=== PATIENT | female | born 1990 | race Caucasian/White ===

== ENCOUNTER 2018-03-09 15:28 | Emergency (ER) | payer MEDICAID, SELFPAY ==
[2018-03-09 15:30] VITALS: BP 125/71; PULSE 115; RESP 16; TEMP 36.9; O2SAT 98; BMI 32.2
--- NOTE | 2018-03-09 15:42 | ED.DCSUM_ITS ---
- ER Visit Summary Date of Service: 03/09/18 Chief Complaint: Sore throat, cold symptoms History of Present Illness: The patient is a 27 F with a 2 day history of sore throat, swollen lymph nodes in her neck. Supportive fever. She denies cough. She has no known exposure to strep. She has 2 children, one of which has a runny nose currently. Physical Examination: Vital signs in triage are significant for heart rate 115, otherwise unremarkable. Patient sitting upright in bed no acute distress. She is nontoxic appearing. Head and neck examination reveals TMs to be clear bilaterally. She does have 2 + tonsils with mild erythema. There is mild posterior pharyngeal drainage. There is no exudate. Uvula is midline. She speaks with a strong voice and is tolerating secretions well. She does have bilateral anterior cervical lymphadenopathy. Heart is regular rate and rhythm. Lung sounds are clear. Abdomen is soft nontender. Skin examination was no rash or lesions. Test Results: [] Emergency Department Course and Treatment: Patient has for the 5 Centor Criteria and will be treated for presumed strep. Should be given first dose of Zithromax here. Treatment Plan: [] Disposition: Discharge Impression: Pharyngitis, presumed strep This note was generated with [employer] dictation software. It may contain incorrect words, spelling, and punctuation that were not noted in review of the chart prior to signing ED Disposition - Plan for ED Patient: Chief Complaint: Sore Throat
--- NOTE | 2018-03-09 15:42 | ED.DEP ---
ED Disposition - Plan for ED Patient: Disposition: Home or Assisted Living Chief Complaint: Sore Throat Instructions: ED Strep Pharyngitis Poss Prescriptions: Azithromycin [Zithromax] 250 mg PO DAILY #4 tablet Referrals: Anjana Mendoza DO [NON-STAFF] - As Needed
[2018-03-09] MEDS: Azithromycin 250 MG Tablet 500 MG PO (15:57)
[2018-03-09 15:59] VITALS: RESP 18; O2SAT 98
== END 2018-03-09 15:59 | disposition home or self-care (01) ==
LOC: ED 15:54
PROVIDERS: Emergency Provider Emergency Medicine
DX: J02.9 Acute pharyngitis, unspecified (principal); R59.0 Localized enlarged lymph nodes
CPT/HCPCS: 99283

== ENCOUNTER 2019-01-23 00:12 | Emergency (ER) | payer MEDICAID, SELFPAY ==
[2019-01-23 00:15] VITALS: BP 112/70; PULSE 98; RESP 18; TEMP 37.3; O2SAT 98; BMI 33.9
--- NOTE | 2019-01-23 00:53 | ED.DCSUM_ITS ---
- ER Visit Summary Date of Service: 01/23/19 Chief Complaint: [] Red skin abscess History of Present Illness: The patient is a 28 F stated that 2 days ago she developed a left forehead sore. It came on after she did a charcoal facemask. It is in her left forehead. She squeezed a mild amount of purulence. Just has a scab over it now. It is mildly sore. Patient stated 3 days ago she noticed a pimple behind her left hamstring. She said some redness. She squeezed some mild purulence out of it. No longer getting any drainage. Denies any IV drug use. Current severity is mild. Physical Examination: [] Vital signs reviewed General: Well-nourished well-developed Head: Normocephalic atraumatic Eyes: Pupils equal round and reactive to light extraocular movements intact ENT: TMs clear no hemotympanum no trauma Neck: Nontender full range of motion Cardiovascular: Regular rate rhythm no murmurs normal S1-S2 Respiratory: No distress clear to auscultation bilaterally chest nontender Abdomen: Soft nontender nondistended normal bowel sounds no masses Back: Nontender no CVA tenderness Extremities: Nontender active range of motion ?4 extremities no trauma Skin: Patient has a 0.5 x 0.5 cm boil to her left forehead. It is hard. It has a central scab. There is no purulence. There is no surrounding cellulitis. Patient has a 3 inch by 3 cellulitis to her posterior hamstring. The center of the patient has some mild induration. There is no abscess to drain. There is no bogginess. It is indurated and hard centrally. Neuro alert oriented cranial nerves II through XII intact normal strength sensation reflexes Test Results: [] Emergency Department Course and Treatment: [] This time I feel the patient warrants Bactrim for suspected MRSA skin infections. She will also be given Keflex for cellulitis. I do not think there is anything to drain at this time. The patient will continue warm compresses. She will be given a short course of pain medicine we will follow-up as an outpatient. She will return if things worsen. Treatment Plan: [] Disposition: [] Impression: [] Left forehead boil Left posterior hamstring cellulitis This note was generated with [employer] software. It may contain incorrect words, spelling, and punctuation that were not noted in review of the chart prior to signing ED Disposition - Plan for ED Patient: Referrals: Care Physician,No Primary [Primary Care Provider] -
--- NOTE | 2019-01-23 00:53 | ED.DEP ---
ED Disposition - Plan for ED Patient: Disposition: Home or Assisted Living Instructions: ED Staph Infec Abx Tx Only Prescriptions: Hydrocodone Bitart/Apap 5-325 [[place] 5MG-325MG] 1 tab PO Q6H PRN PRN 3 Days #10 tab PRN Reason: Pain Cephalexin [Keflex] 500 mg PO Q6 #28 cap Smz/Tmp Ds [Bactrim Ds] 1 tab PO BID #14 tab Mupirocin [Bactroban] 1 applic TOPICAL TID #1 tube Referrals: Care Physician,No Primary [Primary Care Provider] - Tian Hercules DO [NON CLINICAL AFFILIATE] -
--- NOTE | 2019-01-23 00:56 | DCINST.ED_ITS ---
ED Disposition - Plan for ED Patient: Disposition: Home or Assisted Living Instructions: ED Staph Infec Abx Tx Only Prescriptions: Hydrocodone Bitart/Apap 5-325 [[place] 5MG-325MG] 1 tab PO Q6H PRN PRN 3 Days #10 tab PRN Reason: Pain Cephalexin [Keflex] 500 mg PO Q6 #28 cap Smz/Tmp Ds [Bactrim Ds] 1 tab PO BID #14 tab Mupirocin [Bactroban] 1 applic TOPICAL TID #1 tube Referrals: Care Physician,No Primary [Primary Care Provider] - Tian Hercules DO [NON CLINICAL AFFILIATE] -
[2019-01-23] MEDS: Smz/Tmp Ds Tablet 2 TABLET PO (01:04)
[2019-01-23] MEDS: Cephalexin 250 MG Capsule 500 MG PO (01:05)
== END 2019-01-23 01:07 | disposition home or self-care (01) ==
PROVIDERS: Emergency Provider Emergency Medicine
DX: L02.02 Furuncle of face (principal); L03.116 Cellulitis of left lower limb; Z72.0 Tobacco use
CPT/HCPCS: 99283

== ENCOUNTER 2019-01-25 01:09 | Emergency (ER) | payer MEDICAID, SELFPAY ==
[2019-01-25 01:11] VITALS: BP 131/80; PULSE 103; RESP 15; TEMP 36.4; O2SAT 99; BMI 34.4
--- NOTE | 2019-01-25 03:23 | ED.VISSUMM ---
- ER Visit Summary Date of Service: 01/25/19 Chief Complaint: Abscess History of Present Illness: The patient is a 28 F who presents with an abscess. She began to have pain and redness of the left thigh and left forehead 2 days ago. She was seen in the emergency department and started on Keflex and Bactrim. She states symptoms continue to worsen. She also complains of nausea. No fevers. No vomiting. No history of prior similar symptoms. Physical Examination: Afebrile heart rate 103 vitals otherwise normal Moist mucous membranes Heart regular rate and rhythm Lungs clear Patient has an abscess on the left forehead, there is an area of induration with a small eschar over the posterior left thigh and erythema consistent with slowly a cellulitis surrounding this. This is tense and difficult to appreciate fluctuance Test Results: Bedside [id number] ultrasound does show a fluid collection Emergency Department Course and Treatment: After informed consent patient agreed to incision and drainage. Area was cleansed with alcohol. However with attempted injection of 1% lidocaine even with a very small amount roughly 1/2-1 cc of infiltration the patient began to cry and scream and demand that the needle be removed. She is requesting that I put her to sleep for this. Given that the abscesses on the posterior thigh positioning would be difficult. I do not feel this was appropriate to perform procedural sedation as a single provider overnight in the emergency department. We discussed waiting until morning until second provider was here versus outpatient referral to a surgeon. The patient states that she wants a surgeon would rather follow-up with a surgeon. She was referred to Dr. Jones. She understands to return for new or worsening symptoms. She was discharged. Treatment Plan: [] Disposition: Discharge Impression: Left thigh abscess with cellulitis Left forehead abscess This note was generated with [employer] dictation software. It may contain incorrect words, spelling, and punctuation that were not noted in review of the chart prior to signing ED Disposition - Plan for ED Patient: Referrals: Care Physician,No Primary [Primary Care Provider] -
--- NOTE | 2019-01-25 03:29 | ED.DCSUM_ITS ---
- ER Visit Summary Date of Service: 01/25/19 Chief Complaint: Abscess History of Present Illness: The patient is a 28 F who presents with an abscess. She began to have pain and redness of the left thigh and left forehead 2 days ago. She was seen in the emergency department and started on Keflex and Bactri m. She states symptoms continue to worsen. She also complains of nausea. No fevers. No vomiting. No history of prior similar symptoms. Physical Examination: Afebrile heart rate 103 vitals otherwise normal Moist mucous membranes Heart regular rate and rhythm Lungs clear Patient has an abscess on the left forehead, there is an area of induration with a small eschar over the posterior left thigh and erythema consistent with slowly a cellulitis surrounding this. This is tense and difficult to appreciate fluctuance Test Results: Bedside [id number] ultrasound does show a fluid collection Emergency Department Course and Treatment: After informed consent patient agreed to incision and drainage. Area was cleansed with alcohol. However with attempted injection of 1% lidocaine even with a very small amount roughly 1/2-1 cc of infiltration the patient began to cry and scream and demand that the needle be removed. She is requesting that I put her to sleep for this. Given that the abscesses on the posterior thigh positioning would be difficult. I do not feel this was appropriate to perform procedural sedation as a single provider overnight in the emergency department. We discussed waiting until morning until second provider was here versus outpatient referral to a surgeon. The patient states that she wants a surgeon would rather follow-up with a surgeon. She was referred to Dr. Jones. She understands to return for new or worsening symptoms. She was discharged. Treatment Plan: [] Disposition: Discharge Impression: Left thigh abscess with cellulitis Left forehead abscess This note was generated with [employer] dictation software. It may contain incorrect words, spelling, and punctuation that were not noted in review of the chart prior to signing ED Disposition - Plan for ED Patient: Referrals: Care Physician,No Primary [Primary Care Provider] -
--- NOTE | 2019-01-25 03:29 | ED.DEP ---
ED Disposition - Plan for ED Patient: Instructions: ED Staph Infec Abx Tx Only, ED Infec Skin Cellulitis Referrals: Care Physician,No Primary [Primary Care Provider] - Jer Jones MD [STAFF PHYSICIAN] -
== END 2019-01-25 03:34 | disposition home or self-care (01) ==
PROVIDERS: Emergency Provider Emergency Medicine
DX: L02.416 Cutaneous abscess of left lower limb (principal); L02.01 Cutaneous abscess of face; L03.116 Cellulitis of left lower limb; Z72.0 Tobacco use; Z79.2 Long term (current) use of antibiotics
CPT/HCPCS: 10060; 99282

== ENCOUNTER 2019-08-23 09:26 | Inpatient (IN) | payer MEDICAID, SELFPAY ==
[2019-08-23 09:27] VITALS: BP 131/77; PULSE 100; RESP 20; TEMP 37.2; O2SAT 100; BMI 32.2
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
[2019-08-23] MEDS: Ceftriaxone 1 GM/50 ML BAG IV (10:22)
[2019-08-23] MEDS: 0.9% Normal Saline 1,000 ML 1000 ML IV (10:22)
[2019-08-23 10:31] LABS: Absolute Lymphocyte Count 2.05 X10^3/uL (0.83-4.51); Absolute Neutrophil Count 9.7 X10^3/uL (2.0-7.7); Basophil# 0.02 X10^3/uL; Basophil% 0.2 % (0-1); Eosinophil# 0.23 X10^3/uL; Eosinophils% 1.8 % (0-5); Hematocrit 33.6 % (37-47); Hemoglobin 10.9 g/dL (12.0-15.0); Lymphocyte # 2.05 X10^3/ul (4.0); Mean Corp Hgb Conc 32.4 g/dL (32-36); Mean Corpuscular Hgb 28.8 pg (27.0-32.0); Mean Corpuscular Volume 88.9 fL (81-99); Mean Platelet Vol. 9.8 fl (6.2-12.0); Monocyte# 0.72 X10^3/uL; Monocyte% 5.6 % (0-10); NRBC Flagged by Analyzer 0 % (0-5); Neutrophil # 9.71 X10^3/uL (2.7-7.7); Neutrophil % 75.9 % (47-70); Platelet Count 218 K/mm3 (150-450); RBC Distribution Width SD 41.9 fl (35.1-43.9); Red Blood Count 3.78 M/mm3 (4.2-5.4); White Blood Count 12.8 K/mm3 (4.4-11.0)
[2019-08-23] MEDS: Acetaminophen 500 MG Tablet 1000 MG PO (10:35)
--- NOTE | 2019-08-23 10:43 | RAD_ITS ---
STUDY: X-RAY - RIGHT FOOT CLINICAL: Female, 28 years old. Infection and cellulitis. TECHNIQUE: 3 view(s) of the foot. COMPARISON: None. FINDINGS: Normal talus, calcaneus, and tarsal bones. Normal visualized subtalar, talonavicular, calcaneocuboid, tarsal and tarsometatarsal articulations. Normal metatarsi. Normal metatarsophalangeal joint of the great toe. Normal tibial and fibular sesamoid bones. Normal interphalangeal joint of the great toe. Normal phalanges of the great toe. Normal second through fifth metatarsophalangeal joints. Normal interphalangeal joints and phalanges of the lesser toes. There is soft tissue swelling of the distal foot. RAD/Foot min 3 Views IMPRESSION: 1. Soft tissue swelling. 2. No demonstrated acute osseous changes. Electronically Signed: Seng Aguilar MD at 11:28 EDT Tel , Service support ,
[2019-08-23 10:44] LABS: Anion Gap 6 (5-15); BUN 13 mg/dL (7-18); BUN/Creat Ratio 23.7 RATIO (10-20); Calcium,Total 8.3 mg/dL (8.5-10.1); Chloride 107 mmol/L (98-107); Creatinine, Serum 0.55 mg/dL (0.55-1.02); EST Glomerular Filtration Rate 140 mL/min (>60); Est Glom Filt Rate - Afr Amer 169 mL/min (>60); Estimated Creatinine Clearance 109.38 ml/min; Glucose 88 mg/dL (74-106); Potassium 3.3 mmol/L (3.5-5.1); Sodium Level 141 mmol/L (136-145)
[2019-08-23 11:12] VITALS: BP 95/64; PULSE 88; RESP 16; TEMP 36.9; O2SAT 98
[2019-08-23 11:12] LABS: Lactic Acid 1.1 mmol/L (0.4-2.0)
--- NOTE | 2019-08-23 11:53 | NURSING ---
Patient refusing to give urine sample. Dr Martinez notified
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
--- NOTE | 2019-08-23 12:19 | NURSING ---
321 OBS RT LOWER EXT FOOT INFECTION, HX OF IV DRUG ABUSE LINDA
[2019-08-23 12:50] VITALS: BMI 33.3
[2019-08-23 13:07] LABS: Internal QC Validated? YES +Cl - CLEAR BKGD; Pregnancy, Serum, hCG Quali. NEGATIVE Negative
[2019-08-23 13:10] LABS: Uric Acid 2.5 mg/dL (2.6-6.0)
[2019-08-23 13:45] VITALS: BP 110/75; PULSE 80; RESP 18; TEMP 36.6; O2SAT 100
[2019-08-23] MEDS: Cefazolin 1 GM/50 ML BAG IV ×2 (13:59→22:01)
[2019-08-23] MEDS: 0.9% NaCl IVPB Med Flush (250 mL) 15 ML IV (14:00)
[2019-08-23 15:56] LABS: Color, Urine Yellow (Yellow); Glucose, Dipstick Normal (Normal); Ketone-Dipstick Negative (Negative); Leukocyte Esterase-Dipstick Negative /ul (Negative); Nitrite-Dipstick Positive (Negative); Occult Blood-Urine 250 /ul (Negative); Protein-Dipstick 15 mg/dl (Negative); Specific Gravity, Urine 1.015 (1.002-1.030); Urine Bilirubin Dipstick Negative (Negative); Urine Clarity Sl. Cloudy (Clear); Urine Urobilinogen 1 mg/dl (Normal); Urine pH 6.5 (5.0 - 8.0)
[2019-08-23 16:06] LABS: Amphetamine Urine VISTA POSITIVE (<1000 ng/mL); Barbiturate Urine VISTA NEGATIVE (< 200 ng/mL); Benzodiazepine Urine VISTA NEGATIVE (< 200 ng/mL); Cocaine Urine VISTA NEGATIVE (< 300 ng/mL); Ecstacy Urine VISTA POSITIVE (< 500 ng/mL); Methadone Urine VISTA NEGATIVE (< 300 ng/mL); PCP Urine VISTA NEGATIVE (< 25 ng/mL); THC Urine VISTA NEGATIVE (< 50 ng/mL); Vista UDS pH Range 6
[2019-08-23] MEDS: Acetaminophen 325 MG Tablet 650 MG PO ×2 (17:21→23:31)
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
[2019-08-23 22:02] VITALS: BP 104/72; PULSE 88; RESP 16; TEMP 36.9; O2SAT 92
[2019-08-24 04:07] VITALS: BP 122/75; PULSE 89; RESP 16; TEMP 36.9; O2SAT 100
[2019-08-24] MEDS: Ibuprofen 400 MG Tablet PO (04:11)
[2019-08-24] MEDS: Cefazolin 1 GM/50 ML BAG IV ×2 (06:37→13:43)
[2019-08-24] MEDS: 0.9% NaCl Peripheral Flush Adult/Peds IV ×2 (06:37→17:21)
[2019-08-24 08:04] LABS: BUN 9 mg/dL (7-18); Glucose 89 mg/dL (74-106)
[2019-08-24 08:05] LABS: Anion Gap 7 (5-15); BUN/Creat Ratio 19.6 RATIO (10-20); Calcium,Total 8.1 mg/dL (8.5-10.1); Chloride 110 mmol/L (98-107); Creatinine, Serum 0.46 mg/dL (0.55-1.02); EST Glomerular Filtration Rate 172 mL/min (>60); Est Glom Filt Rate - Afr Amer 208 mL/min (>60); Estimated Creatinine Clearance 130.79 ml/min; Potassium 3.7 mmol/L (3.5-5.1); Sodium Level 143 mmol/L (136-145)
[2019-08-24] MEDS: Enoxaparin 40 MG/0.4 ML Syringe SC (08:29)
[2019-08-24 08:34] VITALS: BP 108/62; PULSE 81; RESP 18; TEMP 36.7; O2SAT 99
[2019-08-24 08:50] LABS: Hemoglobin 10.3 g/dL (12.0-15.0); Mean Corp Hgb Conc 32.2 g/dL (32-36); Mean Corpuscular Hgb 27.9 pg (27.0-32.0); Mean Corpuscular Volume 86.7 fL (81-99); RBC Distribution Width CV 12.8 % (11.6-14.6); Red Blood Count 3.69 M/mm3 (4.2-5.4); White Blood Count 9.7 K/mm3 (4.4-11.0)
[2019-08-24 08:51] LABS: Absolute Lymphocyte Count 2.14 X10^3/uL (0.83-4.51); Absolute Neutrophil Count 6.4 X10^3/uL (2.0-7.7); Basophil# 0.02 X10^3/uL; Basophil% 0.2 % (0-1); Eosinophil# 0.39 X10^3/uL; Lymphocyte # 2.14 X10^3/ul (4.0); Lymphocyte % 22.1 % (19-41); Mean Platelet Vol. 10.8 fl (6.2-12.0); Monocyte# 0.67 X10^3/uL; Monocyte% 6.9 % (0-10); Neutrophil % 66.3 % (47-70); Platelet Count 230 K/mm3 (150-450); RBC Distribution Width SD 40.9 fl (35.1-43.9)
[2019-08-24 08:52] LABS: NRBC Flagged by Analyzer 0 % (0-5)
[2019-08-24] MEDS: predniSONE 20 MG Tablet 40 MG PO (11:35)
[2019-08-24 13:45] VITALS: BP 110/69; PULSE 85; RESP 18; TEMP 36.4; O2SAT 100
[2019-08-24] MEDS: Acetaminophen 325 MG Tablet 650 MG PO (13:45)
--- NOTE | 2019-08-24 14:01 | PN_ITS ---
Patient Problems: Active and Suspected Problems Foot infection (Acute) IV drug abuse (Acute) Cellulitis (Acute) Sepsis (Acute) Subjective: Still with swelling in foot, but slightly less after prednisone. Complains of pain in dorsum of foot. Vitals/I&O's: Vital Signs Temp Pulse Resp BP Pulse Ox 36.4 C L 85 18 110/69 100 08/24/19 13:45 08/24/19 13:45 08/24/19 13:45 08/24/19 13:45 08/24/19 13:45 Oxygen Delivery Method Room Air Weight: 77.3 kg Body Mass Index (BMI) 33.3 Intake and Output for Last 24 Hours 08/22/19 08/23/19 08/24/19 23:59 23:59 23:59 Intake Total 2515.5 / 2515.5 810.75 / 810.75 Balance 2515.5 / 2515.5 810.75 / 810.75 General: Alert, No apparent distress HEENT: Atraumatic, Normocephalic Oral: Moist Mucosa, No Gingival or Mucosal Lesions/ Ulcerations Neck: No Nodes, Thyroid Normal Size and Texture Lungs: Clear to auscultation, Normal air movement, No rhonchi, No wheeze Cardiovascular: Regular rate, Regular Rhythm, Normal S1, Normal S2 Abdomen: Bowel Sounds Present, Soft, Non Tender, Non-Distended Extremities: - - decreased edema on dorsum of right foot. pain and swelling of right 1st MTP. Skin: - - decreased erythema of right foot. resolved lymphangitis. Psych/Mental Status: Anxious Laboratory Results 08/23/19 13:00: Urine Color Yellow, Urine Clarity Sl. Cloudy, Urine pH 6.5, Ur Specific [place] 1.015, Urine Protein 15 H, Urine Glucose (UA) Normal, Urine Ketones Negative, Urine Occult Blood 250 H, Urine Nitrite Positive H, Urine Bilirubin Negative, Urine Urobilinogen 1 H, Ur Leukocyte Esterase Negative 08/23/19 13:00: Urine Opiates Screen NEGATIVE, Urine Methadone Screen NEGATIVE, Ur Barbiturates Screen NEGATIVE, Ur Phencyclidine Scrn NEGATIVE, Ur Amphetamines Screen POSITIVE H, U Methamphetamin-MDMA POSITIVE H, U Benzodiazepines Scrn NEGATIVE, Urine Cocaine Screen NEGATIVE, U Cannabinoids Screen NEGATIVE, Ur Drug Screen Comment 08/24/19 05:54: WBC 9.7, RBC 3.69 L, Hgb 10.3 L, Hct 32.0 L, MCV 86.7, MCH 27.9, MCHC 32.2, RDW Std Deviation 40.9, RDW Coeff of Severiano 12.8, Plt Count 230, MPV 10.8, Immature Gran % (Auto) 0.050, Neut % (Auto) 66.3, Lymph % (Auto) 22.1, [place] % (Auto) 6.9, Eos % (Auto) 4.0, Baso % (Auto) 0.2, Absolute Neuts (auto) 6.4, Absolute Lymphs (auto) 2.14, Nucleated RBC % 0 08/24/19 05:54: Sodium 143, Potassium 3.7, Chloride 110 H, Carbon Dioxide 26.0, Anion Gap 7, BUN 9, Creatinine 0.46 L, Estim Creat Clear Calc 130.79, Est GFR (MDRD) Af Amer 208, Est GFR (MDRD) Non-Af 172, BUN/Creatinine Ratio 19.6, Glucose 89, Calcium 8.1 L Current Medications Acetaminophen (Tylenol) 650 mg PO Q6H PRN PRN PRN Reason: Mild Pain (1-3)/Temp > 100.7 F Last Admin: 08/24/19 13:45 Dose: 650 mg Documented by: Dextrose (D50w Syringe) 0 gm IV X1 PRN; Protocol PRN Reason: Hypoglycemia Enoxaparin Sodium (Lovenox) 40 mg SC DAILY@1000 DOMONIQUE Last Admin: 08/24/19 08:29 Dose: 40 mg Documented by: Glucagon () 1 mg IM .X1 PRN PRN Reason: Hypoglycemia Cefazolin Sodium () 1 gm in 50 mls @ 150 mls/hr IV Q8 DOMONIQUE Last Admin: 08/24/19 13:43 Dose: 150 mls/hr Documented by: Sodium Chloride () 250 mls @ 15 mls/hr IV .[id number] PRN PRN Reason: SALINE FLUSH Last Infusion: 08/24/19 13:47 Dose: 0 mls/hr Documented by: Ibuprofen (Motrin) 400 mg PO Q4H PRN PRN PRN Reason: Mild Pain (1-3)/Temp > 100.7 F Last Admin: 08/24/19 04:11 Dose: 400 mg Documented by: Nicotine (Nicoderm Cq (Pbkc)) 21 mg TRANSDERM. DAILY DOMONIQUE Last Admin: 08/24/19 08:30 Dose: 21 mg Documented by: Ondansetron HCl (Zofran) 4 mg IV Q8H PRN PRN PRN Reason: NAUSEA/VOMITING Prednisone () 40 mg PO DAILY@0800 DOMONIQUE Stop: 08/29/19 08:01 Sodium Chloride () 5 - 15 ml IV UD PRN PRN Reason: SALINE FLUSH Last Admin: 08/24/19 06:37 Dose: 10 ml Documented by: Medical Necessity - Tobacco Use Smoking Status: Current every day smoker Tobacco Use: Cigarettes Assessment/Plan All Active Problems Foot infection (Acute) IV drug abuse (Acute) Cellulitis (Acute) Sepsis (Acute) 1. Sepsis: * POA, 2/2 SIRS criteria met * supportive mgmt * possibly due to cellulitis v acute gout flare * clinically resolved 2. RLE cellulitis v acute gout flare * cefazolin (rec'd ctx and vanc in ED) * erythema resolved, however, still with swelling on dorsum on foot (though decreased) and now with increased right 1st MTP swelling and pain more suggestive of an acute gout flare. * uric acid level 2.5, which is normal, but does not rule out an acute gout flare * patient did have improvement with prednisone and colchicine. * Plan is to stop antibiotics, watch patient overnight, if improved, then to discharge with prednisone 40 burst. If worse, then resume abx (cefazolin), consider arthrocentesis. * I am reluctant to discharge the patient today as she has no PCP, I would like to see her much more improved prior to DC. 3. VTE proph: moderate risk, LMWH. Code Visit OBSV E&M: [id number] Subsequent observation care L2
[2019-08-24] MEDS: Ketorolac 15 MG/ML Vial IV (17:21)
[2019-08-24 20:24] VITALS: BP 121/76; PULSE 82; RESP 18; TEMP 36.8; O2SAT 100
[2019-08-24 22:04] LABS: Absolute Lymphocyte Count 0.86 X10^3/uL (0.83-4.51); Absolute Neutrophil Count 9.2 X10^3/uL (2.0-7.7); Basophil# 0.01 X10^3/uL; Basophil% 0.1 % (0-1); Eosinophil# 0.01 X10^3/uL; Eosinophils% 0.1 % (0-5); Hematocrit 34.1 % (37-47); Hemoglobin 10.9 g/dL (12.0-15.0); Lymphocyte # 0.86 X10^3/ul (4.0); Lymphocyte % 8.3 % (19-41); Mean Corpuscular Hgb 28.1 pg (27.0-32.0); Mean Corpuscular Volume 87.9 fL (81-99); Monocyte# 0.25 X10^3/uL; Monocyte% 2.4 % (0-10); NRBC Flagged by Analyzer 0 % (0-5); Neutrophil # 9.23 X10^3/uL (2.7-7.7); Neutrophil % 88.5 % (47-70); Platelet Count 267 K/mm3 (150-450); RBC Distribution Width CV 12.4 % (11.6-14.6); RBC Distribution Width SD 39.8 fl (35.1-43.9); Red Blood Count 3.88 M/mm3 (4.2-5.4); White Blood Count 10.4 K/mm3 (4.4-11.0)
[2019-08-25] MEDS: Acetaminophen 325 MG Tablet 650 MG PO (00:05)
[2019-08-25] MEDS: 0.9% NaCl Peripheral Flush Adult/Peds IV ×6 (00:06→23:00)
[2019-08-25] MEDS: Ketorolac 15 MG/ML Vial IV ×5 (00:07→22:59)
[2019-08-25 02:51] VITALS: BP 122/79; PULSE 75; RESP 18; TEMP 36.6; O2SAT 100
--- NOTE | 2019-08-25 08:05 | PCM.PN.HOSP ---
Patient Problems: Active and Suspected Problems Foot infection (Acute) IV drug abuse (Acute) Cellulitis (Acute) Sepsis (Acute) Subjective: CC: Follow-up right foot cellulitis Patient is a 28-year-old lady with history of IVDA presented with swelling involving the right foot diagnosis of right lower extremity cellulitis made admitted to a regular nursing for further management. There was also a question of whether patient had gout was started on colchicine in addition to steroids. Objective: GENERAL: cooperative HEENT: Atraumatic; moist oral mucosa EYES; Anicteric, Normal Conjunctiva NECK; supple, normal thyroid, RESPIRATORY: Diminished to auscultation CARDIOVASCULAR: Regular S1 S2, GI: soft, non-tender, normoactive bowel sounds, : No Renal angle tenderness; EXTREMITIES: Swelling and erythema involving the dorsal surface of the right foot MUSCULOSKELETAL: Movement in right MTP restricted NEURO: Awake; no lateralizing signs. SKIN: Described above PSYCH; Normal affect Vitals/I&O's: Vital Signs Temp Pulse Resp BP Pulse Ox 98 F 75 18 122/79 H 100 08/25/19 02:51 08/25/19 02:51 08/25/19 02:51 08/25/19 02:51 08/25/19 02:51 Oxygen Delivery Method Room Air Weight: 77.3 kg Body Mass Index (BMI) 33.3 Intake and Output for Last 24 Hours 08/23/19 08/24/19 08/25/19 23:59 23:59 23:59 Intake Total 2515.5 / 2515.5 1359.50 / 2096.50 974 / 974 Balance 2515.5 / 2515.5 1359.50 / 2096.50 974 / 974 Laboratory Results 08/24/19 05:54: WBC 9.7, RBC 3.69 L, Hgb 10.3 L, Hct 32.0 L, MCV 86.7, MCH 27.9, MCHC 32.2, RDW Std Deviation 40.9, RDW Coeff of Severiano 12.8, Plt Count 230, MPV 10.8, Immature Gran % (Auto) 0.050, Neut % (Auto) 66.3, Lymph % (Auto) 22.1, [place] % (Auto) 6.9, Eos % (Auto) 4.0, Baso % (Auto) 0.2, Absolute Neuts (auto) 6.4, Absolute Lymphs (auto) 2.14, Nucleated RBC % 0 08/24/19 05:54: Sodium 143, Potassium 3.7, Chloride 110 H, Carbon Dioxide 26.0, Anion Gap 7, BUN 9, Creatinine 0.46 L, Estim Creat Clear Calc 130.79, Est GFR (MDRD) Af Amer 208, Est GFR (MDRD) Non-Af 172, BUN/Creatinine Ratio 19.6, Glucose 89, Calcium 8.1 L 08/24/19 22:00: WBC 10.4, RBC 3.88 L, Hgb 10.9 L, Hct 34.1 L, MCV 87.9, MCH 28.1, MCHC 32.0, RDW Std Deviation 39.8, RDW Coeff of Severiano 12.4, Plt Count 267, MPV 10.0, Immature Gran % (Auto) 0.600, Neut % (Auto) 88.5 H, Lymph % (Auto) 8.3 L, [place] % (Auto) 2.4, Eos % (Auto) 0.1, Baso % (Auto) 0.1, Absolute Neuts (auto) 9.2 H, Absolute Lymphs (auto) 0.86, Nucleated RBC % 0 Current Medications Acetaminophen (Tylenol) 650 mg PO Q6H PRN PRN PRN Reason: Mild Pain (1-3)/Temp > 100.7 F Last Admin: 08/25/19 00:05 Dose: 650 mg Documented by: Colchicine (Colchicine) 0.6 mg PO BID [facility] Dextrose (D50w Syringe) 0 gm IV X1 PRN; Protocol PRN Reason: Hypoglycemia Enoxaparin Sodium (Lovenox) 40 mg SC DAILY@1000 DOMONIQUE Last Admin: 08/24/19 08:29 Dose: 40 mg Documented by: Glucagon () 1 mg IM .X1 PRN PRN Reason: Hypoglycemia Sodium Chloride () 250 mls @ 15 mls/hr IV .[id number] PRN PRN Reason: SALINE FLUSH Last Infusion: 08/24/19 15:48 Dose: Infused Documented by: Cefazolin Sodium () 1 gm in 50 mls @ 100 mls/hr IV Q8 [facility] Vancomycin HCl 1,500 mg/ (Dextrose) 530 mls @ 250 mls/hr IV X1 THEN RX TO DOSE ONE Stop: 08/25/19 10:08 Ketorolac Tromethamine (Toradol) 15 mg IV Q6 [facility] Stop: 08/29/19 15:32 Last Admin: 08/25/19 06:00 Dose: 15 mg Documented by: Nicotine (Nicoderm Cq (Pbkc)) 21 mg TRANSDERM. DAILY [facility] Last Admin: 08/24/19 08:30 Dose: 21 mg Documented by: Ondansetron HCl (Zofran) 4 mg IV Q8H PRN PRN PRN Reason: NAUSEA/VOMITING Prednisone () 40 mg PO DAILY@0800 [facility] Stop: 08/29/19 08:01 Sodium Chloride () 5 - 15 ml IV UD PRN PRN Reason: SALINE FLUSH Last Admin: 08/25/19 06:00 Dose: 10 ml Documented by: Medical Necessity - Tobacco Use Smoking Status: Current every day smoker Tobacco Use: Cigarettes Assessment/Plan All Active Problems Foot infection (Acute) IV drug abuse (Acute) Cellulitis (Acute) Sepsis (Acute) Patient is a 28-year-old lady with history of IVDA presented with swelling involving the right foot diagnosis of right lower extremity cellulitis made admitted to a regular nursing for further management. There was also a question of whether patient had gout was started on colchicine in addition to steroids. 1. Sepsis (present on admission secondary to right foot cellulitis) ~Management as discussed below 2. Right foot cellulitis in the patient with IVDA. ~Patient was started on cefazolin as well as vancomycin. Continued patient's progress has rather been slow. Consult subsequently placed ID 3. Suspected gout ~patient was placed on prednisone as well as colchicine however given the extent of erythema and swelling doubt if this is a gout flare 4. History of IVDA ~ Urine tox screen was positive for meth counseled on cessation 5. Tobacco dependence ~counseled on cessation, offered nicotine patch for tobacco cravings 6. DVT prophylaxis ~Lovenox Clinical Impression(s) from Imaging Studies Foot X-Ray 08/23/19 10:43 IMPRESSION: 1. Soft tissue swelling. 2. No demonstrated acute osseous changes. Electronically Signed: Seng Aguilar MD at 11:28 EDT Tel , Service support , Code Visit Inpatient E&M: [id number] Subs Hosp L2
--- NOTE | 2019-08-25 08:48 | PCM.RX.CS ---
Consult Pharmacy has been consulted to manage selected antiobiotic: Vancomycin Type of Consult: New start Suspected Infection: Skin/Soft tissue Prior Doses of Antibiotics Received/Current Regimen: Received 1250mg iv x 1 in ER on 08.23.19 @1105 Labs: Sodium 143 mmol/L (136-145) 08/24/19 05:54 Potassium 3.7 mmol/L (3.5-5.1) 08/24/19 05:54 Chloride 110 mmol/L (98-107) H 08/24/19 05:54 Carbon Dioxide 26.0 mmol/L (21.0-32.0) 08/24/19 05:54 Anion Gap 7 (5-15) 08/24/19 05:54 BUN 9 mg/dL (7-18) 08/24/19 05:54 Creatinine 0.46 mg/dL (0.55-1.02) L 08/24/19 05:54 Est GFR (MDRD) Af Amer 208 mL/min (>60) 08/24/19 05:54 Est GFR (MDRD) Non-Af 172 mL/min (>60) 08/24/19 05:54 BUN/Creatinine Ratio 19.6 RATIO (10-20) 08/24/19 05:54 Glucose 89 mg/dL (74-106) 08/24/19 05:54 Weight used for dosin.3 kg Estimated Creatinine Clearance: ~131ml/min Goal Trough: 10-15 mcg/mL Pharmacy Plan for Drug Dosing: Will begin 1250mg iv q12h. Trough level ordered for 08.26.19 before 4th dose. Pharmacy Service will continue to monitor and adjust dosing as required. Follow-Up Labs: Trough Vancomycin - 10.8.19 @2130 before 2200 dose
[2019-08-25 08:52] VITALS: BP 127/67; PULSE 77; RESP 16; TEMP 37; O2SAT 96
[2019-08-25] MEDS: predniSONE 20 MG Tablet 40 MG PO (09:16)
[2019-08-25] MEDS: Enoxaparin 40 MG/0.4 ML Syringe SC (09:16)
[2019-08-25] MEDS: Cefazolin 1 GM/50 ML BAG IV ×3 (09:17→21:25)
--- NOTE | 2019-08-25 14:40 | CASEMGMT ---
SW went to patient's room to talk with her about substance abuse. Patient was sleeping, but did wake up when SW called her name 2 times. JUNO introduced self and role at [facility]. SW asked her if she is still using. She said she still smokes weed. She said she has cut back on other stuff. SW asked if she would like resources to help her get clean and stay clean. She said she doesn't need anything. She said she is trying to get clean with the help of her family. JUNO wished her the best of luck. Bianca DIAZ MSW
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
[2019-08-25 14:58] VITALS: BP 125/74; PULSE 89; RESP 16; TEMP 36.7; O2SAT 100
[2019-08-25 21:20] VITALS: BP 112/69; PULSE 87; RESP 16; TEMP 36.6; O2SAT 99
[2019-08-26] VITALS (9 sets, daily range): BP systolic 103–128; BP diastolic 61–88; PULSE 71–90; RESP 16–18; TEMP 36.2–37.2; O2SAT 95–100
[2019-08-26] MEDS: 0.9% NaCl Peripheral Flush Adult/Peds IV (05:20)
[2019-08-26] MEDS: Cefazolin 1 GM/50 ML BAG IV ×3 (05:20→20:32)
[2019-08-26] MEDS: Ketorolac 15 MG/ML Vial IV ×4 (05:20→23:22)
[2019-08-26 07:07] LABS: Absolute Neutrophil Count 8.6 X10^3/uL (2.0-7.7); Basophil# 0.03 X10^3/uL; Basophil% 0.2 % (0-1); Eosinophil# 0.13 X10^3/uL; Hematocrit 33.8 % (37-47); Hemoglobin 10.9 g/dL (12.0-15.0); Lymphocyte % 24.7 % (19-41); Mean Corp Hgb Conc 32.2 g/dL (32-36); Mean Corpuscular Hgb 28.3 pg (27.0-32.0); Mean Corpuscular Volume 87.8 fL (81-99); Mean Platelet Vol. 9.4 fl (6.2-12.0); Monocyte# 0.58 X10^3/uL; Monocyte% 4.6 % (0-10); NRBC Flagged by Analyzer 0 % (0-5); Neutrophil # 8.63 X10^3/uL (2.7-7.7); Neutrophil % 68.7 % (47-70); Platelet Count 300 K/mm3 (150-450); RBC Distribution Width CV 12.3 % (11.6-14.6); RBC Distribution Width SD 39.6 fl (35.1-43.9); Red Blood Count 3.85 M/mm3 (4.2-5.4); White Blood Count 12.6 K/mm3 (4.4-11.0)
[2019-08-26 07:17] LABS: Anion Gap 1 (5-15); BUN 15 mg/dL (7-18); BUN/Creat Ratio 24.3 RATIO (10-20); Calcium,Total 8.3 mg/dL (8.5-10.1); Chloride 110 mmol/L (98-107); Creatinine, Serum 0.62 mg/dL (0.55-1.02); EST Glomerular Filtration Rate 122 mL/min (>60); Est Glom Filt Rate - Afr Amer 147 mL/min (>60); Estimated Creatinine Clearance 97.03 ml/min; Glucose 92 mg/dL (74-106); Potassium 4.2 mmol/L (3.5-5.1); Sodium Level 141 mmol/L (136-145)
--- NOTE | 2019-08-26 07:55 | PN_ITS ---
Patient Problems: Active and Suspected Problems Foot infection (Acute) IV drug abuse (Acute) Cellulitis (Acute) Sepsis (Acute) Subjective: CC follow-up right foot cellulitis Patient seen scheduled to undergo MRI evaluation. The flatulence on her dorsal surface of the right foot more pronounced. Consult was placed to podiatry for possible I&D. She was also seen in consultation by Dr. Bermudez the day prior to his notes and recommendations reviewed Objective: GENERAL: cooperative HEENT: Atraumatic; moist oral mucosa EYES; Anicteric, Normal Conjunctiva NECK; supple, normal thyroid, RESPIRATORY: Diminished to auscultation CARDIOVASCULAR: Regular S1 S2, GI: soft, non-tender, normoactive bowel sounds, : No Renal angle tenderness; EXTREMITIES: Area of flocculence on the dorsal surface of the right foot MUSCULOSKELETAL: Movement in right MTP restricted NEURO: Awake; no lateralizing signs. SKIN: Described above PSYCH; Normal affect Vitals/I&O's: Vital Signs Temp Pulse Resp BP Pulse Ox 97.5 F L 82 16 118/78 99 08/26/19 05:26 08/26/19 05:26 08/26/19 05:26 08/26/19 05:26 08/26/19 05:26 Oxygen Delivery Method Room Air Weight: 77.3 kg Body Mass Index (BMI) 33.3 Intake and Output for Last 24 Hours 08/24/19 08/25/19 08/26/19 23:59 23:59 23:59 Intake Total 1359.50 / 2096.50 1799 / 1799 250 / 250 Balance 1359.50 / 2096.50 1799 / 1799 250 / 250 Laboratory Results 08/26/19 06:50: WBC 12.6 H, RBC 3.85 L, Hgb 10.9 L, Hct 33.8 L, MCV 87.8, MCH 28.3, MCHC 32.2, RDW Std Deviation 39.6, RDW Coeff of Severiano 12.3, Plt Count 300, MPV 9.4, Immature Gran % (Auto) 0.800, Neut % (Auto) 68.7, Lymph % (Auto) 24.7, [place] % (Auto) 4.6, Eos % (Auto) 1.0, Baso % (Auto) 0.2, Absolute Neuts (auto) 8.6 H, Absolute Lymphs (auto) 3.10, Nucleated RBC % 0 08/26/19 06:50: Sodium 141, Potassium 4.2, Chloride 110 H, Carbon Dioxide 30.0, Anion Gap 1 L, BUN 15, Creatinine 0.62, Estim Creat Clear Calc 97.03, Est GFR (MDRD) Af Amer 147, Est GFR (MDRD) Non-Af 122, BUN/Creatinine Ratio 24.3 H, Glucose 92, Calcium 8.3 L, Magnesium 2.0 08/26/19 06:50: Hep B Core Total Ab Pending, HCV RNA Quant (PCR) Pending 08/26/19 06:50: Hep Bs Antigen Pending, HIV 1&2 Antibody Pending Current Medications Acetaminophen (Tylenol) 650 mg PO Q6H PRN PRN PRN Reason: Mild Pain (1-3)/Temp > 100.7 F Last Admin: 08/25/19 00:05 Dose: 650 mg Documented by: Colchicine (Colchicine) 0.6 mg PO BIDCM [facility] Last Admin: 08/25/19 17:12 Dose: 0.6 mg Documented by: Dextrose (D50w Syringe) 0 gm IV X1 PRN; Protocol PRN Reason: Hypoglycemia Enoxaparin Sodium (Lovenox) 40 mg SC DAILY@1000 DOMONIQUE Last Admin: 08/25/19 09:16 Dose: 40 mg Documented by: Glucagon () 1 mg IM .X1 PRN PRN Reason: Hypoglycemia Sodium Chloride () 250 mls @ 15 mls/hr IV .[id number] PRN PRN Reason: SALINE FLUSH Last Infusion: 08/24/19 15:48 Dose: Infused Documented by: Cefazolin Sodium () 1 gm in 50 mls @ 100 mls/hr IV Q8 [facility] Last Infusion: 08/26/19 06:00 Dose: Infused Documented by: Ketorolac Tromethamine (Toradol) 15 mg IV Q6 [facility] Stop: 08/29/19 15:32 Last Admin: 08/26/19 05:20 Dose: 15 mg Documented by: Nicotine (Nicoderm Cq (Pbkc)) 21 mg TRANSDERM. DAILY [facility] Last Admin: 08/25/19 09:16 Dose: 21 mg Documented by: Ondansetron HCl (Zofran) 4 mg IV Q8H PRN PRN PRN Reason: NAUSEA/VOMITING Prednisone () 40 mg PO DAILY@0800 [facility] Stop: 08/29/19 08:01 Last Admin: 08/25/19 09:16 Dose: 40 mg Documented by: Sodium Chloride () 5 - 15 ml IV UD PRN PRN Reason: SALINE FLUSH Last Admin: 08/26/19 05:20 Dose: 10 ml Documented by: Medical Necessity - Tobacco Use Smoking Status: Current every day smoker Tobacco Use: Cigarettes Assessment/Plan All Active Problems Foot infection (Acute) IV drug abuse (Acute) Cellulitis (Acute) Sepsis (Acute) Patient is a 28-year-old lady with history of IVDA presented with swelling involving the right foot diagnosis of right lower extremity cellulitis made admitted to a regular nursing for further management. There was also a question of whether patient had gout was started on colchicine in addition to steroids. 1. Sepsis (present on admission secondary to right foot cellulitis) ~Management as discussed below 2. Right foot cellulitis in the patient with IVDA. ~Patient was started on cefazolin as well as vancomycin. Continued patient's progress has rather been slow. Consult subsequently placed ID ?08/26/2019:Patient seen scheduled to undergo MRI evaluation. The flatulence on her dorsal surface of the right foot more pronounced. Consult was placed to podiatry for possible I&D. She was also seen in consultation by Dr. Bermudez the day prior to his notes and recommendations reviewed 3. Gout ruled out steroids and colchicine discontinued 4. History of IVDA ~ Urine tox screen was positive for meth counseled on cessation 5. Tobacco dependence ~counseled on cessation, offered nicotine patch for tobacco cravings 6. DVT prophylaxis ~Lovenox Code Visit OBSV E&M: [id number] Subsequent observation care L3
[2019-08-26] MEDS: Enoxaparin 40 MG/0.4 ML Syringe SC (08:15)
--- NOTE | 2019-08-26 09:15 | MRI_ITS ---
STUDY: MRI RIGHT FOREFOOT WITHOUT CONTRAST REASON FOR EXAM: Swelling and redness at the dorsal aspect of the foot, cellulitis, IV drug use. TECHNIQUE: Standardized fat and water weighted pulse sequences were obtained in all 3 orthogonal planes. COMPARISON: Radiographs 08/23/2019. FINDINGS: Normal metatarsophalangeal joint of the hallux. Normal tibial and fibular sesamoids, with normal sesamoids-first metatarsal articulations. Normal interphalangeal joint of the hallux. Normal proximal and visualized distal phalanges of the great toe. Normal medial and lateral heads of the flexor hallucis brevis tendons. Normal flexor and extensor hallucis longus tendons. Normal second through fifth metatarsophalangeal (MTP) joints. Normal interphalangeal joints of the second through fifth toes. Normal proximal, middle and visualized distal phalanges of the second through fifth toes. Normal first through fourth intermetatarsal spaces. Normal flexor and extensor tendons of the second through fifth toes. Normal visualized metatarsals. Normal intrinsic muscles of the forefoot. There is edema in the dorsal subcutis adipose space and a fluid collection dorsal to the first, second and third metatarsals (inversion recovery sagittal images 13-23) measuring 1.0 x 4.4 x 4.0 cm (AP x transverse x length) suggestive of abscess. MRI/Lower Ext/No Jt/w/o IMPRESSION: Fluid collection in the dorsal subcutis adipose space suggestive of abscess. Edema in the dorsal subcutis adipose space. No demonstrated osteomyelitis. Electronically Signed: Caleb Verdin MD at 13:08 EDT Tel , Service support ,
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
--- NOTE | 2019-08-26 10:17 | PCM.RX.CS ---
Consult Pharmacy has been consulted to manage selected antiobiotic: Vancomycin Type of Consult: New start Suspected Infection: Skin/Soft tissue Prior Doses of Antibiotics Received/Current Regimen: Vancomycin IV 1250mg 08/25/19 @ 1027 Labs: Sodium 141 mmol/L (136-145) 08/26/19 06:50 Potassium 4.2 mmol/L (3.5-5.1) 08/26/19 06:50 Chloride 110 mmol/L (98-107) H 08/26/19 06:50 Carbon Dioxide 30.0 mmol/L (21.0-32.0) 08/26/19 06:50 Anion Gap 1 (5-15) L 08/26/19 06:50 BUN 15 mg/dL (7-18) 08/26/19 06:50 Creatinine 0.62 mg/dL (0.55-1.02) 08/26/19 06:50 Est GFR (MDRD) Af Amer 147 mL/min (>60) 08/26/19 06:50 Est GFR (MDRD) Non-Af 122 mL/min (>60) 08/26/19 06:50 BUN/Creatinine Ratio 24.3 RATIO (10-20) H 08/26/19 06:50 Glucose 92 mg/dL (74-106) 08/26/19 06:50 Weight used for dosin.3 kg Estimated Creatinine Clearance: 97 mL/min Goal Trough: 15-20 mcg/mL Pharmacy Plan for Drug Dosin. Patient received 1 dose of vancomycin yesterday (08/25/19) and a 1250mg dose on 08/23/19 2. Since 24 hours have lapsed since last dose will redose vancomycin based on CrCl 97 and ABW 77.3kg 3. Will start vancomycin IV 1500mg Q12H starting at 1100 today 4. Trough ordered before the 4th dose 08/27/19 @ 6930 Pharmacy Service will continue to monitor and adjust dosing as required. Labs to be done on [date and time ordered]: 08/27/19 @ 3226
--- NOTE | 2019-08-26 10:20 | PCM.CONS.GEN ---
Problem List (1) Abscess of right foot Status: Acute (2) Pain in right foot Status: Acute (3) Cellulitis of right foot Status: Acute Reason for Consult Date of Consultation: 08/26/19 Reason for Consultation: suspected right foot abscess History of Present Illness: The patient is a 28 year old F with hep c and history of IV drug abuse was consulted to podiatry for suspected abscess of right foot. Patient states that she noticed the area starting as maybe a small blister around of last week. She says before the hospital, she tried to soak the foot in epsom salt and used neosporin to the area. She says the area continued to swell and noticed some redness extending from foot and to lower leg with increasing pain and was admitted through the ER on Sunday. She has been on antibiotics and the surrounding cellulitis/erythema as well as her pain has continued to improve each day. Now there is only localized erythema/cellulitis to area of distal dorsal right foot. She continues to relate tenderness to the area especially overlying area of what appears to be suspected abscess of foot. Patient is noted to be abuser of IV drugs, but says she has not injected the foot. Currently she is resting in bed. She denies any feelings of nausea, vomiting, fever, or chills. 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 bld Smoking Status: Current every day smoker Tobacco Use: Cigarettes Alcohol: None Drugs: Marijuana, - - former methamphetamine user - *Family History Paternal History Items: DVT Review of Systems Constitutional: Denies: Chills, Fever, Weight Change HEENT: Denies: Head Aches, Sinus Congestion, Sinus Drainage Cardiovascular: Denies: Chest Pain, Palpitations Respiratory: Denies: Cough, Shortness of breath at rest, Sputum production Gastrointestinal: Denies: Nausea, Vomiting Genitourinary: Denies: Dysuria Musculoskeletal: Reports: Foot Pain Patient Problems: Active and Suspected Problems Foot infection (Acute) IV drug abuse (Acute) Cellulitis (Acute) Sepsis (Acute) Abscess of right foot (Acute) Pain in right foot (Acute) Cellulitis of right foot (Acute) - Physical Exam General: Alert, Oriented x3, Cooperative Extremities: No cyanosis, Capillary Refill Less than 3 Seconds - To all distal digits of each foot, No Calf Tenderness - Negative Jesus and Nevarez sign bilateral, Edema - To distal right foot, Peripheral Pulses Normal Skin: - - Small area of what appears to be underlying abscess to the right dorsal foot with some surrounding erythema/cellulitis localized around suspected abscess area. No streking or extending cellulitis noted. No open ulcer or wound noted to the area. No drainage able to be expressed with manipulation of area bedside. Musculoskeletal: Tenderness - With manipulation of the distal right foot Neurological: Sensory exam intact to light touch and pain Psych/Mental Status: Normal Affect, Appropriate Vital Signs Temp Pulse Resp BP Pulse Ox 97.7 F L 71 18 122/83 H 100 08/26/19 08:13 08/26/19 08:13 08/26/19 08:13 08/26/19 08:13 08/26/19 08:13 Oxygen Delivery Method Room Air Weight: 77.3 kg Body Mass Index (BMI) 33.3 Intake and Output for Last 24 Hours 08/24/19 08/25/19 08/26/19 23:59 23:59 23:59 Intake Total 1359.50 / 2096.50 1799 / 1799 250 / 250 Balance 1359.50 / 2096.50 1799 / 1799 250 / 250 Laboratory Tests Past 24 Hrs 08/26/19 08/26/19 08/26/19 06:50 06:50 06:50 WBC 12.6 H RBC 3.85 L Hgb 10.9 L Hct 33.8 L MCV 87.8 MCH 28.3 MCHC 32.2 RDW Std Deviation 39.6 RDW Coeff of Severiano 12.3 Plt Count 300 MPV 9.4 Immature Gran % (Auto) 0.800 Neut % (Auto) 68.7 Lymph % (Auto) 24.7 [place] % (Auto) 4.6 Eos % (Auto) 1.0 Baso % (Auto) 0.2 Absolute Neuts (auto) 8.6 H Absolute Lymphs (auto) 3.10 Nucleated RBC % 0 Sodium 141 Potassium 4.2 Chloride 110 H Carbon Dioxide 30.0 Anion Gap 1 L BUN 15 Creatinine 0.62 Estim Creat Clear Calc 97.03 Est GFR (MDRD) Af Amer 147 Est GFR (MDRD) Non-Af 122 BUN/Creatinine Ratio 24.3 H Glucose 92 Calcium 8.3 L Magnesium 2.0 Hep Bs Antigen Hep B Core Total Ab Pending HCV RNA Quant (PCR) Pending HIV 1&2 Antibody 08/26/19 06:50 WBC RBC Hgb Hct MCV MCH MCHC RDW Std Deviation RDW Coeff of Severiano Plt Count MPV Immature Gran % (Auto) Neut % (Auto) Lymph % (Auto) [place] % (Auto) Eos % (Auto) Baso % (Auto) Absolute Neuts (auto) Absolute Lymphs (auto) Nucleated RBC % Sodium Potassium Chloride Carbon Dioxide Anion Gap BUN Creatinine Estim Creat Clear Calc Est GFR (MDRD) Af Amer Est GFR (MDRD) Non-Af BUN/Creatinine Ratio Glucose Calcium Magnesium Hep Bs Antigen Pending Hep B Core Total Ab HCV RNA Quant (PCR) HIV 1&2 Antibody Pending Assessment/Plan All Active Problems Foot infection (Acute) IV drug abuse (Acute) Cellulitis (Acute) Sepsis (Acute) Abscess of right foot (Acute) Pain in right foot (Acute) Cellulitis of right foot (Acute) Suspected abscess right foot Cellulitis/erythema right foot Pain right foot History of IVDA This patient was carefully examined and evaluated in detail today resting in bed. This patient was consulted to podiatry for suspected possible abscess to the dorsal aspect of the right foot. This patient has a known IV drug abuser, but says that she did not shoot up in her right foot. Patient had previous toxicology performed that showed positive amphetamine use. This patient was admitted to the hospital through the emergency room on Sunday and has noticed continued improvement of redness and swelling and pain. Area of localized erythema/cellulitis as well as pain to the area of the distal right foot and area of suspected abscess. WBCs 12.6 today. Vital signs are currently stable. The x-rays were read by radiologist as showing soft tissue swelling with no demonstrated acute osseous changes. Patient is scheduled for an MRI in the next couple of hours to get a further evaluation of the area. I discussed the case as well as her possible treatment options with the patient in detail. We discussed possible bedside incision and drainage, but she says she is unsure if she is able to tolerate this and would like a second to think about this. Since she currently does not want to go forward with a bedside incision and drainage, I informed this patient that we will see what the MRI results show and can further evaluate and discuss her treatment options at that time. We discussed both bedside incision and drainage versus operating room incision and drainage of this area. She understands all of the risks and possible benefits of having a procedure performed such as this. We discussed the possible procedures in detail and to her understanding. All of her questions were answered to her satisfaction. She is to keep the right foot elevated and offloaded as much as possible. If she has to be up and move a short distance she is to do this with heel weightbearing. Podiatry will continue to follow this patient closely while in house.
[2019-08-26 10:36] LABS: HIV - WCH Non-Reactive (Nonreactive); Hepatitis B Surface Antigen Non-Reactive (Nonreactive)
--- NOTE | 2019-08-26 15:00 | NURSING ---
Call Plced to AC report given to nurse whom will be taking over care for this patient
[2019-08-26] MEDS: Lactated Ringers 1,000 ML 100 ML IV (15:17)
[2019-08-26] MEDS: Bupivacaine Mpf 0.5% 30 ML VIAL (16:20)
--- NOTE | 2019-08-26 17:16 | OP.PCM_ITS ---
Problem List (1) Abscess of right foot Status: Acute (2) Pain in right foot Status: Acute (3) Cellulitis of right foot Status: Acute Report of Operation Date of Procedure: 08/26/19 Pre-Operative Diagnosis: Abscess and cellulitis of right foot Post-Operative Diagnosis: Same Surgery/Procedure Performed:: Incision and drainage of abscess of right foot Description of Surgical Findings:: Hemostasis: Well-padded ankle tourniquet Type of Anesthesia:: Local MAC - Preoperative block consisting of 18 mL of 0.5% Marcaine plain in a right ankle block fashion Specimen's removed: Abscess of right foot with deep wound swab cultures sent for aerobic and anaerobic and MRSA PCR evaluation Estimated Blood Loss (mL): <5 mL Description of Procedure: Indications: This patient was originally admitted to the hospital on Sunday, August 23. The patient is a 28-year-old female with hep C and a history of IV drug abuse and was consulted to podiatry earlier today for suspected abscess of the right foot. Patient states that she noticed the area starting as may be a small blister around of last week. She says before the hospital, she tried to soak the foot in Epsom salt and use Neosporin to this area. She says the area continued to swell and noticed some redness extending from the foot and the lower leg with increasing pain and was admitted through the ER on Sunday. She has been on antibiotics and the surrounding cellulitis/erythema as well as her pain has continued to improve each day. Now there is only a localized erythema/cellulitis to area of distal dorsal right foot. She continues to relate tenderness to the area especially overlying the area of what appears to be suspected abscess of foot. Patient is noted to be an abuser of IV drugs, but says she is not injected her foot. I am not convinced of this however. Patient had previous toxicology performed on the day that she was admitted that showed positive amphetamine use. WBC is 12.6 today. Vital signs are currently stable. The x-rays were read by radiologist as showing soft tissue swelling with no demonstrated acute osseous changes. MRI that was performed today showed fluid collection in the dorsal subcutis adipose space suggestive of an abscess. There were no demonstrated signs of osteomyelitis. Patient is currently on vancomycin and ceftezole and per infectious disease. At this time we discussed all of the patient's surgical options including incision and drainage of this area which the patient is amenable to. At this time, the planned surgical procedure was discussed in great detail with the patient. This was done to the patient's satisfaction. The patient agrees to proceed with the planned procedure and operation at this time. All the risks and potential complications were reviewed to the patient. She relates an understanding and importance of proper compliance following this procedure to help optimize the potential of healing, but no guarantees were given. She is advised that the complications and risks include, but are not limited to, further infection, need for further surgeries, recurrence of ulcers, transfer lesions, increased deformity of the feet and toes, weakness, loss of strength, chronic swelling, Charcot foot, nerve damage, inability to walk, inability to wear shoes, severe pain, complex regional pain syndrome, need for more proximal or extensive amputation such as a TMA or BKA, loss of complete limb, or even possible loss of life. All the patient's questions were answered to her satisfaction. It was then agreed upon to proceed with the above-stated procedure. The consent form was reviewed with the patient and was freely signed. Again no guarantees were given. Description of procedure: The patient was brought to the operating room and placed on the table in the supine position. The patient is already on antibiotics per infectious disease. The patient received MAC anesthesia with a local block consisting of 18 mL of 0.5% Marcaine plain administered in a typical ankle block fashion about the patient's right ankle. Next, a well-padded ankle tourniquet was then applied to the patient's right ankle. The right foot and ankle were then scrubbed prepped and draped in usual aseptic manner. A timeout was performed and the patient was properly identified and the surgical plan was confirmed. Next, attention was first directed to the right foot. It was here that an approximately 1 inch linear incision was made to the right dorsal foot and an area overlying skin abscess approximately between the first and second metatarsals. The incision was carefully made through the skin layer using a #15 scalpel blade. Once the skin layer was incised the remainder of the area was carefully dissected and opened bluntly using hemostat. A large amount of purulence was then able to be expressed from the surgical site. Approximately 5 mL of purulence was noted. Some deficit between the skin and the lower tissues appreciated in all directions surrounding the incision site where the abscess had been taking up space. The entire foot and tissues were milked to assure that no more purulence was able to be expressed. No deep probing into deeper layers of the foot was appreciated. Once complete, the top gloves were taken off, and the surgical site was then flushed with copious amounts of normal sterile saline. New instruments were used to inspect the underlying soft tissue. In the areas that could be visualized there were no signs of necrotic or nonviable soft tissue. The surgical site was then swabbed and the swab cultu res were then sent for aerobic, anaerobic, and MRSA PCR evaluation. The surgical site was then carefully flushed one more time with copious amounts of normal sterile saline. 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 The surgical site was then dressed with 1/4 inch iodoform packing, followed by 4 x 4's, ABDs, Kerlix, and an Ta bandage. After procedure: The patient tolerated the procedure and anesthesia well. He was transferred to the PACU with vital signs stable and vascular status intact to all digits of the left foot. She will be transferred back to the hospital floor upon continued stability. She was advised to continue with nonweightbearing to right lower extremity as much as possible, and if she needs to be up for any reason, she is to be heel weightbearing to the right foot for only a few steps at a time with the assistance of her surgical shoe. She is to keep the dressing clean, dry, and intact. The patient is to continue with antibiotics under the management of infectious disease. She is also to continue DVT prophylaxis and medical management per primary team. She is to elevate the right foot for postop pain and inflammation management. I will continue to follow this patient while in house.
--- NOTE | 2019-08-26 18:39 | NURSING ---
bed alarm sounded- this RN responded and entered room. Pt sitting on side of bed sobbing. Began yelling at this RN, I have to fuckin Pee- how do you expect me to be able to do that when I can't put any weight on my foot? This RN notified pt that we could get a bedside commode. pt states, what the fuck is that? one of those pottys with the handles? How do you expect me to get on it? How do you expect me to get on it when my foot must remain elevated? Notified pt that we could place BSC close to bed so that she could keep elevated if she wants and we could get walker if she wants. This RN notified pt that if she would like help then she needs to be kinder to staff. She said, maybe you guys should have thought this through a little better and placed a catheter before bringing me here. How fucking stupid can you be? This RN notified pt that it is a source of infection. Pt then attempted to pull bottoms up and her pad fell onto the floor- she said, see!! How fucking stupid!! Notified pt that this RN could get her a new one- and same completed. Pt then returned to bed and used phone to call someone and yelled, get your ass here! Don't tell me you are across town!! Get your ass here and take me the fuck out of this place! This RN exited room and closed door. Jayna RN notified of occurrence.
[2019-08-26 18:47] LABS: Probe Check PASS; Staph aureus DNA By PCR POSITIVE (Negative)
[2019-08-26 18:48] LABS: M R Staph aureus DNA By PCR POSITIVE (Negative)
--- NOTE | 2019-08-26 18:48 | PCA ---
pt off floor
--- NOTE | 2019-08-26 18:52 | NURSING ---
Went to check in on Patient, pt laying in bed crying stating that she can not do this any more. States if you do not take this IV out and let me leave i will rip it out and get the he out of here. Pt screaming at nurse, crying and thrashing around in bed. Patient reminded that she has a nicotine patch on, offered to get order for nicotine gum or anxiety medication. Pt screaming at nurse that she just wants to get the F out of here. Call placed to charge nurse to txt DR. Lai to attempt to deescalate situation. Dr. Lai states he is not in building at this time, and stated to remind patient it is our policy that patients can not leave room to smoke, MD aware pt threating to leave AMA. Pt also crying that she has no money to pay for her meds once she is discharged and that she also has no place to stay and doesnt have clean cloths to wear out of hospital. This RN stated she could contact senior manager creative services to see if they can assist with discharge medications once she is discharged. Pt continues to yell curse and cry and bed.
--- NOTE | 2019-08-26 19:26 | NURSING ---
During rounds with off going RN, this RN was introduced by off going RN Jayna. Patient yelled at Jayna stating your the worst fucking nurse ever, to get out of my room, and I never want to see you again. This RN stated that we would be back in later to work with her and she said No. This RN and off going RN exited room.
[2019-08-26] MEDS: HYDROmorphone 1 MG/ML Syringe IV (20:32)
--- NOTE | 2019-08-26 23:35 | NURSING ---
Hussein LANE in talking with patient at this time. Patient is pleasant and cooperative with this RN.
[2019-08-27 05:22] VITALS: BP 118/70; PULSE 75; RESP 16; TEMP 36.7; O2SAT 98
[2019-08-27] MEDS: Ketorolac 15 MG/ML Vial IV ×4 (05:24→23:26)
[2019-08-27] MEDS: Cefazolin 1 GM/50 ML BAG IV (05:24)
--- NOTE | 2019-08-27 07:43 | PCM.PN.HOSP ---
Patient Problems: Active and Suspected Problems Foot infection (Acute) IV drug abuse (Acute) Cellulitis (Acute) Sepsis (Acute) Abscess of right foot (Acute) Pain in right foot (Acute) Cellulitis of right foot (Acute) Subjective: CC follow-up right foot abscess She underwent incision and drainage of abscess of right foot on 08/26/2019 MRSA PCR came back positive patient subsequently placed the contact isolation Objective: GENERAL: cooperative HEENT: Atraumatic; moist oral mucosa EYES; Anicteric, Normal Conjunctiva NECK; supple, normal thyroid, RESPIRATORY: Diminished to auscultation CARDIOVASCULAR: Regular S1 S2, GI: soft, non-tender, normoactive bowel sounds, : No Renal angle tenderness; EXTREMITIES: Right foot in surgical dressing NEURO: Awake; no lateralizing signs. SKIN: Described above PSYCH; Normal affect Vitals/I&O's: Vital Signs Temp Pulse Resp BP Pulse Ox 98.0 F 75 16 118/70 98 08/27/19 05:22 08/27/19 05:22 08/27/19 05:22 08/27/19 05:22 08/27/19 05:22 Oxygen Delivery Method Room Air Weight: 77.3 kg Body Mass Index (BMI) 33.3 Intake and Output for Last 24 Hours 08/25/19 08/26/19 08/27/19 23:59 23:59 23:59 Intake Total 1799 / 1799 1986.67 / 1985.67 956.67 / 956.67 Output Total 850 / 850 500 / 500 Balance 1799 / 1799 1136.67 / 1136.67 456.67 / 456.67 Laboratory Results 08/26/19 06:50: Hep Bs Antigen Non-Reactive, HIV 1&2 Antibody Non-Reactive 08/26/19 17:01: S.aureus Protein A PCR POSITIVE H, MRSA (PCR) POSITIVE H Current Medications Acetaminophen (Tylenol) 650 mg PO Q6H PRN PRN PRN Reason: Mild Pain (1-3)/Temp > 100.7 F Last Admin: 08/25/19 00:05 Dose: 650 mg Documented by: Dextrose (D50w Syringe) 0 gm IV X1 PRN; Protocol PRN Reason: Hypoglycemia Enoxaparin Sodium (Lovenox) 40 mg SC DAILY@1000 DOMONIQUE Last Admin: 08/26/19 08:15 Dose: 40 mg Documented by: Glucagon () 1 mg IM .X1 PRN PRN Reason: Hypoglycemia Hydromorphone HCl (Dilaudid Inj) 1 mg IV Q3H PRN PRN PRN Reason: Pain Score 6-10/10 Last Admin: 08/26/19 20:32 Dose: 1 mg Documented by: Sodium Chloride () 250 mls @ 15 mls/hr IV .[id number] PRN PRN Reason: SALINE FLUSH Last Infusion: 08/24/19 15:48 Dose: Infused Documented by: Cefazolin Sodium () 1 gm in 50 mls @ 100 mls/hr IV Q8 DOMONIQUE Last Infusion: 08/27/19 05:54 Dose: Infused Documented by: Vancomycin IV Pharmacy to Dose (1 ea/ Sodium Chloride) 500 mls @ 250 mls/hr IV X1 PRN; Protocol PRN Reason: Rx to Dose Vancomycin HCl 1,500 mg/ (Sodium Chloride) 530 mls @ 250 mls/hr IV Q12H DOMONIQUE Last Infusion: 08/27/19 01:39 Dose: Infused Documented by: Lactated Ringer's () 1,000 mls @ 100 mls/hr IV .Q10H DOMONIQUE Last Infusion: 08/27/19 05:54 Dose: 100 mls/hr Documented by: Ketorolac Tromethamine (Toradol) 15 mg IV Q6 DOMONIQUE Stop: 08/29/19 15:32 Last Admin: 08/27/19 05:24 Dose: 15 mg Documented by: Morphine Sulfate () 2 mg IV Q3H PRN PRN PRN Reason: Pain Score 4-5/10 Nicotine (Nicoderm Cq (Pbkc)) 21 mg TRANSDERM. DAILY [facility] Last Admin: 08/26/19 20:41 Dose: 21 mg Documented by: Ondansetron HCl (Zofran) 4 mg IV Q8H PRN PRN PRN Reason: NAUSEA/VOMITING Sodium Chloride () 5 - 15 ml IV UD PRN PRN Reason: SALINE FLUSH Last Admin: 08/26/19 05:20 Dose: 10 ml Documented by: Medical Necessity - Tobacco Use Smoking Status: Current every day smoker Tobacco Use: Cigarettes Assessment/Plan All Active Problems Foot infection (Acute) IV drug abuse (Acute) Cellulitis (Acute) Sepsis (Acute) Abscess of right foot (Acute) Pain in right foot (Acute) Cellulitis of right foot (Acute) Patient is a 28-year-old lady with history of IVDA presented with swelling involving the right foot diagnosis of right lower extremity cellulitis made admitted to a regular nursing for further management. There was also a question of whether patient had gout was started on colchicine in addition to steroids. 1. Sepsis (present on admission secondary to right foot cellulitis) ~Management as discussed below 2. Right foot cellulitis in the patient with IVDA. ~Patient was started on cefazolin as well as vancomycin. Continued patient's progress has rather been slow. Consult subsequently placed ID ?08/26/2019:Patient seen scheduled to undergo MRI evaluation. The flatulence on her dorsal surface of the right foot more pronounced. Consult was placed to podiatry for possible I&D. She was also seen in consultation by Dr. Bermudez the day prior to his notes and recommendations reviewed ?08/27/2019; She underwent incision and drainage of abscess of right foot on 08/26/2019 MRSA PCR came back positive patient subsequently placed the contact isolation 3. Gout ruled out steroids and colchicine discontinued 4. History of IVDA ~ Urine tox screen was positive for meth counseled on cessation 5. Tobacco dependence ~counseled on cessation, offered nicotine patch for tobacco cravings 6. DVT prophylaxis ~Lovenox Clinical Impression(s) from Imaging Studies Lower Extremity MRI 08/26/19 09:15 IMPRESSION: Fluid collection in the dorsal subcutis adipose space suggestive of abscess. Edema in the dorsal subcutis adipose space. No demonstrated osteomyelitis. Electronically Signed: Caleb Verdin MD at 13:08 EDT Tel , Service support , Code Visit Inpatient E&M: [id number] Subs Hosp L2
[2019-08-27] MEDS: Lactated Ringers 1,000 ML 100 ML IV ×2 (09:39→22:13)
[2019-08-27 09:40] VITALS: BP 112/70; PULSE 68; RESP 16; TEMP 36.5; O2SAT 99
[2019-08-27 09:43] VITALS: PULSE 70
[2019-08-27] MEDS: Enoxaparin 40 MG/0.4 ML Syringe SC (09:51)
[2019-08-27] MEDS: 0.9% NaCl Peripheral Flush Adult/Peds IV ×6 (09:58→23:26)
[2019-08-27] MEDS: HYDROmorphone 1 MG/ML Syringe IV ×3 (09:58→20:13)
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
--- NOTE | 2019-08-27 11:11 | NURSING ---
Eloise RN Nursing Transfusion Nurse on MS[facility]. Recommends moving pt closer to nurses station. Once ms325 room is cleaned, will move pt to that room. [id number] Ivan senior information security engineer here to see pt.
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
--- NOTE | 2019-08-27 16:05 | PCM.PROGNOTE ---
Patient Problems: Active and Suspected Problems Foot infection (Acute) IV drug abuse (Acute) Cellulitis (Acute) Sepsis (Acute) Abscess of right foot (Acute) Pain in right foot (Acute) Cellulitis of right foot (Acute) Subjective: This patient was seen this afternoon resting comfortably in bed postop day number 1 S/P incision and drainage of abscess of right foot. Patient is noted to have been agitated and verbally abusive to the nursing staff last evening. She has since calmed down and is acting much more appropriate. She currently comfortable and relates that her pain is being controlled. She says her pain is much better prior to the surgery. She denies noticing any feelings of nausea, vomiting, fever, chills. - Physical Exam General: Alert, Oriented x3, Cooperative, No apparent distress Extremities: No cyanosis, Capillary Refill Less than 3 Seconds - To all distal digits of the right foot, No Calf Tenderness - Negative Jesus and Nevarez signs, Edema - Improving edema to the right distal foot, Peripheral Pulses Normal - DP and PT pulses palpable bilateral Skin: - - Open surgical site to right dorsal foot where abscess was drained during surgery. There are no signs of any necrotic appearing tissue in the incision site. Some slight serosanguineous drainage appreciated to the lower layers of surgical dressing, but no purulence able to be expressed today. Improving edema and erythema noted surrounding the surgical site today. Musculoskeletal: Tenderness - With manipulation of surgical site Neurological: Sensory exam intact to light touch and pain Psych/Mental Status: Normal Affect, Appropriate Vital Signs Temp Pulse Resp BP Pulse Ox 97.7 F L 70 16 112/70 99 08/27/19 09:40 08/27/19 09:43 08/27/19 09:40 08/27/19 09:40 08/27/19 09:40 Oxygen Delivery Method Room Air Weight: 77.3 kg Body Mass Index (BMI) 33.3 Intake and Output for Last 24 Hours 08/25/19 08/26/19 08/27/19 23:59 23:59 23:59 Intake Total 1798 / 1798 1985.67 / 1985.67 1595.00 / 1595.00 Output Total 850 / 850 900 / 900 Balance 1798 / 1798 1136.67 / 1136.67 695.00 / 695.00 Microbiology Past 72 Hours 08/26/19 17:00 Gram Stain - Final Wound Abcess - Aerobic & Anaerobic Swabs Wound Culture - Preliminary Staphylococcus aureus Laboratory Tests Past 24 Hrs 08/26/19 17:01 S.aureus Protein A PCR POSITIVE H MRSA (PCR) POSITIVE H Medical Necessity - Tobacco Use Smoking Status: Current every day smoker Tobacco Use: Cigarettes Assessment/Plan All Active Problems Foot infection (Acute) IV drug abuse (Acute) Cellulitis (Acute) Sepsis (Acute) Abscess of right foot (Acute) Pain in right foot (Acute) Cellulitis of right foot (Acute) POD #1 s/p incision and drainage of right foot abscess Improving right foot erythema/edema Improving pain to right foot History of IVDA This patient was carefully examined and evaluated resting comfortably in her bed. This patient is POD #1 s/p incision and drainage of right foot abscess. She relates that her pain is currently well controlled. Vital signs are all currently stable. Patient was verbally abusive last night following her surgery to the nursing staff however she has since calmed down and is acting normally today. Patient had no strikethrough to outer dressing. Patient's preliminary wound cultures from surgery are showing MRSA. She is currently on vancomycin under the direction of infectious disease. Her surgical dressing was taken down today. Edema as well as surrounding erythema/cellulitis are improved since yesterday. No necrotic appearing tissue around surgical site at this time. No purulence able to be expressed from the surgical site today. Next, the surgical site was then flushed with copious amounts of normal sterile saline. The site was then packed with 1/4 inch iodoform gauze, Adaptic, 4 x 4's, ABDs, Kerlix, and an Ta bandage. The patient was again instructed to keep all weight off of the right foot and if she has to use her right foot to move short distances she is to be completely heel weightbearing. Will put an order in for crutches for this patient. She is to keep the right lower extremity elevated at all times while in bed to help with postoperative swelling and pain. If everything continues to progress, upon discharge, the patient will follow up with me at [facility] for further management. Continued medical management per primary team is appreciated. Podiatry will continue to follow this patient while in house.
[2019-08-27 20:04] VITALS: BP 118/69; PULSE 72; RESP 18; TEMP 37; O2SAT 98
[2019-08-27 23:23] LABS: Vancomycin, Trough Level 7.4 ug/mL (5.0-15.0)
[2019-08-28] MEDS: 0.9% NaCl Peripheral Flush Adult/Peds IV (00:03)
[2019-08-28] MEDS: HYDROmorphone 1 MG/ML Syringe IV ×3 (00:03→15:01)
[2019-08-28 01:45] VITALS: BP 103/54; PULSE 67; RESP 16; TEMP 37.2; O2SAT 99
[2019-08-28 03:06] LABS: HCV Quant. RNA PCR 1120000 IU/mL (.)
--- NOTE | 2019-08-28 04:08 | PCM.RX.CS ---
Consult Pharmacy has been consulted to manage selected antiobiotic: Vancomycin Type of Consult: Follow-up Labs: Sodium 141 mmol/L (136-145) 08/26/19 06:50 Potassium 4.2 mmol/L (3.5-5.1) 08/26/19 06:50 Chloride 110 mmol/L (98-107) H 08/26/19 06:50 Carbon Dioxide 30.0 mmol/L (21.0-32.0) 08/26/19 06:50 Anion Gap 1 (5-15) L 08/26/19 06:50 BUN 15 mg/dL (7-18) 08/26/19 06:50 Creatinine 0.62 mg/dL (0.55-1.02) 08/26/19 06:50 Est GFR (MDRD) Af Amer 147 mL/min (>60) 08/26/19 06:50 Est GFR (MDRD) Non-Af 122 mL/min (>60) 08/26/19 06:50 BUN/Creatinine Ratio 24.3 RATIO (10-20) H 08/26/19 06:50 Glucose 92 mg/dL (74-106) 08/26/19 06:50 Vancomycin Trough 7.4 ug/mL (5.0-15.0) 08/27/19 22:30 Microbiology: Microbiology 08/26/19 17:00 Wound Abcess - Aerobic & Anaerobic Swabs Gram Stain - Final 08/26/19 17:00 Wound Abcess - Aerobic & Anaerobic Swabs Wound Culture - Preliminary Staphylococcus aureus Goal Trough: 15-20 mcg/mL Pharmacy Plan for Drug Dosing: Pharmacy Service will continue to monitor and adjust dosing as required. Medications Vancomycin HCl 2,000 mg/ (Sodium Chloride) 540 mls @ 250 mls/hr IV Q12H DOMONIQUE TROUGH 7.4 INCREASE TO 2000MG Q12 REDRAW TROUGH 08/29 @ 1730 Follow-Up Labs: Trough Vancomycin Labs to be done on [date and time ordered]: 08/29 @ 1739
--- NOTE | 2019-08-28 07:16 | PCM.PN.HOSP ---
Patient Problems: Active and Suspected Problems Foot infection (Acute) IV drug abuse (Acute) Cellulitis (Acute) Sepsis (Acute) Abscess of right foot (Acute) Pain in right foot (Acute) Cellulitis of right foot (Acute) Subjective: Follow-up right foot abscess Postoperative day 2 following I&D. Complains of significant pain in the right toe. Objective: GENERAL: cooperative HEENT: Atraumatic; moist oral mucosa EYES; Anicteric, Normal Conjunctiva NECK; supple, normal thyroid, RESPIRATORY: Diminished to auscultation CARDIOVASCULAR: Regular S1 S2, GI: soft, non-tender, normoactive bowel sounds, : No Renal angle tenderness; EXTREMITIES: Right foot in surgical dressing NEURO: Awake; no lateralizing signs. SKIN: Described above PSYCH; Normal affect Vitals/I&O's: Vital Signs Temp Pulse Resp BP Pulse Ox 99 F 67 16 103/54 L 99 08/28/19 01:45 08/28/19 01:45 08/28/19 01:45 08/28/19 01:45 08/28/19 01:45 Oxygen Delivery Method Room Air Weight: 77.3 kg Body Mass Index (BMI) 33.3 Intake and Output for Last 24 Hours 08/26/19 08/27/19 08/28/19 23:59 23:59 23:59 Intake Total 1986.67 / 1986.67 3497.33 / 3497.33 1498.67 / 1498.67 Output Total 850 / 850 1300 / 1300 Balance 1136.67 / 1136.67 2197.33 / 2197.33 1498.67 / 1498.67 Microbiology Past 72 Hours 08/26/19 17:00 Wound Abcess - Aerobic & Anaerobic Swabs Gram Stain - Final 08/26/19 17:00 Wound Abcess - Aerobic & Anaerobic Swabs Wound Culture - Preliminary Staphylococcus aureus Laboratory Results 08/27/19 22:30: Vancomycin Trough 7.4 Current Medications Acetaminophen (Tylenol) 650 mg PO Q6H PRN PRN PRN Reason: Mild Pain (1-3)/Temp > 100.7 F Last Admin: 08/25/19 00:05 Dose: 650 mg Documented by: Dextrose (D50w Syringe) 0 gm IV X1 PRN; Protocol PRN Reason: Hypoglycemia Enoxaparin Sodium (Lovenox) 40 mg SC DAILY@1000 DOMONIQUE Last Admin: 08/27/19 09:51 Dose: 40 mg Documented by: Glucagon () 1 mg IM .X1 PRN PRN Reason: Hypoglycemia Hydromorphone HCl (Dilaudid Inj) 1 mg IV Q3H PRN PRN PRN Reason: Pain Score 6-10/10 Last Admin: 08/28/19 00:03 Dose: 1 mg Documented by: Sodium Chloride () 250 mls @ 15 mls/hr IV .[id number] PRN PRN Reason: SALINE FLUSH Last Infusion: 08/24/19 15:48 Dose: Infused Documented by: Vancomycin IV Pharmacy to Dose (1 ea/ Sodium Chloride) 500 mls @ 250 mls/hr IV X1 PRN; Protocol PRN Reason: Rx to Dose Lactated Ringer's () 1,000 mls @ 100 mls/hr IV .Q10H DOMONIQUE Last Infusion: 08/28/19 06:22 Dose: 0 mls/hr Documented by: Vancomycin HCl 2,000 mg/ (Sodium Chloride) 540 mls @ 250 mls/hr IV Q12H DOMONIQUE Last Admin: 08/28/19 06:22 Dose: 250 mls/hr Documented by: Ketorolac Tromethamine (Toradol) 15 mg IV Q6 DOMONIQUE Stop: 08/29/19 15:32 Last Admin: 08/28/19 06:23 Dose: Not Given Documented by: Morphine Sulfate () 2 mg IV Q3H PRN PRN PRN Reason: Pain Score 4-5/10 Nicotine (Nicoderm Cq (Pbkc)) 21 mg TRANSDERM. DAILY DOMONIQUE Last Admin: 08/27/19 09:52 Dose: 21 mg Documented by: Ondansetron HCl (Zofran) 4 mg IV Q8H PRN PRN PRN Reason: NAUSEA/VOMITING Sodium Chloride () 5 - 15 ml IV UD PRN PRN Reason: SALINE FLUSH Last Admin: 08/28/19 00:03 Dose: 10 ml Documented by: Medical Necessity - Tobacco Use Smoking Status: Current every day smoker Tobacco Use: Cigarettes Assessment/Plan All Active Problems Foot infection (Acute) IV drug abuse (Acute) Cellulitis (Acute) Sepsis (Acute) Abscess of right foot (Acute) Pain in right foot (Acute) Cellulitis of right foot (Acute) Patient is a 28-year-old lady with history of IVDA presented with swelling involving the right foot diagnosis of right lower extremity cellulitis made admitted to a regular nursing for further management. There was also a question of whether patient had gout was started on colchicine in addition to steroids. 1. Sepsis (present on admission secondary to right foot cellulitis) ~Management as discussed below 2. Right foot cellulitis in the patient with IVDA. ~Patient was started on cefazolin as well as vancomycin. Continued patient's progress has rather been slow. Consult subsequently placed ID ?08/26/2019:Patient seen scheduled to undergo MRI evaluation. The flatulence on her dorsal surface of the right foot more pronounced. Consult was placed to podiatry for possible I&D. She was also seen in consultation by Dr. Bermudez the day prior to his notes and recommendations reviewed ?08/27/2019; She underwent incision and drainage of abscess of right foot on 08/26/2019 MRSA PCR came back positive patient subsequently placed the contact isolation ?08/28/2019. Awaiting ID recommendations prior to discharge regarding discharge antibiotics 3. Gout ruled out steroids and colchicine discontinued 4. History of IVDA ~ Urine tox screen was positive for meth counseled on cessation 5. Tobacco dependence ~counseled on cessation, offered nicotine patch for tobacco cravings 6. DVT prophylaxis ~Lovenox Microbiology 08/26/19 17:00 Wound Abcess - Aerobic & Anaerobic Swabs Gram Stain - Final 08/26/19 17:00 Wound Abcess - Aerobic & Anaerobic Swabs Wound Culture - Preliminary Staphylococcus aureus Code Visit Inpatient E&M: 05351 Subs Hosp L2
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
[2019-08-28 10:00] VITALS: BP 124/84; PULSE 66; RESP 16; TEMP 37; O2SAT 99
[2019-08-28] MEDS: Enoxaparin 40 MG/0.4 ML Syringe SC (10:17)
[2019-08-28] MEDS: Smz/Tmp Ds Tablet 1 TABLET PO (11:03)
[2019-08-28] MEDS: Ketorolac 15 MG/ML Vial IV (11:04)
--- NOTE | 2019-08-28 11:06 | DCINST_ITS ---
- Discharge Diagnoses Current Active Problems: Current Active and Chronic Problems Foot infection (Acute) IV drug abuse (Acute) Cellulitis (Acute) Sepsis (Acute) Abscess of right foot (Acute) Pain in right foot (Acute) Cellulitis of right foot (Acute) You will use the following diet at home:: No restrictions Allergies/Adverse Reactions: Allergies Penicillins Allergy (Verified 08/23/19 12:51) blisters on tongue Medications to take at Discharge Ibuprofen [Motrin] 400 mg PO Q4H PRN PRN #20 tab 08/28/19 Smz/Tmp Ds [Bactrim Ds] 1 tab PO BIDCM #14 tab 08/28/19 The following prescriptions were given: Smz/Tmp Ds [Bactrim Ds] 1 tab PO BIDCM #14 tab Transmission Status: Received by [facility] Ibuprofen [Motrin] 400 mg PO Q4H PRN PRN #20 tab PRN Reason: Pain Or Fever Transmission Status: Pending to [facility] Primary Care Physician: Care Physician,No Primary [Primary Care Provider] - Test Results: Test results from this visit will be discussed in further detail at your follow- up appointment, if applicable. Please Follow Up With: Hay Rapp DPM When: in 5-7 days Proposed Discharge Date: 08/28/19
--- NOTE | 2019-08-28 11:12 | PCM.DC.SUM ---
Discharge Date and Diagnosis - Problem List Patient Problems: Active and Suspected Problems Foot infection (Acute) IV drug abuse (Acute) Cellulitis (Acute) Sepsis (Acute) Abscess of right foot (Acute) Pain in right foot (Acute) Cellulitis of right foot (Acute) Date of Admission: 08/23/19 Date of Discharge: 08/28/19 - Primary Discharge Diagnosis Active and Suspected Problems Foot infection (Acute) IV drug abuse (Acute) Cellulitis (Acute) Sepsis (Acute) Abscess of right foot (Acute) Pain in right foot (Acute) Cellulitis of right foot (Acute) Hospital Course and Treatment Imaging Results: Clinical Impression(s) from Imaging Studies Foot X-Ray 08/23/19 10:43 IMPRESSION: 1. Soft tissue swelling. 2. No demonstrated acute osseous changes. Electronically Signed: Seng Aguilar MD at 11:28 EDT Tel , Service support , Lower Extremity MRI 08/26/19 09:15 IMPRESSION: Fluid collection in the dorsal subcutis adipose space suggestive of abscess. Edema in the dorsal subcutis adipose space. No demonstrated osteomyelitis. Electronically Signed: Caleb Verdin MD at 13:08 EDT Tel , Service support , Summary of Care Provided: Patient is a 28-year-old lady with history of IVDA presented with swelling involving the right foot diagnosis of right lower extremity cellulitis made admitted to a regular nursing for further management. There was also a question of whether patient had gout was started on colchicine in addition to steroids. 1. Sepsis (present on admission secondary to right foot cellulitis/abscess) ~Management as discussed below 2. Right foot cellulitis in the patient with IVDA. ~Patient was initially managed with cefazolin and vancomycin. Underwent MRI we did demonstrate presence of an abscess consult placed to both ID and podiatry. Patient underwent s incision and drainage of abscess of right foot on 08/26/2019 MRSA PCR came back positive patient subsequently placed the contact isolation she was discharged home on Bactrim for 1 additional week 3. Gout ruled out steroids and colchicine discontinued 4. History of IVDA ~ Urine tox screen was positive for meth counseled on cessation 5. Tobacco dependence ~counseled on cessation, offered nicotine patch for tobacco cravings 6. DVT prophylaxis ~Lovenox Patient Problems: Active and Suspected Problems Foot infection (Acute) IV drug abuse (Acute) Cellulitis (Acute) Sepsis (Acute) Abscess of right foot (Acute) Pain in right foot (Acute) Cellulitis of right foot (Acute) Objective: GENERAL: cooperative HEENT: Atraumatic; moist oral mucosa EYES; Anicteric, Normal Conjunctiva NECK; supple, normal thyroid, RESPIRATORY: Diminished to auscultation CARDIOVASCULAR: Regular S1 S2, GI: soft, non-tender, normoactive bowel sounds, : No Renal angle tenderness; EXTREMITIES: Right foot in surgical dressing NEURO: Awake; no lateralizing signs. SKIN: Described above PSYCH; Normal affect - Physical Exam Vital Signs Temp Pulse Resp BP Pulse Ox 98.6 F 66 16 124/84 H 99 08/28/19 10:00 08/28/19 10:00 08/28/19 10:00 08/28/19 10:00 08/28/19 10:00 Oxygen Delivery Method Room Air Weight: 77.3 kg Body Mass Index (BMI) 33.3 Intake and Output for Last 24 Hours 08/26/19 08/27/19 08/28/19 23:59 23:59 23:59 Intake Total 1986.67 / 1985.67 3497.33 / 3497.33 2038. / 2037.67 Output Total 850 / 850 1300 / 1300 Balance 1136.67 / 1136.67 2197.33 / 2197.33 2037. / 2037.67 Microbiology Past 72 Hours 08/26/19 17:00 Gram Stain - Final Wound Abcess - Aerobic & Anaerobic Swabs Wound Culture - Preliminary Staphylococcus aureus Laboratory Tests Past 24 Hrs 08/27/19 22:30 Vancomycin Trough 7.4 Discharge Diet: No Restrictions Discharge Activity: Return to Normal Activity Home Medications: Medications to take at Discharge Ibuprofen [Motrin] 400 mg PO Q4H PRN PRN #20 tab 08/28/19 Smz/Tmp Ds [Bactrim Ds] 1 tab PO BIDCM #14 tab 08/28/19 Following Prescrptions Were Given to Patient: Smz/Tmp Ds [Bactrim Ds] 1 tab PO BIDCM #14 tab Transmission Status: Received by [facility] Ibuprofen [Motrin] 400 mg PO Q4H PRN PRN #20 tab PRN Reason: Pain Or Fever Transmission Status: Received by [facility] Primary Care Physician: Care Physician,No Primary [Primary Care Provider] - Please Follow Up With: Hay Rapp DPM When: in 5-7 days Disposition: Home Minutes spent on discharge:: 45 Patient Condition:: Stable Medical Necessity - Tobacco Use Smoking Status: Current every day smoker Tobacco Use: Cigarettes Meaningful Use Info Meaningful Use Diagnoses (Choose all that apply): None applicable Code Visit Inpatient E&M: 47674 Disch Hosp
--- NOTE | 2019-08-28 12:43 | PN_ITS ---
Patient Problems: Active and Suspected Problems Foot infection (Acute) IV drug abuse (Acute) Cellulitis (Acute) Sepsis (Acute) Abscess of right foot (Acute) Pain in right foot (Acute) Cellulitis of right foot (Acute) Subjective: This patient was seen this afternoon resting comfortably in bed postop day number 2 S/P incision and drainage of abscess of right foot. She currently comfortable and relates that her pain is being controlled. She denies noticing any feelings of nausea, vomiting, fever, chills. - Physical Exam General: Alert, Oriented x3, Cooperative, No apparent distress Extremities: No cyanosis, Capillary Refill Less than 3 Seconds - To all distal digits of the right foot, No Calf Tenderness - Negative Jesus and Nevarez signs, Edema - Improving edema to the right distal foot, Peripheral Pulses Normal - DP and PT pulses palpable bilateral Skin: - - Open surgical site to right dorsal foot where abscess was drained during surgery. There are no signs of any necrotic appearing tissue in the incision site. Significantly improved erythema and edema noted surrounding the surgical site today. Site appears to be healing well and without complication at this time. Musculoskeletal: Tenderness - With manipulation of surgical site Neurological: Sensory exam intact to light touch and pain Psych/Mental Status: Normal Affect, Appropriate Vital Signs Temp Pulse Resp BP Pulse Ox 98.6 F 66 16 124/84 H 99 08/28/19 10:00 08/28/19 10:00 08/28/19 10:00 08/28/19 10:00 08/28/19 10:00 Oxygen Delivery Method Room Air Weight: 77.3 kg Body Mass Index (BMI) 33.3 Intake and Output for Last 24 Hours 08/26/19 08/27/19 08/28/19 23:59 23:59 23:59 Intake Total 1985.67 / 1985.67 3497.33 / 3497.33 2037. / 2037. Output Total 850 / 850 1300 / 1300 Balance 1136.67 / 1136.67 2197.33 / 2197.33 8. / 2037. Microbiology Past 72 Hours 08/26/19 17:00 Gram Stain - Final Wound Abcess - Aerobic & Anaerobic Swabs Wound Culture - Preliminary Staphylococcus aureus Laboratory Tests Past 24 Hrs 08/27/19 22:30 Vancomycin Trough 7.4 Medical Necessity - Tobacco Use Smoking Status: Current every day smoker Tobacco Use: Cigarettes Assessment/Plan All Active Problems Foot infection (Acute) IV drug abuse (Acute) Cellulitis (Acute) Sepsis (Acute) Abscess of right foot (Acute) Pain in right foot (Acute) Cellulitis of right foot (Acute) POD #1 s/p incision and drainage of right foot abscess Improving right foot erythema/edema Improving pain to right foot History of IVDA This patient was carefully examined and evaluated resting comfortably in her bed again today. This patient is POD #2 s/p incision and drainage of right foot abscess. She relates that her pain is currently well controlled. Vital signs are all currently stable. Patient's preliminary wound cultures from surgery are showing MRSA. She will be discharged on oral Bactrim at the recommendation of infectious disease. She is instructed to take this daily as instructed until complete. Her dressing was taken down today. Significantly improved erythema/edema to the surgical site again today with almost no redness appreciated to the foot today. Area appears to be healing very well at this time. No necrotic appearing tissue around surgical site at this time. No purulence able to be expressed from the surgical site again today. Next, the site was then flushed with copious amounts of normal sterile saline. The site was then dressed with Aquacel Ag to the base, 4 x 4's, ABDs, Kerlix, and an Ta bandage. The patient watched as I perform the dressing change and I showed her exactly how to change her dressing in this manner on her own on a daily basis. She will receive prescription for dressing supplies in order to change the d ressing in this manner on a daily basis. The patient was again instructed to keep all weight off of the right foot and if she has to use her right foot to move short distances she is to be completely heel weightbearing. Prescription placed for a walker for this patient. She is to keep the right lower extremity elevated at all times while in bed to help with postoperative swelling and pain. Patient will follow up with me at [facility] for further management. She says she is unable to see me in clinic tomorrow as I requested, but promises that she will come on Sunday. Podiatry will continue to follow this patient while in house.
--- NOTE | 2019-08-28 13:00 | CASEMGMT ---
ALLEY BONILLA updated that patient will need FWW at discharge. ALLEY BONILLA in to discuss with patient need for FWW and DME companies. Patient is agreeable to [employer]. Referral sent to [employer] and arranged for walker to be delivered to patient's room prior to discharge. ALLEY BONILLA updated the patient regarding referral.
[2019-08-28 13:04] LABS: HCV log 10 6.049 (.); Hepatitis B Core Ab Total Negative (Negative)
[2019-08-28 16:20] VITALS: BP 111/69; PULSE 72; RESP 18; TEMP 37; O2SAT 95
== END 2019-08-28 16:30 | disposition home or self-care (01) | DRG 383 ==
LOC: ED 11:19 → MS3 13:27
PROVIDERS: Hospitalist; Internal Medicine Infectious Disease; Podiatrist; Emergency Provider Emergency Medicine; Visit Provider Internal Medicine
PROC: 0H9NXZZ Drainage of Left Foot Skin, External Approach (ICD-10-PCS; principal; 2019-08-26 16:15)
DX: L02.611 Cutaneous abscess of right foot (principal); L03.115 Cellulitis of right lower limb; F17.210 Nicotine dependence, cigarettes, uncomplicated; F15.10 Other stimulant abuse, uncomplicated; B19.20 Unspecified viral hepatitis C without hepatic coma
CPT/HCPCS: 36415; 73630; 73718; 80048; 80202; 80307; 81002; 83605; 83735; 84550; 84703; 85025; 86703; 86704; 87070; 87075; 87077; 87186; 87205; 87340; 87522; 87640; 97162; 99285; 99406; J7030; J7040; J7050; J7120; A4216

== ENCOUNTER 2019-10-11 02:07 | Emergency (ER) | payer MEDICAID, SELFPAY ==
[2019-08-23 12:50] VITALS: BMI 33.3
[2019-10-11 02:08] VITALS: BP 138/84; PULSE 78; RESP 18; TEMP 36.9; O2SAT 98; BMI 34.3
--- NOTE | 2019-10-11 02:18 | ED.RN ---
[employer] OFFICER AT TAKING STATEMENT
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
[2019-10-11] MEDS: Morphine 4 MG/ML Syringe IM (02:50)
[2019-10-11] MEDS: Ondansetron ODT 4 MG Tablet 8 MG PO (02:51)
[2019-10-11 04:54] VITALS: RESP 16
== END 2019-10-11 05:11 | disposition home or self-care (01) ==
PROVIDERS: Emergency Provider Emergency Medicine
DX: S02.2XXA Fracture of nasal bones, initial encounter for closed fracture (principal); Y04.0XXA Assault by unarmed brawl or fight, initial encounter; Y93.89 Activity, other specified; F17.200 Nicotine dependence, unspecified, uncomplicated
CPT/HCPCS: 70486; 96372; 99285

== ENCOUNTER 2019-11-04 11:18 | Observation (INO) | payer MEDICAID, SELFPAY ==
[2019-11-04 11:19] VITALS: BP 128/84; PULSE 107; RESP 20; TEMP 36.6; O2SAT 97; BMI 31.2
--- NOTE | 2019-11-04 11:36 | US_ITS ---
STUDY: ABDOMINAL ULTRASOUND - RIGHT UPPER QUADRANT REASON FOR VISIT: Female, 29 years old 4 day history of right upper quadrant pain. TECHNIQUE: Ultrasound evaluation of the right upper quadrant was performed with real-time and static whitfield-scale imaging. TECHNICAL QUALITY: Adequate. COMPARISON: None. FINDINGS: Liver: The liver measures 17.7 cm. There is normal echogenicity of the liver. The bile ducts are within normal limits. There is hepatic color flow. The direction of portal flow is hepatopetal. There is no demonstrated mass lesion. Gallbladder: Mildly distended gallbladder. The gallbladder wall is thickened and measures 6 mm. There is a positive sonographic Nino''s sign. There is a small amount of pericholecystic fluid. There are no gallstones. Common Bile Duct (C.B.D.): The common bile duct measures 3.2 mm. Pancreas: Normal size of the head, body of the pancreas. The tail portion is obscured due to overlying bowel gas. There is normal echogenicity of the pancreas. There is no demonstrated pancreatic mass or cyst. Right Kidney: Normal size of the right kidney. The right kidney measures 11.6 cm x 4.8 cm x 5.0 cm. Normal renal cortex. The right cortex measures 1.3 cm. There is no demonstrated renal mass or cyst. There is no right hydronephrosis. US/Gallbladder IMPRESSION: Mildly distended gallbladder with thickened gallbladder wall and small amount of pericholecystic fluid. Electronically Signed: Otto Blanco, at 13:03 EST , Service support ,
--- NOTE | 2019-11-04 11:37 | RAD_ITS ---
STUDY: X-RAY CHEST REASON FOR EXAM: Female, 29 years old. Abdominal pain. TECHNIQUE: Single AP portable view of the chest. COMPARISON: None. FINDINGS: The lungs are clear and expanded. There is no demonstrated pleural abnormality. Normal size heart. Normal mediastinum and melecio. Normal visualized pulmonary arteries. Normal visualized aortic arch and descending thoracic aorta. Normal visualized thoracic spine. Normal visualized ribs, clavicles, and shoulders. There is no demonstrated abnormality of the visualized soft tissue structures of the upper abdomen. RAD/Chest 1 View IMPRESSION: Normal x-ray examination of the chest. Electronically Signed: Otto Blanco, at 13:00 EST , Service support ,
--- NOTE | 2019-11-04 11:38 | ED.VIS.GEN ---
History of Present Illness Chief Complaint: General Illness Informant: Patient Onset: Yesterday Current Severity: Moderate Maximum Severity: Moderate Narrative: Presents with right upper quadrant abdominal pain and chest wall pain for a day. She has no fever chills cough but she has a history of some cough and congestion. There is no lower abdominal pain. There is no flank pain, she denies any dysuria or hematuria. Pain is moderate, slightly worse with taking a deep breath. Past Medical History - Allergies and Home Meds Allergies/Adverse Reactions: Allergies Penicillins Allergy (Verified 11/04/19 11:22) blisters on tongue Primary Care Physician: Care Physician,No Primary [Primary Care Provider] - Past Medical History: None Surgical History: adenoidectomy, - - Smoking Status: Current every day smoker - Family History Paternal Family History: Reports: DVT Review of Systems All systems negative except as indicated General: Denies: Fever ENT: Denies: Rhinorrhea, Sore throat Cardiovascular: Reports: Chest pain Respiratory: Reports: Cough. Denies: Dyspnea Gastrointestinal: Reports: Nausea. Denies: Abdominal pain Musculoskeletal: Denies: Myalgias, Arthralgias, Neck pain, Back pain Skin: Denies: Rash Neurological: Denies: Headache Psych: Denies: Depression Hematologic: Denies: Easy bruising Allergy: Denies: Uticaria, Swelling of the mouth Physical Exam Vital Signs/Narrative: Vital Signs Temp Pulse Resp BP Pulse Ox 11/04/19 11:19 98 F 107 H 20 H 128/84 H 97 General: Well nourished, Well developed Eyes: Perrl ENT: Moist mucous membranes Neck: Supple Cardiovascular: Regular rate, Regular rhythm Respiratory: No distress, CTA bilaterally Abdomen: - - Patient has right upper quadrant tenderness, there is no guarding or rebound, however she is quite tender. She has no flank pain. Back: Nontender, Normal Inspection Extremities: Nontender Skin: Normal color Neurological: Alert, Oriented x3 Diagnostic/Tx/Re-eval - Medical Decision Making Patient is found to have a hepatitis, however she also has slightly thickened gallbladder wall with some pericholecystic fluid. Her common bile duct however is normal. There are no stones in the gallbladder. I discussed the patient with surgery, since I thought initially that there is a possibility of ERCP, the thought at this time is that this is likely hepatitis. I will admit the patient to medicine, with a surgical consult. ED Disposition - Plan for ED Patient: Disposition: Psychiatric Hospital or Unit Diagnosis: Hepatitis Referrals: Care Physician,No Primary [Primary Care Provider] -
[2019-11-04] MEDS: Ondansetron 4 MG/2 ML Vial IV (11:58)
[2019-11-04] MEDS: 0.9% Normal Saline 1,000 ML 1000 ML IV (11:58)
[2019-11-04] MEDS: Morphine 4 MG/ML Syringe IV (11:58)
[2019-11-04 12:04] LABS: Absolute Lymphocyte Count 1.47 X10^3/uL (0.83-4.51); Absolute Neutrophil Count 1.6 X10^3/uL (2.0-7.7); Basophil# 0.02 X10^3/uL; Basophil% 0.6 % (0-1); Eosinophils% 2.9 % (0-5); Hematocrit 38.8 % (37-47); Hemoglobin 12.6 g/dL (12.0-15.0); Lymphocyte # 1.47 X10^3/ul (4.0); Lymphocyte % 42.1 % (19-41); Mean Corp Hgb Conc 32.5 g/dL (32-36); Mean Corpuscular Hgb 27.4 pg (27.0-32.0); Mean Corpuscular Volume 84.3 fL (81-99); Mean Platelet Vol. 9.9 fl (6.2-12.0); Monocyte# 0.24 X10^3/uL; Monocyte% 6.9 % (0-10); NRBC Flagged by Analyzer 0 % (0-5); Neutrophil # 1.64 X10^3/uL (2.7-7.7); Neutrophil % 46.9 % (47-70); POSITIVE MORPHOLOGY YES; Platelet Count 170 K/mm3 (150-450); RBC Distribution Width CV 13.6 % (11.6-14.6); RBC Distribution Width SD 42.1 fl (35.1-43.9); White Blood Count 3.5 K/mm3 (4.4-11.0)
[2019-11-04 12:05] LABS: Differential Indicated SCAN CRITERIA MET
[2019-11-04 12:20] LABS: Differential Comment SCANNED
[2019-11-04 13:04] LABS: AST(SGOT) 1260 U/L (15-37); Alanine Aminotransfer ALT/SGPT 1226 U/L (13-56); Albumin, Serum 3.4 g/dL (3.2-5.0); Alkaline Phosphatase 184 U/L (45-117); Anion Gap 5 (5-15); BUN 11 mg/dL (7-18); BUN/Creat Ratio 15.6 RATIO (10-20); Bilirubin, Direct 1.68 mg/dL (0.00-0.30); Calcium,Total 7.9 mg/dL (8.5-10.1); Chloride 104 mmol/L (98-107); EST Glomerular Filtration Rate 104 mL/min (>60); Est Glom Filt Rate - Afr Amer 126 mL/min (>60); Estimated Creatinine Clearance 85.18 ml/min; Globulin 3.9 g/dL (2.2-4.2); Glucose 99 mg/dL (74-106); Lipase 115 U/L (73-393); Potassium 3.7 mmol/L (3.5-5.1); Protein, Total 7.3 g/dL (6.4-8.2); Sodium Level 136 mmol/L (136-145)
--- NOTE | 2019-11-04 13:51 | NURSING ---
MED SURG HEPATITIS ANY
--- NOTE | 2019-11-04 14:08 | HP.PCM_ITS ---
Problem List (1) Acute liver injury Status: Acute (2) Foot infection Status: Suspected (3) IV drug abuse Status: Chronic (4) Cellulitis Status: Inactive Qualifiers: Site of cellulitis: extremity Site of cellulitis of extremity: lower extremity Laterality: right Qualified Code(s): L03.115 - Cellulitis of right lower limb (5) Sepsis Status: Inactive Qualifiers: Sepsis type: sepsis due to unspecified organism Sepsis acute organ dysfunction status: unspecified Qualified Code(s): A41.9 - Sepsis, unspecified organism (6) Abscess of right foot Status: Inactive (7) Pain in right foot Status: Acute (8) Cellulitis of right foot Status: Inactive (9) Hepatitis Status: Acute History of Present Illness Date of Admission: 11/04/19 Chief Complaint: Abdominal pain for 3 to 4 days The patient is a 29 year old F with history of chronic polysubstance use came to ER with abdominal pain along with nausea generalized body aches. Patient further said abdominal pain started on right side on Sunday night along with fever, chills and flulike symptoms including sore throat and then she took ibuprofen about 1600 mg daily for 2 days and Aleve about 2 tablets every 8 hour for simultaneously for 3 to 4 days for fever and abdominal pain. Ibuprofen was each of 400 mg which she borrowed from her friend. In ED, patient is tossing on the bed states because of pain and itching on the legs. She further states she had burning micturition along with incomplete emptying of bladder and increased frequency. She also found some blood in the urine and denies having menstruation now. In the ER basic lab work shows elevated LFT AST ALT in 1200s, alkaline phosphatase 134, TB 2.1 direct bili 1.68, albumin 3.4. Lipase 115. Electroly bianka are normal range. WBC 3.5 thousand platelet count 170,000. Right upper quadrant ultrasound was done reported as mild hepatomegaly, liver 17.7 cm mildly distended GB with thickened GB wall 6 mm and a small amount of pericholecystic fluid, CBD 3.2 mm. Pancreas reported normal. 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 Claims she had IV heroin about 2 months ago/quit 2 months ago - *Family History Paternal History Items: DVT Maternal History Items: - - Liver tumor states benign Review of Systems Constitutional: Reports: Anorexia, Chills, Fever, Malaise, Weakness, Fatigue HEENT: Reports: Head Aches, Post Nasal Drip, Sinus Congestion, Sore Throat. Denies: Sinus Drainage Cardiovascular: Denies: Chest Pain, Palpitations Respiratory: Denies: Cough, Shortness of breath at rest, Sputum production Gastrointestinal: Reports: Abdominal Pain, Nausea. Denies: Hematemesis, Hematochezia, Melena, Vomiting Genitourinary: Reports: Dysuria, Frequency, Retention, Urgency Musculoskeletal: Denies: Joint Pain, Joint Tenderness Skin: Denies: Rash, Wounds Neurological: Denies: Numbness, Tingling, Focal weakness Psychiatric: Reports: Anxiety. Denies: Depression, Homicidal Ideations, Suicidal Ideations Hematologic/ Lymphatic: Denies: Easy Bruising, Easy Bleeding VTE Information - Inpt Only VTE Present on Admission: No VTE Mechan Device Prophylaxis: None VTE Pharm Prophylaxis ordered?: No Reason prophylaxis not ordered:: Procedure Not Indicated Patient Problems: Active and Suspected Problems Hepatitis (Acute) Acute liver injury (Acute) - Physical Exam Vitals/I&O's: Vital Signs Temp Pulse Resp BP Pulse Ox 98 F 107 H 20 H 128/84 H 97 11/04/19 11:19 11/04/19 11:19 11/04/19 11:19 11/04/19 11:19 11/04/19 11:19 Oxygen Delivery Method Room Air Weight: 160 lb Body Mass Index (BMI) 31.2 Intake and Output for Last 24 Hours 11/02/19 11/03/19 11/04/19 23:59 23:59 23:59 Intake Total 1000 / 1000 Balance 1000 / 1000 General: Alert, Oriented x3, Cooperative HEENT: Atraumatic, PERRLA, EOMI, Normocephalic Oral: No Gingival or Mucosal Lesions/ Ulcerations, Dry Mucosa Neck: Supple, No JVD, Negative Carotid Bruits Lungs: Clear to auscultation, Normal air movement, No rhonchi, No wheeze, No rales Cardiovascular: Regular rate, Regular Rhythm, Normal S1, Normal S2, No murmurs Abdomen: Bowel Sounds Present, Soft, Non-Distended, Hepatomegaly, Tender - Tenderness pain to her right upper quadrant. Mild hepatomegaly. Extremities: No edema, Capillary Refill Less than 3 Seconds Skin: No rashes, No breakdown Musculoskeletal: No Tenderness to Palpation of Joints or Extremities Neurological: Cranial nerves II-XII grossly intact, Deep Tendon Reflexes 2+/4 and Symmetrical, Neuro grossly intact Psych/Mental Status: Normal Affect, Appropriate Laboratory Results 11/04/19 11:54: WBC 3.5 L, RBC 4.60, Hgb 12.6, Hct 38.8, MCV 84.3, MCH 27.4, MCHC 32.5, RDW Std Deviation 42.1, RDW Coeff of Severiano 13.6, Plt Count 170, MPV 9.9, Immature Gran % (Auto) 0.600, Neut % (Auto) 46.9 L, Lymph % (Auto) 42.1 H, Jackson % (Auto) 6.9, Eos % (Auto) 2.9, Baso % (Auto) 0.6, Absolute Neuts (auto) 1.6 L, Absolute Lymphs (auto) 1.47, Nucleated RBC % 0, Differential Comment SCANNED 11/04/19 11:54: Sodium 136, Potassium 3.7, Chloride 104, Carbon Dioxide 27.0, Anion Gap 5, BUN 11, Creatinine 0.70, Estim Creat Clear Calc 85.18, Est GFR (MDRD) Af Amer 126, Est GFR (MDRD) Non-Af 104, BUN/Creatinine Ratio 15.6, Glucose 99, Calcium 7.9 L, Total Bilirubin 2.10 H, Direct Bilirubin 1.68 H, AST 1260 H, ALT 1226 H, Alkaline Phosphatase 184 H, Total Protein 7.3, Albumin 3.4, Globulin 3.9, Lipase 115 Assessment/Plan All Active Problems Pain in right foot (Acute) Hepatitis (Acute) Acute liver injury (Acute) The patient is a 29 year old F with history of chronic polysubstance use came to ER with abdominal pain along with nausea generalized body aches. In the ER basic lab work shows elevated LFT AST ALT in 1200s, alkaline phosphatase 134, TB 2.1 direct bili 1.68, albumin 3.4. Lipase 115. Electrolyt es are normal range. WBC 3.5 thousand platelet count 170,000. Right upper quadrant ultrasound was done reported as mild hepatomegaly, liver 17.7 cm mildly distended GB with thickened GB wall 6 mm and a small amount of pericholecystic fluid, CBD 3.2 mm. Pancreas reported normal. 1. Acute liver injury probably viral hepatitis or acute acalculous cholecystitis or drug-induced liver injury or multifactorial: [facility] Surgeon was consulted from ER and he agreed to see the patient. As per ED physician, surgeon impression is not obstructive jaundice or acute calculus cholecystitis as reported in liver ultrasound. IV fluid normal saline. Avoid hepatotoxic medications. Zofran for nausea or vomiting. Tylenol contraindicated. Ibuprofen 400 milligrams every 6 hourly only as needed for fever more than 100.4 Fahrenheit. U tox ordered. Tylenol level ordered. Respiratory panel, UA with urine culture ordered. Blood cultures x2 ordered. 2. Polysubstance use: Patient claims she quit opioid use/heroin about 2 months ago. Last use of methamphetamine about 2 weeks ago. 3. Recent history of right foot cellulitis and abscess with MRSA for which she required incision and drainage in August 2019. 4. DVT prophylaxis: Early ambulation encouraged. Low risk no prophylaxis indicated. Laboratory Results 11/04/19 11:54: WBC 3.5 L, RBC 4.60, Hgb 12.6, Hct 38.8, MCV 84.3, MCH 27.4, MCHC 32.5, RDW Std Deviation 42.1, RDW Coeff of Severiano 13.6, Plt Count 170, MPV 9.9, Immature Gran % (Auto) 0.600, Neut % (Auto) 46.9 L, Lymph % (Auto) 42.1 H, Jackson % (Auto) 6.9, Eos % (Auto) 2.9, Baso % (Auto) 0.6, Absolute Neuts (auto) 1.6 L, Absolute Lymphs (auto) 1.47, Nucleated RBC % 0, Differential Comment SCANNED 11/04/19 11:54: Sodium 136, Potassium 3.7, Chloride 104, Carbon Dioxide 27.0, Anion Gap 5, BUN 11, Creatinine 0.70, Estim Creat Clear Calc 85.18, Est GFR (MDRD) Af Amer 126, Est GFR (MDRD) Non-Af 104, BUN/Creatinine Ratio 15.6, Glucose 99, Calcium 7.9 L, Total Bilirubin 2.10 H, Direct Bilirubin 1.68 H, AST 1260 H, ALT 1226 H, Alkaline Phosphatase 184 H, Total Protein 7.3, Albumin 3.4, Globulin 3.9, Lipase 115 Clinical Impression(s) from Imaging Studies Gallbladder Ultrasound 11/04/19 11:36 IMPRESSION: Mildly distended gallbladder with thickened gallbladder wall and small amount of pericholecystic fluid. Chest X-Ray 11/04/19 11:37 IMPRESSION: Normal x-ray examination of the chest. Code Visit Inpatient E&M: 86874 Init Hosp L3
[2019-11-04 14:32] VITALS: BP 109/72; PULSE 85; RESP 14; O2SAT 98
[2019-11-04 14:47] VITALS: BP 123/73; PULSE 85; RESP 16; TEMP 36.9; O2SAT 96
[2019-11-04 14:51] VITALS: BMI 33.4
[2019-11-04 14:55] VITALS: BMI 33.5
[2019-11-04] MEDS: 0.9% Normal Saline 1,000 ML 100 ML IV ×2 (15:00→23:55)
[2019-11-04] MEDS: 0.9% Saline Lock 10 ML Syringe IV ×2 (15:00→15:07)
[2019-11-04] MEDS: proMETHazine 25 MG/ML Syringe 12.5 MG IV ×2 (15:07→23:53)
[2019-11-04] MEDS: Morphine 2 MG/ML Syringe IV ×2 (15:22→23:48)
[2019-11-04 15:32] LABS: Albumin, Serum 3.1 g/dL (3.2-5.0)
[2019-11-04 15:54] LABS: Amphetamine Urine VISTA POSITIVE (<1000 ng/mL); Barbiturate Urine VISTA NEGATIVE (< 200 ng/mL); Benzodiazepine Urine VISTA NEGATIVE (< 200 ng/mL); Cocaine Urine VISTA NEGATIVE (< 300 ng/mL); Ecstacy Urine VISTA NEGATIVE (< 500 ng/mL); Methadone Urine VISTA NEGATIVE (< 300 ng/mL); PCP Urine VISTA NEGATIVE (< 25 ng/mL); THC Urine VISTA NEGATIVE (< 50 ng/mL); Vista UDS pH Range 6
[2019-11-04 15:58] LABS: Acetaminophen (Tylenol) Level < 2.0 ug/mL (10.0-30.0)
[2019-11-04 16:16] LABS: Internal QC Validated? YES +Cl - CLEAR BKGD; Monotest Negative (Negative)
[2019-11-04 18:42] LABS: Bacteria 0 SEEN /hpf (None Seen); Mucous, Urine 0 SEEN /hpf (<or=2+); White Blood Cells 0 SEEN /hpf (0-5)
[2019-11-04 18:43] LABS: Color, Urine Yellow (Yellow); Glucose, Dipstick Normal (Normal); Ketone-Dipstick Negative (Negative); Leukocyte Esterase-Dipstick Negative /ul (Negative); Nitrite-Dipstick Negative (Negative); Occult Blood-Urine 250 /ul (Negative); Protein-Dipstick 15 mg/dl (Negative); Urine Clarity Cloudy (Clear); Urine Urobilinogen 8 mg/dl (Normal)
[2019-11-04 18:54] LABS: Urine Bilirubin Dipstick 3 mg/dL (Negative)
[2019-11-04 18:56] LABS: Amorphous Sediment 3+ URATE; Red Blood Cells-Urine 5-10 SEEN /hpf (0-5); Squamous Epithelial Cells - UA 5-10 SEEN /hpf (5-10)
[2019-11-04 20:47] VITALS: BP 121/84; PULSE 86; RESP 16; TEMP 36.6; O2SAT 97
[2019-11-05 02:43] VITALS: BP 120/82; PULSE 83; RESP 16; TEMP 36.7; O2SAT 96
[2019-11-05 06:09] LABS: Absolute Lymphocyte Count 1.86 X10^3/uL (0.83-4.51); Absolute Neutrophil Count 1.1 X10^3/uL (2.0-7.7); Basophil# 0.03 X10^3/uL; Basophil% 0.9 % (0-1); Eosinophil# 0.14 X10^3/uL; Eosinophils% 4.1 % (0-5); Hemoglobin 11.7 g/dL (12.0-15.0); Lymphocyte # 1.86 X10^3/ul (4.0); Lymphocyte % 54.9 % (19-41); Mean Corp Hgb Conc 32.5 g/dL (32-36); Mean Corpuscular Hgb 27.3 pg (27.0-32.0); Mean Corpuscular Volume 84.1 fL (81-99); Mean Platelet Vol. 10.1 fl (6.2-12.0); Monocyte# 0.27 X10^3/uL; NRBC Flagged by Analyzer 0 % (0-5); Neutrophil # 1.07 X10^3/uL (2.7-7.7); Neutrophil % 31.5 % (47-70); POSITIVE MORPHOLOGY YES; Platelet Count 147 K/mm3 (150-450); RBC Distribution Width CV 13.7 % (11.6-14.6); RBC Distribution Width SD 42.2 fl (35.1-43.9); Red Blood Count 4.28 M/mm3 (4.2-5.4); White Blood Count 3.4 K/mm3 (4.4-11.0)
[2019-11-05 06:12] LABS: Differential Indicated SCAN CRITERIA MET
[2019-11-05 06:43] LABS: Differential Comment SCANNED; Reactive Lymphocyte 1+
[2019-11-05 07:09] LABS: ALB/GLOB Ratio 0.8 RATIO (0.9-2.4); AST(SGOT) 1253 U/L (15-37); Alanine Aminotransfer ALT/SGPT 1266 U/L (13-56); Albumin, Serum 2.8 g/dL (3.2-5.0); Alkaline Phosphatase 162 U/L (45-117); Anion Gap 6 (5-15); BUN 5 mg/dL (7-18); BUN/Creat Ratio 8.4 RATIO (10-20); Calcium,Total 7.4 mg/dL (8.5-10.1); Chloride 111 mmol/L (98-107); EST Glomerular Filtration Rate 127 mL/min (>60); Est Glom Filt Rate - Afr Amer 153 mL/min (>60); Estimated Creatinine Clearance 99.37 ml/min; Globulin 3.4 g/dL (2.2-4.2); Glucose 101 mg/dL (74-106); Magnesium 1.9 mg/dL (1.6-2.6); Potassium 3.6 mmol/L (3.5-5.1); Protein, Total 6.2 g/dL (6.4-8.2); Sodium Level 140 mmol/L (136-145)
[2019-11-05 08:11] VITALS: BP 106/59; PULSE 86; RESP 16; TEMP 36.9; O2SAT 98
[2019-11-05] MEDS: oxyCODONE 5 MG Tablet PO (08:41)
--- NOTE | 2019-11-05 08:48 | PCM.CONS.GEN ---
Problem List (1) Hepatitis Status: Acute Reason for Consult Date of Consultation: 11/05/19 History of Present Illness: The patient is a 29 year old F who presented with abdominal pain since Sunday. She reports that she does not have any nausea or vomiting. She says the abdominal pain is on the right side. She is not having any fevers or chills. 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 Claims she had IV heroin about 2 months ago/quit 2 months ago - *Family History Paternal History Items: DVT Maternal History Items: - - Liver tumor states benign Review of Systems Constitutional: Denies: Anorexia, Fever HEENT: Denies: Difficulty Swallowing Respiratory: Denies: Cough Gastrointestinal: Reports: Abdominal Pain. Denies: Hematemesis, Hematochezia, Nausea, Vomiting Musculoskeletal: Denies: Joint Tenderness Neurological: Denies: Balance problems Patient Problems: Active and Suspected Problems Hepatitis (Acute) Acute liver injury (Acute) - Physical Exam Vitals/I&O's: Vital Signs Temp Pulse Resp BP Pulse Ox 98.5 F 86 16 106/59 L 98 11/05/19 08:11 11/05/19 08:11 11/05/19 08:11 11/05/19 08:11 11/05/19 08:11 Oxygen Delivery Method Room Air Weight: 171 lb 4.8 oz Body Mass Index (BMI) 33.4 Intake and Output for Last 24 Hours 11/03/19 11/04/19 11/05/19 23:59 23:59 23:59 Intake Total 2041.66 / 2441.66 1400 / 1400 Output Total 300 / 900 600 / 600 Balance 1741.66 / 1541.66 800 / 800 General: Alert, Oriented x3 HEENT: Atraumatic Neck: No JVD Lungs: Normal air movement Cardiovascular: Regular rate, Regular Rhythm Abdomen: Soft, Tender - Tender in the right upper quadrant Psych/Mental Status: Normal Affect Laboratory Results 11/04/19 11:54: WBC 3.5 L, RBC 4.60, Hgb 12.6, Hct 38.8, MCV 84.3, MCH 27.4, MCHC 32.5, RDW Std Deviation 42.1, RDW Coeff of Severiano 13.6, Plt Count 170, MPV 9.9, Immature Gran % (Auto) 0.600, Neut % (Auto) 46.9 L, Lymph % (Auto) 42.1 H, Yates % (Auto) 6.9, Eos % (Auto) 2.9, Baso % (Auto) 0.6, Absolute Neuts (auto) 1.6 L, Absolute Lymphs (auto) 1.47, Nucleated RBC % 0, Differential Comment SCANNED 11/04/19 11:54: Sodium 136, Potassium 3.7, Chloride 104, Carbon Dioxide 27.0, Anion Gap 5, BUN 11, Creatinine 0.70, Estim Creat Clear Calc 85.18, Est GFR (MDRD) Af Amer 126, Est GFR (MDRD) Non-Af 104, BUN/Creatinine Ratio 15.6, Glucose 99, Calcium 7.9 L, Total Bilirubin 2.10 H, Direct Bilirubin 1.68 H, AST 1260 H, ALT 1226 H, Alkaline Phosphatase 184 H, Total Protein 7.3, Albumin 3.4, Globulin 3.9, Lipase 115 11/04/19 15:00: Albumin 3.1 L 11/04/19 15:00: Acetaminophen < 2.0 L 11/04/19 15:00: Hepatitis A IgM Ab Pending, Hep Bs Antigen Pending, Hep B Core IgM Ab Pending, Hepatitis C Ab (EIA) Pending 11/04/19 15:00: Monoscreen Negative 11/04/19 15:00: EBV Capsid Ag IgG Ab Pending, EBV Capsid Ag IgM Ab Pending, EBV Early Antigen IgG Pending, EBV Nuclear Ag IgG Ab Pending, EBV Antibody Interp Pending 11/04/19 15:30: Urine Opiates Screen POSITIVE H, Urine Methadone Screen NEGATIVE, Ur Barbiturates Screen NEGATIVE, Ur Phencyclidine Scrn NEGATIVE, Ur Amphetamines Screen POSITIVE H, U Methamphetamin-MDMA NEGATIVE, U Benzodiazepines Scrn NEGATIVE, Urine Cocaine Screen NEGATIVE, U Cannabinoids Screen NEGATIVE, Ur Drug Screen Comment 11/04/19 15:30: Urine Color Yellow, Urine Clarity Cloudy, Urine pH 6.0, Ur Specific Buckley 1.020, Urine Protein 15 H, Urine Glucose (UA) Normal, Urine Ketones Negative, Urine Occult Blood 250 H, Urine Nitrite Negative, Urine Bilirubin 3 H, Urine Urobilinogen 8 H, Ur Leukocyte Esterase Negative, Urine RBC 5-10 SEEN, Urine WBC 0 SEEN, Ur Squamous Epith Cells 5-10 SEEN, Amorphous Sediment 3+ URATE, Urine Bacteria 0 SEEN, Urine Mucus 0 SEEN 11/05/19 05:50: WBC 3.4 L, RBC 4.28, Hgb 11.7 L, Hct 36.0 L, MCV 84.1, MCH 27.3, MCHC 32.5, RDW Std Deviation 42.2, RDW Coeff of Severiano 13.7, Plt Count 147 L, MPV 10.1, Immature Gran % (Auto) 0.600, Neut % (Auto) 31.5 L, Lymph % (Auto) 54.9 H, Yates % (Auto) 8.0, Eos % (Auto) 4.1, Baso % (Auto) 0.9, Absolute Neuts (auto) 1.1 L, Absolute Lymphs (auto) 1.86, Nucleated RBC % 0, Differential Comment SCANNED, Reactive Lymphocytes 1+ 11/05/19 05:50: Sodium 140, Potassium 3.6, Chloride 111 H, Carbon Dioxide 23.0, Anion Gap 6, BUN 5 L, Creatinine 0.60, Estim Creat Clear Calc 99.37, Est GFR (MDRD) Af Amer 153, Est GFR (MDRD) Non-Af 127, BUN/Creatinine Ratio 8.4 L, Glucose 101, Calcium 7.4 L, Magnesium 1.9, Total Bilirubin 2.00 H, AST 1253 H, ALT 1266 H, Alkaline Phosphatase 162 H, Total Protein 6.2 L, Albumin 2.8 L, Globulin 3.4, Albumin/Globulin Ratio 0.8 L Clinical Impression(s) from Imaging Studies Gallbladder Ultrasound 11/04/19 11:36 IMPRESSION: Mildly distended gallbladder with thickened gallbladder wall and small amount of pericholecystic fluid. Electronically Signed: Otto Blanco, at 13:03 EST , Service support , Chest X-Ray 11/04/19 11:37 IMPRESSION: Normal x-ray examination of the chest. Electronically Signed: Otto Blanco, at 13:00 EST , Service support , Current Medications Glucagon () 1 mg IM .X1 PRN PRN Reason: Hypoglycemia Guaifenesin (Robitussin) 20 ml PO Q4H PRN PRN PRN Reason: COUGH Sodium Chloride () 1,000 mls @ 100 mls/hr IV .Q10H DOMONIQUE Stop: 11/05/19 10:44 Last Infusion: 11/05/19 08:39 Dose: Infused Documented by: Dextrose (Dextrose 10%-Water) 250 mls @ 999 mls/hr IV X1 PRN; Protocol PRN Reason: HYPOGLYCEMIA Ibuprofen (Motrin) 400 mg PO Q4H PRN PRN PRN Reason: Temp > 100.7 F Morphine Sulfate () 2 mg IV Q3H PRN PRN PRN Reason: Pain Score 6-10/10 Last Admin: 11/04/19 23:48 Dose: 2 mg Documented by: Ondansetron HCl (Zofran) 4 mg IV Q6H PRN PRN PRN Reason: NAUSEA/VOMITING Oxycodone HCl (Oxyir) 5 mg PO Q4H PRN PRN PRN Reason: Pain Score 4-5/10 Last Admin: 11/05/19 08:41 Dose: 5 mg Documented by: Promethazine HCl (Phenergan) 12.5 mg IV Q6H PRN PRN PRN Reason: Breakthrough nausea/vomiting Last Admin: 11/04/19 23:53 Dose: 12.5 mg Documented by: Psyllium Hydrophilic Mucilloid (Metamucil) 1 packet PO DAILY PRN PRN PRN Reason: Constipation Senna/Docusate Sodium (Senokot-S, Holli-Colace) 2 tablet PO BID PRN PRN PRN Reason: Constipation Sodium Chloride () 10 - 40 ml IV UD PRN PRN Reason: SALINE FLUSH Last Admin: 11/04/19 15:07 Dose: 10 ml Documented by: Assessment/Plan All Active Problems Pain in right foot (Acute) Hepatitis (Acute) Acute liver injury (Acute) 29-year-old female with hepatitis 1. The patient has right upper quadrant pain and ultrasound revealed thickened gallbladder but no stones. I believe the gallbladder wall is thickened due to the hepatitis. Her LFTs are markedly elevated with normal size common bile duct on ultrasound. I recommend checking hepatitis serologies. She is okay for diet for my standpoint as there is no surgery planned at this time. Yousuf Figueroa MD Pager: [facility] [address] [place] [address], [address] [place] [address] Office:
--- NOTE | 2019-11-05 10:03 | CASEMGMT ---
RN CM Note: attempted to speak with pt re: ALLEY BONILLA assessment. Pt is very sleepy and unable to participate at this time. Thalia THORPEN RN ACM
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
--- NOTE | 2019-11-05 10:20 | CASEMGMT ---
Insurance review for [facility] using [employer] insurance. [facility], [facility]), [place], [facility], [facility], [facility], [facility], [facility].
--- NOTE | 2019-11-05 13:22 | PCM.PN.HOSP ---
Patient Problems: Active and Suspected Problems Hepatitis (Acute) Acute liver injury (Acute) Subjective: Patient seen and examined. She was admitted with a complaint of right upper quadrant pain. She complains of severe pain this morning and states she has pain all over. Patient was very restless and kept getting up and moving around during review. She denied any fever chills, any nausea vomiting, any shortness of breath or diarrhea. Review of signs otherwise negative. Patient states she does have a history of hepatitis C and has never been treated for it. She does not her primary care doctor she follows up with. Labs and vitals reviewed. Vitals/I&O's: Vital Signs Temp Pulse Resp BP Pulse Ox 98.5 F 86 16 106/59 L 98 11/05/19 08:11 11/05/19 08:11 11/05/19 08:11 11/05/19 08:11 11/05/19 08:11 Oxygen Delivery Method Room Air Weight: 171 lb 4.787 oz Body Mass Index (BMI) 33.4 Intake and Output for Last 24 Hours 11/03/19 11/04/19 11/05/19 23:59 23:59 23:59 Intake Total 2041.66 / 2441.66 2400 / 2400 Output Total 300 / 900 1400 / 1400 Balance 1741.66 / 1541.66 1000 / 1000 General: Alert, Oriented x3, - - restless, kept pacing all over HEENT: Atraumatic, PERRLA, EOMI, Normocephalic, - - sclera has tinge of jaundice Oral: Dry Mucosa Neck: Supple, No JVD, Negative Carotid Bruits Lungs: Clear to auscultation, Normal air movement, No rhonchi, No wheeze, No rales Cardiovascular: Regular rate, Regular Rhythm, Normal S1, Normal S2, No murmurs Abdomen: Bowel Sounds Present, Soft, Non-Distended, No Hepato-splenomegaly, - - moderate RUQ tenderness, with guarding, but no rebound tenderness. Extremities: No edema, Capillary Refill Less than 3 Seconds Skin: No rashes, No breakdown Musculoskeletal: No Tenderness to Palpation of Joints or Extremities Lymphatic: No Cervical, Supraclavicular, or Inguinal Adenopathy Neurological: Cranial nerves II-XII grossly intact, Neuro grossly intact, Motor Exam 5/5 strength throughout Psych/Mental Status: Normal Affect, Appropriate, Alert and oriented to time, place, person, mood and affect Microbiology Past 72 Hours 11/04/19 15:30 Urine, Clean Catch Urine Culture - Preliminary Presumptive E. coli 11/04/19 23:55 Mucosa - Nose Respiratory Panel (PCR) - Final Laboratory Results 11/04/19 15:00: Albumin 3.1 L 11/04/19 15:00: Acetaminophen < 2.0 L 11/04/19 15:00: Hepatitis A IgM Ab Pending, Hep Bs Antigen Pending, Hep B Core IgM Ab Pending, Hepatitis C Ab (EIA) Pending 11/04/19 15:00: Monoscreen Negative 11/04/19 15:00: EBV Capsid Ag IgG Ab Pending, EBV Capsid Ag IgM Ab Pending, EBV Early Antigen IgG Pending, EBV Nuclear Ag IgG Ab Pending, EBV Antibody Interp Pending 11/04/19 15:00: Hepatitis Be Antigen Pending 11/04/19 15:30: Urine Opiates Screen POSITIVE H, Urine Methadone Screen NEGATIVE, Ur Barbiturates Screen NEGATIVE, Ur Phencyclidine Scrn NEGATIVE, Ur Amphetamines Screen POSITIVE H, U Methamphetamin-MDMA NEGATIVE, U Benzodiazepines Scrn NEGATIVE, Urine Cocaine Screen NEGATIVE, U Cannabinoids Screen NEGATIVE, Ur Drug Screen Comment 11/04/19 15:30: Urine Color Yellow, Urine Clarity Cloudy, Urine pH 6.0, Ur Specific [place] 1.020, Urine Protein 15 H, Urine Glucose (UA) Normal, Urine Ketones Negative, Urine Occult Blood 250 H, Urine Nitrite Negative, Urine Bilirubin 3 H, Urine Urobilinogen 8 H, Ur Leukocyte Esterase Negative, Urine RBC 5-10 SEEN, Urine WBC 0 SEEN, Ur Squamous Epith Cells 5-10 SEEN, Amorphous Sediment 3+ URATE, Urine Bacteria 0 SEEN, Urine Mucus 0 SEEN 11/05/19 05:50: WBC 3.4 L, RBC 4.28, Hgb 11.7 L, Hct 36.0 L, MCV 84.1, MCH 27.3, MCHC 32.5, RDW Std Deviation 42.2, RDW Coeff of Severiano 13.7, Plt Count 147 L, MPV 10.1, Immature Gran % (Auto) 0.600, Neut % (Auto) 31.5 L, Lymph % (Auto) 54.9 H, [place] % (Auto) 8.0, Eos % (Auto) 4.1, Baso % (Auto) 0.9, Absolute Neuts (auto) 1.1 L, Absolute Lymphs (auto) 1.86, Nucleated RBC % 0, Differential Comment SCANNED, Reactive Lymphocytes 1+ 11/05/19 05:50: Sodium 140, Potassium 3.6, Chloride 111 H, Carbon Dioxide 23.0, Anion Gap 6, BUN 5 L, Creatinine 0.60, Estim Creat Clear Calc 99.37, Est GFR (MDRD) Af Amer 153, Est GFR (MDRD) Non-Af 127, BUN/Creatinine Ratio 8.4 L, Glucose 101, Calcium 7.4 L, Magnesium 1.9, Total Bilirubin 2.00 H, AST 1253 H, ALT 1266 H, Alkaline Phosphatase 162 H, Total Protein 6.2 L, Albumin 2.8 L, Globulin 3.4, Albumin/Globulin Ratio 0.8 L Diagnostic Data Gallbladder Ultrasound 11/04/19 11:36 IMPRESSION: Mildly distended gallbladder with thickened gallbladder wall and small amount of pericholecystic fluid. Electronically Signed: Otto Blanco, at 13:03 EST , Service support , Chest X-Ray 11/04/19 11:37 IMPRESSION: Normal x-ray examination of the chest. Electronically Signed: Otto Blanco, at 13:00 EST , Service support , Current Medications Glucagon () 1 mg IM .X1 PRN PRN Reason: Hypoglycemia Guaifenesin (Robitussin) 20 ml PO Q4H PRN PRN PRN Reason: COUGH Dextrose (Dextrose 10%-Water) 250 mls @ 999 mls/hr IV X1 PRN; Protocol PRN Reason: HYPOGLYCEMIA Ibuprofen (Motrin) 400 mg PO Q4H PRN PRN PRN Reason: Temp > 100.7 F Ondansetron HCl (Zofran) 4 mg IV Q6H PRN PRN PRN Reason: NAUSEA/VOMITING Promethazine HCl (Phenergan) 12.5 mg IV Q6H PRN PRN PRN Reason: Breakthrough nausea/vomiting Last Admin: 11/04/19 23:53 Dose: 12.5 mg Documented by: Psyllium Hydrophilic Mucilloid (Metamucil) 1 packet PO DAILY PRN PRN PRN Reason: Constipation Senna/Docusate Sodium (Senokot-S, Holli-Colace) 2 tablet PO BID PRN PRN PRN Reason: Constipation Sodium Chloride () 10 - 40 ml IV UD PRN PRN Reason: SALINE FLUSH Last Admin: 11/04/19 15:07 Dose: 10 ml Documented by: Medical Necessity - Tobacco Use Smoking Status: Heavy Smoker (>10/day) Tobacco Use: Cigarettes Assessment/Plan All Active Problems Pain in right foot (Acute) Hepatitis (Acute) Acute liver injury (Acute) 1. Acute hepatitis Etiology of acute hepatitis is unclear but is likely viral. Total bilirubin was 2.1 with direct bilirubin of 1.68 and AST/ALT of 1 two 604/1 226 and ALP of 184 on admission. Repeat labs today shows total bilirubin trended up slightly to 2 with AST trend down slightly to 1253. ALT is 1266 and ALP is 162. Some acetaminophen level was less than 2. Patient does state she has a history of hepatitis C and has never been treated for it. Acute hepatitis panel is pending. gallbladder USG shows moderately distended gallbladder with thickened gallbladder wall and small amount of pericholecystic fluid. general surgery on board- do not think it is acute cholecystitis. will trend liver enzymes; and advised that if her liver enzymes trend upwards or her symptoms worsen, she will need to be transferred to a tertiary center. 2. Polysubstance abuse U tox was positive for amphetamines and opiates. She does admit to taking Vicodin from her friend recently. Counseled to quit. She admits to using methamphetamines but states the last time she used was about a week ago. 3. DVT prophylaxis: low risk. encourage ambulation. Code Visit Inpatient E&M: 71126 [facility] L3
--- NOTE | 2019-11-05 13:44 | NURSING ---
when rounding pt was in deep sleep and was not disturbed. Pt an hour later called out and requested pain medication. This RN entered room and pt was again sound asleep. This RN completed assessment and vitals and easily returned to sleep. Patient then called out a short while later and when this RN entered room pt sitting on side of bed drinking apple juice and states she began hiccuping, very painful hiccups. Pt states pain is 8 out of 10 and requested prn pain meds. Non verbal scale = 5/10 and prn oxyir given. Pt swallowed pill and within 1 minute was laying in bed snoring. Pt had been notified in AM of clear liquid diet- however, called dietary and ordered regular meal for lunch without any notification from staff that diet had changed. Pt called out and spoke with staff complaining that we are trying to starve her and became angry. She also called out and stated that she was in severe pain. This RN notified Dr. Leahy and received new orders to begin regular diet and to d/c narcotic pain medication. This RN and JANAK Moses entered room and pt was laying with head at foot of bed sound asleep and snoring. Apple juice pt requested was placed on bedside table and pt was not disturbed. This RN called dietary and notified them of diet change and to bring up meal pt ordered.
[2019-11-05 14:00] VITALS: BP 113/71; PULSE 82; RESP 16; TEMP 36.6; O2SAT 97
[2019-11-05] MEDS: Ibuprofen 400 MG Tablet PO (14:18)
[2019-11-05 15:17] LABS: AST(SGOT) 1224 U/L (15-37); Alanine Aminotransfer ALT/SGPT 1381 U/L (13-56); Albumin, Serum 2.9 g/dL (3.2-5.0); Alkaline Phosphatase 164 U/L (45-117); Bilirubin, Direct 1.72 mg/dL (0.00-0.30); Globulin 3.5 g/dL (2.2-4.2); Protein, Total 6.4 g/dL (6.4-8.2)
[2019-11-05] MEDS: 0.9% Normal Saline 1,000 ML 125 ML IV (17:40)
[2019-11-05] MEDS: 0.9% Saline Lock 10 ML Syringe IV (17:40)
[2019-11-05 20:00] VITALS: BP 115/61; PULSE 64; RESP 16; TEMP 36.6; O2SAT 97
[2019-11-06] MEDS: 0.9% Normal Saline 1,000 ML 125 ML IV (01:49)
[2019-11-06] MEDS: traMADol 50 MG Tablet PO (01:54)
[2019-11-06 02:00] VITALS: BP 116/72; PULSE 68; RESP 16; TEMP 36.7; O2SAT 98
[2019-11-06] MEDS: Ibuprofen 400 MG Tablet PO (02:38)
[2019-11-06 06:12] LABS: Absolute Lymphocyte Count 2.35 X10^3/uL (0.83-4.51); Absolute Neutrophil Count 1.3 X10^3/uL (2.0-7.7); Basophil# 0.05 X10^3/uL; Basophil% 1.2 % (0-1); Eosinophils% 2.4 % (0-5); Hematocrit 34.7 % (37-47); Hemoglobin 11.3 g/dL (12.0-15.0); Lymphocyte # 2.35 X10^3/ul (4.0); Mean Corp Hgb Conc 32.6 g/dL (32-36); Mean Corpuscular Hgb 27.5 pg (27.0-32.0); Mean Corpuscular Volume 84.4 fL (81-99); Mean Platelet Vol. 10.3 fl (6.2-12.0); Monocyte# 0.36 X10^3/uL; Monocyte% 8.7 % (0-10); NRBC Flagged by Analyzer 0 % (0-5); Neutrophil # 1.25 X10^3/uL (2.7-7.7); Neutrophil % 30.5 % (47-70); POSITIVE MORPHOLOGY YES; Platelet Count 153 K/mm3 (150-450); RBC Distribution Width CV 13.6 % (11.6-14.6); RBC Distribution Width SD 42.2 fl (35.1-43.9); Red Blood Count 4.11 M/mm3 (4.2-5.4); White Blood Count 4.1 K/mm3 (4.4-11.0)
[2019-11-06 06:19] LABS: Differential Indicated SCAN CRITERIA MET
[2019-11-06 06:49] LABS: ALB/GLOB Ratio 0.8 RATIO (0.9-2.4); AST(SGOT) 891 U/L (15-37); Alanine Aminotransfer ALT/SGPT 1243 U/L (13-56); Albumin, Serum 2.8 g/dL (3.2-5.0); Alkaline Phosphatase 155 U/L (45-117); Anion Gap 5 (5-15); BUN 6 mg/dL (7-18); BUN/Creat Ratio 12.8 RATIO (10-20); Bilirubin, Direct 1.92 mg/dL (0.00-0.30); Calcium,Total 7.6 mg/dL (8.5-10.1); Chloride 111 mmol/L (98-107); Creatinine, Serum 0.47 mg/dL (0.55-1.02); EST Glomerular Filtration Rate 167 mL/min (>60); Est Glom Filt Rate - Afr Amer 202 mL/min (>60); Estimated Creatinine Clearance 126.86 ml/min; Globulin 3.5 g/dL (2.2-4.2); Glucose 88 mg/dL (74-106); Potassium 3.8 mmol/L (3.5-5.1); Protein, Total 6.3 g/dL (6.4-8.2); Sodium Level 141 mmol/L (136-145)
[2019-11-06 07:04] LABS: Atypical Lymphocyte RARE %; Differential Comment SCANNED; Reactive Lymphocyte 1+
[2019-11-06 09:35] LABS: Hepatitis B Core AB IgM Negative (Negative)
[2019-11-06 09:49] VITALS: BP 106/71; PULSE 75; RESP 18; TEMP 36.8; O2SAT 97
[2019-11-06] MEDS: Ciprofloxacin 500 MG Tablet PO (11:03)
[2019-11-06 13:50] LABS: HEPATITIS B SURFACE AG Positive (Negative); Hep C Antibodies >11.0 s/co ratio (0.0-0.9)
[2019-11-06 13:54] LABS: Hepatitis A IgM Antibody Positive (Negative)
[2019-11-06 13:55] LABS: Hepatitis Be Ag Positive (Negative)
[2019-11-06 14:09] LABS: AST(SGOT) 744 U/L (15-37); Alanine Aminotransfer ALT/SGPT 1209 U/L (13-56); Albumin, Serum 2.8 g/dL (3.2-5.0); Alkaline Phosphatase 165 U/L (45-117); Bilirubin, Direct 2.11 mg/dL (0.00-0.30); Globulin 3.8 g/dL (2.2-4.2); Protein, Total 6.6 g/dL (6.4-8.2)
--- NOTE | 2019-11-06 14:11 | NURSING ---
call placed to [facility], report given to RN whom will take over care for transfer
[2019-11-06 14:14] VITALS: BP 121/71; PULSE 68; RESP 18; TEMP 36.7; O2SAT 98
--- NOTE | 2019-11-06 14:19 | NURSING ---
Notified by PARAPROFESSIONAL EDUCATION ASSISTANT that patient was requesting pain medications. Upon entering room pt sleeping in bed. This RN awoken pt and informed her that we were just notified by [facility] that they have a bed and we are working on getting her transferred. Pt responded well you need to tell that fucking doctor she needs to give me some stronger pain medicine for the ambulance ride or i am not going anywhere. This RN stated she will pass on her concerns to doctor Tosin. Offered pt tramadol to take at this time as i was notified by PARAPROFESSIONAL EDUCATION ASSISTANT that pt pt was requesting medication for pain. pt stated she wasn't fucking take that med, she took it last night and it made her pain worse. Will notify
--- NOTE | 2019-11-06 15:20 | DS.PCM_ITS ---
Discharge Date and Diagnosis - Problem List Patient Problems: Active and Suspected Problems Hepatitis (Acute) Acute liver injury (Acute) Date of Admission: 11/04/19 Date of Discharge: 11/06/19 - Primary Discharge Diagnosis Active and Suspected Problems acute hepatitis A and B (Acute) Acute liver injury (Acute) - Secondary Discharge Diagnosis Chronic Problems IV drug abuse (Chronic) Hospital Course and Treatment Imaging Results: Diagnostic Data Gallbladder Ultrasound 11/04/19 11:36 IMPRESSION: Mildly distended gallbladder with thickened gallbladder wall and small amount of pericholecystic fluid. Electronically Signed: Otto Blanco, at 13:03 EST , Service support , Chest X-Ray 11/04/19 11:37 IMPRESSION: Normal x-ray examination of the chest. Electronically Signed: Otto Blanco, at 13:00 EST , Service support , general surgery- Dr Figueroa Operations: None Procedures: None Summary of Care Provided: The patient is a 29 year old F with a past medical history of polysubstance abuse was admitted through the ED on 11/04/2019 with a complaint of abdominal pain for 3 to 4 days prior to admission. She had generalized malaise and body aches as well as nausea. Pain was mainly on the right side and she had associated fever and chills and flulike symptoms. She has been taking ibuprofen daily for about 2 days as well as Aleve for 3 to 4 days for the fever and abdominal pain and she denied taking any Tylenol. She also complained of burning with urination. In the ED LFTs were elevated in the thousand 200s with ALP of 134. Total bilirubin was 2.1 with direct bilirubin of 1.68. Lipase was only 115. Right upper quadrant ultrasound done showed mild hepatomegaly with distended gallbladder with thickened gallbladder wall and a small amount of pericholecystic fluid. She was admitted and managed for acute hepatitis and acute liver injury. She was hydrated with IV fluids and put on IV pain meds. General surgery was consulted and did not think that it was an acute cholecystitis picture and so therefore did not warrant cholecystectomy. Hepatitis panel was ordered and eventually came back as positive for hepatitis B E antigen and hepatitis A IgG and indicating active hepatitis A and B infection. Patient said she did have a history of hepatitis C but has never been treated for it. Hepatitis C antibody was elevated. The liver enzymes were initially trended now, patient still complains of severe abdominal pain remains very un comfortable during admission. Decision was therefore made to transfer patient to a tertiary facility for hepatology and GI evaluation as the services were not present at [facility]. Patient seen and examined prior to discharge. She still complained of severe abdominal pain and still complained of generalized malaise but denied any fever or chills or nausea vomiting. Review of symptoms otherwise negative. Labs and vitals reviewed. Home medications reviewed and reconciled. o/e: Vital Signs Height 5 ft Weight: 171 lb 4.787 oz Weight in Pounds 171.3 lbs Pulse Ox 98 Temperature 98.1 F Pulse Rate 68 Respiratory Rate 18 Blood Pressure 121/71 Blood Pressure Position Semi-Fowlers [] General: Alert, Oriented x3, looks uncomfortable HEENT: Atraumatic, PERRLA, EOMI, Normocephalic, - -jaundiced sclera Oral: Dry Mucosa Neck: Supple, No JVD, Negative Carotid Bruits Lungs: Clear to auscultation, Normal air movement, No rhonchi, No wheeze, No rales Cardiovascular: Regular rate, Regular Rhythm, Normal S1, Normal S2, No murmurs Abdomen: Bowel Sounds Present, Soft, Non-Distended, No Hepato-splenomegaly, - - moderate RUQ tenderness, with guarding, but no rebound tenderness. Extremities: No edema, Capillary Refill Less than 3 Seconds Skin: No rashes, No breakdown Musculoskeletal: No Tenderness to Palpation of Joints or Extremities Lymphatic: No Cervical, Supraclavicular, or Inguinal Adenopathy Neurological: Cranial nerves II-XII grossly intact, Neuro grossly intact, Motor Exam 5/5 strength throughout Psych/Mental Status: Normal Affect, Appropriate, Alert and oriented to time, place, person, mood and affect Plan is for transfer to [facility]. She has been accepted to the care of Dr. Holm- hospitalist Patient Problems: Active and Suspected Problems Hepatitis (Acute) Acute liver injury (Acute) - Physical Exam Vitals/I&O's: Vital Signs Temp Pulse Resp BP Pulse Ox 98.1 F 68 18 121/71 H 98 11/06/19 14:14 11/06/19 14:14 11/06/19 14:14 11/06/19 14:14 11/06/19 14:14 Oxygen Delivery Method Room Air Weight: 171 lb 4.787 oz Body Mass Index (BMI) 33.4 Intake and Output for Last 24 Hours 11/04/19 11/05/19 11/06/19 23:59 23:59 23:59 Intake Total 2041.66 / 2441.66 3200 / 3440 3040 / 3040 Output Total 300 / 900 1400 / 1400 1000 / 1000 Balance 1741.66 / 1541.66 1800 / 2040 2040 / 2040 Microbiology Past 72 Hours 11/04/19 15:00 Blood Culture (Wb) - Anticubital Right Blood Culture - Preliminary No growth in 48 hours. 11/04/19 15:11 Blood Culture (Wb) - Left Hand Blood Culture - Preliminary No growth in 48 hours. 11/04/19 15:30 Urine, Clean Catch Urine Culture - Final Presumptive E. coli 11/04/19 23:55 Mucosa - Nose Respiratory Panel (PCR) - Final Laboratory Results 11/04/19 15:00: Hepatitis A IgM Ab Positive H, Hep Bs Antigen Positive H, Hep B Core IgM Ab Negative, Hepatitis C Ab (EIA) >11.0 H 11/04/19 15:00: Hepatitis Be Antigen Positive H 11/06/19 05:38: WBC 4.1 L, RBC 4.11 L, Hgb 11.3 L, Hct 34.7 L, MCV 84.4, MCH 27.5, MCHC 32.6, RDW Std Deviation 42.2, RDW Coeff of Severiano 13.6, Plt Count 153, MPV 10.3, Immature Gran % (Auto) 0.200, Neut % (Auto) 30.5 L, Lymph % (Auto) 57 .0 H, [place] % (Auto) 8.7, Eos % (Auto) 2.4, Baso % (Auto) 1.2 H, Absolute Neuts (auto) 1.3 L, Absolute Lymphs (auto) 2.35, Nucleated RBC % 0, Differential Comment SCANNED, Atypical Lymphocytes RARE, Reactive Lymphocytes 1+ 11/06/19 05:38: Sodium 141, Potassium 3.8, Chloride 111 H, Carbon Dioxide 25.0, Anion Gap 5, BUN 6 L, Creatinine 0.47 L, Estim Creat Clear Calc 126.86, Est GFR (MDRD) Af Amer 202, Est GFR (MDRD) Non-Af 167, BUN/Creatinine Ratio 12.8, Glucose 88, Calcium 7.6 L, Total Bilirubin 2.20 H, Direct Bilirubin 1.92 H, AST 891 H, ALT 1243 H, Alkaline Phosphatase 155 H, Total Protein 6.3 L, Albumin 2.8 L, Globulin 3.5, Albumin/Globulin Ratio 0.8 L 11/06/19 12:38: Total Bilirubin Cancelled, Direct Bilirubin Cancelled, AST Cancelled, ALT Cancelled, Alkaline Phosphatase Cancelled, Total Protein Canc elled, Albumin Cancelled, Globulin Cancelled 11/06/19 13:40: Total Bilirubin 2.30 H, Direct Bilirubin 2.11 H, AST 744 H, ALT 1209 H, Alkaline Phosphatase 165 H, Total Protein 6.6, Albumin 2.8 L, Globulin 3.8 Current Medications Ciprofloxacin HCl (Cipro) 500 mg PO BID [facility] Last Admin: 11/06/19 11:03 Dose: 500 mg Documented by: Glucagon () 1 mg IM .X1 PRN PRN Reason: Hypoglycemia Guaifenesin (Robitussin) 20 ml PO Q4H PRN PRN PRN Reason: COUGH Dextrose (Dextrose 10%-Water) 250 mls @ 999 mls/hr IV X1 PRN; Protocol PRN Reason: HYPOGLYCEMIA Sodium Chloride () 1,000 mls @ 100 mls/hr IV .Q10H [facility] Stop: 11/07/19 09:19 Ibuprofen (Motrin) 400 mg PO Q4H PRN PRN PRN Reason: Pain Score 1-10/10 Last Admin: 11/06/19 02:38 Dose: 400 mg Documented by: Ondansetron HCl (Zofran) 4 mg IV Q6H PRN PRN PRN Reason: NAUSEA/VOMITING Promethazine HCl (Phenergan) 12.5 mg IV Q6H PRN PRN PRN Reason: Breakthrough nausea/vomiting Last Admin: 11/04/19 23:53 Dose: 12.5 mg Documented by: Psyllium Hydrophilic Mucilloid (Metamucil) 1 packet PO DAILY PRN PRN PRN Reason: Constipation Senna/Docusate Sodium (Senokot-S, Holli-Colace) 2 tablet PO BID PRN PRN PRN Reason: Constipation Sodium Chloride () 10 - 40 ml IV UD PRN PRN Reason: SALINE FLUSH Last Admin: 11/05/19 17:40 Dose: 10 ml Documented by: Tramadol HCl (Ultram) 50 mg PO Q6H PRN PRN PRN Reason: Pain Score 1-10/10 Last Admin: 11/06/19 01:54 Dose: 50 mg Documented by: Discharge Diet: Low fat/ Low Cholesterol Discharge Activity: Return to Normal Activity Weight Bearing Status: Weight bearing as tolerated Call your doctor if you observe: Fever of 101 or Higher, Uncontrolled pain Home Medications: Medications to take at Discharge NK 11/04/19 Primary Care Physician: Care Physician,No Primary [Primary Care Provider] - Disposition: Acute care Hospital Minutes spent on discharge:: 45 Patient Condition:: Fair Medical Necessity - Tobacco Use Smoking Status: Heavy Smoker (>10/day) Tobacco Use: Cigarettes Meaningful Use Info Meaningful Use Diagnoses (Choose all that apply): None applicable Code Visit Inpatient E&M: 84983 [facility] Hosp
[2019-11-06] MEDS: Morphine 2 MG/ML Syringe 1 MG IV (15:53)
[2019-11-06] MEDS: 0.9% Saline Lock 10 ML Syringe IV (15:54)
[2019-11-07 16:40] LABS: EBV Acute VCA IgM < 36.0 U/mL (0.0-35.9); EBV Early Antigen IgG <9.0 U/mL (0.0-8.9); EBV-VCA IgG > 600.0 U/mL (0.0-17.9)
== END 2019-11-06 16:30 | disposition short-term general hospital (02) ==
LOC: ED 13:48 → MS3 11-05 06:20
PROVIDERS: Admitting Provider Internal Medicine; Emergency Provider Emergency Medicine; Referring Provider Internal Medicine; Visit Provider Student in an Organized Health Care Education/Training Program
DX: B15.9 Hepatitis A without hepatic coma (principal); B16.9 Acute hepatitis B without delta-agent and without hepatic coma; F17.210 Nicotine dependence, cigarettes, uncomplicated; R35.0 Frequency of micturition; R31.9 Hematuria, unspecified; F15.10 Other stimulant abuse, uncomplicated; F11.11 Opioid abuse, in remission; Z86.14 Personal history of Methicillin resistant Staphylococcus aureus infection
CPT/HCPCS: 36415; 71045; 76705; 80048; 80053; 80074; 80076; 80307; 80329; 81001; 82040; 82248; 83690; 83735; 85025; 86308; 86663; 86664; 86665; 87040; 87086; 87088; 87186; 87350; 87633; 99218; 99284; 99406; J7030; A4216; G0378; G0480; J2405

== ENCOUNTER 2019-12-09 12:27 | Emergency (ER) | payer MEDICAID, SELFPAY ==
[2019-12-09 12:28] VITALS: BP 100/65; PULSE 115; RESP 16; TEMP 37.3; O2SAT 98; BMI 32.4
[2019-12-09 12:33] VITALS: PULSE 105
--- NOTE | 2019-12-09 12:45 | CT_ITS ---
STUDY: CT ABDOMEN AND PELVIS WITHOUT CONTRAST REASON FOR EXAM: Female, 29 years old. LEFT SIDE PAIN X 3 DAYS, METH-OPIOID ABUSE, APPENDECTOMY, X 2 RADIATION DOSAGE (If Supplied By Facility): CTDIvol = ( 6.82 ) mGy, DLP = ( 368.17 ) mGycm TECHNIQUE: Transaxial images were obtained from the dome of the diaphragm to the symphysis pubis without oral contrast, and without intravenous contrast. Sagittal and coronal images were reconstructed. Individualized dose optimization techniques were used for this CT. COMPARISON: None. FINDINGS: Minimal increased linear markings at the lung bases suggestive of atelectasis. The visualized portions of the heart are within normal limits. There is hepatomegaly with diffuse hepatic enlargement. Normal gallbladder and extrahepatic biliary system. There is moderate splenomegaly. Normal pancreas. Normal bilateral adrenal glands. Normal right kidney. 2 mm nonobstructive calculus in the midpole calyx of the left kidney. Normal visualized stomach. Normal small intestine. Large amount of fecal material is seen in the right hemicolon. There are surgical clips in the region of the appendix consistent with a prior appendectomy. Normal abdominal aorta. Normal inferior vena cava. Normal retroperitoneum. Normal urinary bladder. I suspect a 2.6 cm right ovarian cyst. There is a small umbilical hernia containing fat. Mild degree of disc space narrowing and disc degeneration at the L5-S1 level. Straightening of the normal lumbar lordosis. CT/Abdomen/Pelvis without Cont IMPRESSION: Nonobstructive calculus in the midportion of the left kidney. Hepatosplenomegaly. Findings suggesting a 2.6 cm right ovarian cyst. Electronically Signed: Otto Blanco, at 14:05 EST , Service support ,
[2019-12-09 12:54] LABS: Absolute Lymphocyte Count 2.56 X10^3/uL (0.83-4.51); Absolute Neutrophil Count 11.7 X10^3/uL (2.0-7.7); Basophil# 0.04 X10^3/uL; Basophil% 0.2 % (0-1); Eosinophil# 0.23 X10^3/uL; Eosinophils% 1.4 % (0-5); Hematocrit 34.1 % (37-47); Hemoglobin 11.2 g/dL (12.0-15.0); Lymphocyte # 2.56 X10^3/ul (4.0); Lymphocyte % 15.4 % (19-41); Mean Corp Hgb Conc 32.8 g/dL (32-36); Mean Corpuscular Hgb 27.2 pg (27.0-32.0); Mean Corpuscular Volume 82.8 fL (81-99); Mean Platelet Vol. 10.1 fl (6.2-12.0); Monocyte# 2.01 X10^3/uL; Monocyte% 12.1 % (0-10); NRBC Flagged by Analyzer 0 % (0-5); Neutrophil # 11.71 X10^3/uL (2.7-7.7); Neutrophil % 70.3 % (47-70); POSITIVE DIFFERENTIAL YES; Platelet Count 238 K/mm3 (150-450); RBC Distribution Width CV 13.6 % (11.6-14.6); RBC Distribution Width SD 41.2 fl (35.1-43.9); Red Blood Count 4.12 M/mm3 (4.2-5.4); White Blood Count 16.7 K/mm3 (4.4-11.0)
[2019-12-09] MEDS: 0.9% Normal Saline 1,000 ML 1000 ML IV (12:54)
[2019-12-09] MEDS: Ondansetron 4 MG/2 ML Vial IV (12:55)
[2019-12-09] MEDS: Ketorolac 30 MG/ML Syringe IV (12:55)
[2019-12-09 12:56] LABS: Differential Indicated SCAN CRITERIA MET
[2019-12-09 13:10] LABS: ALB/GLOB Ratio 0.6 RATIO (0.9-2.4); AST(SGOT) 10 U/L (15-37); Alanine Aminotransfer ALT/SGPT 19 U/L (13-56); Albumin, Serum 2.7 g/dL (3.2-5.0); Alkaline Phosphatase 77 U/L (45-117); Anion Gap 7 (5-15); BUN 11 mg/dL (7-18); BUN/Creat Ratio 12.2 RATIO (10-20); Calcium,Total 8.2 mg/dL (8.5-10.1); Chloride 103 mmol/L (98-107); EST Glomerular Filtration Rate 78 mL/min (>60); Est Glom Filt Rate - Afr Amer 95 mL/min (>60); Estimated Creatinine Clearance 66.25 ml/min; Globulin 4.9 g/dL (2.2-4.2); Glucose 111 mg/dL (74-106); Lipase 99 U/L (73-393); Potassium 3.2 mmol/L (3.5-5.1); Protein, Total 7.6 g/dL (6.4-8.2); Sodium Level 133 mmol/L (136-145)
[2019-12-09 13:18] LABS: Anisocytosis RARE; Platelet Estimate ADEQUATE (ADEQ)
[2019-12-09 13:19] LABS: Internal QC Validated? YES +Cl - CLEAR BKGD; Pregnancy, Serum, hCG Quali. NEGATIVE Negative
[2019-12-09 13:30] VITALS: BP 104/68; PULSE 90; RESP 14; TEMP 36.8; O2SAT 96
[2019-12-09 14:00] VITALS: BP 108/61; PULSE 83; RESP 13; TEMP 36.4; O2SAT 97
[2019-12-09 14:02] LABS: Lactic Acid 0.6 mmol/L (0.4-1.9)
[2019-12-09 14:24] LABS: Mucous, Urine 0 SEEN /hpf (<or=2+)
[2019-12-09 14:33] LABS: Color, Urine Yellow (Yellow); Glucose, Dipstick Normal (Normal); Ketone-Dipstick Negative (Negative); Leukocyte Esterase-Dipstick 500 /ul (Negative); Nitrite-Dipstick Positive (Negative); Occult Blood-Urine 250 /ul (Negative); Protein-Dipstick 100 mg/dl (Negative); Urine Bilirubin Dipstick Negative (Negative); Urine Clarity Sl. Cloudy (Clear); Urine Urobilinogen Normal (Normal)
[2019-12-09] MEDS: 0.9% Normal Saline 1,000 ML 999 ML IV (14:37)
[2019-12-09 14:44] LABS: Bacteria 2+ /hpf (None Seen); Red Blood Cells-Urine 25-50 SEEN /hpf (0-5); Squamous Epithelial Cells - UA 0-5 SEEN /hpf (5-10); White Blood Cells 25-50 SEEN /hpf (0-5)
[2019-12-09 14:49] LABS: Amphetamine Urine VISTA POSITIVE (<1000 ng/mL); Barbiturate Urine VISTA NEGATIVE (< 200 ng/mL); Benzodiazepine Urine VISTA NEGATIVE (< 200 ng/mL); Cocaine Urine VISTA NEGATIVE (< 300 ng/mL); Ecstacy Urine VISTA NEGATIVE (< 500 ng/mL); Methadone Urine VISTA NEGATIVE (< 300 ng/mL); PCP Urine VISTA NEGATIVE (< 25 ng/mL); THC Urine VISTA NEGATIVE (< 50 ng/mL); Vista UDS pH Range 6
[2019-12-09] MEDS: Ciprofloxacin 400 MG/200 ML BAG 200 MG IV (14:55)
[2019-12-09 15:00] VITALS: BP 106/74; PULSE 81; RESP 14; TEMP 36.6; O2SAT 97
--- NOTE | 2019-12-09 15:00 | CM.ED ---
Social Work Consult: Substance Abuse. Attempted to meet with patient in room. Patient sleeping. Patient did open eyes when this manager social services introduced self and manager social services role. Patient would not stay awake. Patient did state to want to speak with this manager social services, but again patient would not stay awake. Will follow up with patient at a later time. Rosalba SIN, EMILY
--- NOTE | 2019-12-09 15:12 | ED.DCSUM_ITS ---
- ER Visit Summary Date of Service: 12/09/19 Chief Complaint: Abdominal pain History of Present Illness: The patient is a 29 F with no primary care physician. She reports that she has left-sided abdominal pain and left flank pain that began 2 to 3 days ago. Is gradually gotten worse. Is a sharp pain is 9-10 at worst and 7-10 currently. Is worsened by eating and movement. Is relieved by sleeping. She reports is been nauseated, no vomiting. No diarrhea. Last bowel movements yesterday. Patient reports she is had frequent urination. She denies any dysuria or hematuria. No fever or chills. She does admit to IV drug abuse. She reports that her last meth use was approximately 1 week ago. She has used fentanyl in the past couple of days. Physical Examination: Vitals: Stable. Afebrile. General: Well-nourished and well-developed. Head: Normocephalic atraumatic. Neck: Supple, no lymphadenopathy. No JVD. Nontender. Cardiovascular: Regular rate and rhythm. No murmurs. Respiratory: No respiratory distress. Clear to auscultation bilaterally. Abdominal: Soft, mild left upper and left lower quadrant tenderness to palpation, nondistended, normal bowel sounds. No guarding, rebound, or peritoneal signs. Back: Mild left CVA tenderness. No vertebral tenderness.. Extremities: Nontender, no edema. Track martinez to the left antecubital fossa. No erythema, induration, or fluctuance to suggest infection. Skin: Normal color, no rash. Neurologic: Alert and oriented ?3. Cranial nerves II through XII are intact. Normal strength and sensation. Psych: Normal affect. Test Results: CBC shows a white count of 16.7 with an H&H 11.2 and 34.1, lymphocytes of 15, monocytes of 12. Lactic acid is 0.6. Chem-7 shows a sodium 133, potassium 3.2, calcium 8.2, glucose 111. LFTs are marked for an albumin 2.7, globulin 4.9, AST of 10. Lipase is normal. UA shows nitrites, blood, 25- 50 red blood cells and white blood cells with 2+ bacteria. Talk screen shows opiates and amphetamines. test was negative. Clinical Impression(s) from Imaging Studies Abdomen/Pelvis CT 12/09/19 12:45 IMPRESSION: Nonobstructive calculus in the midportion of the left kidney. Hepatosplenomegaly. Findings suggesting a 2.6 cm right ovarian cyst. Electronically Signed: Otto Blanco, at 14:05 EST , Service support , Emergency Department Course and Treatment: Patient had an IV placed. She was given 2 L of normal saline. She was given Toradol and Zofran IV. She was given Cipro IV. She is sleeping comfortably. Treatment Plan: Patient's urine was sent for culture. She will be discharged with Cipro. Instructed to follow-up the viral source was clinic in 3 to 5 days for another exam. Return to the emergency department for any worsening symptoms. Disposition: To home in improved and stable condition. Impression: 1. UTI. 2. Polysubstance abuse. This note was generated with [employer] dictation software. It may contain incorrect words, spelling, and punctuation that were not noted in review of the chart prior to signing ED Disposition - Plan for ED Patient: Instructions: Understanding Urinary Tract Infections (UTIs) Prescriptions: Ciprofloxacin [Cipro] 500 mg PO BID #14 tablet Ondansetron [Zofran Odt] 4 mg PO Q8H PRN PRN #10 tablet PRN Reason: Nausea Referrals: Winnie Puckett [NON-STAFF] - 3-5 Days
[2019-12-09 16:05] VITALS: BP 111/71; PULSE 79; RESP 14; O2SAT 97
--- NOTE | 2019-12-09 16:30 | CM.ED ---
Social Work Nursing staff inquiring if this social service coordinator new the patient that was sleeping in the waiting room. This social service coordinator went to the waiting room and identified patient at [facility]. This social service coordinator able to rouse patient. Patient stating to have contacted patient father and that patient father is to come and pickling tank operator patient. Patient then stating to be interested in resources about substance abuse support/assistance. Patient again appears to be falling back asleep and unable to gather more information. This social service coordinator did provide patient with information on local substance abuse resources and patient did accepted. Will continue to follow as needed. Rosalba SIN, EMILY
--- NOTE | 2019-12-09 18:18 | CM.ED ---
Social Work Went back to waiting room to see if patient was still there, patient still present and sleeping. Patient stating to have just spoke with patient father and that patient father is on the way from [place] to merchandise pickup/receiving associate patient. Patient aware that patient is not able to stay in waiting room for the night. Updated HRO, Zak Muniz of situation. Rosalba Minor MSW, EMILY
[2019-12-11 09:01] LABS: Pathologist Review Reviewed
== END 2019-12-09 16:06 | disposition home or self-care (01) ==
LOC: ED 13:27
PROVIDERS: Emergency Provider Emergency Medicine
DX: N39.0 Urinary tract infection, site not specified (principal); F11.10 Opioid abuse, uncomplicated; F15.10 Other stimulant abuse, uncomplicated; N20.0 Calculus of kidney; R16.2 Hepatomegaly with splenomegaly, not elsewhere classified
CPT/HCPCS: 36415; 74176; 80053; 80307; 81001; 83605; 83690; 84703; 85025; 87040; 87077; 87086; 87088; 87186; 96361; 96365; 96374; 96375; 99285; J7030; A4216; J0744; J2405

== ENCOUNTER 2020-08-08 00:56 | Emergency (ER) | payer MEDICAID, SELFPAY ==
[2020-08-08 00:57] VITALS: BP 111/82; PULSE 93; RESP 22; TEMP 37.1; O2SAT 99; BMI 27.8
[2020-08-08 01:12] VITALS: BP 111/82; PULSE 93; RESP 22; TEMP 37.1; O2SAT 99
--- NOTE | 2020-08-08 01:23 | ED.RN ---
NO OLD EKGS IN MUSE
--- NOTE | 2020-08-08 01:23 | ED.VIS.GEN ---
History of Present Illness Chief Complaint: Confusion Informant: Patient Narrative: Patient states for the past several weeks she has been experiencing shortness of breath when she gets on her exercise bike. She states that last night she developed a sore throat nasal congestion that is getting thicker and now a slight cough. She denies any fevers. She states that she feels confused. By confusion she states that earlier tonight she looked at her significant other and they seem to be moving in slow motion. She states that she walked from [facility] to the hospital and was very fatigued and needed to stop at the laundromat and rest. She states she was worried about an allergic reaction. She also reports that her chest feels like it is burning and is very sore to touch. - Past Medical History (1) Hepatitis Status: Chronic (2) IV drug abuse Status: Chronic (3) Sepsis Status: Resolved Past Medical History - Allergies and Home Meds Allergies/Adverse Reactions: Allergies Penicillins Allergy (Verified 08/08/20 01:04) blisters on tongue Primary Care Physician: Robles Francis CELLOPHANE WORKER, CELLOPHANE WORKER-C [Nurse Practitioner] - 3-5 Days if not improving Surgical History: adenoidectomy, - - Smoking Status: Current every day smoker - Family History Maternal Family History: Reports: - - Liver tumor states benign Paternal Family History: Reports: DVT Review of Systems General: Reports: Malaise. Denies: Chills, Fever, Sweats Eyes: Denies: Visual changes - bilaterally, Diplopia ENT: Reports: Rhinorrhea, Sore throat Cardiovascular: Reports: Chest pain. Denies: Palpitations Respiratory: Reports: Dyspnea, Cough, Dyspnea on exertion Gastrointestinal: Denies: Abdominal pain, Nausea, Vomiting, Diarrhea, Melena, Hematochezia Genitourinary: Denies: Dysuria, Hematuria, Frequency Musculoskeletal: Reports: Myalgias. Denies: Back pain, Extremity Pain Skin: Denies: Rash, Wounds Neurological: Denies: Headache, Weakness, Numbness Physical Exam Vital Signs/Narrative: Vital Signs Temp Pulse Resp BP Pulse Ox 08/08/20 01:12 98.8 F 93 22 H 111/82 H 99 08/08/20 00:57 98.8 F 93 22 H 111/82 H 99 Inital Vital Signs reviewed: Yes General: Well nourished, Well developed, No Acute Distress Head: Normocephalic, Atraumatic Eyes: Perrl, EOMI ENT: Moist mucous membranes, Nasal congestion, - - Patient has mild conjunctival erythema. No exudates. No evidence of peritonsillar retropharyngeal abscess. No stridor. Neck: Supple, Nontender Cardiovascular: Regular rate, Regular rhythm, No murmurs Respiratory: No distress, CTA bilaterally, Chest tenderness Abdomen: Soft, Nontender, Nondistended, Normal bowel sounds Back: Nontender, Normal Inspection Extremities: Nontender, No edema Skin: Normal color, No rash Neurological: Alert, Oriented x3, Cranial nerves II-XII grossly intact, Normal Strength, Normal Sensation Psychological: Normal affect, Normal Mood Diagnostic/Tx/Re-eval Clinical Impression(s) from Imaging Studies Chest X-Ray 08/08/20 01:45 IMPRESSION: Normal x-ray examination of the chest. Electronically Signed: Claudia Null MD at 2:05 EDT Tel , Service support , - Medical Decision Making Chest x-ray showed no acute findings. COVID swab was sent. This is a send out test. I believe the patient most likely is having a viral illness. Sore throat nasal congestion and cough. She also reports fatigue and body aches. Patient will be discharged home instructions to rest hydrate isolate until at least her COVID test is back. I will provide her a number that she can call for follow-up. ED Disposition - Plan for ED Patient: Disposition: Home or Assisted Living Diagnosis: Viral syndrome, Dyspnea Instructions: ED Viral Syndrome Referrals: Robles Francis NP, CELLOPHANE WORKER-C [Nurse Practitioner] - 3-5 Days if not improving
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
[2020-08-08 02:15] VITALS: BP 106/68; PULSE 101; RESP 17; TEMP 36.9; O2SAT 97
[2020-08-08] MEDS: DiphenhydrAMINE 25 MG Capsule PO (02:17)
== END 2020-08-08 02:20 | disposition home or self-care (01) ==
LOC: ED 01:41
PROVIDERS: Emergency Provider Emergency Medicine
DX: B34.9 Viral infection, unspecified (principal); R06.00 Dyspnea, unspecified; R41.0 Disorientation, unspecified; R05 Cough; J02.9 Acute pharyngitis, unspecified; R09.81 Nasal congestion; R07.89 Other chest pain; Z86.19 Personal history of other infectious and parasitic diseases; F17.200 Nicotine dependence, unspecified, uncomplicated
CPT/HCPCS: 71045; 87635; 99283; C9803; U0003

== ENCOUNTER 2020-08-16 05:33 | Emergency (ER) | payer MEDICAID, SELFPAY ==
[2020-08-16 05:34] VITALS: BP 143/89; PULSE 102; RESP 18; TEMP 36.2; O2SAT 99; BMI 29.3
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
[2020-08-16] MEDS: HYDROcodone Bitartrate/Apap 5/325 Tablet PO (06:14)
== END 2020-08-16 06:17 | disposition home or self-care (01) ==
LOC: ED 06:17
PROVIDERS: Emergency Provider Emergency Medicine
DX: S00.83XA Contusion of other part of head, initial encounter (principal); Y04.0XXA Assault by unarmed brawl or fight, initial encounter; Y93.9 Activity, unspecified; Y92.9 Unspecified place or not applicable; K75.9 Inflammatory liver disease, unspecified; Z87.898 Personal history of other specified conditions; F17.200 Nicotine dependence, unspecified, uncomplicated
CPT/HCPCS: 70486; 99283

== ENCOUNTER 2020-09-23 22:18 | Emergency (ER) | payer MEDICAID, SELFPAY ==
[2020-09-23 22:19] VITALS: BP 119/88; PULSE 100; RESP 18; TEMP 36.2; O2SAT 100; BMI 31.6
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
[2020-09-23 23:48] VITALS: BP 112/81; PULSE 102; RESP 16; O2SAT 99
[2020-09-23] MEDS: Ondansetron ODT 4 MG Tablet PO (23:52)
[2020-09-24] VITALS: BP 127/87; PULSE 78; RESP 18; O2SAT 99
== END 2020-09-24 00:01 | disposition home or self-care (01) ==
LOC: ED 22:57
PROVIDERS: Emergency Provider Emergency Medicine
DX: T40.1X1A Poisoning by heroin, accidental (unintentional), initial encounter (principal); Y92.9 Unspecified place or not applicable; R51.9 Headache, unspecified; W19.XXXA Unspecified fall, initial encounter; Y93.9 Activity, unspecified; E34.8 Other specified endocrine disorders
CPT/HCPCS: 70450; 99285

== ENCOUNTER 2020-10-28 18:50 | Emergency (ER) | payer MEDICAID, SELFPAY ==
[2020-10-28 18:52] VITALS: BP 123/75; PULSE 104; RESP 18; TEMP 37; O2SAT 99; BMI 30.8
[2020-10-28 18:57] VITALS: BP 123/75; PULSE 101; RESP 18; TEMP 37; O2SAT 99
[2020-10-28 19:22] LABS: Mucous, Urine 0 SEEN /hpf (<or=2+)
[2020-10-28 19:30] LABS: Color, Urine Yellow (Yellow); Glucose, Dipstick Normal (Normal); Ketone-Dipstick Negative (Negative); Leukocyte Esterase-Dipstick 500 /ul (Negative); Nitrite-Dipstick Negative (Negative); Occult Blood-Urine 25 /ul (Negative); Protein-Dipstick 100 mg/dl (Negative); Specific Gravity, Urine 1.015 (1.002-1.030); Urine Bilirubin Dipstick Negative (Negative); Urine Clarity Sl. Cloudy (Clear); Urine Urobilinogen Normal (Normal); Urine pH 6.5 (5.0 - 8.0)
[2020-10-28 19:46] LABS: Red Blood Cells-Urine 0-5 SEEN /hpf (0-5); Squamous Epithelial Cells - UA 0-5 SEEN /hpf (5-10); White Blood Cells 25-50 SEEN /hpf (0-5)
[2020-10-28 19:47] LABS: Bacteria 2+ /hpf (None Seen); Internal QC Validated? YES +Cl - CLEAR BKGD; Pregnancy, Urine Negative Negative
--- NOTE | 2020-10-28 20:13 | ED.DCSUM_ITS ---
- ER Visit Summary Date of Service: 10/28/20 Chief Complaint: Shaky, side pain History of Present Illness: The patient is a 30 F who presents with side pain and shakiness. It started when she woke up today. She states that she just feels shaky. She has not had a fever. She does complain of some pain in the left lower back area. She has had some dysuria as well. Denies hematuria. Denies a cough or any exposure to coronavirus. She has no other health problems Physical Examination: Vital signs reviewed. HEENT exam unremarkable. Heart is regular rate and rhythm without murmurs. Lungs are clear to auscultation. Abdomen is soft and nontender. Does have some tenderness in the left lower back area. There is no CVA tenderness. Extremities reveal no edema. Skin exam normal. Neurologic exam normal. Test Results: Patient does have 25-50 white blood cells in her urine. hCG is negative Emergency Department Course and Treatment: Patient appears to have a urinary tract infection. This is likely the cause of her symptoms. Overall she looks well and has normal vital signs. Patient will be treated with Bactrim. She will need to follow-up with her PCP. Treatment Plan: [] Disposition: Discharge Impression: UTI This note was generated with [employer] dictation software. It may contain incorrect words, spelling, and punctuation that were not noted in review of the chart prior to signing ED Disposition - Plan for ED Patient: Disposition: Home or Assisted Living Instructions: ED Bladder Infection, Female (Adult) Prescriptions: Smz/Tmp Ds [Bactrim Ds] 1 tab PO BID #14 tab Transmission Status: Pending to [facility] Referrals: Care Physician,No Primary [Primary Care Provider] -
[2020-10-28] MEDS: Smz/Tmp Ds Tablet 1 TABLET PO (20:18)
[2020-10-28 20:19] VITALS: RESP 16
== END 2020-10-28 20:19 | disposition home or self-care (01) ==
PROVIDERS: Emergency Provider Emergency Medicine
DX: N39.0 Urinary tract infection, site not specified (principal); Z72.0 Tobacco use
CPT/HCPCS: 81001; 81025; 99283

== ENCOUNTER 2021-02-07 12:20 | Inpatient (IN) | payer MEDICAID, SELFPAY ==
[2021-02-07] VITALS (19 sets, daily range): BP systolic 85–148; BP diastolic 59–122; PULSE 79–112; RESP 14–27; TEMP 36.4–36.6; O2SAT 76–100; BMI 31.2; BMI 30.6
--- NOTE | 2021-02-07 12:38 | RAD_ITS ---
STUDY: X-RAY CHEST REASON FOR EXAM: Female, 30 years old. Vomited, hypoxemic TECHNIQUE: Single AP portable view of the chest. COMPARISON: Comparison is made with prior study 08/08/2020. FINDINGS: EKG electrodes are seen. Focal infiltrate in the right upper lobe as well as in the right lower lobe. The patient history of overdose, aspiration should be ruled out. There is no demonstrated pleural abnormality. Normal size heart. Normal mediastinum and melecio. Normal visualized pulmonary arteries. Normal visualized aortic arch and descending thoracic aorta. Normal visualized thoracic spine. Normal visualized ribs, clavicles, and shoulders. There is no demonstrated abnormality of the visualized soft tissue structures of the upper abdomen. RAD/Chest 1 View (Portable) IMPRESSION: Infiltrate in the right upper lobe as well as in the right lower lobe. Aspiration should be ruled out. Electronically Signed: Otto Blanco MD at 13:05 EDT , Service support ,
--- NOTE | 2021-02-07 12:38 | EKG12_ITS ---
Test Reason : OVERDOSE Blood Pressure : / mmHG Vent. Rate : 093 BPM Atrial Rate : 093 BPM P-R Int : 136 ms QRS Dur : 086 ms QT Int : 374 ms P-R-T Axes : 016 019 002 degrees QTc Int : 465 ms Normal sinus rhythm Normal ECG Confirmed by ADE BOND, DELMIS ([id number]), editor magazine MADAY PICKARD ([id number]) on 02/10/2021 12:26:50 PM Referred By: AILIN Confirmed By:CHELLY BOOKER MD
--- NOTE | 2021-02-07 12:39 | ED.DCSUM_ITS ---
History of Present Illness Chief Complaint: Substance Abuse Informant: Patient, [place] Examiner Onset: Today Associated Symptoms: Shaky, nauseated, cold Narrative: Patient was found outside behind a small structure unconscious after a possible overdose. Paramedics had said they had been called multiple times for her in the past week or so because of accidental overdoses on heroin. Initially when I asked the patient if this was intentional or an accident, she states no she is not suicidal and this was an accident but then quickly follows that with that she does not remember doing any drugs at all. Paramedics state that she had told them before that she stopped injecting because she does not have any good veins left, so now she snorts the drugs. She feels very nauseated right now but denies any chest pain or trouble breathing despite low oxygen saturations. She does remember vomiting. Prior to arrival, EMS gave her a total of 6 mg of Narcan intranasally. She did not wake up with the initial dose, but did with the second. She is a daily heroin user. - Past Medical History (1) Hepatitis Status: Chronic (2) IV drug abuse Status: Chronic Past Medical History - Allergies and Home Meds Allergies/Adverse Reactions: Allergies Penicillins Allergy (Verified 02/07/21 12:21) blisters on tongue Primary Care Physician: Care Physician,No Primary [Primary Care Provider] - Surgical History: adenoidectomy Smoking Status: Current every day smoker Drugs: Heroin - Family History Maternal Family History: Reports: - - Liver tumor states benign Paternal Family History: Reports: DVT Review of Systems General: Reports: Malaise - And shaky. Denies: Chills, Fever, Sweats Eyes: Denies: Visual changes - bilaterally, Diplopia ENT: Denies: Rhinorrhea, Sore throat Cardiovascular: Denies: Chest pain, Palpitations Respiratory: Denies: Dyspnea, Cough, Dyspnea on exertion Gastrointestinal: Reports: Nausea, Vomiting. Denies: Abdominal pain, Diarrhea, Melena, Hematochezia Genitourinary: Denies: Dysuria, Hematuria, Frequency Musculoskeletal: Reports: Myalgias. Denies: Back pain, Extremity Pain Skin: Denies: Rash, Wounds Neurological: Denies: Headache, Weakness, Numbness Physical Exam Vital Signs/Narrative: Vital Signs Temp Pulse Resp BP Pulse Ox 02/07/21 12:34 76 02/07/21 12:29 112 H 26 H 148/122 H 03/22/21 12:21 97.5 F L 112 H 20 H 148/100 H Inital Vital Signs reviewed: Yes General: Well nourished, Well developed, No Acute Distress, - - Keenly alert. Moaning like she is uncomfortable. Head: Normocephalic, Atraumatic Eyes: Perrl, EOMI ENT: Moist mucous membranes, No rhinorrhea, - - Posterior pharynx clear Neck: Supple, Nontender, No lymphadenopathy Cardiovascular: Regular rate, Regular rhythm, No murmurs, Tachycardia Respiratory: No distress, Chest nontender, Rales - Right base Abdomen: Soft, Nontender, Nondistended, Normal bowel sounds Back: Nontender, Normal Inspection Extremities: Nontender, No edema. Negative for: Calf Tenderness Skin: Normal color, No rash, No Trauma Neurological: Alert, Oriented x3, Cranial nerves II-XII grossly intact, Normal Strength, Normal Sensation Psychological: Normal affect, Normal Mood Diagnostic/Tx/Re-eval Impressions Chest X-Ray 02/07/21 12:38 IMPRESSION: Infiltrate in the right upper lobe as well as in the right lower lobe. Aspiration should be ruled out. Electronically Signed: Otto Blanco MD at 13:05 EDT , Service support , 02/07/21 12:38 Chest 1 View (Portable) [RAD] Stat Laboratory Results 02/07/21 02/07/21 02/07/21 12:35 12:35 12:35 WBC 8.9 RBC 4.63 Hgb 12.7 Hct 41.6 MCV 89.8 MCH 27.4 MCHC 30.5 L RDW Std Deviation 43.0 RDW Coeff of Severiano 13.1 Plt Count 320 MPV 10.0 Immature Gran % (Auto) 1.100 H Neut % (Auto) 65.4 Lymph % (Auto) 28.4 [place] % (Auto) 1.3 Eos % (Auto) 3.6 Baso % (Auto) 0.2 Absolute Neuts (auto) 5.8 Absolute Lymphs (auto) 2.54 Nucleated RBC % 0 Differential Comment SCANNED Reactive Lymphocytes 1+ Sodium 139 Potassium 3.7 Chloride 106 Carbon Dioxide 26.0 Anion Gap 7 BUN 20 H Creatinine 1.21 H Estim Creat Clear Calc 48.83 Est GFR (MDRD) Af Amer 67 Est GFR (MDRD) Non-Af 55 L BUN/Creatinine Ratio 16.5 Glucose 240 H Calcium 8.8 Troponin I 0.034 Serum , Qual NEGATIVE - Medical Decision Making On reevaluation after her chest x-ray which on my interpretation 1 view shows early infiltrates in the right lung consistent with aspiration, patient states she is having chest pain and trouble breathing. We gradually increased her ferrara pplemental oxygen, a Ventimask would not keep her in the 90s so she was placed on a nonrebreather which is working well. She remained a little somnolent, but answers questions for the next 1.5 hours while in the emergency department without needing additional Narcan. Since she was experiencing some symptoms of withdrawal likely due to the Narcan given prehospital, I felt it better to not give her more since she maintained a reasonable level of consciousness. The rest of her work-up is unremarkable. Rapid Covid is pending. Discussed with carbide tool die maker Dr. Flores. Will be admitted to the ICU. Discussed with hospitalist as well. - Critical Care Time Critical care time (excluding procedures): 30-74 minutes - 30 minutes including time spent discussing with patient and consultants, arranging admission, performing direct patient care and reevaluation at the bedside, and documentation. Time exclusive of procedures. ED Disposition - Plan for ED Patient: Disposition: Acute Care Hospital [facility] Diagnosis: Acute respiratory failure with hypoxia, Aspiration pneumonia, Opiate overdose
[2021-02-07] MEDS: 0.9% Normal Saline 1,000 ML 999 ML IV (12:44)
[2021-02-07] MEDS: Ondansetron 4 MG/2 ML Vial IV (12:45)
[2021-02-07 12:46] LABS: Absolute Lymphocyte Count 2.54 X10^3/uL (0.83-4.51); Absolute Neutrophil Count 5.8 X10^3/uL (2.0-7.7); Basophil# 0.02 X10^3/uL; Basophil% 0.2 % (0-1); Eosinophil# 0.32 X10^3/uL; Eosinophils% 3.6 % (0-5); Hematocrit 41.6 % (37-47); Hemoglobin 12.7 g/dL (12.0-15.0); Lymphocyte # 2.54 X10^3/ul (4.0); Lymphocyte % 28.4 % (19-41); Mean Corp Hgb Conc 30.5 g/dL (32-36); Mean Corpuscular Hgb 27.4 pg (27.0-32.0); Mean Corpuscular Volume 89.8 fL (81-99); Monocyte# 0.12 X10^3/uL; Monocyte% 1.3 % (0-10); NRBC Flagged by Analyzer 0 % (0-5); Neutrophil # 5.84 X10^3/uL (2.7-7.7); Neutrophil % 65.4 % (47-70); POSITIVE MORPHOLOGY YES; Platelet Count 320 K/mm3 (150-450); RBC Distribution Width CV 13.1 % (11.6-14.6); Red Blood Count 4.63 M/mm3 (4.2-5.4); White Blood Count 8.9 K/mm3 (4.4-11.0)
[2021-02-07 12:53] LABS: Differential Indicated SCAN CRITERIA MET
[2021-02-07 13:03] LABS: Anion Gap 7 (5-15); BUN 20 mg/dL (7-18); BUN/Creat Ratio 16.5 RATIO (10-20); Calcium,Total 8.8 mg/dL (8.5-10.1); Chloride 106 mmol/L (98-107); Creatinine, Serum 1.21 mg/dL (0.55-1.02); EST Glomerular Filtration Rate 55 mL/min (>60); Est Glom Filt Rate - Afr Amer 67 mL/min (>60); Estimated Creatinine Clearance 48.83 ml/min; Glucose 240 mg/dL (74-106); Potassium 3.7 mmol/L (3.5-5.1); Sodium Level 139 mmol/L (136-145)
[2021-02-07 13:04] LABS: Internal QC Validated? YES +Cl - CLEAR BKGD; Pregnancy, Serum, hCG Quali. NEGATIVE Negative
[2021-02-07 13:10] LABS: Differential Comment SCANNED
[2021-02-07 13:11] LABS: Reactive Lymphocyte 1+
[2021-02-07] MEDS: Ketorolac 15 MG/ML Vial IV (15:00)
--- NOTE | 2021-02-07 15:03 | PCM.HP.STD ---
Problem List (1) Acute respiratory failure with hypoxia Status: Acute (2) Aspiration pneumonia Status: Acute (3) Opiate overdose Status: Acute (4) Hepatitis Status: Chronic (5) IV drug abuse Status: Chronic (6) Acute liver injury Status: Inactive (7) Pain in right foot Status: Resolved (8) Foot infection Status: Resolved (9) Sepsis Status: Resolved Qualifiers: Sepsis type: sepsis due to unspecified organism Sepsis acute organ dysfunction status: unspecified Qualified Code(s): A41.9 - Sepsis, unspecified organism (10) Abscess of right foot Status: Inactive (11) Cellulitis Status: Inactive Qualifiers: Site of cellulitis: extremity Site of cellulitis of extremity: lower extremity Laterality: right Qualified Code(s): L03.115 - Cellulitis of right lower limb (12) Cellulitis of right foot Status: Inactive History of Present Illness Date of Admission: 02/07/21 Chief Complaint: Her known drug overdose, shortness of breath, unconscious. The patient is a 30 year old F with history of chronic heroin use and dependence, chronic hepatitis B and C was brought in by EMS for drug overdose. Patient was found by EMS and unconscious state after possible overdose. She is still confused, restless and not able to give detailed history. She is not able to tell how much she snorted heroine. She also injected heroin yesterday. Vomited, exact quantity and time not clear probably 5-6 times and suspicion of aspiration as per ER physician. She is oriented to time and person but not place and circumstances. She denies suicidal intention, attempt. As per paramedics, she stopped injecting when she could not find good veins and then started snorting heroin. On further, she was given total of 6 mg of intranasal Narcan. In the ER, she was found very short of breath, pulse ox 87% on Ventimask 50%, tachypneic respiratory rate 27, BP 148/100 and tachycardic heart rate 100 1200. She was given ketamine 50 mg IV and 2 mg Narcan and her blood pressure dropped systolic and 89. Currently, IV fluid normal saline bolus running. She also received clindamycin and Zofran. She is still having nausea and esophageal reflux. She also complains of left hip pain along greater trochanteric region and buttock region with radiation to left leg. Denies chronic back pain. She has history of infective endocarditis and was treated with IV of antibiotics but did not require valve replacement. Denies previous osteomyelitis or deep tissue infection. During previous admission in October 2019 she was admitted with acute liver injury secondary to acute hepatitis B infection and chronic hepatitis C. [] Patient is being admitted in ICU. Past Medical History Past Medical History (Chronic Problems): Chronic Problems (This Medical Record has been edited. Action required.) IV drug abuse (Chronic) Hepatitis (Chronic) Allergies Penicillins Allergy (Verified 02/07/21 12:21) blisters on tongue Home Medications: Ambulatory Orders Medication Instructions Recorded NK 02/07/21 Surgical History: adenoidectomy Psychiatric History: No pertinent psych hx EMERGENCY VETERINARIAN History: dysfunctional uterine bld Smoking Status: Current every day smoker Drugs: Heroin - *Family History Paternal History Items: DVT Maternal History Items: - - Liver tumor states benign Review of Systems Constitutional: Denies: Chills, Fever Unable to obtain accurate/complete ROS d/t: Disoriented, confused and restless VTE Information - Inpt Only VTE Present on Admission: No VTE Mechan Device Prophylaxis: None VTE Pharm Prophylaxis ordered?: Yes Patient Problems: Active and Suspected Problems (This Medical Record has been edited. Action required.) Acute respiratory failure with hypoxia (Acute) Aspiration pneumonia (Acute) Opiate overdose (Acute) Objective: General: Drowsy, restless and agitated. HEENT: Atraumatic, PERRLA, EOMI, Normocephalic Oral: Oral mucosa dry. No Gingival or Mucosal Lesions/ Ulcerations Neck: Supple, No JVD, Negative Carotid Bruits Lungs: Air entry diminished in bilateral lung bases. No crepitation/rhonchi. Tachypnea and hypoxia. Cardiovascular: Sinus tachycardia, normal S1, Normal S2, No murmurs Abdomen: Bowel Sounds Present, Soft, Non Tender, Non-Distended : No renal angle tenderness. No suprapubic tenderness. Extremities: No edema, Capillary Refill Less than 3 Seconds Skin: No rashes, No breakdown Musculoskeletal: Mild tenderness over left greater trochanteric region. No Tenderness to Palpation of other Joints or Extremities Neurological: Cranial nerves II-XII grossly intact, Deep Tendon Reflexes 2+/4 and Symmetrical Psych/Mental Status: Agitated and restless. - Physical Exam Vitals/I&O's: Vital Signs Temp Pulse Resp BP Pulse Ox 97.5 F L 83 24 H 102/68 100 03/22/21 12:21 02/07/21 15:00 02/07/21 15:00 02/07/21 15:00 02/07/21 15:00 Oxygen Delivery Method Venturi Mask Weight: 160 lb Body Mass Index (BMI) 31.2 Intake and Output for Last 24 Hours 02/05/21 02/06/21 02/07/21 23:59 23:59 23:59 Intake Total 1000 / 1000 Balance 1000 / 1000 Laboratory Results 02/07/21 12:35: WBC 8.9, RBC 4.63, Hgb 12.7, Hct 41.6, MCV 89.8, MCH 27.4, MCHC 30.5 L, RDW Std Deviation 43.0, RDW Coeff of Severiano 13.1, Plt Count 320, MPV 10.0, Immature Gran % (Auto) 1.100 H, Neut % (Auto) 65.4, Lymph % (Auto) 28.4, [place] % (Auto) 1.3, Eos % (Auto) 3.6, Baso % (Auto) 0.2, Absolute Neuts (auto) 5.8, Absolute Lymphs (auto) 2.54, Nucleated RBC % 0, Differential Comment SCANNED, Reactive Lymphocytes 1+ 02/07/21 12:35: Sodium 139, Potassium 3.7, Chloride 106, Carbon Dioxide 26.0, Anion Gap 7, BUN 20 H, Creatinine 1.21 H, Estim Creat Clear Calc 48.83, Est GFR (MDRD) Af Amer 67, Est GFR (MDRD) Non-Af 55 L, BUN/Creatinine Ratio 16.5, Glucose 240 H, Calcium 8.8, Troponin I 0.034 02/07/21 12:35: Serum , Qual NEGATIVE Assessment/Plan All Active Problems (This Medical Record has been edited. Action required.) Acute respiratory failure with hypoxia (Acute) Aspiration pneumonia (Acute) Opiate overdose (Acute) Foot infection (Resolved) Pain in right foot (Resolved) Sepsis (Resolved) The patient is a 30 year old F with history of chronic heroin use and dependence, chronic hepatitis B and C was brought in by EMS for drug overdose. 1. Acute hypoxic respiratory failure probably secondary to aspiration pneumonitis/pneumonia: Patient is being admitted in ICU. Currently on Ventimask. Watch for breathing and level of consciousness. Patient might need intubation if her mental status deteriorates or vomits more. Patient given 1 dose of clindamycin. Chest x-ray shows infiltrate in the right upper and right lower lobe. Started empirically on IV Levaquin and clindamycin as broad-spectrum antimicrobials as patient is allergic to penicillin. Pneumonia work-up including blood cultures x2 ordered. Lactic acid ordered. Resource Development Director has been consulted. Rapid SARS-CoV-2 antigen is negative. 2. Hypotension most probably from ketamine: IV fluid RL 1 L bolus and then 150 mill per hour for another 1 L. Patient currently 1 L of normal saline bolus in ED. Blood pressure is improving 3. Acute opioid/heroin overdose with high risk of going into opioid withdrawal: Monitor CIWA scale. If patient gets more oriented, restless or agitated, and blood pressure normotensive, CINA/COW high, can start buprenorphine and other supportive medication 4. Chronic hepatitis B and C: During previous admission in October 2019 she was tested positive for hepatitis B E antigen and hepatitis C antibody. Liver chemistry and acute viral panel ordered. 5. Chronic polysubstance use and long enforcement problem: Patient has document in her chart stating police arrest warrant for credit card misuse. 6. DVT prophylaxis: This patient is moderate risk for overall medical complication/ICU admission, Lovenox 40 mils subcu daily ordered. Living will/advanced directive/end of life care: Full code ordered. Patient is not fully oriented to discuss about advanced directive. Laboratory Results 02/07/21 12:35: WBC 8.9, RBC 4.63, Hgb 12.7, Hct 41.6, MCV 89.8, MCH 27.4, MCHC 30.5 L, RDW Std Deviation 43.0, RDW Coeff of Severiano 13.1, Plt Count 320, MPV 10.0, Immature Gran % (Auto) 1.100 H, Neut % (Auto) 65.4, Lymph % (Auto) 28.4, [place] % (Auto) 1.3, Eos % (Auto) 3.6, Baso % (Auto) 0.2, Absolute Neuts (auto) 5.8, Absolute Lymphs (auto) 2.54, Nucleated RBC % 0, Differential Comment SCANNED, Reactive Lymphocytes 1+ 02/07/21 12:35: Sodium 139, Potassium 3.7, Chloride 106, Carbon Dioxide 26.0, Anion Gap 7, BUN 20 H, Creatinine 1.21 H, Estim Creat Clear Calc 48.83, Est GFR (MDRD) Af Amer 67, Est GFR (MDRD) Non-Af 55 L, BUN/Creatinine Ratio 16.5, Glucose 240 H, Calcium 8.8, Troponin I 0.034 02/07/21 12:35: Serum , Qual NEGATIVE Clinical Impression(s) from Imaging Studies Chest X-Ray 02/07/21 12:38 IMPRESSION: Infiltrate in the right upper lobe as well as in the right lower lobe. Aspiration should be ruled out. Inpatient E&M: [id number] Init Hosp L3
[2021-02-07] MEDS: Lactated Ringers 1,000 ML 999 ML IV (16:28)
[2021-02-07] MEDS: levoFLOXacin IV 750 MG/150 ML BAG 100 MG IV (16:41)
[2021-02-07] MEDS: Lactated Ringers 1,000 ML 150 ML IV (17:29)
[2021-02-07 18:12] LABS: Alcohol, Blood (Medical)-Serum < 3.0 mg/dL
[2021-02-07 18:17] LABS: Amylase 83 U/L (25-115); Lactic Acid 1.4 mmol/L (0.4-1.9)
[2021-02-07 18:24] LABS: International Normalized Ratio 1.2; Prothrombin Time (Protime)PT. 14.2 SECONDS (11.7-14.9)
[2021-02-07] MEDS: Ibuprofen 600 MG Tablet PO (21:33)
[2021-02-07] MEDS: hydrOXYzine PAM 25 MG Capsule 50 MG PO (21:33)
[2021-02-07 22:06] LABS: Mucous, Urine 0 SEEN /hpf (<or=2+); Red Blood Cells-Urine 0 SEEN /hpf (0-5); Squamous Epithelial Cells - UA 0 SEEN /hpf (5-10)
[2021-02-07 22:08] LABS: Color, Urine Yellow (Yellow); Glucose, Dipstick Normal (Normal); Ketone-Dipstick Negative (Negative); Leukocyte Esterase-Dipstick 100 /ul (Negative); Nitrite-Dipstick Negative (Negative); Occult Blood-Urine 25 /ul (Negative); Protein-Dipstick 100 mg/dl (Negative); Urine Bilirubin Dipstick Negative (Negative); Urine Clarity Sl. Cloudy (Clear); Urine Urobilinogen Normal (Normal)
[2021-02-07 22:14] LABS: White Blood Cells 10-25 SEEN /hpf (0-5)
[2021-02-07 22:15] LABS: Bacteria 4+ /hpf (None Seen)
[2021-02-07 22:53] LABS: Amphetamine Urine VISTA POSITIVE (<1000 ng/mL); Barbiturate Urine VISTA NEGATIVE (< 200 ng/mL); Benzodiazepine Urine VISTA NEGATIVE (< 200 ng/mL); Cocaine Urine VISTA NEGATIVE (< 300 ng/mL); Ecstacy Urine VISTA POSITIVE (< 500 ng/mL); Methadone Urine VISTA NEGATIVE (< 300 ng/mL); PCP Urine VISTA NEGATIVE (< 25 ng/mL); THC Urine VISTA NEGATIVE (< 50 ng/mL); Vista UDS pH Range 5
[2021-02-08] VITALS (15 sets, daily range): BP systolic 87–117; BP diastolic 57–81; PULSE 81–101; RESP 15–24; TEMP 36.6–36.9; O2SAT 90–100
[2021-02-08] MEDS: Lactated Ringers 1,000 ML 150 ML IV (00:11)
[2021-02-08] MEDS: Gabapentin 300 MG Capsule PO (04:22)
[2021-02-08] MEDS: Methocarbamol 750 MG Tablet 1500 MG PO ×2 (04:22→22:11)
[2021-02-08 04:43] LABS: AST(SGOT) 30 U/L (15-37); Alanine Aminotransfer ALT/SGPT 56 U/L (13-56); Albumin, Serum 2.6 g/dL (3.2-5.0); Alkaline Phosphatase 63 U/L (45-117); Bilirubin, Direct 0.16 mg/dL (0.00-0.30); Globulin 3.1 g/dL (2.2-4.2); Protein, Total 5.7 g/dL (6.4-8.2)
--- NOTE | 2021-02-08 05:35 | PCM.CON.CC ---
Reason for Consult Date of Consultation: 02/08/21 Reason for Consultation: Acute hypoxemic respiratory failure History of Present Illness: The patient is a 30-year-old female, with a history as outlined below, who presented to the emergency department on February 07 after becoming unresponsive after ingesting heroin. The patient does have a history of chronic heroin dependency along with hepatitis B and C. She does report remembering that she snorted an unknown quantity of the heroin prior to becoming unresponsive. She does report a history of prior overdoses. There was also note that during her unresponsive period the patient vomited and presumably aspirated. On presentation to the emergency department, the patient was hemodynamically stable. Although she was hypoxemic, she was able to maintain airway patency. Laboratory evaluation revealed a normal white blood cell count. Chemistry profile was notable for a creatinine of 1.21. Lactate was normal at 1.4. Liver function was within normal limits. Urine analysis was positive for leukocyte esterase and 4+ urine bacteria. Toxicology screen was positive for opiates, amphetamine and methamphetamine. Chest x-ray revealed right upper and lower lobe infiltrates. The patient did receive Narcan both by EMS and by emergency department providers. Her mentation did improve after being administered Narcan. However, given her tenuous respiratory status, the patient was admitted to the medical intensive care unit for close observation. In addition, the patient was started on antimicrobials for presumptive aspiration pneumonia. Past Medical History Past Medical History (Chronic Problems): Chronic Problems (This Medical Record has been edited. Action required.) IV drug abuse (Chronic) Hepatitis (Chronic) Allergies Penicillins Allergy (Verified 02/07/21 12:21) blisters on tongue Home Medications: Ambulatory Orders Medication Instructions Recorded NK 02/07/21 Surgical History: adenoidectomy Psychiatric History: No pertinent psych hx BRAINER History: dysfunctional uterine bld Smoking Status: Current every day smoker Drugs: Heroin - *Family History Paternal History Items: DVT Maternal History Items: - - Liver tumor states benign Review of Systems Constitutional: Denies: Chills, Fever HEENT: Denies: Head Aches, Sinus Congestion, Sinus Drainage Cardiovascular: Reports: Chest Pain Respiratory: Reports: Cough, Shortness of Breath Gastrointestinal: Denies: Abdominal Pain, Nausea, Vomiting Genitourinary: Denies: Dysuria Musculoskeletal: Denies: Joint Pain, Joint Tenderness Neurological: Denies: Numbness, Tingling, Focal weakness Psychiatric: Reports: Depression Hematologic/ Lymphatic: Denies: Easy Bruising, Easy Bleeding Patient Problems: Active and Suspected Problems (This Medical Record has been edited. Action required.) Acute respiratory failure with hypoxia (Acute) Aspiration pneumonia (Acute) Opiate overdose (Acute) Objective: The patient's most recent lab work, culture data and imaging studies have all been personally reviewed. Rapid coronavirus antigen testing was negative. Respiratory viral panel was negative. Strep and urine Legionella antigens were negative. Blood and urine cultures are pending. - Physical Exam Vitals/I&O's: Vital Signs Temp Pulse Resp BP Pulse Ox 97.9 F 91 15 103/64 94 02/08/21 04:00 02/08/21 05:00 02/08/21 05:00 02/08/21 05:00 02/08/21 05:00 Oxygen Flow Rate (L/min) 4 Oxygen Delivery Method Nasal Cannula Weight: 159 lb 9.835 oz Body Mass Index (BMI) 30.6 Intake and Output for Last 24 Hours 02/06/21 02/07/21 02/08/21 23:59 23:59 23:59 Intake Total 2718 / 2838 1180 / 1180 Output Total 250 / 250 250 / 250 Balance 2468 / 2588 930 / 930 General: Alert, Cooperative HEENT: Atraumatic, Normocephalic Oral: Dry Mucosa Neck: Supple, No Nodes, Trachea Midline Lungs: No rhonchi, No wheeze, No rales, Diminished Cardiovascular: Regular rate, Regular Rhythm Abdomen: Bowel Sounds Present, Soft, Non Tender Extremities: No clubbing, No cyanosis, No edema Skin: No breakdown Musculoskeletal: No Muscle Wasting Lymphatic: No Cervical, Supraclavicular, or Inguinal Adenopathy Neurological: Cranial nerves II-XII grossly intact, Neuro grossly intact Psych/Mental Status: Flat Affect Labs (Last 48 Hours) 02/07/21 02/07/21 02/07/21 12:35 12:35 12:35 WBC 8.9 RBC 4.63 Hgb 12.7 Hct 41.6 MCV 89.8 MCH 27.4 MCHC 30.5 L RDW Std Deviation 43.0 RDW Coeff of Severiano 13.1 Plt Count 320 MPV 10.0 Immature Gran % (Auto) 1.100 H Neut % (Auto) 65.4 Lymph % (Auto) 28.4 [place] % (Auto) 1.3 Eos % (Auto) 3.6 Baso % (Auto) 0.2 Absolute Neuts (auto) 5.8 Absolute Lymphs (auto) 2.54 Nucleated RBC % 0 Differential Comment SCANNED Reactive Lymphocytes 1+ PT INR Sodium 139 Potassium 3.7 Chloride 106 Carbon Dioxide 26.0 Anion Gap 7 BUN 20 H Creatinine 1.21 H Estim Creat Clear Calc 48.83 Est GFR (MDRD) Af Amer 67 Est GFR (MDRD) Non-Af 55 L BUN/Creatinine Ratio 16.5 Glucose 240 H Lactic Acid Calcium 8.8 Total Bilirubin Direct Bilirubin AST ALT Alkaline Phosphatase Troponin I 0.034 Total Protein Albumin Globulin Amylase Serum , Qual NEGATIVE Urine Color Urine Clarity Urine pH Ur Specific [place] Urine Protein Urine Glucose (UA) Urine Ketones Urine Occult Blood Urine Nitrite Urine Bilirubin Urine Urobilinogen Ur Leukocyte Esterase Urine RBC Urine WBC Ur Squamous Epith Cells Urine Bacteria Urine Mucus Urine Opiates Screen Urine Methadone Screen Ur Barbiturates Screen Ur Phencyclidine Scrn Ur Amphetamines Screen U Methamphetamin-MDMA U Benzodiazepines Scrn Urine Cocaine Screen U Cannabinoids Screen Ur Drug Screen Comment Ethyl Alcohol Hepatitis A IgM Ab Hep Bs Antigen Hep B Core IgM Ab Hepatitis C Ab (EIA) 02/07/21 02/07/21 02/07/21 17:45 17:45 17:45 WBC RBC Hgb Hct MCV MCH MCHC RDW Std Deviation RDW Coeff of Sever[place] Plt Count MPV Immature Gran % (Auto) Neut % (Auto) Lymph % (Auto) [place] % (Auto) Eos % (Auto) Baso % (Auto) Absolute Neuts (auto) Absolute Lymphs (auto) Nucleated RBC % Differential Comment Reactive Lymphocytes PT Cancelled INR Cancelled Sodium Potassium Chloride Carbon Dioxide Anion Gap BUN Creatinine Estim Creat Clear Calc Est GFR (MDRD) Af Amer Est GFR (MDRD) Non-Af BUN/Creatinine Ratio Glucose Lactic Acid Calcium Total Bilirubin Direct Bilirubin AST ALT Alkaline Phosphatase Troponin I Total Protein Albumin Globulin Amylase 83 Serum , Qual Urine Color Urine Clarity Urine pH Ur Specific [place] Urine Protein Urine Glucose (UA) Urine Ketones Urine Occult Blood Urine Nitrite Urine Bilirubin Urine Urobilinogen Ur Leukocyte Esterase Urine RBC Urine WBC Ur Squamous Epith Cells Urine Bacteria Urine Mucus Urine Opiates Screen Urine Methadone Screen Ur Barbiturates Screen Ur Phencyclidine Scrn Ur Amphetamines Screen U Methamphetamin-MDMA U Benzodiazepines Scrn Urine Cocaine Screen U Cannabinoids Screen Ur Drug Screen Comment Ethyl Alcohol < 3.0 Hepatitis A IgM Ab Hep Bs Antigen Hep B Core IgM Ab Hepatitis C Ab (EIA) 02/07/21 02/07/21 02/07/21 17:45 17:45 18:10 WBC RBC Hgb Hct MCV MCH MCHC RDW Std Deviation RDW Coeff of Severiano Plt Count MPV Immature Gran % (Auto) Neut % (Auto) Lymph % (Auto) [place] % (Auto) Eos % (Auto) Baso % (Auto) Absolute Neuts (auto) Absolute Lymphs (auto) Nucleated RBC % Differential Comment Reactive Lymphocytes PT 14.2 INR 1.2 Sodium Potassium Chloride Carbon Dioxide Anion Gap BUN Creatinine Estim Creat Clear Calc Est GFR (MDRD) Af Amer Est GFR (MDRD) Non-Af BUN/Creatinine Ratio Glucose Lactic Acid 1.4 Calcium Total Bilirubin Direct Bilirubin AST ALT Alkaline Phosphatase Troponin I Total Protein Albumin Globulin Amylase Serum , Qual Urine Color Urine Clarity Urine pH Ur Specific [place] Urine Protein Urine Glucose (UA) Urine Ketones Urine Occult Blood Urine Nitrite Urine Bilirubin Urine Urobilinogen Ur Leukocyte Esterase Urine RBC Urine WBC Ur Squamous Epith Cells Urine Bacteria Urine Mucus Urine Opiates Screen Urine Methadone Screen Ur Barbiturates Screen Ur Phencyclidine Scrn Ur Amphetamines Screen U Methamphetamin-MDMA U Benzodiazepines Scrn Urine Cocaine Screen U Cannabinoids Screen Ur Drug Screen Comment Ethyl Alcohol Hepatitis A IgM Ab Pending Hep Bs Antigen Pending Hep B Core IgM Ab Pending Hepatitis C Ab (EIA) Pending 02/07/21 02/07/21 02/08/21 21:45 21:45 04:15 WBC RBC Hgb Hct MCV MCH MCHC RDW Std Deviation RDW Coeff of [place] Plt Count MPV Immature Gran % (Auto) Neut % (Auto) Lymph % (Auto) [place] % (Auto) Eos % (Auto) Baso % (Auto) Absolute Neuts (auto) Absolute Lymphs (auto) Nucleated RBC % Differential Comment Reactive Lymphocytes PT INR Sodium Potassium Chloride Carbon Dioxide Anion Gap BUN Creatinine Estim Creat Clear Calc Est GFR (MDRD) Af Amer Est GFR (MDRD) Non-Af BUN/Creatinine Ratio Glucose Lactic Acid Calcium Total Bilirubin 0.40 Direct Bilirubin 0.16 AST 30 ALT 56 Alkaline Phosphatase 63 Troponin I Total Protein 5.7 L Albumin 2.6 L Globulin 3.1 Amylase Serum , Qual Urine Color Yellow Urine Clarity Sl. Cloudy Urine pH 5.0 Ur Specific [place] 1.020 Urine Protein 100 H Urine Glucose (UA) Normal Urine Ketones Negative Urine Occult Blood 25 H Urine Nitrite Negative Urine Bilirubin Negative Urine Urobilinogen Normal Ur Leukocyte Esterase 100 H Urine RBC 0 SEEN Urine WBC 10-25 SEEN Ur Squamous Epith Cells 0 SEEN Urine Bacteria 4+ Urine Mucus 0 SEEN Urine Opiates Screen POSITIVE H Urine Methadone Screen NEGATIVE Ur Barbiturates Screen NEGATIVE Ur Phencyclidine Scrn NEGATIVE Ur Amphetamines Screen POSITIVE H U Methamphetamin-MDMA POSITIVE H U Benzodiazepines Scrn NEGATIVE Urine Cocaine Screen NEGATIVE U Cannabinoids Screen NEGATIVE Ur Drug Screen Comment Ethyl Alcohol Hepatitis A IgM Ab Hep Bs Antigen Hep B Core IgM Ab Hepatitis C Ab (EIA) Microbiology 02/07/21 21:45 Urine, Clean Catch Legionella Antigen - Final 02/07/21 21:45 Urine, Clean Catch Streptococcus pneumoniae Antigen (M - Final 02/07/21 16:22 Mucosa - Nose Respiratory Panel (PCR) - Final 02/07/21 15:10 Mucosa - Nose SARS-CoV-2 Antigen (Rapid) - Final Clinical Impression(s) from Imaging Studies Chest X-Ray 02/07/21 12:38 IMPRESSION: Infiltrate in the right upper lobe as well as in the right lower lobe. Aspiration should be ruled out. Electronically Signed: Otto Blanco MD at 13:05 EDT , Service support , Current Medications Acetaminophen (Acetaminophen 325 Mg Tablet) 650 mg PO Q6H PRN PRN PRN Reason: Pain Score 1-10/Temp > 100.7 F Al Hydroxide/Mg Hydroxide (Mag Hydrox/Al Hydrox/Simeth 30 Ml Udc) 30 ml PO Q6H PRN PRN PRN Reason: dyspesia Albuterol/Ipratropium (Ipratropium/Albuterol Sulfate 3 Ml Ampul.Neb) 3 ml INHALATION Q4H.RT PRN PRN Reason: SHORTNESS OF BREATH Bisacodyl (Bisacodyl 10 Mg Suppository) 10 mg RC DAILY PRN PRN Reason: Constipation Buprenorphine HCl (Buprenorphine Hcl 2 Mg Tab.Subl) 0 mg SL Q8H DOMONIQUE; Taper Stop: 02/10/21 15:34 Clonidine (Clonidine Hcl 0.1 Mg Tablet) 0.1 mg PO Q8H PRN PRN PRN Reason: RESTLESSNESS Dicyclomine HCl (Dicyclomine 10 Mg Capsule) 20 mg PO Q6H PRN PRN PRN Reason: Abdominal Discomfort Enoxaparin Sodium (Enoxaparin 40 Mg/0.4 Ml Syringe) 40 mg SC DAILY [facility] Last Admin: 02/07/21 17:27 Dose: Not Given Documented by: Gabapentin (Gabapentin 300 Mg Capsule) 300 mg PO Q8H PRN PRN PRN Reason: moderate to severe anxiety Last Admin: 02/08/21 04:22 Dose: 300 mg Documented by: Guaifenesin (Guaifenesin 1,200 Mg Tablet) 1,200 mg PO BID [facility] Last Admin: 02/07/21 19:30 Dose: Not Given Documented by: Hydroxyzine Pamoate (Hydroxyzine Pia 25 Mg Capsule) 50 mg PO Q6H PRN PRN PRN Reason: mild anxiety Last Admin: 02/07/21 21:33 Dose: 50 mg Documented by: Clindamycin Phosphate 600 mg/ (Dextrose) 54 mls @ 100 mls/hr IV Q8 [facility] Last Infusion: 02/07/21 20:41 Dose: Infused Documented by: Levofloxacin (Levaquin Iv) 750 mg in 150 mls @ 100 mls/hr IV Q24 [facility] Last Infusion: 02/07/21 18:11 Dose: Infused Documented by: Ibuprofen (Ibuprofen 600 Mg Tablet) 600 mg PO Q8H PRN PRN PRN Reason: PAIN 1-10 Last Admin: 02/07/21 21:33 Dose: 600 mg Documented by: Loperamide HCl (Loperamide 2 Mg Capsule) 2 mg PO Q4H PRN PRN PRN Reason: LOOSE STOOLS Methocarbamol (Methocarbamol 750 Mg Tablet) 1,500 mg PO Q6H PRN PRN PRN Reason: MUSCLE SPASM Last Admin: 02/08/21 04:22 Dose: 1,500 mg Documented by: Metoclopramide HCl (Metoclopramide 10 Mg/2 Ml Vial) 5 mg IV Q6 PRN PRN Reason: NAUSEA/VOMITING Nicotine (Nicotine 21 Mg Patch) 21 mg TD DAILY [facility] Ondansetron HCl (Ondansetron 4 Mg/2 Ml Vial) 4 mg IV Q8H PRN PRN PRN Reason: NAUSEA/VOMITING Senna (Senna Tablet) 2 tablet PO QHS PRN PRN Reason: Constipation Sodium Chloride (0.9% Saline Lock 10 Ml Syringe) 10 - 40 ml IV UD PRN PRN Reason: SALINE FLUSH Trazodone HCl (Trazodone 100 Mg Tablet) 100 mg PO QHS PRN PRN PRN Reason: INSOMNIA Assessment/Plan Active and Suspected Problems (This Medical Record has been edited. Action required.) Acute respiratory failure with hypoxia (Acute) Aspiration pneumonia (Acute) Opiate overdose (Acute) RECOMMENDATIONS: 1. Continue to wean supplemental oxygen to maintain saturations at or above 90%. 2. Tobacco cessation counseling provided. Continue nicotine replacement therapy. 3. Continue antimicrobials to address presumptive aspiration pneumonia. 4. Provide additional supplemental IV fluid hydration. 5. Continue Buprenorphine as ordered. 6. Encourage incentive spirometer use and mobilize patient as tolerated. IMPRESSIONS: 1. Acute hypoxemic respiratory failure Clinical concern for aspiration pneumonia as precipitating etiology. The patient will be continued on antimicrobials as ordered. Plan to continue to wean supplemental oxygen to maintain saturations at or above 90%. 2. Encephalopathy Secondary to heroin drug overdose. The patient has responded clinically to the use of Narcan. She is currently mentating appropriately at the present time. 3. Acute kidney injury Likely prerenal in etiology. The patient will continue to receive some supplemental IV fluid hydration. Continue to monitor urine output for now. No current indication for renal replacement therapy. 4. Chronic heroin and tobacco dependency Continue opiate withdrawal protocol as ordered. I personally spent 4 minutes discussing the deleterious effects of continued tobacco use with the patient, including modalities which could be utilized to achieve a smoke-free lifestyle. 5. Chronic hepatitis B/C Complicates care, management, recovery and prognosis. This note was generated with Trovixation software. It may contain incorrect words, spelling, and punctuation that were not noted in checking the note before signing. Inpatient E&M: 48870 Init Hosp L3 - Behavior Interventions Behavior Intervention: 02671 Smoking Cessation 3-10 min
[2021-02-08] MEDS: levoFLOXacin IV 750 MG/150 ML BAG 100 MG IV (07:58)
[2021-02-08] MEDS: guaiFENesin 1,200 MG Tablet 1200 MG PO ×2 (08:00→22:11)
--- NOTE | 2021-02-08 08:46 | CASEMGMT ---
JUNO spoke w/physician this morning, she asked if [facility] can come speak w/pt today. JUNO called Trudi Toussaint w/[facility] and left a message requesting she come speak w/pt. DEXTER Castro
[2021-02-08] MEDS: Lactated Ringers 1,000 ML 999 ML IV (09:00)
--- NOTE | 2021-02-08 11:48 | CASEMGMT ---
JUNO spoke w/Trudi Carbone from , she will try to come see pt tomorrow, gave SW a number to reach her should pt be discharged prior to Trudi seeing her. SW met w/pt in room in regard to substance abuse, mental health, housing, and any discharge needs. Pt normally is independent, no PCP(list of PCPs given to pt). Pt has been living here and there for the last two years, no permanent residence. She has stayed with her father occasionally, who lives in [place]. Currently she is living with some women who are nice and do not use, but is not sure if they will let her return based on what happened. Pt states would like to go to [facility] at discharge. She also would consider going to the residential program w/. SW spoke w/pt about substance abuse, pt states uses meth and heroin. She states she had been clean for a few weeks but someone showed up with some slow and she used. She states she does not remember using. She states moving from place to place she ends up doing whatever the people she is living with does. Pt states she has been using for a long time. Pt states she wants to do something different than what she has been doing, moving from place to place. SW spoke w/pt about mental health. Pt states she is probably depressed, and the heroin makes it go away, states it just slows everything down. Pt able to acknowledge however that she may need to address the depression, that using is not fixing it. Pt denies being suicidal at this time. Pt also states she has three children, the 3 and 4 year old are with their father and the 11 year old is with his father. She does not see them often, but skypes with them. She states that she goes to see the 11 year old but can't be messed up when she goes there, and that her 11 year old's father will let her stay with them to see him. JUNO explained will call Trudi at in regard to [facility] and also their residential program. JUNO called Trudi, she states pt needs to call [facility] directly about getting in there, and as far as going to the residential program, pt would need to start with an intake, she states they have open intake Sunday from 11am-1pm. Pt also can call Trudi. JUNO gave pt information on [facility], [facility], and [facility]. SW gave pt the number to call Trudi Carbone, and the number to call [facility]. SW explained to pt she needs to call, SW cannot call for her. Pt states understanding. SW also let pt know that Sunday from 11am-1pm there is walk in intakes available at [facility]. SW explained that she cannot get in directly to the residential program, but she can call [facility] to see if she can get in there, and then do an intake at [facility] from there. Pt states understanding. She states she has a warrant she needs to take care of first, and once she does that can look into the residential program. SW let pt know SW remains available should she need any additional information or assist. Pt thanked JUNO for coming in. DEXTER Castro
[2021-02-08] MEDS: Senna Tablet 2 TABLET PO (12:34)
[2021-02-08] MEDS: Ibuprofen 600 MG Tablet PO ×2 (14:36→22:11)
--- NOTE | 2021-02-08 17:04 | PN_ITS ---
Patient Problems: Active and Suspected Problems (This Medical Record has been edited. Action required.) Acute respiratory failure with hypoxia (Acute) Aspiration pneumonia (Acute) Opiate overdose (Acute) Subjective: States she has the use the bathroom and would like help getting up. Indicates that methamphetamines is her drug of choice but she trialed heroin yesterday. States she does not remember what happened much after that. Complaining of chest pain states she believes she may have gotten CPR. Vitals/I&O's: Vital Signs Temp Pulse Resp BP Pulse Ox 98.4 F 101 H 24 H 117/73 97 02/08/21 14:05 02/08/21 14:05 02/08/21 14:05 02/08/21 14:05 02/08/21 14:05 Oxygen Flow Rate (L/min) 2 Oxygen Delivery Method Room Air Weight: 72.4 kg Body Mass Index (BMI) 30.6 Intake and Output for Last 24 Hours 02/06/21 02/07/21 02/08/21 23:59 23:59 23:59 Intake Total 2718 / 2838 3898 / 3898 Output Total 250 / 250 1250 / 1250 Balance 2468 / 2588 2648 / 2648 General: Alert, Oriented x3, Cooperative, No apparent distress, Well developed, Well nourished, - - Middle-aged white female who appears older than stated age, mildly disheveled, somewhat impulsive but alert and oriented x4 HEENT: Atraumatic, PERRLA, EOMI, Normocephalic, EAC Clear Oral: Moist Mucosa, No Gingival or Mucosal Lesions/ Ulcerations Neck: Supple, Trachea Midline, Thyroid Normal Size and Texture Lungs: No rhonchi, No wheeze, No rales, Diminished - Lateral bases Cardiovascular: Regular rate, Regular Rhythm, Normal S1, Normal S2, No murmurs, No Ectopic Activity, No rub noted, No Gallop Abdomen: Bowel Sounds Present, Soft, Non Tender, Non-Distended, Obese, No hernias noted Extremities: No clubbing, No cyanosis, No edema, Capillary Refill Less than 3 Seconds, Peripheral Pulses Normal Skin: No rashes, No breakdown Musculoskeletal: No Tenderness to Palpation of Joints or Extremities, No Muscle Wasting, - - Under noticed on anterior chest wall with very light palpation Lymphatic: No Cervical, Supraclavicular, or Inguinal Adenopathy Neurological: Cranial nerves II-XII grossly intact, Neuro grossly intact, Muscle tone normal, Sensory exam intact to light touch and pain, Coordination normal, - - Independent with bed mobility Psych/Mental Status: Anxious, Flat Affect, Impulsive Microbiology Past 72 Hours 02/07/21 21:45 Urine, Clean Catch Legionella Antigen - Final 02/07/21 21:45 Urine, Clean Catch Streptococcus pneumoniae Antigen (M - Final 02/07/21 16:22 Mucosa - Nose Respiratory Panel (PCR) - Final 02/07/21 15:10 Mucosa - Nose SARS-CoV-2 Antigen (Rapid) - Final Laboratory Results 02/07/21 17:45: PT Cancelled, INR Cancelled 02/07/21 17:45: Amylase 83 02/07/21 17:45: Ethyl Alcohol < 3.0 02/07/21 17:45: Hepatitis A IgM Ab Pending, Hep Bs Antigen Pending, Hep B Core IgM Ab Pending, Hepatitis C Ab (EIA) Pending 02/07/21 17:45: Lactic Acid 1.4 02/07/21 18:10: PT 14.2, INR 1.2 02/07/21 21:45: Urine Opiates Screen POSITIVE H, Urine Methadone Screen NEGATIVE, Ur Barbiturates Screen NEGATIVE, Ur Phencyclidine Scrn NEGATIVE, Ur Amphetamines Screen POSITIVE H, U Methamphetamin-MDMA POSITIVE H, U Benzodiazepines Scrn NEGATIVE, Urine Cocaine Screen NEGATIVE, U Cannabinoids Screen NEGATIVE, Ur Drug Screen Comment 02/07/21 21:45: Urine Color Yellow, Urine Clarity Sl. Cloudy, Urine pH 5.0, Ur Specific [place] 1.020, Urine Protein 100 H, Urine Glucose (UA) Normal, Urine Ketones Negative, Urine Occult Blood 25 H, Urine Nitrite Negative, Urine Bilirubin Negative, Urine Urobilinogen Normal, Ur Leukocyte Esterase 100 H, Urine RBC 0 SEEN, Urine WBC 10-25 SEEN, Ur Squamous Epith Cells 0 SEEN, Urine Bacteria 4+, Urine Mucus 0 SEEN 02/08/21 04:15: Total Bilirubin 0.40, Direct Bilirubin 0.16, AST 30, ALT 56, Alkaline Phosphatase 63, Total Protein 5.7 L, Albumin 2.6 L, Globulin 3.1 Current Medications Acetaminophen (Acetaminophen 325 Mg Tablet) 650 mg PO Q6H PRN PRN PRN Reason: Pain Score 1-10/Temp > 100.7 F Al Hydroxide/Mg Hydroxide (Mag Hydrox/Al Hydrox/Simeth 30 Ml Udc) 30 ml PO Q6H PRN PRN PRN Reason: dyspesia Albuterol/Ipratropium (Ipratropium/Albuterol Sulfate 3 Ml Ampul.Neb) 3 ml INHALATION Q4H.RT PRN PRN Reason: SHORTNESS OF BREATH Bisacodyl (Bisacodyl 10 Mg Suppository) 10 mg RC DAILY PRN PRN Reason: Constipation Buprenorphine HCl (Buprenorphine Hcl 2 Mg Tab.Subl) 0 mg SL Q8H [facility]; Taper Stop: 02/10/21 15:34 Clonidine (Clonidine Hcl 0.1 Mg Tablet) 0.1 mg PO Q8H PRN PRN PRN Reason: RESTLESSNESS Dicyclomine HCl (Dicyclomine 10 Mg Capsule) 20 mg PO Q6H PRN PRN PRN Reason: Abdominal Discomfort Enoxaparin Sodium (Enoxaparin 40 Mg/0.4 Ml Syringe) 40 mg SC DAILY [facility] Last Admin: 02/08/21 09:57 Dose: Not Given Documented by: Gabapentin (Gabapentin 300 Mg Capsule) 300 mg PO Q8H PRN PRN PRN Reason: moderate to severe anxiety Last Admin: 02/08/21 04:22 Dose: 300 mg Documented by: Guaifenesin (Guaifenesin 1,200 Mg Tablet) 1,200 mg PO BID [facility] Last Admin: 02/08/21 08:00 Dose: 1,200 mg Documented by: Hydroxyzine Pamoate (Hydroxyzine Pia 25 Mg Capsule) 50 mg PO Q6H PRN PRN PRN Reason: mild anxiety Last Admin: 02/07/21 21:33 Dose: 50 mg Documented by: Clindamycin Phosphate 600 mg/ (Dextrose) 54 mls @ 100 mls/hr IV Q8 [facility] Last Infusion: 02/08/21 13:17 Dose: Infused Documented by: Levofloxacin (Levaquin Iv) 750 mg in 150 mls @ 100 mls/hr IV Q24 [facility] Last Infusion: 02/08/21 09:29 Dose: Infused Documented by: Sodium Chloride () 250 mls @ 15 mls/hr IV .[id number] PRN PRN Reason: Saline Flush Last Admin: 02/08/21 14:22 Dose: 15 mls/hr Documented by: Sodium Chloride () 250 mls @ 15 mls/hr IV .[id number] PRN PRN Reason: Additional IVPB Infusion Ibuprofen (Ibuprofen 600 Mg Tablet) 600 mg PO Q8H PRN PRN PRN Reason: PAIN 1-10 Last Admin: 02/08/21 14:36 Dose: 600 mg Documented by: Loperamide HCl (Loperamide 2 Mg Capsule) 2 mg PO Q4H PRN PRN PRN Reason: LOOSE STOOLS Methocarbamol (Methocarbamol 750 Mg Tablet) 1,500 mg PO Q6H PRN PRN PRN Reason: MUSCLE SPASM Last Admin: 02/08/21 04:22 Dose: 1,500 mg Documented by: Metoclopramide HCl (Metoclopramide 10 Mg/2 Ml Vial) 5 mg IV Q6 PRN PRN Reason: NAUSEA/VOMITING Nicotine (Nicotine 21 Mg Patch) 21 mg TD DAILY [facility] Last Admin: 02/08/21 08:00 Dose: 21 mg Documented by: Ondansetron HCl (Ondansetron 4 Mg/2 Ml Vial) 4 mg IV Q8H PRN PRN PRN Reason: NAUSEA/VOMITING Senna (Senna Tablet) 2 tablet PO QHS PRN PRN Reason: Constipation Last Admin: 02/08/21 12:34 Dose: 2 tablet Documented by: Sodium Chloride (0.9% Saline Lock 10 Ml Syringe) 10 - 40 ml IV UD PRN PRN Reason: SALINE FLUSH Trazodone HCl (Trazodone 100 Mg Tablet) 100 mg PO QHS PRN PRN PRN Reason: INSOMNIA STROKE Vital Signs/Narrative: Vital Signs Temp Pulse Resp BP Pulse Ox 02/08/21 14:05 98.4 F 101 H 24 H 117/73 97 Medical Necessity - Tobacco Use Smoking Status: Current every day smoker Assessment/Plan All Active Problems (This Medical Record has been edited. Action required.) Acute respiratory failure with hypoxia (Acute) Aspiration pneumonia (Acute) Opiate overdose (Acute) Foot infection (Resolved) Pain in right foot (Resolved) Sepsis (Resolved) Acute hypoxic respiratory failure status post drug overdose -Suspect aspiration pneumonia/pneumonitis -X-ray on admission shows a right upper lobe and right lower lobe infiltrate -D/C clindamycin continue Levaquin -Treat for 7 days -Oxygen saturation ow stable on 2 L nasal cannula -Wean oxygen as able and maintain oxygen saturation greater than 90% -Pulmonary toilet -Legionella and strep pneumo antigens negative -Urine and blood cultures are pending -Covid negative -Lateral respiratory panel negative -Appreciate critical care input Metabolic encephalopathy -Resolved MARYLIN -Suspect prerenal -Repeat BMP in a.m. -Given IV fluids will now Hep-Lock Polysubstance abuse -Patient states methamphetamines is her primary drug of choice but happened to be using opiates -Continue Suboxone taper -Continue supportive medication -180 consult--> discussed with case management -Patient states she is interested in getting help -Tox screen on admission is positive for opiates and methamphetamines Tobacco abuse -Recommend cessation -Nicotine patch Chronic hepatitis B/C -No current acute issues -Recommend outpatient follow-up -Hepatitis serology is pending -LFTs are within normal limits DVT prophylaxis -We will continue enoxaparin daily CODE STATUS -Full code Inpatient E&M: 26669 Subs Hosp L3
[2021-02-08] MEDS: traZODone 100 MG Tablet PO (22:11)
[2021-02-08] MEDS: Buprenorphine HCl 2 MG TAB.SUBL 4 MG SL (22:18)
[2021-02-09 05:32] LABS: Absolute Lymphocyte Count 2.37 X10^3/uL (0.83-4.51); Absolute Neutrophil Count 7.1 X10^3/uL (2.0-7.7); Basophil# 0.01 X10^3/uL; Basophil% 0.1 % (0-1); Eosinophil# 0.39 X10^3/uL; Eosinophils% 3.8 % (0-5); Hematocrit 32.3 % (37-47); Hemoglobin 9.9 g/dL (12.0-15.0); Lymphocyte # 2.37 X10^3/ul (4.0); Lymphocyte % 22.9 % (19-41); Mean Corp Hgb Conc 30.7 g/dL (32-36); Mean Corpuscular Hgb 27.1 pg (27.0-32.0); Mean Corpuscular Volume 88.5 fL (81-99); Mean Platelet Vol. 9.8 fl (6.2-12.0); Monocyte# 0.48 X10^3/uL; Monocyte% 4.6 % (0-10); NRBC Flagged by Analyzer 0 % (0-5); Neutrophil # 7.06 X10^3/uL (2.7-7.7); Neutrophil % 68.2 % (47-70); Platelet Count 198 K/mm3 (150-450); RBC Distribution Width CV 13.2 % (11.6-14.6); RBC Distribution Width SD 42.6 fl (35.1-43.9); Red Blood Count 3.65 M/mm3 (4.2-5.4); White Blood Count 10.4 K/mm3 (4.4-11.0)
[2021-02-09 05:57] LABS: ALB/GLOB Ratio 0.7 RATIO (0.9-2.4); AST(SGOT) 19 U/L (15-37); Alanine Aminotransfer ALT/SGPT 44 U/L (13-56); Albumin, Serum 2.5 g/dL (3.2-5.0); Alkaline Phosphatase 65 U/L (45-117); Anion Gap 6 (5-15); BUN 9 mg/dL (7-18); BUN/Creat Ratio 14.5 RATIO (10-20); Calcium,Total 7.7 mg/dL (8.5-10.1); Chloride 111 mmol/L (98-107); Creatinine, Serum 0.62 mg/dL (0.55-1.02); EST Glomerular Filtration Rate 120 mL/min (>60); Est Glom Filt Rate - Afr Amer 145 mL/min (>60); Globulin 3.4 g/dL (2.2-4.2); Glucose 131 mg/dL (74-106); Potassium 3.3 mmol/L (3.5-5.1); Protein, Total 5.9 g/dL (6.4-8.2); Sodium Level 142 mmol/L (136-145)
[2021-02-09 06:16] VITALS: BP 100/53; PULSE 75; RESP 18; TEMP 36.6; O2SAT 95
[2021-02-09] MEDS: Buprenorphine HCl 2 MG TAB.SUBL 4 MG SL ×2 (06:19→14:25)
[2021-02-09] MEDS: levoFLOXacin 750 MG Tablet PO (06:19)
--- NOTE | 2021-02-09 06:38 | PN_ITS ---
Patient Problems: Active and Suspected Problems (This Medical Record has been edited. Action required.) Acute respiratory failure with hypoxia (Acute) Aspiration pneumonia (Acute) Opiate overdose (Acute) Subjective: The patient was seen and examined at the bedside this morning. Events from the last 24 hours have been reviewed. The patient is currently afebrile, hemodynamically stable and maintaining appropriate oxygen saturations on room air. The patient has done well clinically following her transfer out of the medical intensive care unit yesterday. Potassium is low this morning at 3.3. Objective: The patient's most recent lab work, culture data and imaging studies have all been personally reviewed. Rapid coronavirus antigen testing was negative. Respiratory viral panel was negative. Strep and urine Legionella antigens were negative. Blood and urine cultures are pending. - Physical Exam Vitals/I&O's: Vital Signs Temp Pulse Resp BP Pulse Ox 98 F 75 18 100/53 L 95 02/09/21 06:16 02/09/21 06:16 02/09/21 06:16 02/09/21 06:16 02/09/21 06:16 Oxygen Flow Rate (L/min) 2 Oxygen Delivery Method Room Air Weight: 159 lb 9.835 oz Body Mass Index (BMI) 30.6 Intake and Output for Last 24 Hours 02/07/21 02/08/21 02/09/21 23:59 23:59 23:59 Intake Total 2718 / 2838 4138.5 / 4698.5 700 / 700 Output Total 250 / 250 1250 / 1250 Balance 2468 / 2588 2888.5 / 3448.5 700 / 700 General: Alert, No apparent distress HEENT: Atraumatic, Normocephalic Oral: No Gingival or Mucosal Lesions/ Ulcerations Neck: Supple, No Nodes, Trachea Midline Lungs: No rhonchi, No wheeze, No rales, Diminished Cardiovascular: Regular rate, Regular Rhythm Abdomen: Bowel Sounds Present, Soft, Non Tender Extremities: No clubbing, No cyanosis, No edema Skin: No breakdown Musculoskeletal: No Tenderness to Palpation of Joints or Extremities Lymphatic: No Cervical, Supraclavicular, or Inguinal Adenopathy Neurological: Cranial nerves II-XII grossly intact, Neuro grossly intact Psych/Mental Status: Normal Affect Labs (Last 48 Hours) 02/07/21 02/07/21 02/07/21 12:35 12:35 12:35 WBC 8.9 RBC 4.63 Hgb 12.7 Hct 41.6 MCV 89.8 MCH 27.4 MCHC 30.5 L RDW Std Deviation 43.0 RDW Coeff of Sever[place] 13.1 Plt Count 320 MPV 10.0 Immature Gran % (Auto) 1.100 H Neut % (Auto) 65.4 Lymph % (Auto) 28.4 Josephine % (Auto) 1.3 Eos % (Auto) 3.6 Baso % (Auto) 0.2 Absolute Neuts (auto) 5.8 Absolute Lymphs (auto) 2.54 Nucleated RBC % 0 Differential Comment SCANNED Reactive Lymphocytes 1+ PT INR Sodium 139 Potassium 3.7 Chloride 106 Carbon Dioxide 26.0 Anion Gap 7 BUN 20 H Creatinine 1.21 H Estim Creat Clear Calc 48.83 Est GFR (MDRD) Af Amer 67 Est GFR (MDRD) Non-Af 55 L BUN/Creatinine Ratio 16.5 Glucose 240 H Lactic Acid Calcium 8.8 Total Bilirubin Direct Bilirubin AST ALT Alkaline Phosphatase Troponin I 0.034 Total Protein Albumin Globulin Albumin/Globulin Ratio Amylase Serum , Qual NEGATIVE Urine Color Urine Clarity Urine pH Ur Specific [place] Urine Protein Urine Glucose (UA) Urine Ketones Urine Occult Blood Urine Nitrite Urine Bilirubin Urine Urobilinogen Ur Leukocyte Esterase Urine RBC Urine WBC Ur Squamous Epith Cells Urine Bacteria Urine Mucus Urine Opiates Screen Urine Methadone Screen Ur Barbiturates Screen Ur Phencyclidine Scrn Ur Amphetamines Screen U Methamphetamin-MDMA U Benzodiazepines Scrn Urine Cocaine Screen U Cannabinoids Screen Ur Drug Screen Comment Ethyl Alcohol Hepatitis A IgM Ab Hep Bs Antigen Hep B Core IgM Ab Hepatitis C Ab (EIA) 02/07/21 02/07/21 02/07/21 17:45 17:45 17:45 WBC RBC Hgb Hct MCV MCH MCHC RDW Std Deviation RDW Coeff of [place] Plt Count MPV Immature Gran % (Auto) Neut % (Auto) Lymph % (Auto) Josephine % (Auto) Eos % (Auto) Baso % (Auto) Absolute Neuts (auto) Absolute Lymphs (auto) Nucleated RBC % Differential Comment Reactive Lymphocytes PT Cancelled INR Cancelled Sodium Potassium Chloride Carbon Dioxide Anion Gap BUN Creatinine Estim Creat Clear Calc Est GFR (MDRD) Af Amer Est GFR (MDRD) Non-Af BUN/Creatinine Ratio Glucose Lactic Acid Calcium Total Bilirubin Direct Bilirubin AST ALT Alkaline Phosphatase Troponin I Total Protein Albumin Globulin Albumin/Globulin Ratio Amylase 83 Serum , Qual Urine Color Urine Clarity Urine pH Ur Specific [place] Urine Protein Urine Glucose (UA) Urine Ketones Urine Occult Blood Urine Nitrite Urine Bilirubin Urine Urobilinogen Ur Leukocyte Esterase Urine RBC Urine WBC Ur Squamous Epith Cells Urine Bacteria Urine Mucus Urine Opiates Screen Urine Methadone Screen Ur Barbiturates Screen Ur Phencyclidine Scrn Ur Amphetamines Screen U Methamphetamin-MDMA U Benzodiazepines Scrn Urine Cocaine Screen U Cannabinoids Screen Ur Drug Screen Comment Ethyl Alcohol < 3.0 Hepatitis A IgM Ab Hep Bs Antigen Hep B Core IgM Ab Hepatitis C Ab (EIA) 02/07/21 02/07/21 02/07/21 17:45 17:45 18:10 WBC RBC Hgb Hct MCV MCH MCHC RDW Std Deviation RDW Coeff of Severiano Plt Count MPV Immature Gran % (Auto) Neut % (Auto) Lymph % (Auto) Josephine % (Auto) Eos % (Auto) Baso % (Auto) Absolute Neuts (auto) Absolute Lymphs (auto) Nucleated RBC % Differential Comment Reactive Lymphocytes PT 14.2 INR 1.2 Sodium Potassium Chloride Carbon Dioxide Anion Gap BUN Creatinine Estim Creat Clear Calc Est GFR (MDRD) Af Amer Est GFR (MDRD) Non-Af BUN/Creatinine Ratio Glucose Lactic Acid 1.4 Calcium Total Bilirubin Direct Bilirubin AST ALT Alkaline Phosphatase Troponin I Total Protein Albumin Globulin Albumin/Globulin Ratio Amylase Serum , Qual Urine Color Urine Clarity Urine pH Ur Specific [place] Urine Protein Urine Glucose (UA) Urine Ketones Urine Occult Blood Urine Nitrite Urine Bilirubin Urine Urobilinogen Ur Leukocyte Esterase Urine RBC Urine WBC Ur Squamous Epith Cells Urine Bacteria Urine Mucus Urine Opiates Screen Urine Methadone Screen Ur Barbiturates Screen Ur Phencyclidine Scrn Ur Amphetamines Screen U Methamphetamin-MDMA U Benzodiazepines Scrn Urine Cocaine Screen U Cannabinoids Screen Ur Drug Screen Comment Ethyl Alcohol Hepatitis A IgM Ab Pending Hep Bs Antigen Pending Hep B Core IgM Ab Pending Hepatitis C Ab (EIA) Pending 02/07/21 02/07/21 02/08/21 21:45 21:45 04:15 WBC RBC Hgb Hct MCV MCH MCHC RDW Std Deviation RDW Coeff of [place] Plt Count MPV Immature Gran % (Auto) Neut % (Auto) Lymph % (Auto) Josephine % (Auto) Eos % (Auto) Baso % (Auto) Absolute Neuts (auto) Absolute Lymphs (auto) Nucleated RBC % Differential Comment Reactive Lymphocytes PT INR Sodium Potassium Chloride Carbon Dioxide Anion Gap BUN Creatinine Estim Creat Clear Calc Est GFR (MDRD) Af Amer Est GFR (MDRD) Non-Af BUN/Creatinine Ratio Glucose Lactic Acid Calcium Total Bilirubin 0.40 Direct Bilirubin 0.16 AST 30 ALT 56 Alkaline Phosphatase 63 Troponin I Total Protein 5.7 L Albumin 2.6 L Globulin 3.1 Albumin/Globulin Ratio Amylase Serum , Qual Urine Color Yellow Urine Clarity Sl. Cloudy Urine pH 5.0 Ur Specific [place] 1.020 Urine Protein 100 H Urine Glucose (UA) Normal Urine Ketones Negative Urine Occult Blood 25 H Urine Nitrite Negative Urine Bilirubin Negative Urine Urobilinogen Normal Ur Leukocyte Esterase 100 H Urine RBC 0 SEEN Urine WBC 10-25 SEEN Ur Squamous Epith Cells 0 SEEN Urine Bacteria 4+ Urine Mucus 0 SEEN Urine Opiates Screen POSITIVE H Urine Methadone Screen NEGATIVE Ur Barbiturates Screen NEGATIVE Ur Phencyclidine Scrn NEGATIVE Ur Amphetamines Screen POSITIVE H U Methamphetamin-MDMA POSITIVE H U Benzodiazepines Scrn NEGATIVE Urine Cocaine Screen NEGATIVE U Cannabinoids Screen NEGATIVE Ur Drug Screen Comment Ethyl Alcohol Hepatitis A IgM Ab Hep Bs Antigen Hep B Core IgM Ab Hepatitis C Ab (EIA) 02/09/21 02/09/21 05:10 05:10 WBC 10.4 RBC 3.65 L Hgb 9.9 L Hct 32.3 L MCV 88.5 MCH 27.1 MCHC 30.7 L RDW Std Deviation 42.6 RDW Coeff of [place] 13.2 Plt Count 198 MPV 9.8 Immature Gran % (Auto) 0.400 Neut % (Auto) 68.2 Lymph % (Auto) 22.9 Josephine % (Auto) 4.6 Eos % (Auto) 3.8 Baso % (Auto) 0.1 Absolute Neuts (auto) 7.1 Absolute Lymphs (auto) 2.37 Nucleated RBC % 0 Differential Comment Reactive Lymphocytes PT INR Sodium 142 Potassium 3.3 L Chloride 111 H Carbon Dioxide 25.0 Anion Gap 6 BUN 9 Creatinine 0.62 Estim Creat Clear Calc 95.30 Est GFR (MDRD) Af Amer 145 Est GFR (MDRD) Non-Af 120 BUN/Creatinine Ratio 14.5 Glucose 131 H Lactic Acid Calcium 7.7 L Total Bilirubin 0.30 Direct Bilirubin AST 19 ALT 44 Alkaline Phosphatase 65 Troponin I Total Protein 5.9 L Albumin 2.5 L Globulin 3.4 Albumin/Globulin Ratio 0.7 L Amylase Serum , Qual Urine Color Urine Clarity Urine pH Ur Specific [place] Urine Protein Urine Glucose (UA) Urine Ketones Urine Occult Blood Urine Nitrite Urine Bilirubin Urine Urobilinogen Ur Leukocyte Esterase Urine RBC Urine WBC Ur Squamous Epith Cells Urine Bacteria Urine Mucus Urine Opiates Screen Urine Methadone Screen Ur Barbiturates Screen Ur Phencyclidine Scrn Ur Amphetamines Screen U Methamphetamin-MDMA U Benzodiazepines Scrn Urine Cocaine Screen U Cannabinoids Screen Ur Drug Screen Comment Ethyl Alcohol Hepatitis A IgM Ab Hep Bs Antigen Hep B Core IgM Ab Hepatitis C Ab (EIA) Microbiology 02/07/21 21:45 Urine, Clean Catch Legionella Antigen - Final 02/07/21 21:45 Urine, Clean Catch Streptococcus pneumoniae Antigen (M - Final 02/07/21 16:22 Mucosa - Nose Respiratory Panel (PCR) - Final 02/07/21 15:10 Mucosa - Nose SARS-CoV-2 Antigen (Rapid) - Final Clinical Impression(s) from Imaging Studies Chest X-Ray 02/07/21 12:38 IMPRESSION: Infiltrate in the right upper lobe as well as in the right lower lobe. Aspiration should be ruled out. Electronically Signed: Otto Blanco MD at 13:05 EDT , Service support , Current Medications Acetaminophen (Acetaminophen 325 Mg Tablet) 650 mg PO Q6H PRN PRN PRN Reason: Pain Score 1-10/Temp > 100.7 F Al Hydroxide/Mg Hydroxide (Mag Hydrox/Al Hydrox/Simeth 30 Ml Udc) 30 ml PO Q6H PRN PRN PRN Reason: dyspesia Albuterol/Ipratropium (Ipratropium/Albuterol Sulfate 3 Ml Ampul.Neb) 3 ml INHALATION Q4H.RT PRN PRN Reason: SHORTNESS OF BREATH Bisacodyl (Bisacodyl 10 Mg Suppository) 10 mg RC DAILY PRN PRN Reason: Constipation Buprenorphine HCl (Buprenorphine Hcl 2 Mg Tab.Subl) 4 mg SL Q8H [facility]; Taper Stop: 02/11/21 22:14 Last Admin: 02/09/21 06:19 Dose: 4 mg Documented by: Clonidine (Clonidine Hcl 0.1 Mg Tablet) 0.1 mg PO Q8H PRN PRN PRN Reason: RESTLESSNESS Dicyclomine HCl (Dicyclomine 10 Mg Capsule) 20 mg PO Q6H PRN PRN PRN Reason: Abdominal Discomfort Enoxaparin Sodium (Enoxaparin 40 Mg/0.4 Ml Syringe) 40 mg SC DAILY [facility] Last Admin: 02/08/21 09:57 Dose: Not Given Documented by: Gabapentin (Gabapentin 300 Mg Capsule) 300 mg PO Q8H PRN PRN PRN Reason: moderate to severe anxiety Last Admin: 02/08/21 04:22 Dose: 300 mg Documented by: Guaifenesin (Guaifenesin 1,200 Mg Tablet) 1,200 mg PO BID [facility] Last Admin: 02/08/21 22:11 Dose: 1,200 mg Documented by: Hydroxyzine Pamoate (Hydroxyzine Pia 25 Mg Capsule) 50 mg PO Q6H PRN PRN PRN Reason: mild anxiety Last Admin: 02/07/21 21:33 Dose: 50 mg Documented by: Ibuprofen (Ibuprofen 600 Mg Tablet) 600 mg PO Q8H PRN PRN PRN Reason: PAIN 1-10 Last Admin: 02/08/21 22:11 Dose: 600 mg Documented by: Levofloxacin (Levofloxacin 750 Mg Tablet) 750 mg PO DAILY@0600 [facility] Stop: 02/15/21 06:01 Last Admin: 02/09/21 06:19 Dose: 750 mg Documented by: Loperamide HCl (Loperamide 2 Mg Capsule) 2 mg PO Q4H PRN PRN PRN Reason: LOOSE STOOLS Methocarbamol (Methocarbamol 750 Mg Tablet) 1,500 mg PO Q6H PRN PRN PRN Reason: MUSCLE SPASM Last Admin: 02/08/21 22:11 Dose: 1,500 mg Documented by: Metoclopramide HCl (Metoclopramide 10 Mg/2 Ml Vial) 5 mg IV Q6 PRN PRN Reason: NAUSEA/VOMITING Nicotine (Nicotine 21 Mg Patch) 21 mg TD DAILY [facility] Last Admin: 02/08/21 08:00 Dose: 21 mg Documented by: Ondansetron HCl (Ondansetron 4 Mg/2 Ml Vial) 4 mg IV Q8H PRN PRN PRN Reason: NAUSEA/VOMITING Senna (Senna Tablet) 2 tablet PO QHS PRN PRN Reason: Constipation Last Admin: 02/08/21 12:34 Dose: 2 tablet Documented by: Sodium Chloride (0.9% Saline Lock 10 Ml Syringe) 10 - 40 ml IV UD PRN PRN Reason: SALINE FLUSH Trazodone HCl (Trazodone 100 Mg Tablet) 100 mg PO QHS PRN PRN PRN Reason: INSOMNIA Last Admin: 02/08/21 22:11 Dose: 100 mg Documented by: Medical Necessity - Tobacco Use Smoking Status: Current every day smoker Assessment/Plan All Active Problems (This Medical Record has been edited. Action required.) Acute respiratory failure with hypoxia (Acute) Aspiration pneumonia (Acute) Opiate overdose (Acute) Foot infection (Resolved) Pain in right foot (Resolved) Sepsis (Resolved) RECOMMENDATIONS: 1. Continue empiric antimicrobials to complete 7-day treatment course. 2. Encourage incentive spirometer use and mobilize patient as tolerated. 3. Continue Buprenorphine as ordered. 4. Potassium repletion as ordered. 5. Given the patient's lack of further ICU or pulmonary needs, will sign off. Please call with any additional questions. IMPRESSIONS: 1. Acute hypoxemic respiratory failure Clinical concern for aspiration pneumonia as precipitating etiology. The patient will be continued on antimicrobials as ordered. Plan to continue to wean supplemental oxygen to maintain saturations at or above 90%. 2. Encephalopathy Resolved. Secondary to heroin drug overdose. The patient has responded clinically to the use of Narcan. She is currently mentating appropriately at the present time. 3. Acute kidney injury Resolved. Likely prerenal in etiology. Continue to monitor urine output for now. No current indication for renal replacement therapy. 4. Chronic heroin and tobacco dependency Continue opiate withdrawal protocol as ordered. Tobacco cessation counseling provided. 5. Chronic hepatitis B/C Complicates care, management, recovery and prognosis. This note was generated with [employer] dictation software. It may contain incorrect words, spelling, and punctuation that were not noted in checking the note before signing. Inpatient E&M: 82875 Subs Hosp L2
[2021-02-09 07:57] VITALS: O2SAT 95
[2021-02-09] MEDS: Potassium Chloride Oral Tablet 20 MEQ 40 MEQ PO (08:34)
[2021-02-09] MEDS: guaiFENesin 1,200 MG Tablet 1200 MG PO (08:35)
[2021-02-09 08:44] VITALS: BP 101/60; PULSE 72; RESP 18; TEMP 37.2; O2SAT 97
--- NOTE | 2021-02-09 10:15 | CASEMGMT ---
Social Work Note [facility] Saida provided pt with substance abuse resources. Arcelia Singh DIVER HELPER, ELEVATOR DISPATCHER
[2021-02-09 12:00] VITALS: RESP 18; O2SAT 96
--- NOTE | 2021-02-09 12:09 | DS.PCM_ITS ---
Discharge Date and Diagnosis - Problem List Patient Problems: Active and Suspected Problems (This Medical Record has been edited. Action required.) Acute respiratory failure with hypoxia (Acute) Aspiration pneumonia (Acute) Opiate overdose (Acute) Date of Admission: 02/07/21 Date of Discharge: 02/09/21 - Primary Discharge Diagnosis Acute Problems: Active Problems (This Medical Record has been edited. Action required.) Acute respiratory failure with hypoxia (Acute) Aspiration pneumonia (Acute) Opiate overdose (Acute) - Secondary Discharge Diagnosis Chronic Problems: Chronic Problems (This Medical Record has been edited. Action required.) IV drug abuse (Chronic) Hepatitis (Chronic) Hospital Course and Treatment Imaging Results: STUDY: X-RAY CHEST REASON FOR EXAM: Female, 30 years old. Vomited, hypoxemic TECHNIQUE: Single AP portable view of the chest. COMPARISON: Comparison is made with prior study 08/08/2020. FINDINGS: EKG electrodes are seen. Focal infiltrate in the right upper lobe as well as in the right lower lobe. The patient history of overdose, aspiration should be ruled out. There is no demonstrated pleural abnormality. Normal size heart. Normal mediastinum and melecio. Normal visualized pulmonary arteries. Normal visualized aortic arch and descending thoracic aorta. Normal visualized thoracic spine. Normal visualized ribs, clavicles, and shoulders. There is no demonstrated abnormality of the visualized soft tissue structures of the upper abdomen. RAD/Chest 1 View (Portable) IMPRESSION: Infiltrate in the right upper lobe as well as in the right lower lobe. Aspiration should be ruled out. Operations: None Procedures: None Summary of Care Provided: Ms. Bui is a 30 year old WF presented to the emergency department [facility] on 02/07/2021 secondary to known drug overdose with mental status change and shortness of breath. She has a past medical history of chronic heroin use, chronic hepatitis B and hepatitis C, and tobacco abuse. Upon arrival she was still very confused and restless. She was found by the EMS in an unconscious state after an overdose. She was not able to delineate how much heroin she snorted but also confirmed that she injected heroin the day prior. She vomited several times per the ER physician and aspiration was suspected. She was given a total of 6 mg of intranasal Narcan and was found to be hypoxic with oxygen saturation at 87% on a 50% Ventimask with a respiratory rate of 27 in the emergency department. Her blood pressure was stable and she was tachycardic with a heart rate of 100. She was admitted to the ICU given her tenuous respiratory status and started on clindamycin and Levaquin for suspected aspiration pneumonia. Chest x-ray was consistent with aspiration pneumonia and showed an infiltrate in the right upper lobe as well as the right lower lobe. She improved rapidly and by the a.m. of 02/08/2021 she was weaned to 2 L nasal cannula with stable oxygen saturation. At that time she was able to be moved from the ICU to the medical floor and her oxygen was further weaned to room air. She was continued on Levaquin and placed on a Suboxone taper for acute opiate withdrawal. She states that her drug of choice however is methamphetamines and she only intermittently uses opiates. She was doing well in the a.m. of 02/09/2021 and indicated she wanted further treatment for her drug addictions and was to be seen by 180. She unfortunately decided to leave AGAINST MEDICAL ADVICE late in the morning on 02/09/2021. I did fax a prescription for completion of Levaquin to her pharmacy for 5 days. Patient Problems: Active and Suspected Problems (This Medical Record has been edited. Action required.) Acute respiratory failure with hypoxia (Acute) Aspiration pneumonia (Acute) Opiate overdose (Acute) - Physical Exam Vitals/I&O's: Vital Signs Temp Pulse Resp BP Pulse Ox 98.9 F 72 18 101/60 97 02/09/21 08:44 02/09/21 08:44 02/09/21 08:44 02/09/21 08:44 02/09/21 08:44 Oxygen Flow Rate (L/min) 2 Oxygen Delivery Method Room Air Weight: 72.4 kg Body Mass Index (BMI) 30.6 Intake and Output for Last 24 Hours 02/07/21 02/08/21 02/09/21 23:59 23:59 23:59 Intake Total 2718 / 2838 4138.5 / 4698.5 700 / 700 Output Total 250 / 250 1250 / 1250 Balance 2468 / 2588 2888.5 / 3448.5 700 / 700 General: Alert, Oriented x3, Cooperative, No apparent distress, Well developed, Well nourished HEENT: Atraumatic, PERRLA, EOMI, Normocephalic, EAC Clear Oral: Moist Mucosa, No Gingival or Mucosal Lesions/ Ulcerations Neck: Supple, No JVD, Negative Carotid Bruits, Negative Hepatojugular Reflux, No Nodes, No Nuchal Rigidity, Trachea Midline, Thyroid Normal Size and Texture Lungs: No wheeze, No rales, Diminished - Base, Rhonchi - Few scattered right base Cardiovascular: Regular rate, Regular Rhythm, Normal S1, Normal S2, No murmurs, No Ectopic Activity, No rub noted, No Gallop Abdomen: Bowel Sounds Present, Soft, Non Tender, Non-Distended, No hernias noted Extremities: No clubbing, No cyanosis, No edema, Capillary Refill Less than 3 Seconds, Peripheral Pulses Normal Skin: No rashes, No breakdown Musculoskeletal: No Tenderness to Palpation of Joints or Extremities, No Muscle Wasting Lymphatic: No Cervical, Supraclavicular, or Inguinal Adenopathy Neurological: Cranial nerves II-XII grossly intact, Neuro grossly intact, - - No tremor or acute outward signs of withdrawal Psych/Mental Status: Appropriate, Flat Affect Microbiology Past 72 Hours 02/07/21 21:45 Urine, Clean Catch Urine Culture - Final GNR lactose health policy nurse 02/07/21 21:45 Urine, Clean Catch Legionella Antigen - Final 02/07/21 21:45 Urine, Clean Catch Streptococcus pneumoniae Antigen (M - Final 02/07/21 16:22 Mucosa - Nose Respiratory Panel (PCR) - Final 02/07/21 15:10 Mucosa - Nose SARS-CoV-2 Antigen (Rapid) - Final Laboratory Results 02/09/21 05:10: WBC 10.4, RBC 3.65 L, Hgb 9.9 L, Hct 32.3 L, MCV 88.5, MCH 27.1, MCHC 30.7 L, RDW Std Deviation 42.6, RDW Coeff of Severiano 13.2, Plt Count 198, MPV 9.8, Immature Gran % (Auto) 0.400, Neut % (Auto) 68.2, Lymph % (Auto) 22.9, Anderson % (Auto) 4.6, Eos % (Auto) 3.8, Baso % (Auto) 0.1, Absolute Neuts (auto) 7.1, Absolute Lymphs (auto) 2.37, Nucleated RBC % 0 02/09/21 05:10: Sodium 142, Potassium 3.3 L, Chloride 111 H, Carbon Dioxide 25.0, Anion Gap 6, BUN 9, Creatinine 0.62, Estim Creat Clear Calc 95.30, Est GFR (MDRD) Af Amer 145, Est GFR (MDRD) Non-Af 120, BUN/Creatinine Ratio 14.5, Glucose 131 H, Calcium 7.7 L, Total Bilirubin 0.30, AST 19, ALT 44, Alkaline Phosphatase 65, Total Protein 5.9 L, Albumin 2.5 L, Globulin 3.4, Albumin/Globulin Ratio 0.7 L Current Medications Acetaminophen (Acetaminophen 325 Mg Tablet) 650 mg PO Q6H PRN PRN PRN Reason: Pain Score 1-10/Temp > 100.7 F Al Hydroxide/Mg Hydroxide (Mag Hydrox/Al Hydrox/Simeth 30 Ml Udc) 30 ml PO Q6H PRN PRN PRN Reason: dyspesia Albuterol/Ipratropium (Ipratropium/Albuterol Sulfate 3 Ml Ampul.Neb) 3 ml INHALATION Q4H.RT PRN PRN Reason: SHORTNESS OF BREATH Bisacodyl (Bisacodyl 10 Mg Suppository) 10 mg RC DAILY PRN PRN Reason: Constipation Buprenorphine HCl (Buprenorphine Hcl 2 Mg Tab.Subl) 4 mg SL Q8H DOMONIQUE; Taper Stop: 02/11/21 22:14 Last Admin: 02/09/21 06:19 Dose: 4 mg Documented by: Clonidine (Clonidine Hcl 0.1 Mg Tablet) 0.1 mg PO Q8H PRN PRN PRN Reason: RESTLESSNESS Dicyclomine HCl (Dicyclomine 10 Mg Capsule) 20 mg PO Q6H PRN PRN PRN Reason: Abdominal Discomfort Enoxaparin Sodium (Enoxaparin 40 Mg/0.4 Ml Syringe) 40 mg SC DAILY DOMONIQUE Last Admin: 02/09/21 08:25 Dose: Not Given Documented by: Gabapentin (Gabapentin 300 Mg Capsule) 300 mg PO Q8H PRN PRN PRN Reason: moderate to severe anxiety Last Admin: 02/08/21 04:22 Dose: 300 mg Documented by: Guaifenesin (Guaifenesin 1,200 Mg Tablet) 1,200 mg PO BID [facility] Last Admin: 02/09/21 08:35 Dose: 1,200 mg Documented by: Hydroxyzine Pamoate (Hydroxyzine Pia 25 Mg Capsule) 50 mg PO Q6H PRN PRN PRN Reason: mild anxiety Last Admin: 02/07/21 21:33 Dose: 50 mg Documented by: Ibuprofen (Ibuprofen 600 Mg Tablet) 600 mg PO Q8H PRN PRN PRN Reason: PAIN 1-10 Last Admin: 02/08/21 22:11 Dose: 600 mg Documented by: Levofloxacin (Levofloxacin 750 Mg Tablet) 750 mg PO DAILY@0600 [facility] Stop: 02/15/21 06:01 Last Admin: 02/09/21 06:19 Dose: 750 mg Documented by: Loperamide HCl (Loperamide 2 Mg Capsule) 2 mg PO Q4H PRN PRN PRN Reason: LOOSE STOOLS Methocarbamol (Methocarbamol 750 Mg Tablet) 1,500 mg PO Q6H PRN PRN PRN Reason: MUSCLE SPASM Last Admin: 02/08/21 22:11 Dose: 1,500 mg Documented by: Metoclopramide HCl (Metoclopramide 10 Mg/2 Ml Vial) 5 mg IV Q6 PRN PRN Reason: NAUSEA/VOMITING Nicotine (Nicotine 21 Mg Patch) 21 mg TD DAILY [facility] Last Admin: 02/09/21 08:35 Dose: 21 mg Documented by: Ondansetron HCl (Ondansetron 4 Mg/2 Ml Vial) 4 mg IV Q8H PRN PRN PRN Reason: NAUSEA/VOMITING Senna (Senna Tablet) 2 tablet PO QHS PRN PRN Reason: Constipation Last Admin: 02/08/21 12:34 Dose: 2 tablet Documented by: Sodium Chloride (0.9% Saline Lock 10 Ml Syringe) 10 - 40 ml IV UD PRN PRN Reason: SALINE FLUSH Trazodone HCl (Trazodone 100 Mg Tablet) 100 mg PO QHS PRN PRN PRN Reason: INSOMNIA Last Admin: 02/08/21 22:11 Dose: 100 mg Documented by: Home Medications: Medications to take at Discharge levoFLOXacin tablet [Levaquin tablet] 750 mg PO DAILY@0600 #5 tablet 02/09/21 Following Prescriptions Were Given to Patient: levoFLOXacin tablet [Levaquin tablet] 750 mg PO DAILY@0600 #5 tablet Transmission Status: Pending to [facility] #30 Primary Care Physician: Care Physician,No Primary [Primary Care Provider] - Medical Necessity - Tobacco Use Smoking Status: Current every day smoker Meaningful Use Info Meaningful Use Diagnoses (Choose all that apply): None applicable Inpatient E&M: 66571 [facility] Hosp
--- NOTE | 2021-02-09 12:27 | PCM.HOSP.N ---
Hospitalist Note Patient has now decided to stay and not leave AMA. Multi Select Codes - Visit Charges Visit Charges: 80222 Subs Hosp L2
[2021-02-09 12:42] VITALS: BP 111/61; PULSE 68; RESP 18; TEMP 36.6; O2SAT 94
[2021-02-09] MEDS: Methocarbamol 750 MG Tablet 1500 MG PO (14:29)
[2021-02-09] MEDS: Senna Tablet 2 TABLET PO (14:30)
[2021-02-09 17:35] VITALS: BP 97/55; PULSE 80; RESP 16; TEMP 36.7; O2SAT 94
--- NOTE | 2021-02-09 20:23 | NURSING ---
Addendum entered by Kelly Joy 02/09/21 20:26: When asked if pt had notified her mother that she was leaving she said no and stated her father knew she was leaving. she stated she lived nearby and would walk to her home. Original Note: Pt called call light, answered by HOUSE OFFICER who advised this nurse she had her bags packed and had signed her AMA papers that were in her room as she was talking to day shift nurses about leaving AMA. This nurse said she would be right with her and on return pt was already at the door ready to leave. she had pulled her IV out in her left hand/wrist and showed the site where it was removed. site was not bleeding. she did not want a cover over it. Charge nurse reprinted her AMA papers as she signed it unwitnessed with a whiteboard marker. Pt signed AMA papers in this nurse and charge nurses presence and left the floor. Notified hospitalist and nursing fiber optics supervisor.
--- NOTE | 2021-02-10 07:15 | DS.PCM_ITS ---
Discharge Date and Diagnosis - Problem List Patient Problems: Active and Suspected Problems (This Medical Record has been edited. Action required.) Acute respiratory failure with hypoxia (Acute) Aspiration pneumonia (Acute) Opiate overdose (Acute) Date of Admission: 02/07/21 Date of Discharge: 02/10/21 - Primary Discharge Diagnosis Acute Problems: Active Problems (This Medical Record has been edited. Action required.) Acute respiratory failure with hypoxia (Acute) Aspiration pneumonia (Acute) Opiate overdose (Acute) - Secondary Discharge Diagnosis Chronic Problems: Chronic Problems (This Medical Record has been edited. Action required.) IV drug abuse (Chronic) Hepatitis (Chronic) Hospital Course and Treatment Imaging Results: STUDY: X-RAY CHEST REASON FOR EXAM: Female, 30 years old. Vomited, hypoxemic TECHNIQUE: Single AP portable view of the chest. COMPARISON: Comparison is made with prior study 08/08/2020. FINDINGS: EKG electrodes are seen. Focal infiltrate in the right upper lobe as well as in the right lower lobe. The patient history of overdose, aspiration should be ruled out. There is no demonstrated pleural abnormality. Normal size heart. Normal mediastinum and melecio. Normal visualized pulmonary arteries. Normal visualized aortic arch and descending thoracic aorta. Normal visualized thoracic spine. Normal visualized ribs, clavicles, and shoulders. There is no demonstrated abnormality of the visualized soft tissue structures of the upper abdomen. RAD/Chest 1 View (Portable) IMPRESSION: Infiltrate in the right upper lobe as well as in the right lower lobe. Aspiration should be ruled out. Pulmonary/critical care Operations: None Summary of Care Provided: Ms. Bui is a 30 year old WF presented to the emergency department [facility] on 02/07/2021 secondary to known drug overdose with mental status change and shortness of breath. She has a past medical history of chronic heroin use, chronic hepatitis B and hepatitis C, and tobacco abuse. Upon arrival she was still very confused and restless. She was found by the EMS in an unconscious state after an overdose. She was not able to delineate how m uch heroin she snorted but also confirmed that she injected heroin the day prior. She vomited several times per the ER physician and aspiration was suspected. She was given a total of 6 mg of intranasal Narcan and was found to be hypoxic with oxygen saturation at 87% on a 50% Ventimask with a respiratory rate of 27 in the emergency department. Her blood pressure was stable and she was tachycardic with a heart rate of 100. She was admitted to the ICU given her tenuous respiratory status and started on clindamycin and Levaquin for suspected aspiration pneumonia. Chest x-ray was consistent with aspiration pneumonia and showed an infiltrate in the right upper lobe as well as the right lower lobe. She improved rapidly and by the a.m. of 02/08/2021 she was weaned to 2 L nasal cannula with stable oxygen saturation. At that time she was able to be moved from the ICU to the medical floor and her oxygen was further weaned to room air. She was continued on Levaquin and placed on a Suboxone taper for acute opiate withdrawal. She states that her drug of choice however is methamphetamines and she only intermittently uses opiates. She was doing well in the a.m. of 02/09/2021 and indicated she wanted further treatment for her drug addictions and was to be seen by 180. She unfortunately decided to leave AGAINST MEDICAL ADVICE late in the morning on 02/09/2021 but then decided to stay. She then again decided to leave AMA on the evening of 02/09/2021 and did leave. A prescription of Levaquin was at her pharmacy to complete her antibiotic course for her aspiration pneumonia. Patient Problems: Active and Suspected Problems (This Medical Record has been edited. Action required.) Acute respiratory failure with hypoxia (Acute) Aspiration pneumonia (Acute) Opiate overdose (Acute) - Physical Exam Vitals/I&O's: Vital Signs Temp Pulse Resp BP Pulse Ox 98.0 F 80 16 97/55 L 94 02/09/21 17:35 02/09/21 17:35 02/09/21 17:35 02/09/21 17:35 02/09/21 17:35 Oxygen Flow Rate (L/min) 2 Oxygen Delivery Method Room Air Weight: 72.4 kg Body Mass Index (BMI) 30.6 Intake and Output for Last 24 Hours 02/08/21 02/09/21 02/10/21 23:59 23:59 23:59 Intake Total 4138.5 / 4698.5 1550 / 1550 Output Total 1250 / 1250 Balance 2888.5 / 3448.5 1550 / 1550 Microbiology Past 72 Hours 02/07/21 21:45 Urine, Clean Catch Urine Culture - Final GNR lactose examiner rating clerk 02/07/21 21:45 Urine, Clean Catch Legionella Antigen - Final 02/07/21 21:45 Urine, Clean Catch Streptococcus pneumoniae Antigen (M - Final 02/07/21 16:22 Mucosa - Nose Respiratory Panel (PCR) - Final 02/07/21 15:10 Mucosa - Nose SARS-CoV-2 Antigen (Rapid) - Final Home Medications: Medications to take at Discharge levoFLOXacin tablet [Levaquin tablet] 750 mg PO DAILY@0600 #5 tablet 02/09/21 Following Prescriptions Were Given to Patient: levoFLOXacin tablet [Levaquin tablet] 750 mg PO DAILY@0600 #5 tablet Transmission Status: Received by [facility] #30 Primary Care Physician: Care Physician,No Primary [Primary Care Provider] - Medical Necessity - Tobacco Use Smoking Status: Current every day smoker Meaningful Use Info Meaningful Use Diagnoses (Choose all that apply): None applicable
--- NOTE | 2021-04-01 03:43 | HP.PCM.HOS_ITS ---
HPI - General General Date of Admission: 02/07/21 Chief Complaint: Drug overdose HPI Narrative TANI RAMESH, is a 30-year-old female with a significant history of IV drug use who was sent to [place] emergency ED because of accidental drug overdose. Questionable CPR versus rescue respiration on the field. When paramedics arrived patient had a pause. Patient was given Narcan by the paramedics. Reportedly white count is 14,000; chest x-ray showed bilateral infiltrates; pH 7.33 PO2 is 80%; PCO2 42 and a oxygen saturation is 95%. Because patient was a mouth breather she was placed on a Venturi mask at the ED. Troponin and BNP was normal. Because patient has allergy to penicillin she was given IV clindamycin. Blood cultures were obtained at outside hospital ED. Ethanol; Tylenol and salicylate level was normal. Comprehensive drug screen could not be obtained at Outside Hospital ED because patient's could not produce any urine at that time. The above history was obtained from emergency department physician via phone. On presentation patient confirmed that she overdosed on heroin. She reported that previously she used to use IV heroin but now she is snorts. She reported that she used to live in [place] but then she moved to [facility] so that she can be clean from drugs. She reported that in the past 2 months she had no use track except on the same day of presentation where she tried a small dose of heroin. At that time she snorted heroin. Patient was admitted at the hospital on 02/07/2021 and discharged on 02/10/2021 for pretty much the same thing. On that presentation she left AGAINST MEDICAL ADVICE. [facility] Medical History Depression Hepatitis C IV drug abuse Home Medications levofloxacin 750 mg PO DAILY@0600 #5 tablet 02/09/21 [Rx Last Taken Unknown] Allergy/AdvReac Type Severity Reaction Status Date / Time Penicillins Allergy blisters Verified 02/07/21 12:21 on tongue Family History (Updated 04/01/21 @ 03:[address] Cory Frank MD) Other Cancer Cirrhosis of liver Heart disease Surgical History (Updated 04/01/21 @ 03:[address] Cory Frank MD) H/O section H/O foot surgery Social History (System 09/28/20 @ 14:04 by Rosy Cordero) Smoking Status: Current every day smoker Lab / Micro Data Result Diagrams: 02/09/21 05:10 02/09/21 05:10
== END 2021-02-09 20:00 | disposition left against medical advice (07) | DRG 816 ==
LOC: ED 14:59 → ICU 02-08 06:58 → MS3 02-09 10:31
PROVIDERS: Admitting Provider Internal Medicine; Emergency Provider Emergency Medicine; Visit Provider Internal Medicine
DX: T40.1X1A Poisoning by heroin, accidental (unintentional), initial encounter (principal); J96.01 Acute respiratory failure with hypoxia; J69.0 Pneumonitis due to inhalation of food and vomit; G93.41 Metabolic encephalopathy; F11.23 Opioid dependence with withdrawal; B18.2 Chronic viral hepatitis C; B18.1 Chronic viral hepatitis B without delta-agent; K21.9 Gastro-esophageal reflux disease without esophagitis; N17.9 Acute kidney failure, unspecified; F15.10 Other stimulant abuse, uncomplicated; I95.9 Hypotension, unspecified; F17.200 Nicotine dependence, unspecified, uncomplicated; Y92.9 Unspecified place or not applicable; Z86.19 Personal history of other infectious and parasitic diseases; Z87.2 Personal history of diseases of the skin and subcutaneous tissue
CPT/HCPCS: 36415; 71045; 80048; 80053; 80074; 80076; 80307; 81001; 82077; 82150; 83605; 84484; 84703; 85025; 85610; 87040; 87086; 87088; 87426; 87449; 87633; 93005; 99285; J7030; J7050; J7120; A4216; J2405

== ENCOUNTER 2021-04-01 03:56 | Observation (INO) | payer MEDICAID, SELFPAY ==
[2021-02-07 15:52] VITALS: BMI 30.6
[2021-04-01] VITALS (10 sets, daily range): BP systolic 92–107; BP diastolic 62–82; PULSE 78–96; RESP 17–18; TEMP 36.4–36.8; O2SAT 87–99; BMI 32.5
--- NOTE | 2021-04-01 00:25 | NURSING ---
Left arm I/O removed, dressing applied. LEft EJ IV removed, dressing applied.
--- NOTE | 2021-04-01 03:10 | NURSING ---
Pt recieved to ICU 5 from [facility]. Pt crying stating her arm and neck is very painful. Pt with I/O in left shoulder and EJ in left neck. Pt assisted to bed, oriented to icu, bed. Dr Frank notified of pt arrival.
--- NOTE | 2021-04-01 03:59 | PCM.HP.STD ---
HPI - General General Date of Admission: 04/01/21 HPI Narrative TANI RAMESH, is a 30-year-old female with a significant history of IV drug use who was sent to [place] emergency ED because of accidental drug overdose. Questionable CPR versus rescue respiration on the field. When paramedics arrived patient had a pulse. Patient was given Narcan by the paramedics. Reportedly white count is 14,000; chest x-ray showed bilateral infiltrates; pH 7.33 PO2 is 80%; PCO2 42 and a oxygen saturation is 95%. Because patient was a mouth breather she was placed on a Venturi mask at the ED. Troponin and BNP was normal. Because patient has allergy to penicillin she was given IV clindamycin. Blood cultures were obtained at outside hospital ED. Ethanol; Tylenol and salicylate level was normal. Comprehensive drug screen could not be obtained at Outside Hospital ED because patient's could not produce any urine at that time. The above history was obtained from emergency department physician via phone. On presentation patient confirmed that she overdosed on heroin. She reported that previously she used to use IV heroin but now she is snorts. She reported that she used to live in [place] but then she moved to [facility] so that she can be clean from drugs. She reported that in the past 2 months she had no use track except on the same day of presentation where she tried a small dose of heroin. At that time she snorted heroin. Patient was admitted at the hospital on 02/07/2021 and discharged on 02/10/2021 for pretty much the same thing. On that presentation she left AGAINST MEDICAL ADVICE. [facility] Medical History Cellulitis of right foot Depression Hepatitis C IV drug abuse Allergy/AdvReac Type Severity Reaction Status Date / Time Penicillins Allergy blisters Verified 02/07/21 12:21 on tongue Family History Other Cancer Cirrhosis of liver Heart disease Surgical History (Updated 04/01/21 @ 03:[address] Cory Frank MD) H/O section H/O foot surgery Social History (System 09/28/20 @ 14:04 by Rosy Cordero) Smoking Status: Current every day smoker ROS ROS Narrative 12 point review of system is negative except as stated in HPI. Vital Signs Vital Signs Vital Signs: 04/01/21 03:38 Pulse Rate 90 Physical Exam Narrative Alert and oriented x3 Nontraumatic; normocephalic Lung clear to auscultate Heart sounds S1-S2. No murmur, gallop or rubs. Abdomen bowel sounds present soft, nontender nondistended Extremity without edema cyanosis or clubbing. Assessment & Plan Assessment/Plan (1) Opiate overdose: QUALIFIERS: Encounter type: initial encounter Injury intent: accidental or unintentional Qualified Code(s): T40.601A - Poisoning by unspecified narcotics, accidental (unintentional), initial encounter (2) Aspiration pneumonia: QUALIFIERS: Aspiration pneumonia type: unspecified Laterality: bilateral Lung location: unspecified part of lung Qualified Code(s): J69.0 - Pneumonitis due to inhalation of food and vomit PLAN: Opioid overdose Radiologist impression of chest x-ray obtained at the hospital: Bilateral upper lobe and left lower lobe opacity. After chest x-ray image was independently reviewed patient with bilateral opacities which is more prominent of right upper lung bernal. Work at outside hospital were reviewed. Lab work showed normal Tylenol level; normal salicylate level and normal Tylenol level. Outside hospital labs showed normal troponin. Initial plan was to admit to the intensive care unit but upon presentation patient is alert and oriented. Will observe at the medical surgical units Do not expect any withdrawal since reportedly for the past 2 months she quit using drugs and only inhaled a small quantity on the same day of presentation. As needed Zofran ordered. Regular diet. Aspiration pneumonia Differential diagnosis includes flash pulmonary edema given clindamycin iv at outside hospital ED. Clindamycin p.o. ordered. DVT prophylaxis Low risk. Encouraged to ambulate. Disposition: Anticipate same discharge.. Visit Charges OBSV E&M: [id number] Initial observation care L3
[2021-04-01 04:23] LABS: Absolute Lymphocyte Count 2.45 X10^3/uL (0.83-4.51); Absolute Neutrophil Count 11.2 X10^3/uL (2.0-7.7); Basophil# 0.01 X10^3/uL; Basophil% 0.1 % (0-1); Eosinophil# 0.17 X10^3/uL; Eosinophils% 1.2 % (0-5); Hematocrit 31.8 % (37-47); Hemoglobin 9.9 g/dL (12.0-15.0); Lymphocyte # 2.45 X10^3/ul (0.83-4.51); Lymphocyte % 16.7 % (19-41); Mean Corp Hgb Conc 31.1 g/dL (32-36); Mean Corpuscular Hgb 26.8 pg (27.0-32.0); Mean Corpuscular Volume 86.2 fL (81-99); Mean Platelet Vol. 10.3 fl (6.2-12.0); Monocyte# 0.78 X10^3/uL; Monocyte% 5.3 % (0-10); NRBC Flagged by Analyzer 0 % (0-5); Neutrophil # 11.24 X10^3/uL (2.7-7.7); Neutrophil % 76.4 % (47-70); Platelet Count 264 K/mm3 (150-450); RBC Distribution Width CV 13.8 % (11.6-14.6); RBC Distribution Width SD 43.5 fl (35.1-43.9); Red Blood Count 3.69 M/mm3 (4.2-5.4); White Blood Count 14.7 K/mm3 (4.4-11.0)
[2021-04-01 04:32] LABS: Anion Gap 5 (5-15); BUN 19 mg/dL (7-18); BUN/Creat Ratio 33.5 RATIO (10-20); Calcium,Total 7.6 mg/dL (8.5-10.1); Chloride 109 mmol/L (98-107); Creatinine, Serum 0.57 mg/dL (0.55-1.02); EST Glomerular Filtration Rate 133 mL/min (>60); Est Glom Filt Rate - Afr Amer 161 mL/min (>60); Estimated Creatinine Clearance 103.66 ml/min; Glucose 92 mg/dL (74-106); Potassium 4.5 mmol/L (3.5-5.1); Sodium Level 139 mmol/L (136-145)
--- NOTE | 2021-04-01 04:40 | NURSING ---
Pt transferred to [id number] via bed. Report given to Jacquelin HAGER
[2021-04-01 08:37] LABS: Amphetamine Urine VISTA POSITIVE (<1000 ng/mL); Barbiturate Urine VISTA NEGATIVE (< 200 ng/mL); Benzodiazepine Urine VISTA NEGATIVE (< 200 ng/mL); Cocaine Urine VISTA POSITIVE (< 300 ng/mL); Ecstacy Urine VISTA NEGATIVE (< 500 ng/mL); Methadone Urine VISTA NEGATIVE (< 300 ng/mL); PCP Urine VISTA NEGATIVE (< 25 ng/mL); THC Urine VISTA NEGATIVE (< 50 ng/mL); Vista UDS pH Range 6
[2021-04-01] MEDS: Clindamycin HCl 150 MG Capsule 450 MG PO ×3 (08:55→17:15)
--- NOTE | 2021-04-01 09:12 | CASEMGMT ---
Addendum entered by Arcelia Singh 04/01/21 10:37: SW updated Saida with [facility] that pt will need to be seen. Saida states she provided pt with resources. Addendum entered by Arcelia Singh 04/01/21 09:16: Additionally pt stated that she has good support and she will have a place to stay when she discharges from [facility]. Original Note: Social Work Note SW participated in rounds, physician would like addiction medicine to speak with pt. SW in to speak with pt. SW introduced self and role at [facility]. Pt confirms she would like to speak with Jessica. Pt signed ERIC for Jessica. SW spoke with pt about OD. Pt denied OD being a suicide attempt. Pt denied any suicidal thoughts/plans/ideations. SW placed ERIC for [facility] on pt's chart. SW will update Saida with Jessica when she arrives to [facility]. Arcelia Singh AGENT CONTRACT CLERK, HISTORY DEPARTMENT CHAIR
--- NOTE | 2021-04-01 12:32 | PN.HOSP_ITS ---
Subjective Subjective Breathing well. Had been using heroin daily up until 2 months ago. Now has been using methamphetamines but sporadically using heroin. Had not really used heroin a couple months but then had some opiate once a month came over as a test. She states that she wishes to quit so that she can be involved with her children's lives again. Objective Data Objective Data Vital Signs: Vital Signs Temp Pulse Resp BP Pulse Ox 36.8 C 78 18 93/62 98 04/01/21 06:28 04/01/21 06:28 04/01/21 06:28 04/01/21 06:28 04/01/21 09:27 Oxygen Flow Rate (L/min) 2 Oxygen Delivery Method Nasal Cannula Weight: 75.551 kg Body Mass Index (BMI) 32.5 Intake & Output: Intake and Output for Last 24 Hours 03/30/21 03/31/21 04/01/21 23:59 23:59 23:59 Intake Total 300 / 300 Output Total 550 / 550 Balance -250 / -250 Lab / Micro Data Result Diagrams: 04/01/21 03:40 04/01/21 03:40 Labs: Laboratory Results - last 24 hr 04/01/21 04/01/21 04/01/21 03:40 03:40 08:10 WBC 14.7 H RBC 3.69 L Hgb 9.9 L Hct 31.8 L MCV 86.2 MCH 26.8 L MCHC 31.1 L RDW Std Deviation 43.5 RDW Coeff of Severiano 13.8 Plt Count 264 MPV 10.3 Immature Gran % (Auto) 0.300 Neut % (Auto) 76.4 H Lymph % (Auto) 16.7 L [place] % (Auto) 5.3 Eos % (Auto) 1.2 Baso % (Auto) 0.1 Absolute Neuts (auto) 11.2 H Absolute Lymphs (auto) 2.45 Nucleated RBC % 0 Sodium 139 Potassium 4.5 Chloride 109 H Carbon Dioxide 25.0 Anion Gap 5 BUN 19 H Creatinine 0.57 Estim Creat Clear Calc 103.66 Est GFR (MDRD) Af Amer 161 Est GFR (MDRD) Non-Af 133 BUN/Creatinine Ratio 33.5 H Glucose 92 Calcium 7.6 L Urine Opiates Screen NEGATIVE Urine Methadone Screen NEGATIVE Ur Barbiturates Screen NEGATIVE Ur Phencyclidine Scrn NEGATIVE Ur Amphetamines Screen POSITIVE H U Methamphetamin-MDMA NEGATIVE U Benzodiazepines Scrn NEGATIVE Urine Cocaine Screen POSITIVE H U Cannabinoids Screen NEGATIVE Ur Drug Screen Comment Physical Exam Const alert and oriented x3 Eyes PERRL Resp normal respiratory effort and clear to auscultation bilaterally Cardio regular rate, regular rhythm, S1 normal heart sound and S2 normal heart sound GI normal to inspection, nondistended, normoactive bowel sounds, non-tender and non-distended Assessment & Plan Assessment/Plan (1) Aspiration pneumonia: QUALIFIERS: Aspiration pneumonia type: unspecified Laterality: bilateral Lung location: unspecified part of lung Qualified Code(s): J69.0 - Pneumonitis due to inhalation of food and vomit (2) Opiate overdose: QUALIFIERS: Encounter type: initial encounter Injury intent: accidental or unintentional Qualified Code(s): T40.601A - Poisoning by unspecified narcotics, accidental (unintentional), initial encounter PLAN: 1. Aspiration pneumonia: * Stable on clindamycin 2. Acute hypoxic respiratory insufficiency * Wean oxygen as tolerated. 3. Opiate overdose * Due to utilizing opiates after not having used in a period of time. She is unclear as to what the substance was it was heroin versus fentanyl versus other 4. Polysubstance abuse * Patient wants to quit but has never sought active treatment before. Patient's been trying to quit by utilizing methamphetamines instead of heroin. Explained to her that is not a viable option for maintaining sobriety. She is open to receiving information from other programs. * Information provided from [facility] patient to follow-up with his outpatient. Visit Charges Inpatient E&M: 03623 Subs Hosp L2
--- NOTE | 2021-04-01 12:42 | NURSING ---
O2 OFF - WILL RECHECK ON RA
[2021-04-01] MEDS: Acetaminophen 325 MG Tablet 650 MG PO (13:00)
--- NOTE | 2021-04-01 13:35 | PCM.DC ---
Discharge Instructions Diet Discharge Diet: No restrictions Dressing / Incision Call your doctor if you observe: Shortness of breath Follow Up Care Please Follow Up With: Jessica When: 1 week Test Results: Test results from this visit will be discussed in further detail at your follow-up appointment, if applicable. Discharge Plan Admission Admit Date/Time: 04/01/21 03:36 Attending Provider: Irvin Ramirez Primary Care Provider: Care Physician,No Primary Discharge Orders/Prescriptions Prescriptions: New clindamycin HCl 150 mg Capsule 450 mg PO 4X/DAY Qty: 20 RF: 0 Referrals / Follow Up: Care Physician,No Primary [Primary Care Provider] - Disposition Disposition (needs filled in before D/C Order can be placed): Home, self care
--- NOTE | 2021-04-01 13:38 | PCM.DC.SUM ---
Providers Date of Admission: 04/01/21 Primary Care Physician: No Primary Care Phys Reason For Visit: CELLULITIS, DETOX Diagnosis Discharge Diagnosis (1) Aspiration pneumonia: Status: Acute Code(s): J69.0 - Pneumonitis due to inhalation of food and vomit Qualifiers: Aspiration pneumonia type: unspecified Laterality: bilateral Lung location: unspecified part of lung Qualified Code(s): J69.0 - Pneumonitis due to inhalation of food and vomit (2) Opiate overdose: Status: Acute Code(s): T40.601A - Poisoning by unspecified narcotics, accidental (unintentional), initial encounter Qualifiers: Encounter type: initial encounter Injury intent: accidental or unintentional Qualified Code(s): T40.601A - Poisoning by unspecified narcotics, accidental (unintentional), initial encounter Medications at Discharge Home Medications clindamycin HCl 450 mg PO 4X/DAY #20 cap 04/01/21 Hospital Course Operations None Procedures None Summary of Care Provided Minutes Spent on Discharge: 28 Hospital Course: Patient presents after overdose. Patient improved. Patient was found to have infiltrate on her chest x-ray. Patient started on clindamycin and overall has done well. Patient has had a history of heroin abuse in the past where she is using daily. Patient did not seek outside help to try to wean herself off of drugs but was doing so with crystal meth. Patient wants to be involved in her children's lives again and expressing desire for additional assistance. Discussed with her about seeking additional treatment which she is in agreement to. Patient was given information for [facility] program. Patient had overdosed due to snorting some substance that was provided to her as a test. She is not sure what was in it. 1. Aspiration pneumonia: Stable on clindamycin 2. Acute hypoxic respiratory insufficiency Wean oxygen as tolerated. 3. Opiate overdose Due to utilizing opiates after not having used in a period of time. She is unclear as to what the substance was it was heroin versus fentanyl versus other 4. Polysubstance abuse Patient wants to quit but has never sought active treatment before. Patient's been trying to quit by utilizing methamphetamines instead of heroin. Explained to her that is not a viable option for maintaining sobriety. She is open to receiving information from other programs. Information provided from [facility] patient to follow-up with his outpatient. Physical Exam Const alert Resp normal respiratory effort Cardio regular rate, regular rhythm, S1 normal heart sound and S2 normal heart sound GI normal to inspection, nondistended, normoactive bowel sounds, non-tender and non-distended ABG / Lab / Microbiology Data Result Diagrams: 04/01/21 03:40 04/01/21 03:40 Laboratory: Laboratory Results - last 24 hr 04/01/21 04/01/21 04/01/21 03:40 03:40 08:10 WBC 14.7 H RBC 3.69 L Hgb 9.9 L Hct 31.8 L MCV 86.2 MCH 26.8 L MCHC 31.1 L RDW Std Deviation 43.5 RDW Coeff of Severiano 13.8 Plt Count 264 MPV 10.3 Immature Gran % (Auto) 0.300 Neut % (Auto) 76.4 H Lymph % (Auto) 16.7 L [place] % (Auto) 5.3 Eos % (Auto) 1.2 Baso % (Auto) 0.1 Absolute Neuts (auto) 11.2 H Absolute Lymphs (auto) 2.45 Nucleated RBC % 0 Sodium 139 Potassium 4.5 Chloride 109 H Carbon Dioxide 25.0 Anion Gap 5 BUN 19 H Creatinine 0.57 Estim Creat Clear Calc 103.66 Est GFR (MDRD) Af Amer 161 Est GFR (MDRD) Non-Af 133 BUN/Creatinine Ratio 33.5 H Glucose 92 Calcium 7.6 L Urine Opiates Screen NEGATIVE Urine Methadone Screen NEGATIVE Ur Barbiturates Screen NEGATIVE Ur Phencyclidine Scrn NEGATIVE Ur Amphetamines Screen POSITIVE H U Methamphetamin-MDMA NEGATIVE U Benzodiazepines Scrn NEGATIVE Urine Cocaine Screen POSITIVE H U Cannabinoids Screen NEGATIVE Ur Drug Screen Comment D/C Instructions Discharge Diet: No restrictions Call your doctor if you observe: Shortness of breath Please Follow Up With: Jessica When: 1 week Meaningful Use Info Meaningful Use Diagnoses (Choose all that apply): None applicable Discharge Plan Admission Admit Date/Time: 04/01/21 03:36 Attending Provider: Irvin Ramirez Primary Care Provider: Care Physician,No Primary Discharge Orders/Prescriptions Prescriptions: New clindamycin HCl 150 mg Capsule 450 mg PO 4X/DAY Qty: 20 RF: 0 Referrals / Follow Up: Care Physician,No Primary [Primary Care Provider] - Disposition Disposition (needs filled in before D/C Order can be placed): Home, self care Visit Charges OBSV E&M: 34824 Observation care discharge
--- NOTE | 2021-04-01 13:59 | CASEMGMT ---
Social Work SW met with pt in room in regards to substance use. Pt states that she has been living with her dad and has been clean from drugs for the past 2 months. Since she has been clean, the fathers of her children have allowed her to spend time with her children ages 10, 3 and 2. Pt expressing how much she has enjoyed being a part of her children's lives again and her frustration with herself for messing that up. Pt states that her children were not in the house at the time of the overdose. Pt was at the home of one of the baby daddies and friend stopped by and brought her a very small amount of heroin. Pt states she held onto it all day knowing she shouldn't use it and then could not resist and snorted the drugs. Pt states my baby daddy found me and called the squad. Pt also stating that her baby daddies will now not allow her to see her children as there is a stipulation that she must be clean to be with the children. Pt expressing regret over actions. States she wants to get clean and now knows she cannot do it on her own. Pt also states that there is a warrant out on her and that she wants to get this taken care of. Pt did meet with Saida from [facility] this morning and resources were provided. Pt states she plans to call [facility] at time of discharge and is aware that she will need an assessment and is hopeful she can get into the [facility] inpatient program. Pt states that she does want to take care of warrant prior to contacting [facility]. When SW asked for a plan, pt states her dad will pick her up from [facility] once released and drive her to the [facility] where she will turn herself in. Once pt returns home with her father, she will call [facility] for an assessment appointment. Pt does admit to feelings of depression but has not been on medication since prior to the of her youngest child. Denies suicidal intentions and expresses reasons, mainly her children, to move forward. Patient Plan: [facility]. Call [facility] for an assessment appointment with hopes to utilize [facility] Inpatient Program. BRENNAN Hassan
== END 2021-04-01 18:51 | disposition home or self-care (01) ==
LOC: MS3 14:42 → ICU 04-04 10:09 → MS3 04-04 10:09
PROVIDERS: Admitting Provider Hospitalist
DX: T40.1X1A Poisoning by heroin, accidental (unintentional), initial encounter (principal); J69.0 Pneumonitis due to inhalation of food and vomit; L03.115 Cellulitis of right lower limb; Z86.19 Personal history of other infectious and parasitic diseases; F17.200 Nicotine dependence, unspecified, uncomplicated; F15.90 Other stimulant use, unspecified, uncomplicated; R06.89 Other abnormalities of breathing
CPT/HCPCS: 80048; 80307; 85025; 99218; G0378; G0379

== ENCOUNTER 2021-10-03 21:18 | Observation (INO) | payer MEDICAID, SELFPAY ==
[2021-10-03 21:18] VITALS: BP 125/89; PULSE 115; RESP 16; TEMP 36.6; O2SAT 100; BMI 32.2
[2021-10-03 21:32] LABS: Mucous, Urine 0 SEEN /hpf (<or=2+)
[2021-10-03 21:53] LABS: Color, Urine Yellow (Yellow); Glucose, Dipstick Normal (Normal); Ketone-Dipstick Negative (Negative); Leukocyte Esterase-Dipstick 500 /ul (Negative); Nitrite-Dipstick Positive (Negative); Occult Blood-Urine 25 /ul (Negative); Protein-Dipstick 30 mg/dl (Negative); Specific Gravity, Urine 1.015 (1.002-1.030); Urine Bilirubin Dipstick Negative (Negative); Urine Clarity Cloudy (Clear); Urine Urobilinogen Normal (Normal)
[2021-10-03 22:08] LABS: Bacteria 2+ /hpf (None Seen); Squamous Epithelial Cells - UA 10-25 SEEN /hpf (5-10)
[2021-10-03 22:09] LABS: Red Blood Cells-Urine 0-5 SEEN /hpf (0-5); White Blood Cells 25-50 SEEN /hpf (0-5)
[2021-10-03 22:25] LABS: Internal QC Validated? YES +Cl - CLEAR BKGD
[2021-10-03 22:26] LABS: Pregnancy, Serum, hCG Quali. NEGATIVE Negative
--- NOTE | 2021-10-03 22:26 | US_ITS ---
INDICATION: RUQ pain EXAMINATION: US Abdomen RUQ (limited) TECHNIQUE: Laws-scale and color Doppler imaging was performed of the abdomen. COMPARISON: None. Findings: The liver is homogenous and normal in echogenicity and echotexture. There is no evidence of contour nodularity. No focal hepatic mass is identified. The main portal vein is normal in size and patent demonstrating hepatopetal flow. The gallbladder is contracted with mild diffuse wall thickening consistent with the post prandial state, limiting evaluation for stones, although none are seen. There is no pericholecystic fluid. There is evidence of adenomyomatosis. Sonographic Nino''s tenderness is not appreciated. There is no evidence of intrahepatic biliary ductal dilatation. The CBD is nondilated measuring 3 mm at the level of the dinora hepatis. The visualized portions of the pancreas are unremarkable without evidence of focal or diffuse enlargement. Specifically, the tail is obscured by overlying bowel gas. Right kidney measures 11.9 cm in length. It is normal in echogenicity. There is a 2.2 x 2.1 x 2.2 cm hyperechoic mass in the mid pole. There is no evidence of hydronephrosis. There is no free intraperitoneal fluid identified. US/Gallbladder IMPRESSION: 2.2 cm hyperechoic mass in the mid pole of the right kidney. Differential includes angiomyolipoma and renal cell carcinoma. Recommend CT or MR abdomen renal mass protocol for further evaluation. Otherwise, no acute abnormalities. Electronically Signed: Lane Miller MD at 23:46 EST Tel , Service support ,
[2021-10-03 22:50] LABS: Absolute Lymphocyte Count 1.16 X10^3/uL (0.83-4.51); Absolute Neutrophil Count 10.3 X10^3/uL (2.0-7.7); Basophil# 0.02 X10^3/uL; Basophil% 0.2 % (0-1); Eosinophil# 0.11 X10^3/uL; Eosinophils% 0.9 % (0-5); Hematocrit 35.4 % (37-47); Hemoglobin 11.6 g/dL (12.0-15.0); Lymphocyte # 1.16 X10^3/ul (0.83-4.51); Lymphocyte % 9.2 % (19-41); Mean Corp Hgb Conc 32.8 g/dL (32-36); Mean Corpuscular Hgb 27.8 pg (27.0-32.0); Mean Corpuscular Volume 84.7 fL (81-99); Mean Platelet Vol. 10.3 fl (6.2-12.0); Monocyte% 7.9 % (0-10); NRBC Flagged by Analyzer 0 % (0-5); Neutrophil # 10.31 X10^3/uL (2.7-7.7); Neutrophil % 81.4 % (47-70); Platelet Count 214 K/mm3 (150-450); RBC Distribution Width CV 13.2 % (11.6-14.6); RBC Distribution Width SD 41.1 fl (35.1-43.9); Red Blood Count 4.18 M/mm3 (4.2-5.4); White Blood Count 12.7 K/mm3 (4.4-11.0)
[2021-10-03] MEDS: Ceftriaxone 1 GM/50 ML BAG IV (22:53)
[2021-10-03] MEDS: 0.9% Normal Saline 1,000 ML 1000 ML IV (22:53)
[2021-10-03 23:13] LABS: AST(SGOT) 15 U/L (15-37); Alanine Aminotransfer ALT/SGPT 32 U/L (13-56); Alkaline Phosphatase 64 U/L (45-117); Anion Gap 4 (5-15); BUN 10 mg/dL (7-18); BUN/Creat Ratio 12.7 RATIO (10-20); Bilirubin, Direct 0.11 mg/dL (0.00-0.30); Calcium,Total 8.6 mg/dL (8.5-10.1); Chloride 105 mmol/L (98-107); Creatinine, Serum 0.78 mg/dL (0.55-1.02); EST Glomerular Filtration Rate 91 mL/min (>60); Est Glom Filt Rate - Afr Amer 110 mL/min (>60); Estimated Creatinine Clearance 75.75 ml/min; Globulin 4.8 g/dL (2.2-4.2); Glucose 142 mg/dL (74-106); Lipase 73 U/L (73-393); Protein, Total 7.8 g/dL (6.4-8.2); Sodium Level 136 mmol/L (136-145)
--- NOTE | 2021-10-03 23:20 | EX.ED.DYSGE1 ---
HPI History of Present Illness Chief Complaint: Complaint Informant: patient Onset/Context/Timing Onset: Days (2 days) Context: Gradual Onset Timing: Waxes and wanes Current Severity: Moderate Maximum Severity: Moderate Narrative Narrative: Patient presents with 2-day history of epigastric pain as well as right flank pain. She states 2 days ago she had hematuria but none since. She denies dysuria. She did note of temperature at home. PFSH PFSH Medical History Cellulitis of right foot Depression Hepatitis C IV drug abuse Home Medications NK 10/03/21 [History Last Taken Unknown] Allergy/AdvReac Type Severity Reaction Status Date / Time Penicillins Allergy blisters Verified 10/03/21 21:21 on tongue Family History Other Cancer Cirrhosis of liver Heart disease Surgical History (Updated 10/04/21 @ 01:[address] Trudi Veronica MD) H/O section H/O foot surgery History of appendectomy Social History Smoking Status: Current every day smoker tobacco type: cigarettes ROS ROS ED Constitutional Constitutional ED: Reports chills and fever(s) Eyes Eyes: Denies change in vision ENT ENT ED: Denies sore throat Cardiovascular Cardiovascular: Denies chest pain Respiratory/Chest Respiratory/Chest: Denies cough or dyspnea Gastrointestinal Gastrointestinal: Reports abdominal pain; Denies diarrhea, nausea or vomiting Genitourinary Genitourinary ED: Reports hematuria; Denies dysuria Musculoskeletal Musculoskeletal: Reports back pain Integumentary Denies rash Neurologic Neurologic: Denies headache(s) or weakness Allergic/Immunologic Allergic/Immunologic ED: Denies urticaria EXAM Physical Exam Const Vital Signs: 10/03/21 21:18 10/03/21 23:40 Temperature 97.8 F Temperature Source Temporal Pulse Rate 115 H 98 Respiratory Rate 16 16 Blood Pressure 125/89 H 106/63 Blood Pressure Mean 101 77 Pulse Ox 100 Oxygen Delivery Method Room Air Positive well nourished and well developed General Appearance ED: well developed Eyes PERRL and EOMs intact bilaterally Neck supple Chest Wall inspection of chest normal and palpation of chest normal Resp normal respiratory effort and clear to auscultation bilaterally Cardio regular rhythm Rate: tachycardic GI Auscultation: hypoactive bowel sounds Palpation: tender epigastric and RUQ; Negative for guarding or rebound tenderness present Back/Spine General Back: CVA tenderness right Neuro oriented x3 Sensorium / Orientation: alert Skin no rashes or lesions noted MDM MDM MDM Narrative Medical decision making narrative: At the time of my initial examination oral temperature was 100.7. Patient is ordered Tylenol. Lab work and right upper quadrant ultrasound ordered. Lab Data Attestation: I reviewed the patient's lab results. Labs: Laboratory Results - last 24 hr 10/03/21 10/03/21 10/03/21 21:25 21:25 22:32 WBC 12.7 H RBC 4.18 L Hgb 11.6 L Hct 35.4 L MCV 84.7 MCH 27.8 MCHC 32.8 RDW Std Deviation 41.1 RDW Coeff of Severiano 13.2 Plt Count 214 MPV 10.3 Immature Gran % (Auto) 0.400 Neut % (Auto) 81.4 H Lymph % (Auto) 9.2 L [place] % (Auto) 7.9 Eos % (Auto) 0.9 Baso % (Auto) 0.2 Absolute Neuts (auto) 10.3 H Absolute Lymphs (auto) 1.16 Nucleated RBC % 0 Sodium Potassium Chloride Carbon Dioxide Anion Gap BUN Creatinine Estim Creat Clear Calc Est GFR (MDRD) Af Amer Est GFR (MDRD) Non-Af BUN/Creatinine Ratio Glucose Calcium Total Bilirubin Direct Bilirubin AST ALT Alkaline Phosphatase Total Protein Albumin Globulin Lipase Serum , Qual NEGATIVE Urine Color Yellow Urine Clarity Cloudy Urine pH 8.0 Ur Specific [place] 1.015 Urine Protein 30 H Urine Glucose (UA) Normal Urine Ketones Negative Urine Occult Blood 25 H Urine Nitrite Positive H Urine Bilirubin Negative Urine Urobilinogen Normal Ur Leukocyte Esterase 500 H Urine RBC 0-5 SEEN Urine WBC 25-50 SEEN Ur Squamous Epith Cells 10-25 SEEN Urine Bacteria 2+ Urine Mucus 0 SEEN 10/03/21 22:32 WBC RBC Hgb Hct MCV MCH MCHC RDW Std Deviation RDW Coeff of Severiano Plt Count MPV Immature Gran % (Auto) Neut % (Auto) Lymph % (Auto) [place] % (Auto) Eos % (Auto) Baso % (Auto) Absolute Neuts (auto) Absolute Lymphs (auto) Nucleated RBC % Sodium 136 Potassium 4.0 Chloride 105 Carbon Dioxide 27.0 Anion Gap 4 L BUN 10 Creatinine 0.78 Estim Creat Clear Calc 75.75 Est GFR (MDRD) Af Amer 110 Est GFR (MDRD) Non-Af 91 BUN/Creatinine Ratio 12.7 Glucose 142 H Calcium 8.6 Total Bilirubin 0.30 Direct Bilirubin 0.11 AST 15 ALT 32 Alkaline Phosphatase 64 Total Protein 7.8 Albumin 3.0 L Globulin 4.8 H Lipase 73 Serum , Qual Urine Color Urine Clarity Urine pH Ur Specific [place] Urine Protein Urine Glucose (UA) Urine Ketones Urine Occult Blood Urine Nitrite Urine Bilirubin Urine Urobilinogen Ur Leukocyte Esterase Urine RBC Urine WBC Ur Squamous Epith Cells Urine Bacteria Urine Mucus Radiography Diagnostic Testing: Clinical Impression(s) from Imaging Studies Gallbladder Ultrasound 10/03/21 22:26 IMPRESSION: 2.2 cm hyperechoic mass in the mid pole of the right kidney. Differential includes angiomyolipoma and renal cell carcinoma. Recommend CT or MR abdomen renal mass protocol for further evaluation. Otherwise, no acute abnormalities. Electronically Signed: Lane Miller MD at 23:46 EST Tel , Service support , Abdomen/Pelvis CT 10/04/21 00:03 IMPRESSION: 1. Heterogeneous enhancement of the right kidney consistent with pyelonephritis. There is a questionable early abscess in the lower pole right kidney measuring 2 cm in diameter. 2. Fecal retention in the colon consistent with constipation. Electronically Signed: Trent Roper MD at 1:04 EST Tel , Service support , Treatment and Re-Evaluation Comments:: Urinalysis does reveal obvious infection. Lab work reveals leukocytosis with a white count of 12.7 and a left shift. test negative. Chemistry studies unremarkable. Right upper quadrant ultrasound revealed a mass in the midpole of the right kidney concerning for angiomyolipoma or renal cell carcinoma. In light of this CT scan with and without IV contrast is ordered. There appears to be evidence of pyelonephritis with possible early abscess. Patient is given IV Rocephin. Urine culture has been sent. I did speak with Dr. Light and he will see the patient in consult. I will speak with the hospitalist for admission. Discharge Plan Triage Chief Complaint: Complaint Other Complaint: Abd Pain ED Provider: Trudi Veronica Dx/Rx/DC Orders Clinical Impression: Pyelonephritis, Abscess of right kidney Prescriptions: No Action NK RF: 0 Primary Care Provider: Care Physician,No Primary Referrals: Care Physician,No Primary [Primary Care Provider] - Disposition Disposition: Acute Care Hospital [facility]
[2021-10-03] MEDS: Ondansetron 4 MG/2 ML Vial IV (23:36)
[2021-10-03] MEDS: Ketorolac 30 MG/ML Syringe IV (23:36)
[2021-10-03] MEDS: Acetaminophen 500 MG Tablet 1000 MG PO (23:37)
[2021-10-03 23:40] VITALS: BP 106/63; PULSE 98; RESP 16
--- NOTE | 2021-10-04 00:03 | CT_ITS ---
EXAM: CT Abdomen and Pelvis Without and With Intravenous Contrast CLINICAL INDICATION: 30 years old, Female; right flank pain -- Renal mass noted on RUQ US TECHNIQUE: Helically acquired images were obtained of the abdomen and pelvis without and with intravenous contrast. This CT exam was performed using one or more of the following dose reduction techniques: automated exposure control, adjustment of the mA and/or kV according to patient size, and/or use of iterative reconstruction technique. This report was created using [employer] report generation technology. CONTRAST: IV 100mL [id number] COMPARISON: CT Abdomen Pelvis dated 12/09/2019, Gallbladder ultrasound performed today. FINDINGS: Lower thorax: Atelectasis in the lung bases. Stable 3 mm nodule right lower lobe. No follow-up is necessary. No cardiomegaly. No significant pericardial effusion. ABDOMEN: Liver: Unremarkable. Homogeneous. No focal mass. Gallbladder and bile ducts: Unremarkable. No calcified gallstones. No gallbladder distention or wall edema. No intra- or extrahepatic biliary ductal dilation. Pancreas: Unremarkable. No focal cystic or solid mass. Spleen: Unremarkable. Normal size without focal cystic or solid mass. Adrenals: Unremarkable. No nodules. Kidneys and ureters: Heterogeneous enhancement of the right kidney consistent with pyelonephritis. There is a questionable early abscess in the lower pole right kidney measuring 2 cm in diameter. No hydronephrosis. Stomach and bowel: Fecal retention in the colon consistent with constipation. No stomach or bowel distention. No focal inflammatory change. PELVIS: Appendix: No evidence of acute appendicitis. Bladder: Unremarkable. Reproductive: Unremarkable as visualized. No mass. ABDOMEN and PELVIS: Intraperitoneal space: Unremarkable. No ascites or other fluid collection. No free air. Bones/joints: Unremarkable. No suspicious lytic or blastic abnormality. Soft tissues: Unremarkable. No discrete abdominal or pelvic wall hernia. Vasculature: Unremarkable. Abdominal aorta is non-dilated. Lymph nodes: Unremarkable. No enlarged lymph nodes. CT/CT Abd/Pelvis W/WO Contrast IMPRESSION: 1. Heterogeneous enhancement of the right kidney consistent with pyelonephritis. There is a questionable early abscess in the lower pole right kidney measuring 2 cm in diameter. 2. Fecal retention in the colon consistent with constipation. Electronically Signed: Trent Roper MD at 1:04 EST Tel , Service support ,
--- NOTE | 2021-10-04 02:15 | PCM.HP.STD ---
HPI - General HPI Narrative TANI RAMESH, is a 30 F who presents to the emergency room with right sided abdominal pain and right-sided flank pain. Onset of symptoms began 2 days ago and patient denies any dysuria however has had some mild nausea with her pain. Patient has a significant history of heroin abuse for which she has been clean for the past 3 months and is in program at [address]. CT scan reveals a 2 cm mass in the right pole of the kidney consistent with abscess but cannot exclude other etiologies for mass. Patient does have an elevated white blood cell count with a left shift consistent with urinary tract infection with pyelonephritis. Patient will be admitted and treated with antibiotics she does have an allergy to penicillin. [facility] Medical History Cellulitis of right foot Depression Hepatitis C IV drug abuse Home Medications NK 10/03/21 [History Last Taken Unknown] Allergy/AdvReac Type Severity Reaction Status Date / Time Penicillins Allergy blisters Verified 10/03/21 21:21 on tongue Family History Other Cancer Cirrhosis of liver Heart disease Surgical History (Updated 10/04/21 @ 01:[address] Trudi Veronica MD) H/O section H/O foot surgery History of appendectomy Social History Smoking Status: Current every day smoker tobacco type: cigarettes ROS Constitutional Constitutional: Denies chills or fever(s) Eyes Eyes: Denies blurry vision Cardiovascular Cardiovascular: Denies chest pain Respiratory/Chest Respiratory/Chest: Denies cough Gastrointestinal Gastrointestinal: Reports abdominal pain and nausea Genitourinary Genitourinary: Reports hematuria; Denies dysuria Musculoskeletal Musculoskeletal: Reports back pain Integumentary Integumentary: Denies dry skin Neurologic Neurologic: Denies abnormal gait Psychiatric Psychiatric: Denies anxiety Vital Signs Vital Signs Vital Signs: 10/03/21 21:18 10/03/21 23:40 Temperature 97.8 F Temperature Source Temporal Pulse Rate 115 H 98 Respiratory Rate 16 16 Blood Pressure 125/89 H 106/63 Blood Pressure Mean 101 77 Pulse Ox 100 Oxygen Delivery Method Room Air Weight Weight: 165 lb 2 oz Body Mass Index (BMI) 32.2 Physical Exam Const oriented x3 General Appearance: cooperative HEENT head/scalp atraumatic Eyes PERRL Neck supple Lymph Lymphatic: no lymphadenopathy noted Resp normal respiratory effort Cardio regular rate, regular rhythm, S1 normal heart sound and S2 normal heart sound GI GI Narrative: +R CVA Palpation: tender RUQ Extremity no clubbing, cyanosis or edema Neuro CN's II-XII intact bilaterally Results Lab / Micro Data Result Diagrams: 10/03/21 22:32 10/03/21 22:32 Labs: Laboratory Results - last 24 hr 10/03/21 21:25: Serum , Qual NEGATIVE 10/03/21 21:25: Urine Color Yellow, Urine Clarity Cloudy, Urine pH 8.0, Ur Specific [place] 1.015, Urine Protein 30 H, Urine Glucose (UA) Normal, Urine Ketones Negative, Urine Occult Blood 25 H, Urine Nitrite Positive H, Urine Bilirubin Negative, Urine Urobilinogen Normal, Ur Leukocyte Esterase 500 H, Urine RBC 0-5 SEEN, Urine WBC 25-50 SEEN, Ur Squamous Epith Cells 10-25 SEEN, Urine Bacteria 2+, Urine Mucus 0 SEEN 10/03/21 22:32: WBC 12.7 H, RBC 4.18 L, Hgb 11.6 L, Hct 35.4 L, MCV 84.7, MCH 27.8, MCHC 32.8, RDW Std Deviation 41.1, RDW Coeff of [place] 13.2, Plt Count 214, MPV 10.3, Immature Gran % (Auto) 0.400, Neut % (Auto) 81.4 H, Lymph % (Auto) 9.2 L, [place] % (Auto) 7.9, Eos % (Auto) 0.9, Baso % (Auto) 0.2, Absolute Neuts (auto) 10.3 H, Absolute Lymphs (auto) 1.16, Nucleated RBC % 0 10/03/21 22:32: Sodium 136, Potassium 4.0, Chloride 105, Carbon Dioxide 27.0, Anion Gap 4 L, BUN 10, Creatinine 0.78, Estim Creat Clear Calc 75.75, Est GFR (MDRD) Af Amer 110, Est GFR (MDRD) Non-Af 91, BUN/Creatinine Ratio 12.7, Glucose 142 H, Calcium 8.6, Total Bilirubin 0.30, Direct Bilirubin 0.11, AST 15, ALT 32, Alkaline Phosphatase 64, Total Protein 7.8, Albumin 3.0 L, Globulin 4.8 H, Lipase 73 Radiology Impression Gallbladder Ultrasound 10/03/21 22:26 IMPRESSION: 2.2 cm hyperechoic mass in the mid pole of the right kidney. Differential includes angiomyolipoma and renal cell carcinoma. Recommend CT or MR abdomen renal mass protocol for further evaluation. Otherwise, no acute abnormalities. Electronically Signed: Lane Miller MD at 23:46 EST Tel , Service support , Abdomen/Pelvis CT 10/04/21 00:03 IMPRESSION: 1. Heterogeneous enhancement of the right kidney consistent with pyelonephritis. There is a questionable early abscess in the lower pole right kidney measuring 2 cm in diameter. 2. Fecal retention in the colon consistent with constipation. Electronically Signed: Trent Roper MD at 1:04 EST Tel , Service support , Assessment & Plan Assessment/Plan (1) Pyelonephritis: (2) Abscess of right kidney: PLAN: 1. Pyelonephritis?admit patient to general medical floor, ciprofloxacin IV twice daily due to the patient's history of opiate addiction we will not use any narcotics, can get Toradol as needed for pain, patient has severe constipation we will start IV fluids normal saline at 75 cc/h to help with hydration, repeat CBC BMP in the morning 2. DVT prophylaxis low molecular weight heparin Charges/Coding Visit Charges Inpatient E&M: 93342 Init Hosp L3
[2021-10-04 02:25] VITALS: BP 99/56; PULSE 88; RESP 16; TEMP 36.7
[2021-10-04] MEDS: 0.9% Normal Saline 1,000 ML 150 ML IV (02:29)
[2021-10-04 02:41] VITALS: BMI 32.1
--- NOTE | 2021-10-04 02:44 | PCS.PANDOC ---
PANDEMIC DOCUMENTATION INITIATED: Date: 07/04/2021 Time: 190
[2021-10-04] MEDS: 0.9% Normal Saline 1,000 ML 75 ML IV (03:04)
[2021-10-04 03:05] VITALS: BP 112/71; PULSE 83; RESP 16; TEMP 36.9; O2SAT 100
[2021-10-04] MEDS: Ciprofloxacin 400 MG/200 ML BAG 200 MG IV ×2 (04:00→08:57)
[2021-10-04] MEDS: Acetaminophen 325 MG Tablet 650 MG PO ×2 (05:48→14:13)
[2021-10-04] MEDS: Ketorolac 15 MG/ML Vial IV ×2 (05:48→14:13)
[2021-10-04 06:32] LABS: Absolute Lymphocyte Count 1.29 X10^3/uL (0.83-4.51); Basophil# 0.01 X10^3/uL; Basophil% 0.1 % (0-1); Eosinophil# 0.16 X10^3/uL; Eosinophils% 1.7 % (0-5); Hematocrit 31.6 % (37-47); Hemoglobin 10.4 g/dL (12.0-15.0); Lymphocyte # 1.29 X10^3/ul (0.83-4.51); Lymphocyte % 13.7 % (19-41); Mean Corp Hgb Conc 32.9 g/dL (32-36); Mean Corpuscular Volume 84.9 fL (81-99); Mean Platelet Vol. 10.2 fl (6.2-12.0); Monocyte# 0.91 X10^3/uL; Monocyte% 9.7 % (0-10); NRBC Flagged by Analyzer 0 % (0-5); Neutrophil # 6.99 X10^3/uL (2.7-7.7); Neutrophil % 74.5 % (47-70); Platelet Count 183 K/mm3 (150-450); RBC Distribution Width CV 13.2 % (11.6-14.6); RBC Distribution Width SD 41.2 fl (35.1-43.9); Red Blood Count 3.72 M/mm3 (4.2-5.4); White Blood Count 9.4 K/mm3 (4.4-11.0)
[2021-10-04 07:10] LABS: Anion Gap 6 (5-15); BUN 12 mg/dL (7-18); BUN/Creat Ratio 18.8 RATIO (10-20); Calcium,Total 7.7 mg/dL (8.5-10.1); Chloride 109 mmol/L (98-107); Creatinine, Serum 0.64 mg/dL (0.55-1.02); EST Glomerular Filtration Rate 116 mL/min (>60); Est Glom Filt Rate - Afr Amer 140 mL/min (>60); Estimated Creatinine Clearance 92.32 ml/min; Glucose 94 mg/dL (74-106); Potassium 4.1 mmol/L (3.5-5.1); Sodium Level 135 mmol/L (136-145)
[2021-10-04] MEDS: Enoxaparin 40 MG/0.4 ML Syringe SC (08:57)
[2021-10-04 09:05] VITALS: BP 117/72; PULSE 84; RESP 16; TEMP 37; O2SAT 100
[2021-10-04] MEDS: Morphine 2 MG/ML Syringe IV (09:43)
[2021-10-04] MEDS: 0.9% Saline Lock 10 ML Syringe IV (09:43)
--- NOTE | 2021-10-04 10:52 | CM.UR ---
This RN CM to room to complete CM assessment and Dr. Pedraza is at bedside. CM to attempt again later. [place] RN CM
--- NOTE | 2021-10-04 10:55 | CON.PCM_ITS ---
Assessment & Plan Assessment/Plan (1) Abscess of right kidney: (2) Pyelonephritis: PLAN: Continue supportive care, antibiotics, fluids, pain management etc. Await culture results Will need follow-up imaging within a few weeks to further evaluate possible early renal abscess. Given the normalization of her white count I do not see a need for drainage at the present time She will also need follow-up as an outpatient for further assessment and prevention for lower urinary tract infections Would recommend further evaluation of intravenous drug use Bladder scan PVR HPI Consult Data Date of Consult: 10/04/21 HPI Narrative HPI Narrative: TANI RAMESH, is a 30 F who was admitted from the emergency room with a diagnosis of right pyelonephritis and early abscess development. She has a history of drug use although she adamantly denies any recent use within the last 2 months. She is currently with program [facility]. She does have a history of pyelonephritis in the past. She cannot recall when but she was admitted and seen at [facility] for pyelonephritis within the last year. She denies issues with lower urinary tract infections. This would indicate intravenous drug use is a higher likelihood for etiology of her infection. She has also had a kidney stone in the past, she does not remember when and she has never had surgical intervention for stones. Prior to admission she also had complaints of gross hematuria, increased urinary urgency, nausea and fever to 102. She denies dysuria. The most significant complaint is flank pain. She is feeling better today than on admission. [facility] Medical History Cellulitis of right foot Depression Hepatitis C Hypertension IV drug abuse Smoker Substance abuse Home Medications NK 10/03/21 [History Last Taken Unknown] Allergy/AdvReac Type Severity Reaction Status Date / Time Penicillins Allergy blisters Verified 10/03/21 21:21 on tongue Family History Other Cancer Cirrhosis of liver Heart disease Surgical History H/O section H/O foot surgery History of appendectomy Social History Smoking Status: Current every day smoker tobacco type: cigarettes ROS Constitutional Constitutional: Reports body ache(s), chills, fever(s) and night sweats Eyes Eyes: Reports systems reviewed and no addt'l complaints, except as documented ENT HEENT: Reports systems reviewed and no addt'l complaints, except as documented Cardiovascular Cardiovascular: Reports systems reviewed and no addt'l complaints, except as documented Respiratory/Chest Respiratory/Chest: Reports systems reviewed and no addt'l complaints, except as documented Gastrointestinal Gastrointestinal: Reports abdominal pain and nausea; Denies constipation or vomiting Genitourinary Genitourinary: Reports abdominal discomfort, hematuria, low back pain, urinary frequency, urinary incontinence and urinary urgency; Denies dysuria Musculoskeletal Musculoskeletal: Reports systems reviewed and no addt'l complaints, except as d ocumented Integumentary Integumentary: Reports systems reviewed and no addt'l complaints, except as documented Neurologic Neurologic: Reports systems reviewed and no addt'l complaints, except as documented Psychiatric Psychiatric: Reports systems reviewed and no addt'l complaints, except as documented Endocrine Endocrinology: Reports systems reviewed and no addt'l complaints, except as documented Hematologic/Lymphatic Hematologic/Lymphatic: Reports systems reviewed and no addt'l complaints, except as documented Allergic/Immunologic Allergic/Immunologic: Reports systems reviewed and no addt'l complaints, except as documented Physical Exam Const alert and oriented x3 Constitutional Narrative: Appears uncomfortable, rolling over in bed Exam Limitations: no limitations HEENT normocephalic and head/scalp atraumatic Face and Sinus: normal facial exam Nose: external nose normal External Ear: external ears normal Mouth: lips normal Eyes General Eye: normal appearance of both eyes Neck supple General: trachea midline Lymph Lymphatic: no lymphedema noted Chest Chest: symmetrical chest wall rise Resp normal respiratory effort, normal air movement and no retractions Effort and Inspection: able to speak in complete sentences and symmetric chest movement Cardio regular rate and regular rhythm GI soft to palpation Palpation: tender Bladder / Kidney Exam: No catheter in place and CVA tenderness right Back/Spine General Back: CVA tenderness right Extremity normal to inspection Skin no rashes or lesions noted Neuro oriented x3, CN's II-XII intact bilaterally and moves all extremities Psych mental status grossly normal, thought process normal and cooperative Lab / Micro Data Result Diagrams: 10/04/21 06:00 10/04/21 06:00 Labs: Laboratory Results - last 24 hr 11/15/21 21:25: Serum , Qual NEGATIVE 10/03/21 21:25: Urine Color Yellow, Urine Clarity Cloudy, Urine pH 8.0, Ur Specific [place] 1.015, Urine Protein 30 H, Urine Glucose (UA) Normal, Urine Ketones Negative, Urine Occult Blood 25 H, Urine Nitrite Positive H, Urine Bilirubin Negative, Urine Urobilinogen Normal, Ur Leukocyte Esterase 500 H, Urine RBC 0-5 SEEN, Urine WBC 25-50 SEEN, Ur Squamous Epith Cells 10-25 SEEN, U rine Bacteria 2+, Urine Mucus 0 SEEN 10/03/21 22:32: WBC 12.7 H, RBC 4.18 L, Hgb 11.6 L, Hct 35.4 L, MCV 84.7, MCH 27.8, MCHC 32.8, RDW Std Deviation 41.1, RDW Coeff of [place] 13.2, Plt Count 214, MPV 10.3, Immature Gran % (Auto) 0.400, Neut % (Auto) 81.4 H, Lymph % (Auto) 9.2 L, [place] % (Auto) 7.9, Eos % (Auto) 0.9, Baso % (Auto) 0.2, Absolute Neuts (auto) 10.3 H, Absolute Lymphs (auto) 1.16, Nucleated RBC % 0 10/03/21 22:32: Sodium 136, Potassium 4.0, Chloride 105, Carbon Dioxide 27.0, Anion Gap 4 L, BUN 10, Creatinine 0.78, Estim Creat Clear Calc 75.75, Est GFR (MDRD) Af Amer 110, Est GFR (MDRD) Non-Af 91, BUN/Creatinine Ratio 12.7, Glucose 142 H, Calcium 8.6, Total Bilirubin 0.30, Direct Bilirubin 0.11, AST 15, ALT 32, Alkaline Phosphatase 64, Total Protein 7.8, Albumin 3.0 L, Globulin 4.8 H, Lipase 73 10/04/21 06:00: WBC 9.4, RBC 3.72 L, Hgb 10.4 L, Hct 31.6 L, MCV 84.9, MCH 28.0, MCHC 32.9, RDW Std Deviation 41.2, RDW Coeff of [place] 13.2, Plt Count 183, MPV 10.2, Immature Gran % (Auto) 0.300, Neut % (Auto) 74.5 H, Lymph % (Auto) 13.7 L, [place] % (Auto) 9.7, Eos % (Auto) 1.7, Baso % (Auto) 0.1, Absolute Neuts (auto) 7.0, Absolute Lymphs (auto) 1.29, Nucleated RBC % 0 10/04/21 06:00: Sodium 135 L, Potassium 4.1, Chloride 109 H, Carbon Dioxide 20.0 L, Anion Gap 6, BUN 12, Creatinine 0.64, Estim Creat Clear Calc 92.32, Est GFR (MDRD) Af Amer 140, Est GFR (MDRD) Non-Af 116, BUN/Creatinine Ratio 18.8, Glucose 94, Calcium 7.7 L Radiology Impression Gallbladder Ultrasound 10/03/21 22:26 IMPRESSION: 2.2 cm hyperechoic mass in the mid pole of the right kidney. Differential includes angiomyolipoma and renal cell carcinoma. Recommend CT or MR abdomen renal mass protocol for further evaluation. Otherwise, no acute abnormalities. Electronically Signed: Lane Miller MD at 23:46 EST Tel , Service support , Abdomen/Pelvis CT 10/04/21 00:03 IMPRESSION: 1. Heterogeneous enhancement of the right kidney consistent with pyelonephritis. There is a questionable early abscess in the lower pole right kidney measuring 2 cm in diameter. 2. Fecal retention in the colon consistent with constipation. Electronically Signed: Trent Roper MD at 1:04 EST Tel , Service support ,
--- NOTE | 2021-10-04 10:55 | CASEMGMT ---
ALLEY BONILLA assessment: Face to Face with patient for initial transition planning/care coordination assessment. ALLEY BONILLA introduced self and role at [facility], pt voices understanding and consents to assessment. Pt is sitting up in bed in no distress on room air. Pt is A/Ox4 and answers all questions appropriately. Care providers, pharmacy, and demographics verified. Presentation: Pt c/o abd pain, bilat flank pain, 'bloating' and hematuria 2 days ago Admitting dx: Pyelonephritis PCP: None-pt provided in-network list Specialists: None currently Preferred Pharmacy: [facility] Insurance: [email or web address] Prescription Benefit: [employer] Living Will/HPOA: Pt states no LW/HPOA and declines AD info. LNOK: Noa Bui, mother; Hay Bui, father Living Arrangements: Pt lives alone in 1 story home and states no concerns at home. Pt is independent with ADL's. Transportation: Pt states friend drives and states no transportation concerns. DME/HHC: Pt has no current DME or need for any further DME. Pt states no hx of HHC or SNF. Pt states no concerns with going home at time of discharge. Pt is unemployed. Pt states smokes 1/2 pack cigarettes daily and does not drink ETOH. Pt voices no further concerns/needs. CM to follow for any further discharge planning/needs. Advised pt to ask for CM if any further questions/concerns/need arise, voices understanding. Pt Goal: Home Plan: Home [place] ALLEY BONILLA
--- NOTE | 2021-10-04 12:46 | PN.HOSP_ITS ---
Subjective Subjective Patient seen and examined. She complains of right flank pain. She denies any fever or chills, nausea or vomiting or diarrhea. Review of systems otherwise negative. Objective Data Objective Data Vital Signs: Vital Signs Temp Pulse Resp BP Pulse Ox 98.6 F 84 16 117/72 100 10/04/21 09:05 10/04/21 09:05 10/04/21 09:05 10/04/21 09:05 10/04/21 09:05 Oxygen Delivery Method Room Air Weight: 164 lb 3.91 oz Body Mass Index (BMI) 32.1 Intake & Output: Intake and Output for Last 24 Hours 10/02/21 10/03/21 10/04/21 23:59 23:59 23:59 Intake Total 50 / 50 Balance 50 / 50 Lab / Micro Data Result Diagrams: 10/04/21 06:00 10/04/21 06:00 Labs: Laboratory Results - last 24 hr 10/03/21 21:25: Serum , Qual NEGATIVE 10/03/21 21:25: Urine Color Yellow, Urine Clarity Cloudy, Urine pH 8.0, Ur Specific [place] 1.015, Urine Protein 30 H, Urine Glucose (UA) Normal, Urine Ketones Negative, Urine Occult Blood 25 H, Urine Nitrite Positive H, Urine Bilirubin Negative, Urine Urobilinogen Normal, Ur Leukocyte Esterase 500 H, Urine RBC 0-5 SEEN, Urine WBC 25-50 SEEN, Ur Squamous Epith Cells 10-25 SEEN, Urine Bacteria 2+, Urine Mucus 0 SEEN 10/03/21 22:32: WBC 12.7 H, RBC 4.18 L, Hgb 11.6 L, Hct 35.4 L, MCV 84.7, MCH 27.8, MCHC 32.8, RDW Std Deviation 41.1, RDW Coeff of [place] 13.2, Plt Count 214, MPV 10.3, Immature Gran % (Auto) 0.400, Neut % (Auto) 81.4 H, Lymph % (Auto) 9.2 L, [place] % (Auto) 7.9, Eos % (Auto) 0.9, Baso % (Auto) 0.2, Absolute Neuts (auto) 10.3 H, Absolute Lymphs (auto) 1.16, Nucleated RBC % 0 10/03/21 22:32: Sodium 136, Potassium 4.0, Chloride 105, Carbon Dioxide 27.0, Anion Gap 4 L, BUN 10, Creatinine 0.78, Estim Creat Clear Calc 75.75, Est GFR (MDRD) Af Amer 110, Est GFR (MDRD) Non-Af 91, BUN/Creatinine Ratio 12.7, Glucose 142 H, Calcium 8.6, Total Bilirubin 0.30, Direct Bilirubin 0.11, AST 15, ALT 32, Alkaline Phosphatase 64, Total Protein 7.8, Albumin 3.0 L, Globulin 4.8 H, Lipase 73 10/04/21 06:00: WBC 9.4, RBC 3.72 L, Hgb 10.4 L, Hct 31.6 L, MCV 84.9, MCH 28.0, MCHC 32.9, RDW Std Deviation 41.2, RDW Coeff of [place] 13.2, Plt Count 183, MPV 10.2, Immature Gran % (Auto) 0.300, Neut % (Auto) 74.5 H, Lymph % (Auto) 13.7 L, [place] % (Auto) 9.7, Eos % (Auto) 1.7, Baso % (Auto) 0.1, Absolute Neuts (auto) 7.0, Absolute Lymphs (auto) 1.29, Nucleated RBC % 0 10/04/21 06:00: Sodium 135 L, Potassium 4.1, Chloride 109 H, Carbon Dioxide 20.0 L, Anion Gap 6, BUN 12, Creatinine 0.64, Estim Creat Clear Calc 92.32, Est GFR (MDRD) Af Amer 140, Est GFR (MDRD) Non-Af 116, BUN/Creatinine Ratio 18.8, Glucose 94, Calcium 7.7 L Radiography Diagnostic Testing: Radiology Impression Gallbladder Ultrasound 10/03/21 22:26 IMPRESSION: 2.2 cm hyperechoic mass in the mid pole of the right kidney. Differential includes angiomyolipoma and renal cell carcinoma. Recommend CT or MR abdomen renal mass protocol for further evaluation. Otherwise, no acute abnormalities. Electronically Signed: Lane Miller MD at 23:46 EST Tel , Service support , Abdomen/Pelvis CT 10/04/21 00:03 IMPRESSION: 1. Heterogeneous enhancement of the right kidney consistent with pyelonephritis. There is a questionable early abscess in the lower pole right kidney measuring 2 cm in diameter. 2. Fecal retention in the colon consistent with constipation. Electronically Signed: Trent Roper MD at 1:04 EST Tel , Service support , Physical Exam Const alert and oriented x3 Constitutional Narrative: In moderate distress due to pain Exam Limitations: no limitations HEENT head/scalp atraumatic and moist oral mucous membranes Head and Scalp: normocephalic Eyes PERRL, EOMs intact bilaterally and conjunctivae normal Neck no lymphadenopathy and supple Resp normal respiratory effort, no retractions, no use of accessory muscles and clear to auscultation bilaterally Cardio regular rate, regular rhythm, S1 normal heart sound, S2 normal heart sound and no murmurs GI normal to inspection, nondistended, normoactive bowel sounds GI Narrative: Mild right upper quadrant tenderness. No guarding or rebound tenderness. Has moderate close to phrenic angle tenderness on the right Extremity normal to inspection, full ROM and no clubbing, cyanosis or edema Peripheral Pulses: Yes pulses 2+ throughout Skin no rashes or lesions noted Neuro oriented x3, CN's II-XII intact bilaterally and moves all extremities Sensorium / Orientation: awake and alert Psych Psych Narrative: moderate distress due to pain Assessment & Plan Assessment/Plan (1) Pyelonephritis: (2) Abscess of right kidney: PLAN: #Right pyelonephritis with right kidney abscess * CT of the abdomen revealed a 2 cm mass in the right pole of the kidney consistent with abscess * On IV ciprofloxacin due to allergy to penicillins. * Patient on IV Toradol for pain. However this is not helping control his pain so we will switch to IV morphine. I am aware that patient has a history of opiate abuse and recently went through detox. However I think the severity of her pain warrants IV opioid use as needed in this case * Urology consulted in light of right kidney abscess * WBC has trended downwards. Bladder scan ordered. Urology * #History of opioid dependence: Has been through detox. #DVT prophylaxis: Lovenox Charges/Coding Visit Charges Inpatient E&M: 92548 [facility] Hosp L3
[2021-10-04 13:44] LABS: Amphetamine Urine VISTA POSITIVE (<1000 ng/mL); Barbiturate Urine VISTA NEGATIVE (< 200 ng/mL); Benzodiazepine Urine VISTA NEGATIVE (< 200 ng/mL); Cocaine Urine VISTA NEGATIVE (< 300 ng/mL); Ecstacy Urine VISTA NEGATIVE (< 500 ng/mL); Methadone Urine VISTA NEGATIVE (< 300 ng/mL); PCP Urine VISTA NEGATIVE (< 25 ng/mL); THC Urine VISTA NEGATIVE (< 50 ng/mL); Vista UDS pH Range 7
--- NOTE | 2021-10-04 15:09 | NURSING ---
entered patient's room to take vitals, patient sitting on side of bed diaphoretic stated I need to get the F out of here, I don't need to be here anymore this is a waste of time, I need a cigarette, I don't need to deal with this S because nothing is helping here. This RN communicated to patient the risks of leaving AMA and educated on pyelonephritis and abscess found, antibiotics, pain meds, IV fluids, and consult for urology, also could get nicotine patch ordered. Patient stated Get out and get the doctor because I am getting the F out of here I don't care. This RN contacted Dr. Leahy and made aware of situation, Tosin noted she will not D/C patient she can leave AMA, but will prescribe a few days of PO antibiotics at home. This RN communicated to patient the risks again regarding leaving AMA including the abscess rupturing and can be fatal. Also told patient Tosin would be prescribing PO antibiotics at home. Patient stated I am not waiting any longer, I will just get them when I get them, do what you need to do to get me out of this place. This RN unhooked IV fluids, IV removed, patient signed AMA papers, patient got dressed, ambulated down hallway out PCU doors to elevator.
--- NOTE | 2021-10-04 15:45 | PCM.DC.SUM ---
Providers Date of Admission: 10/04/21 Primary Care Physician: Sonia Primary Care Phys Consultations 10/04/21 09:28 Consult: Urology Routine Consulting Provider: Kate Pedraza Reason for Consult: right kidney abscess EMERGENT Consult: No MD Notified: Yes Date Notified: 10/04/21 Time Notified: 09:28 Method of Notification: Text Reason For Visit: PYELONEPHRITIS Diagnosis Discharge Diagnosis (1) Pyelonephritis: Status: Acute Code(s): N12 - Tubulo-interstitial nephritis, not specified as acute or chronic (2) Abscess of right kidney: Status: Acute Code(s): N15.1 - Renal and perinephric abscess Medications at Discharge Home Medications ciprofloxacin HCl 750 mg PO BID #20 tab 10/04/21 Hospital Course Operations None Procedures None Summary of Care Provided Minutes Spent on Discharge: 50 Hospital Course: Patient is a 30-year-old female with past medical history including IV drug use and hepatitis C as well as depression. She was admitted through the ED on 10/04/2021 in the early hours with a complaint of right-sided abdominal pain and right flank pain which started about 2 days prior to admission. He had associated nausea but denied any fever or burning with urination. CT of the abdomen done showed a 2 cm mass in the right pole of the kidney consistent with an abscess but could not exclude other etiologies such as a mass. WBC was elevated a urinalysis showed evidence of UTI. He was therefore admitted to be managed for right-sided pyelonephritis with possible renal abscess. She was started on IV ciprofloxacin due to her allergies to penicillins. Urology was consulted. Urine tox that was positive for amphetamines. Urology ordered a bladder scan. Patient however became agitated later in the day and despite counseling about the importance of staying in hospital to complete treatment for her pyelonephritis and renal abscess,, decided to sign out AGAINST MEDICAL ADVICE. Patient therefore signed out AGAINST MEDICAL ADVICE on 10/04/2021. In light of her pyelonephritis and kidney abscess, she was given a prescription for p.o. ciprofloxacin 750mg twice daily for 10 days. Patient was seen and examined on 10/04/2021 prior to her signing out AGAINST MEDICAL ADVICE. Physical Exam Const alert and oriented x3 Constitutional Narrative: In moderate distress due to pain General Appearance: cooperative Exam Limitations: no limitations HEENT normocephalic, head/scalp atraumatic and moist oral mucous membranes Eyes PERRL, EOMs intact bilaterally and conjunctivae normal Neck no lymphadenopathy and supple Lymph Lymphatic: no lymphadenopathy noted Resp normal respiratory effort, no retractions, no use of accessory muscles and clear to auscultation bilaterally Cardio regular rate, regular rhythm, S1 normal heart sound, S2 normal heart sound and no murmurs GI normal to inspection, nondistended, normoactive bowel sounds GI Narrative: Mild right upper quadrant tenderness. No guarding or rebound tenderness. Has moderate close to phrenic angle tenderness on the right Palpation: tender RUQ Extremity normal to inspection, full ROM and no clubbing, cyanosis or edema Skin no rashes or lesions noted Neuro oriented x3, CN's II-XII intact bilaterally and moves all extremities Sensorium / Orientation: awake and alert Psych Psych Narrative: moderate distress due to pain Weight / BMI Weight Weight: 164 lb 3.91 oz Body Mass Index (BMI) 32.1 ABG / Lab / Microbiology Data Result Diagrams: 10/04/21 06:00 10/04/21 06:00 Laboratory: Laboratory Results - last 24 hr 10/03/21 21:25: Serum , Qual NEGATIVE 10/03/21 21:25: Urine Color Yellow, Urine Clarity Cloudy, Urine pH 8.0, Ur Specific [place] 1.015, Urine Protein 30 H, Urine Glucose (UA) Normal, Urine Ketones Negative, Urine Occult Blood 25 H, Urine Nitrite Positive H, Urine Bilirubin Negative, Urine Urobilinogen Normal, Ur Leukocyte Esterase 500 H, Urine RBC 0-5 SEEN, Urine WBC 25-50 SEEN, Ur Squamous Epith Cells 10-25 SEEN, Urine Bacteria 2+, Urine Mucus 0 SEEN 10/03/21 21:25: Urine Opiates Screen NEGATIVE, Urine Methadone Screen NEGATIVE, Ur Barbiturates Screen NEGATIVE, Ur Phencyclidine Scrn NEGATIVE, Ur Amphetamines Screen POSITIVE H, U Methamphetamin-MDMA NEGATIVE, U Benzodiazepines Scrn NEGATIVE, Urine Cocaine Screen NEGATIVE, U Cannabinoids Screen NEGATIVE, Ur Drug Screen Comment 10/03/21 22:32: WBC 12.7 H, RBC 4.18 L, Hgb 11.6 L, Hct 35.4 L, MCV 84.7, MCH 27.8, MCHC 32.8, RDW Std Deviation 41.1, RDW Coeff of [place] 13.2, Plt Count 214, MPV 10.3, Immature Gran % (Auto) 0.400, Neut % (Auto) 81.4 H, Lymph % (Auto) 9.2 L, [place] % (Auto) 7.9, Eos % (Auto) 0.9, Baso % (Auto) 0.2, Absolute Neuts (auto) 10.3 H, Absolute Lymphs (auto) 1.16, Nucleated RBC % 0 10/03/21 22:32: Sodium 136, Potassium 4.0, Chloride 105, Carbon Dioxide 27.0, Anion Gap 4 L, BUN 10, Creatinine 0.78, Estim Creat Clear Calc 75.75, Est GFR (MDRD) Af Amer 110, Est GFR (MDRD) Non-Af 91, BUN/Creatinine Ratio 12.7, Glucose 142 H, Calcium 8.6, Total Bilirubin 0.30, Direct Bilirubin 0.11, AST 15, ALT 32, Alkaline Phosphatase 64, Total Protein 7.8, Albumin 3.0 L, Globulin 4.8 H, Lipase 73 10/04/21 06:00: WBC 9.4, RBC 3.72 L, Hgb 10.4 L, Hct 31.6 L, MCV 84.9, MCH 28.0, MCHC 32.9, RDW Std Deviation 41.2, RDW Coeff of [place] 13.2, Plt Count 183, MPV 10.2, Immature Gran % (Auto) 0.300, Neut % (Auto) 74.5 H, Lymph % (Auto) 13.7 L, [place] % (Auto) 9.7, Eos % (Auto) 1.7, Baso % (Auto) 0.1, Absolute Neuts (auto) 7.0, Absolute Lymphs (auto) 1.29, Nucleated RBC % 0 10/04/21 06:00: Sodium 135 L, Potassium 4.1, Chloride 109 H, Carbon Dioxide 20.0 L, Anion Gap 6, BUN 12, Creatinine 0.64, Estim Creat Clear Calc 92.32, Est GFR (MDRD) Af Amer 140, Est GFR (MDRD) Non-Af 116, BUN/Creatinine Ratio 18.8, Glucose 94, Calcium 7.7 L Microbiology: Microbiology 10/03/21 21:25 Urine, Clean Catch Urine Culture - Preliminary Presumptive E. coli Radiography Diagnostic Testing: Radiology Impression Gallbladder Ultrasound 10/03/21 22:26 IMPRESSION: 2.2 cm hyperechoic mass in the mid pole of the right kidney. Differential includes angiomyolipoma and renal cell carcinoma. Recommend CT or MR abdomen renal mass protocol for further evaluation. Otherwise, no acute abnormalities. Electronically Signed: Lane Miller MD at 23:46 EST Tel , Service support , Abdomen/Pelvis CT 10/04/21 00:03 IMPRESSION: 1. Heterogeneous enhancement of the right kidney consistent with pyelonephritis. There is a questionable early abscess in the lower pole right kidney measuring 2 cm in diameter. 2. Fecal retention in the colon consistent with constipation. Electronically Signed: Trent Roper MD at 1:04 EST Tel , Service support , Meaningful Use Info Meaningful Use Diagnoses (Choose all that apply): None applicable Discharge Plan Admission Admit Date/Time: 10/04/21 02:20 Primary Reason for Your Visit: right pyelonephritis with abscess Attending Provider: Saray Leahy Primary Care Provider: Care Physician,No Primary Consulting Providers: Kate Pedraza Discharge Orders/Prescriptions Prescriptions: New ciprofloxacin HCl 750 mg tablet 750 mg PO BID Qty: 20 RF: 0 Referrals / Follow Up: Care Physician,No Primary [Primary Care Provider] - Disposition Disposition (needs filled in before D/C Order can be placed): Against Medical Advice Charges/Coding Visit Charges OBSV E&M: 50209 Observ/hosp same date L3
== END 2021-10-04 15:07 | disposition left against medical advice (07) ==
LOC: ED 10-04 01:36 → PCU 10-04 03:27
PROVIDERS: Admitting Provider Family Medicine; Emergency Provider Emergency Medicine; Visit Provider Student in an Organized Health Care Education/Training Program
DX: N12 Tubulo-interstitial nephritis, not specified as acute or chronic (principal); N15.1 Renal and perinephric abscess; Z86.19 Personal history of other infectious and parasitic diseases; F17.210 Nicotine dependence, cigarettes, uncomplicated; F11.11 Opioid abuse, in remission; I10 Essential (primary) hypertension
CPT/HCPCS: 36415; 74178; 76705; 80048; 80076; 80307; 81001; 83690; 84703; 85025; 87086; 87088; 87186; 97802; 99285; 99406; J7030; Q9967; A4216; J0744; J2405

== ENCOUNTER 2021-10-04 22:45 | Inpatient (IN) | payer MEDICAID, SELFPAY ==
[2021-10-04 22:45] VITALS: BP 131/78; PULSE 108; RESP 16; TEMP 36.8; O2SAT 98; BMI 32.5
--- NOTE | 2021-10-04 22:57 | CT_ITS ---
STUDY: CT ABDOMEN AND PELVIS WITH CONTRAST REASON FOR EXAM: Female, 30 years old. Right flank pain RADIATION DOSAGE (If Supplied By Facility): CTDIvol = ( 12.69 ) mGy, DLP = ( 1250.63 ) mGycm TECHNIQUE: Transaxial images were obtained from the dome of the diaphragm to the symphysis pubis without oral contrast. IV 100mL Isovue-370 was administered. Sagittal and coronal images were reconstructed. Individualized dose optimization techniques were used for this CT. COMPARISON: None. FINDINGS: Minimal posterior subpleural atelectasis, remainder of the lung bases are normal. The visualized portions of the heart are within normal limits. Normal liver. The gallbladder is contracted. Normal spleen. Normal pancreas. Normal bilateral adrenal glands. There is right perinephric stranding with poor delineation of cortical medullary junction subtle hypodensities in the periphery more obvious in the lower pole concerning for right-sided pyelonephritis. There is a left lower renal pole nonobstructive stone measuring 2.2 mm. Remainder of the left kidney is unremarkable. Normal visualized stomach. Normal small intestine. Increased fecal debris within the colon concerning for constipation. Nonvisualized appendix with sutures by the cecum, correlation with history of prior appendectomy recommended. Normal abdominal aorta. Normal inferior vena cava. Normal retroperitoneum. Normal urinary bladder. The uterus is retroflexed. Normal abdominal wall. There are diffuse degenerative changes of the visualized lumbar spine. CT/Abdomen/Pelvis W IV Cont ONLY IMPRESSION: Findings most compatible with right-sided pyelonephritis. Differential diagnosis includes a recently passed stone. 2.2 mm nonobstructive stone within the left kidney. No hydronephrosis seen bilaterally. No stone along the trajectory of bilateral ureters. Possible underlying constipation, clinical correlation recommended. Electronically Signed: Rohini Early MD at 0:25 EST , Service support ,
--- NOTE | 2021-10-04 22:58 | EDS_ITS ---
HPI HPI - Female History of Present Illness Chief Complaint: Complaint Narrative Narrative: 30-year-old female presenting with right flank pain. Apparently she was diagnosed with pyelonephritis and early abscess on her right kidney yesterday. She was admitted to the hospital for this. Patient states that she decided she was going to sign out AGAINST MEDICAL ADVICE. She is back today because her pain and nausea are persistent. She denies any fevers. She does admit to nausea. She states she had hematuria a few days ago and she has a history of kidney stones but currently does not have any dysuria or hematuria PFSH PFSH Medical History Cellulitis of right foot Depression Hepatitis C Hypertension IV drug abuse Smoker Substance abuse Allergy/AdvReac Type Severity Reaction Status Date / Time Penicillins Allergy blisters Verified 10/04/21 22:47 on tongue Family History (Updated 10/05/21 @ 00:[address] Eliz Quesada MD) Mother Cirrhosis of liver Kidney disease Father Heart disease Other Cancer Surgical History H/O section H/O foot surgery History of appendectomy Social History (Updated 10/05/21 @ 00:[address] Eliz Quesada MD) household members: friend(s) Smoking Status: Current every day smoker tobacco type: cigarettes Smoking packs per day: 1 Smoking cigarettes per day: 20.0 alcohol intake: never substance use type: former substance user Date of last use: Clean x 3 months, IV heroine. ROS ROS ED Constitutional Constitutional ED: Denies chills or fever(s) Eyes Eyes: Denies blurry vision or change in vision ENT ENT ED: Denies rhinorrhea or sore throat Cardiovascular Cardiovascular: Denies chest pain or palpitations Respiratory/Chest Respiratory/Chest: Denies cough or dyspnea Gastrointestinal Gastrointestinal: Reports abdominal pain and nausea; Denies diarrhea Genitourinary Genitourinary ED: Denies dysuria or hematuria Musculoskeletal Musculoskeletal: Reports other Details: Right flank pain Neurologic Neurologic: Reports headache(s) Psychiatric Psychiatric: Denies anxiety or depression EXAM Physical Exam Const Vital Signs: 10/04/21 22:45 Temperature 98.2 F Temperature Source Temporal Pulse Rate 108 H Respiratory Rate 16 Blood Pressure 131/78 H Blood Pressure Mean 95 Pulse Ox 98 Oxygen Delivery Method Room Air Positive well nourished General Appearance ED: NAD; Negative for pallor HEENT Reports moist mucous membranes Negative for trauma Eyes PERRL and EOMs intact bilaterally Resp normal respiratory effort and clear to auscultation bilaterally Cardio regular rate Rate: tachycardic Back/Spine General Back: CVA tenderness right Neuro oriented x3 Sensorium / Orientation: alert Psych mental status grossly normal Skin General Skin Exam: Negative for jaundice or pallor MDM MDM MDM Narrative Medical decision making narrative: Patient presenting with right flank pain. Yesterday she was diagnosed with a possible abscess on her right kidney. She does appear to have pyelonephritis. Patient is not had a fever. She was mildly tachycardic on arrival. She is given IV fluids, morphine, Zofran. Blood work repeated and her white blood cell count is 8.9. Hemoglobin is stable at 9.7. Platelets normal 212. Renal function and electrolytes are normal. LFTs are normal. Urinalysis shows 500 leukocyte esterase with rare bacteria, however her urine culture was positive yesterday. She is given Rocephin in the ED. Patient discussed with hospitalist for admission. Impression: 1. Pyelonephritis Lab Data Attestation: I reviewed the patient's lab results. Labs: Laboratory Results - last 24 hr 10/04/21 10/04/21 10/04/21 23:43 23:43 23:58 WBC 8.9 RBC 3.50 L Hgb 9.7 L Hct 29.8 L MCV 85.1 MCH 27.7 MCHC 32.6 RDW Std Deviation 39.8 RDW Coeff of [place] 12.9 Plt Count 212 MPV 10.1 Immature Gran % (Auto) 1.000 H Neut % (Auto) 70.1 H Lymph % (Auto) 12.7 L [place] % (Auto) 15.0 H Eos % (Auto) 1.1 Baso % (Auto) 0.1 Absolute Neuts (auto) 6.2 Absolute Lymphs (auto) 1.13 Nucleated RBC % 0 Sodium 140 Potassium 3.5 Chloride 109 H Carbon Dioxide 25.0 Anion Gap 6 BUN 9 Creatinine 0.66 Estim Creat Clear Calc 89.53 Est GFR (MDRD) Af Amer 134 Est GFR (MDRD) Non-Af 111 BUN/Creatinine Ratio 13.6 Glucose 105 Calcium 8.2 L Total Bilirubin 0.30 AST 13 L ALT 27 Alkaline Phosphatase 53 Total Protein 7.0 Albumin 2.7 L Globulin 4.3 H Albumin/Globulin Ratio 0.6 L Urine Color Yellow Urine Clarity Clear Urine pH 7.0 Ur Specific [place] 1.005 Urine Protein 15 H Urine Glucose (UA) Normal Urine Ketones Negative Urine Occult Blood 10 H Urine Nitrite Negative Urine Bilirubin Negative Urine Urobilinogen Normal Ur Leukocyte Esterase 500 H Urine RBC 0 SEEN Urine WBC 0-5 SEEN Ur Squamous Epith Cells 0-5 SEEN Urine Bacteria RARE Urine Mucus 0 SEEN Urine Opiates Screen Urine Methadone Screen Ur Barbiturates Screen Ur Phencyclidine Scrn Ur Amphetamines Screen U Methamphetamin-MDMA U Benzodiazepines Scrn Urine Cocaine Screen U Cannabinoids Screen Ur Drug Screen Comment 10/04/21 23:58 WBC RBC Hgb Hct MCV MCH MCHC RDW Std Deviation RDW Coeff of [place] Plt Count MPV Immature Gran % (Auto) Neut % (Auto) Lymph % (Auto) [place] % (Auto) Eos % (Auto) Baso % (Auto) Absolute Neuts (auto) Absolute Lymphs (auto) Nucleated RBC % Sodium Potassium Chloride Carbon Dioxide Anion Gap BUN Creatinine Estim Creat Clear Calc Est GFR (MDRD) Af Amer Est GFR (MDRD) Non-Af BUN/Creatinine Ratio Glucose Calcium Total Bilirubin AST ALT Alkaline Phosphatase Total Protein Albumin Globulin Albumin/Globulin Ratio Urine Color Urine Clarity Urine pH Ur Specific [place] Urine Protein Urine Glucose (UA) Urine Ketones Urine Occult Blood Urine Nitrite Urine Bilirubin Urine Urobilinogen Ur Leukocyte Esterase Urine RBC Urine WBC Ur Squamous Epith Cells Urine Bacteria Urine Mucus Urine Opiates Screen POSITIVE H Urine Methadone Screen NEGATIVE Ur Barbiturates Screen NEGATIVE Ur Phencyclidine Scrn NEGATIVE Ur Amphetamines Screen POSITIVE H U Methamphetamin-MDMA NEGATIVE U Benzodiazepines Scrn NEGATIVE Urine Cocaine Screen NEGATIVE U Cannabinoids Screen NEGATIVE Ur Drug Screen Comment Radiography Diagnostic Testing: Clinical Impression(s) from Imaging Studies Abdomen/Pelvis CT 10/04/21 22:57 IMPRESSION: Findings most compatible with right-sided pyelonephritis. Differential diagnosis includes a recently passed stone. 2.2 mm nonobstructive stone within the left kidney. No hydronephrosis seen bilaterally. No stone along the trajectory of bilateral ureters. Possible underlying constipation, clinical correlation recommended. Electronically Signed: Rohini Early MD at 0:25 EST , Service support , Discharge Plan Triage Chief Complaint: Complaint ED Provider: Adarsh Carson Dx/Rx/DC Orders Primary Care Provider: Care Physician,No Primary
[2021-10-04] MEDS: 0.9% Normal Saline 1,000 ML 1000 ML IV (23:19)
[2021-10-04] MEDS: Ondansetron 4 MG/2 ML Vial IV (23:19)
[2021-10-04] MEDS: Morphine 4 MG/ML Syringe IV (23:19)
[2021-10-04 23:55] LABS: Absolute Lymphocyte Count 1.13 X10^3/uL (0.83-4.51); Absolute Neutrophil Count 6.2 X10^3/uL (2.0-7.7); Basophil# 0.01 X10^3/uL; Basophil% 0.1 % (0-1); Eosinophils% 1.1 % (0-5); Hematocrit 29.8 % (37-47); Hemoglobin 9.7 g/dL (12.0-15.0); Lymphocyte # 1.13 X10^3/ul (0.83-4.51); Lymphocyte % 12.7 % (19-41); Mean Corp Hgb Conc 32.6 g/dL (32-36); Mean Corpuscular Hgb 27.7 pg (27.0-32.0); Mean Corpuscular Volume 85.1 fL (81-99); Mean Platelet Vol. 10.1 fl (6.2-12.0); Monocyte# 1.33 X10^3/uL; NRBC Flagged by Analyzer 0 % (0-5); Neutrophil # 6.22 X10^3/uL (2.7-7.7); Neutrophil % 70.1 % (47-70); Platelet Count 212 K/mm3 (150-450); RBC Distribution Width CV 12.9 % (11.6-14.6); RBC Distribution Width SD 39.8 fl (35.1-43.9); White Blood Count 8.9 K/mm3 (4.4-11.0)
[2021-10-05] VITALS (7 sets, daily range): BP systolic 120–138; BP diastolic 67–79; PULSE 85–90; RESP 16–20; TEMP 36.3–36.8; O2SAT 97–100; BMI 32.5
[2021-10-05 00:04] LABS: Mucous, Urine 0 SEEN /hpf (<or=2+); Red Blood Cells-Urine 0 SEEN /hpf (0-5)
[2021-10-05 00:06] LABS: Color, Urine Yellow (Yellow); Glucose, Dipstick Normal (Normal); Ketone-Dipstick Negative (Negative); Leukocyte Esterase-Dipstick 500 /ul (Negative); Nitrite-Dipstick Negative (Negative); Occult Blood-Urine 10 /ul (Negative); Protein-Dipstick 15 mg/dl (Negative); Specific Gravity, Urine 1.005 (1.002-1.030); Urine Bilirubin Dipstick Negative (Negative); Urine Clarity Clear (Clear); Urine Urobilinogen Normal (Normal)
[2021-10-05] MEDS: Ceftriaxone 1 GM/50 ML BAG IV (00:12)
[2021-10-05 00:13] LABS: ALB/GLOB Ratio 0.6 RATIO (0.9-2.4); AST(SGOT) 13 U/L (15-37); Alanine Aminotransfer ALT/SGPT 27 U/L (13-56); Albumin, Serum 2.7 g/dL (3.2-5.0); Alkaline Phosphatase 53 U/L (45-117); Anion Gap 6 (5-15); BUN 9 mg/dL (7-18); BUN/Creat Ratio 13.6 RATIO (10-20); Calcium,Total 8.2 mg/dL (8.5-10.1); Chloride 109 mmol/L (98-107); Creatinine, Serum 0.66 mg/dL (0.55-1.02); EST Glomerular Filtration Rate 111 mL/min (>60); Est Glom Filt Rate - Afr Amer 134 mL/min (>60); Estimated Creatinine Clearance 89.53 ml/min; Globulin 4.3 g/dL (2.2-4.2); Glucose 105 mg/dL (74-106); Potassium 3.5 mmol/L (3.5-5.1); Sodium Level 140 mmol/L (136-145)
[2021-10-05 00:23] LABS: Bacteria RARE /hpf (None Seen); Squamous Epithelial Cells - UA 0-5 SEEN /hpf (5-10); White Blood Cells 0-5 SEEN /hpf (0-5)
[2021-10-05 00:25] LABS: Amphetamine Urine VISTA POSITIVE (<1000 ng/mL); Barbiturate Urine VISTA NEGATIVE (< 200 ng/mL); Benzodiazepine Urine VISTA NEGATIVE (< 200 ng/mL); Cocaine Urine VISTA NEGATIVE (< 300 ng/mL); Ecstacy Urine VISTA NEGATIVE (< 500 ng/mL); Methadone Urine VISTA NEGATIVE (< 300 ng/mL); PCP Urine VISTA NEGATIVE (< 25 ng/mL); THC Urine VISTA NEGATIVE (< 50 ng/mL); Vista UDS pH Range 7
--- NOTE | 2021-10-05 00:29 | PCM.HP.STD ---
HPI - General General Date of Admission: 10/05/21 Date of Service: 10/05/21 Chief Complaint: Abdominal pain, flank pain. HPI Narrative The patient is a 30 y/o F w/ PMHx: Tobacco use, Anxiety and Depression, Polysubstance abuse with Hepatitis C, Chronic anemia who presents to the [facility] ED on 10/05/21 with history of recent onset R sided abdominal pain/flank patient x 3 days without marked dysuria with nausea without emesis without fever or chills prompting initial ED evaluation and admission 10/04/[address] imaging at that time initially concerning for early renal abscess with acute pyelonephritis; however, she left following admission AMA reporting currently leaving secondary to being bored laying in the hospital bed, doing nothing. She reports ongoing unchanged pain, 08/28, severe. Work-up in the ED included T 98.2, heart rate 108, BP 131/78, respiratory rate 16, 98% on room air, CBC with WC 8.9, hemoglobin 9.7, platelet 212 with increased immature granulocytes, CMP with chloride 109, otherwise unremarkable, urinalysis with negative nitrite, 500 leukocyte esterase, 0-5 urine WBCs with rare urine bacteria reported, CT abdomen and pelvis with findings compatible with right-sided pyelonephritis suspicious for possibly recently passed stone, 2.2 mm nonobstructing stone within the left kidney, no hydronephrosis seen bilaterally and no stone along the trajectory of bilateral ureters with possibly underlying constipation. CT scan from the day prior did report heterogeneous enhancement of the right kidney consistent with pyelonephritis with a questionable early abscess in the lower pole of the right kidney measuring 2 cm in diameter however this is not noted on current evaluation. [facility] Medical History Cellulitis of right foot Depression Hepatitis C Hypertension IV drug abuse Smoker Substance abuse Allergy/AdvReac Type Severity Reaction Status Date / Time Penicillins Allergy blisters Verified 10/04/21 22:47 on tongue Family History (Updated 10/05/21 @ 00:[address] Eliz Quesada MD) Mother Cirrhosis of liver Kidney disease Father Heart disease Other Cancer Surgical History H/O section H/O foot surgery History of appendectomy Social History (Updated 10/05/21 @ 00:[address] Eliz Quesada MD) household members: friend(s) Smoking Status: Current every day smoker tobacco type: cigarettes Smoking packs per day: 1 Smoking cigarettes per day: 20.0 alcohol intake: never substance use type: former substance user Date of last use: Clean x 3 months, IV heroine. ROS ROS Narrative Admission Review of Systems: CONSTITUTIONAL: No weight loss, fever, chills, + weakness or fatigue. HEENT: Eyes: No visual loss, blurred vision, double vision or yellow sclerae. Ears, Nose, Throat: No hearing loss, sneezing, congestion, runny nose or sore throat. SKIN: No rash or itching, lesions, wounds. CARDIOVASCULAR: No chest pain, chest pressure or chest discomfort, palpitations, edema, orthopnea, syncopal events. RESPIRATORY: No shortness of breath, cough or sputum, wheezing, hemoptysis. GASTROINTESTINAL: + anorexia, nausea, abdominal pain, No vomiting, diarrhea, melena, BRBPR. GENITOURINARY: No dysuria, frequency, urgency or retention. NEUROLOGICAL: No headache, dizziness, syncope, paralysis, ataxia, numbness or tingling in the extremities, focal weakness, change in bowel or bladder control, seizure. MUSCULOSKELETAL: + muscle, back pain, joint pain or stiffness. HEMATOLOGIC: + anemia, bleeding or bruising. LYMPHATICS: No enlarged nodes. No history of splenectomy. PSYCHIATRIC: + history of depression or anxiety. ENDOCRINOLOGIC: No reports of sweating, cold or heat intolerance. No polyuria or polydipsia. ALLERGIES: No history of asthma, hives, eczema or rhinitis. Vital Signs Vital Signs Vital Signs: 10/04/21 22:45 Temperature 98.2 F Temperature Source Temporal Pulse Rate 108 H Respiratory Rate 16 Blood Pressure 131/78 H Blood Pressure Mean 95 Pulse Ox 98 Oxygen Delivery Method Room Air Weight Weight: 166 lb 12.8 oz Body Mass Index (BMI) 32.5 Physical Exam Narrative Physical Examination: General: Awake, alert, oriented x 3 and cooperative, laying on her side in the ED bed, uncomfortable appearing. Skin: Normal color, normal turgor, no icterus, no cyanosis. HEENT: AT/NC, EOMI, PERRLA, dry MM, no carotid bruits or JVD noted. Lungs: Diminished, greater bases, appropriate effort, no rales, ronchi or wheezing. Heart: Mildly tachycardic with regular rhythm; no gallop, rub audible. Abdomen: Soft, right-sided discomfort palpation as well as right-sided CVA tenderness with palpation, ND, distant mildly hyperactive BS, no obvious evidence of HSM. Extremities: No cyanosis, clubbing, or edema. Neurological: Patient awake, alert, oriented as noted, cognitive function intact; pupils equally reactive to light and accommodation, cranial nerves II-XII grossly normal, moving all 4 extremities, no focal deficits, strength moderately globally decreased secondary to acute presentation. Psychiatric: Affect appears uncomfortable, talking extremely fast and excitable, no acute evidence of depressive or anxiety feelings. Results Lab / Micro Data Result Diagrams: 10/04/21 23:43 10/04/21 23:43 Labs: Laboratory Results - last 24 hr 10/04/21 23:43: WBC 8.9, RBC 3.50 L, Hgb 9.7 L, Hct 29.8 L, MCV 85.1, MCH 27.7, MCHC 32.6, RDW Std Deviation 39.8, RDW Coeff of Severiano 12.9, Plt Count 212, MPV 10.1, Immature Gran % (Auto) 1.000 H, Neut % (Auto) 70.1 H, Lymph % (Auto) 12.7 L, [place] % (Auto) 15.0 H, Eos % (Auto) 1.1, Baso % (Auto) 0.1, Absolute Neuts (auto) 6.2, Absolute Lymphs (auto) 1.13, Nucleated RBC % 0 10/04/21 23:43: Sodium 140, Potassium 3.5, Chloride 109 H, Carbon Dioxide 25.0, Anion Gap 6, BUN 9, Creatinine 0.66, Estim Creat Clear Calc 89.53, Est GFR (MDRD) Af Amer 134, Est GFR (MDRD) Non-Af 111, BUN/Creatinine Ratio 13.6, Glucose 105, Calcium 8.2 L, Total Bilirubin 0.30, AST 13 L, ALT 27, Alkaline Phosphatase 53, Total Protein 7.0, Albumin 2.7 L, Globulin 4.3 H, Albumin/Globulin Ratio 0.6 L 10/04/21 23:58: Urine Color Yellow, Urine Clarity Clear, Urine pH 7.0, Ur Specific [place] 1.005, Urine Protein 15 H, Urine Glucose (UA) Normal, Urine Ketones Negative, Urine Occult Blood 10 H, Urine Nitrite Negative, Urine Bilirubin Negative, Urine Urobilinogen Normal, Ur Leukocyte Esterase 500 H, Urine RBC 0 SEEN, Urine WBC 0-5 SEEN, Ur Squamous Epith Cells 0-5 SEEN, Urine Bacteria RARE, Urine Mucus 0 SEEN 10/04/21 23:58: Urine Opiates Screen POSITIVE H, Urine Methadone Screen NEGATIVE, Ur Barbiturates Screen NEGATIVE, Ur Phencyclidine Scrn NEGATIVE, Ur Amphetamines Screen POSITIVE H, U Methamphetamin-MDMA NEGATIVE, U Benzodiazepines Scrn NEGATIVE, Urine Cocaine Screen NEGATIVE, U Cannabinoids Screen NEGATIVE, Ur Drug Screen Comment Radiology Impression Abdomen/Pelvis CT 10/04/21 22:57 IMPRESSION: Findings most compatible with right-sided pyelonephritis. Differential diagnosis includes a recently passed stone. 2.2 mm nonobstructive stone within the left kidney. No hydronephrosis seen bilaterally. No stone along the trajectory of bilateral ureters. Possible underlying constipation, clinical correlation recommended. Electronically Signed: Rohini Early MD at 0:25 EST , Service support , Assessment & Plan Assessment/Plan (1) Pyelonephritis: PLAN: The patient is a 30 y/o F w/ PMHx: Tobacco use, Anxiety and Depression, Polysubstance abuse with Hepatitis C, Chronic anemia who presents to the [facility] ED on 10/05/21 with history of recent onset R sided abdominal pain/flank patient x 3 days without marked dysuria with nausea without emesis without fever or chills prompting initial ED evaluation and admission 10/04/[address] imaging at that time initially concerning for early renal abscess with acute pyelonephritis; however, she left following admission AMA reporting currently leaving secondary to being bored laying in the hospital bed, doing nothing. 1. Acute pyelonephritis with concern for possible renal mass: Will admit to medical surgical floor, prior urinalysis was concerning as well as CT imaging for pyelonephritis, urine culture pending, will continue IV fluids, monitor I/Os, continue IV Levaquin given allergies w/ transition as able pending sensitivities and speciation. Bld cx x 2 obtained in the ED. 2. Chronic normocytic anemia: Admission hemoglobin 9.7, baseline appears primarily more recently 9-10, unclear specific etiology, has been anemic in the past as well, iron panel, ferritin, vitamin B12 and folic acid requested. 3. Polysubstance abuse with hepatitis C: Strongly encouraged follow-up for hepatitis C intervention and treatment, will obtain HIV and hepatitis panel for possible B co-infection to be cautious, UDS requested in the ED and notable for positive opiates and amphetamines. 4. Anxiety and depression: Not on regimen, defer to outpatient. 5. Tobacco Abuse: Encouraged cessation, inpatient consultation per RT, NR if desired. 6. DVT prophylaxis: Low risk, encourage ambulation. Charges/Coding Visit Charges Inpatient E&M: 04266 Init Hosp L3
[2021-10-05 02:21] LABS: Ferritin 109 ng/mL (8-252); Iron 9 ug/dL (50-170); Iron Binding Capacity,Total 299 ug/dL (250-450)
[2021-10-05 02:36] LABS: HIV - WCH Non-Reactive (Nonreactive)
[2021-10-05] MEDS: 0.9% Normal Saline 1,000 ML 150 ML IV ×3 (04:11→19:35)
[2021-10-05] MEDS: HYDROmorphone 0.5 MG/0.5 ML SYRINGE IV ×5 (04:11→23:43)
[2021-10-05] MEDS: levoFLOXacin IV 750 MG/150 ML BAG 100 MG IV (04:22)
--- NOTE | 2021-10-05 04:40 | PCS.PANDOC ---
PANDEMIC DOCUMENTATION INITIATED: Date: 07/04/2021 Time: 1900 Emergency documentation initiated 10/05/21 @ 0350
[2021-10-05 07:25] LABS: Absolute Lymphocyte Count 1.18 X10^3/uL (0.83-4.51); Absolute Neutrophil Count 5.5 X10^3/uL (2.0-7.7); Basophil# 0.01 X10^3/uL; Basophil% 0.1 % (0-1); Eosinophil# 0.25 X10^3/uL; Eosinophils% 3.1 % (0-5); Hematocrit 31.6 % (37-47); Hemoglobin 10.2 g/dL (12.0-15.0); Lymphocyte # 1.18 X10^3/ul (0.83-4.51); Lymphocyte % 14.5 % (19-41); Mean Corp Hgb Conc 32.3 g/dL (32-36); Mean Corpuscular Hgb 27.6 pg (27.0-32.0); Mean Corpuscular Volume 85.6 fL (81-99); Mean Platelet Vol. 10.2 fl (6.2-12.0); Monocyte# 1.16 X10^3/uL; Monocyte% 14.3 % (0-10); NRBC Flagged by Analyzer 0 % (0-5); Neutrophil % 67.8 % (47-70); Platelet Count 203 K/mm3 (150-450); RBC Distribution Width SD 40.7 fl (35.1-43.9); Red Blood Count 3.69 M/mm3 (4.2-5.4); White Blood Count 8.1 K/mm3 (4.4-11.0)
[2021-10-05 07:53] LABS: ALB/GLOB Ratio 0.5 RATIO (0.9-2.4); AST(SGOT) 13 U/L (15-37); Alanine Aminotransfer ALT/SGPT 29 U/L (13-56); Albumin, Serum 2.5 g/dL (3.2-5.0); Alkaline Phosphatase 54 U/L (45-117); Anion Gap 6 (5-15); BUN 10 mg/dL (7-18); BUN/Creat Ratio 16.7 RATIO (10-20); Calcium,Total 8.4 mg/dL (8.5-10.1); Chloride 108 mmol/L (98-107); EST Glomerular Filtration Rate 124 mL/min (>60); Est Glom Filt Rate - Afr Amer 150 mL/min (>60); Estimated Creatinine Clearance 98.48 ml/min; Globulin 4.6 g/dL (2.2-4.2); Glucose 93 mg/dL (74-106); Potassium 3.9 mmol/L (3.5-5.1); Protein, Total 7.1 g/dL (6.4-8.2); Sodium Level 137 mmol/L (136-145)
[2021-10-05] MEDS: Famotidine 20 MG Tablet PO ×2 (09:26→23:17)
[2021-10-05 09:49] LABS: Vitamin B12 195 pg/mL (211-911)
--- NOTE | 2021-10-05 10:55 | PN.HOSP_ITS ---
Subjective Subjective Patient is a 30-year-old female comfortably resting in bed, alert and orient x3. Patient still reports ongoing flank pain and diffuse myalgias/arthralgias. Denies chest pain, shortness of breath, palpitations, hemoptysis, sputum production, fever, chills, N/V/D. Does not appear in acute distress. Objective Data Objective Data Vital Signs: Vital Signs Temp Pulse Resp BP Pulse Ox 97.7 F L 85 18 120/67 99 10/05/21 08:31 10/05/21 08:31 10/05/21 08:31 10/05/21 08:31 10/05/21 08:31 Oxygen Delivery Method Room Air Weight: 166 lb 10.711 oz Body Mass Index (BMI) 32.5 Intake & Output: Intake and Output for Last 24 Hours 10/03/21 10/04/21 10/05/21 23:59 23:59 23:59 Intake Total 1427.5 / 1427.5 Balance 1427.5 / 1427.5 Lab / Micro Data Result Diagrams: 10/05/21 07:02 10/05/21 07:02 Labs: Laboratory Results - last 24 hr 10/04/21 23:43: WBC 8.9, RBC 3.50 L, Hgb 9.7 L, Hct 29.8 L, MCV 85.1, MCH 27.7, MCHC 32.6, RDW Std Deviation 39.8, RDW Coeff of Severiano 12.9, Plt Count 212, MPV 10.1, Immature Gran % (Auto) 1.000 H, Neut % (Auto) 70.1 H, Lymph % (Auto) 12.7 L, [place] % (Auto) 15.0 H, Eos % (Auto) 1.1, Baso % (Auto) 0.1, Absolute Neuts (auto) 6.2, Absolute Lymphs (auto) 1.13, Nucleated RBC % 0 10/04/21 23:43: Sodium 140, Potassium 3.5, Chloride 109 H, Carbon Dioxide 25.0, Anion Gap 6, BUN 9, Creatinine 0.66, Estim Creat Clear Calc 89.53, Est GFR (MDRD) Af Amer 134, Est GFR (MDRD) Non-Af 111, BUN/Creatinine Ratio 13.6, Glucose 105, Calcium 8.2 L, Total Bilirubin 0.30, AST 13 L, ALT 27, Alkaline Phosphatase 53, Total Protein 7.0, Albumin 2.7 L, Globulin 4.3 H, Albumin/Globulin Ratio 0.6 L 10/04/21 23:58: Urine Color Yellow, Urine Clarity Clear, Urine pH 7.0, Ur Specific [place] 1.005, Urine Protein 15 H, Urine Glucose (UA) Normal, Urine Ketones Negative, Urine Occult Blood 10 H, Urine Nitrite Negative, Urine Bilirubin Negative, Urine Urobilinogen Normal, Ur Leukocyte Esterase 500 H, Urine RBC 0 SEEN, Urine WBC 0-5 SEEN, Ur Squamous Epith Cells 0-5 SEEN, Urine Bacteria RARE, Urine Mucus 0 SEEN 10/04/21 23:58: Urine Opiates Screen POSITIVE H, Urine Methadone Screen NEGATIVE, Ur Barbiturates Screen NEGATIVE, Ur Phencyclidine Scrn NEGATIVE, Ur Amphetamines Screen POSITIVE H, U Methamphetamin-MDMA NEGATIVE, U Benzodiazepines Scrn NEGATIVE, Urine Cocaine Screen NEGATIVE, U Cannabinoids Screen NEGATIVE, Ur Drug Screen Comment 10/04/21 23:58: Iron 9 L, TIBC 299, Iron Saturation 3.0 L, Ferritin 109, Folate 11.00 10/04/21 23:58: HIV 1&2 Antibody Non-Reactive 10/05/21 07:02: Vitamin B12 195 L 10/05/21 07:02: WBC 8.1, RBC 3.69 L, Hgb 10.2 L, Hct 31.6 L, MCV 85.6, MCH 27.6, MCHC 32.3, RDW Std Deviation 40.7, RDW Coeff of Severiano 13.0, Plt Count 203, MPV 10.2, Immature Gran % (Auto) 0.200, Neut % (Auto) 67.8, Lymph % (Auto) 14.5 L, [place] % (Auto) 14.3 H, Eos % (Auto) 3.1, Baso % (Auto) 0.1, Absolute Neuts (auto) 5.5, Absolute Lymphs (auto) 1.18, Nucleated RBC % 0 10/05/21 07:02: Sodium 137, Potassium 3.9, Chloride 108 H, Carbon Dioxide 23.0, Anion Gap 6, BUN 10, Creatinine 0.60, Estim Creat Clear Calc 98.48, Est GFR (MDRD) Af Amer 150, Est GFR (MDRD) Non-Af 124, BUN/Creatinine Ratio 16.7, Glucose 93, Calcium 8.4 L, Total Bilirubin 0.20, AST 13 L, ALT 29, Alkaline Phosphatase 54, Total Protein 7.1, Albumin 2.5 L, Globulin 4.6 H, Albumin/Globulin Ratio 0.5 L Radiography Diagnostic Testing: Radiology Impression Abdomen/Pelvis CT 10/04/21 22:57 IMPRESSION: Findings most compatible with right-sided pyelonephritis. Differential diagnosis includes a recently passed stone. 2.2 mm nonobstructive stone within the left kidney. No hydronephrosis seen bilaterally. No stone along the trajectory of bilateral ureters. Possible underlying constipation, clinical correlation recommended. Electronically Signed: Rohini Early MD at 0:25 EST , Service support ,
--- NOTE | 2021-10-05 11:03 | PCM.HOSP.N ---
Documented by User: Trent ROBERSON 10/05/21 11:06 Hospitalist Note Patient is a 30-year-old female who was admitted to the hospital on 10/05/2021 with a chief complaint of right-sided abdominal/flank pain. Patient was admitted for management of acute pyelonephritis and was placed on IV Levaquin, fluids. Blood and urine cultures pending. Patient also has a history of polysubstance abuse and history of hepatitis C. HIV and hepatitis B panel ordered. Urine tox screen obtained in the ED care positive for opiates and amphetamines. Patient seen by Trent Knowles PA-C, under the supervision of Dr. Leahy. Documented by User: Dr. Saray Leahy MD 10/05/21 16:22 Addendum Addendum: Patient seen by Trent Knowles PA-C under my supervision Patient seen and examined. She was admitted in the early hours of today on account of right flank pain. Incidentally, patient was admitted the day before and left AMA the same day for similar complaints during which time she was managed for right pyelonephritis with concerns for right kidney abscess. Urology was consulted. Patient however subsequently left AGAINST MEDICAL ADVICE but came back because the pain was unbearable. Patient seen and examined this morning. Still complains of right flank pain. She denies any fever or chills, nausea or vomiting. Review systems otherwise negative. O/E: Const alert and oriented x3 Constitutional Narrative: In moderate distress due to pain General Appearance: cooperative Exam Limitations: no limitations HEENT normocephalic, head/scalp atraumatic and moist oral mucous membranes Eyes PERRL, EOMs intact bilaterally and conjunctivae normal Neck no lymphadenopathy and supple Lymph Lymphatic: no lymphadenopathy noted Resp normal respiratory effort, no retractions, no use of accessory muscles and clear to auscultation bilaterally Cardio regular rate, regular rhythm, S1 normal heart sound, S2 normal heart sound and no murmurs GI normal to inspection, nondistended, normoactive bowel sounds GI Narrative: Mild right upper quadrant tenderness. No guarding or rebound tenderness. Has moderate right costophrenic angle tenderness Palpation: tender RUQ Extremity normal to inspection, full ROM and no clubbing, cyanosis or edema Skin no rashes or lesions noted Neuro oriented x3, CN's II-XII intact bilaterally and moves all extremities Sensorium / Orientation: awake and alert Psych Psych Narrative: moderate distress due to pain Repeat CT of the abdomen done when she was admitted again showed evidence of right pyelonephritis and no evidence of an abscess again. She is currently on IV antibiotics. We will continue. Hydrate gently with IV fluids. Pain medication as needed. Rest as per Trent Knowles PA-C which I have reviewed and endorsed. Visit Charges Inpatient E&M: 32882 Subs Hosp L2
--- NOTE | 2021-10-05 13:32 | CASEMGMT ---
ALLEY BONILLA chart review: Patient was admitted 10/04/21 for pyelonephritis and left AMA the same day. See ALLEY BONILLA assessment from 10/04/21. Patient stated she needed a cigarette and that nothing was helping here. Patient returned 7.5 hours later to [facility] ED for persistent nausea and pain. Patient was seen by urologist on previous admission and is to follow-up as an outpatient. Patient does not have PCP and list was provided to patient. Patient had positive toxicology for amphetamines. SW seeing patient for additional resources. Disposition Plan: Patient to discharge to home with urology follow-up.
[2021-10-05] MEDS: Docusate Sodium 100 MG Capsule PO (13:40)
--- NOTE | 2021-10-05 13:43 | CASEMGMT ---
Social Work Pt know to this SW from previous visits. SW met with pt in room and introduced self and role of SW. Pt remained with eyes closed but did give short answers to SW questions. Pt stating she does have a safe place to live when she leaves the hospital but did want to know how to get into the [facility]. Pt continues to deny problems with current housing and transportation. SW provided information and phone number for residential. SW inquired about counselor for mental health and substance abuse. Pt states she does not have a counselor nor does she want a list of resources. Pt states she does go to group meetings at [facility] once a week for substance abuse. Pt also stating she has considered the [facility] program. SW provided resources for [facility]. Pt denies any other SW needs at this time. BRENNAN Hassan
[2021-10-05] MEDS: 0.9% Saline Lock 10 ML Syringe IV ×3 (13:44→23:44)
[2021-10-05] MEDS: Ondansetron 4 MG/2 ML Vial IV (23:21)
[2021-10-06] MEDS: 0.9% Normal Saline 1,000 ML 150 ML IV ×3 (02:00→17:19)
[2021-10-06 02:57] VITALS: BP 137/71; PULSE 90; RESP 18; TEMP 36.8; O2SAT 96
[2021-10-06] MEDS: HYDROmorphone 0.5 MG/0.5 ML SYRINGE IV ×3 (04:18→17:25)
[2021-10-06 07:42] LABS: Absolute Neutrophil Count 4.7 X10^3/uL (2.0-7.7); Basophil# 0.01 X10^3/uL; Basophil% 0.1 % (0-1); Eosinophil# 0.36 X10^3/uL; Eosinophils% 4.5 % (0-5); Hemoglobin 9.9 g/dL (12.0-15.0); Lymphocyte % 23.8 % (19-41); Mean Corp Hgb Conc 31.9 g/dL (32-36); Mean Corpuscular Volume 84.7 fL (81-99); Mean Platelet Vol. 9.8 fl (6.2-12.0); Monocyte# 1.03 X10^3/uL; Monocyte% 12.9 % (0-10); NRBC Flagged by Analyzer 0 % (0-5); Neutrophil # 4.67 X10^3/uL (2.7-7.7); Neutrophil % 58.4 % (47-70); Platelet Count 252 K/mm3 (150-450); RBC Distribution Width SD 39.8 fl (35.1-43.9); Red Blood Count 3.66 M/mm3 (4.2-5.4)
[2021-10-06 08:17] LABS: Anion Gap 4 (5-15); BUN 9 mg/dL (7-18); BUN/Creat Ratio 16.5 RATIO (10-20); Calcium,Total 8.2 mg/dL (8.5-10.1); Chloride 112 mmol/L (98-107); Creatinine, Serum 0.55 mg/dL (0.55-1.02); EST Glomerular Filtration Rate 138 mL/min (>60); Est Glom Filt Rate - Afr Amer 167 mL/min (>60); Estimated Creatinine Clearance 106.45 ml/min; Glucose 87 mg/dL (74-106); Potassium 3.8 mmol/L (3.5-5.1); Sodium Level 139 mmol/L (136-145)
[2021-10-06] MEDS: Famotidine 20 MG Tablet PO ×2 (08:41→22:22)
[2021-10-06] MEDS: levoFLOXacin IV 750 MG/150 ML BAG 100 MG IV (08:43)
[2021-10-06 08:46] VITALS: BP 122/81; PULSE 98; RESP 18; TEMP 36.9; O2SAT 99
[2021-10-06] MEDS: oxyCODONE 5 MG Tablet PO (08:55)
--- NOTE | 2021-10-06 09:29 | PCS.PANDOC ---
PANDEMIC DOCUMENTATION INITIATED: Date: 07/04/2021 Time: 190
--- NOTE | 2021-10-06 10:28 | PN.HOSP_ITS ---
Documented by User: Jennifre Mccracken MUSIC DEPARTMENT CHAIR-C 10/06/21 10:46 Subjective Subjective Seen and examined. Patient states that she just woke up and is having extreme pain in her right flank. Nurse at bedside with pain medication. Patient also verbalizes concern about scabbed and open areas to her nose and perioral area. Objective Data Objective Data Vital Signs: Vital Signs Temp Pulse Resp BP Pulse Ox 98.4 F 98 18 122/81 H 99 10/06/21 08:46 10/06/21 08:46 10/06/21 08:46 10/06/21 08:46 10/06/21 08:46 Oxygen Delivery Method Room Air Weight: 167 lb 5.294 oz Body Mass Index (BMI) 32.5 Intake & Output: Intake and Output for Last 24 Hours 10/04/21 10/05/21 10/06/21 23:59 23:59 23:59 Intake Total 3700.0 / 3700.0 2112.5 / 2112.5 Balance 3700.0 / 3700.0 2112.5 / 2112.5 Lab / Micro Data Result Diagrams: 10/06/21 07:06 10/06/21 07:06 Labs: Laboratory Results - last 24 hr 10/06/21 07:06: WBC 8.0, RBC 3.66 L, Hgb 9.9 L, Hct 31.0 L, MCV 84.7, MCH 27.0, MCHC 31.9 L, RDW Std Deviation 39.8, RDW Coeff of [place] 13.0, Plt Count 252, MPV 9.8, Immature Gran % (Auto) 0.300, Neut % (Auto) 58.4, Lymph % (Auto) 23.8, [place] % (Auto) 12.9 H, Eos % (Auto) 4.5, Baso % (Auto) 0.1, Absolute Neuts (auto) 4.7, Absolute Lymphs (auto) 1.90, Nucleated RBC % 0 10/06/21 07:06: Sodium 139, Potassium 3.8, Chloride 112 H, Carbon Dioxide 23.0, Anion Gap 4 L, BUN 9, Creatinine 0.55, Estim Creat Clear Calc 106.45, Est GFR (MDRD) Af Amer 167, Est GFR (MDRD) Non-Af 138, BUN/Creatinine Ratio 16.5, Glucose 87, Calcium 8.2 L Physical Exam Const alert, oriented x3 and no apparent distress HEENT head/scalp atraumatic Head and Scalp: normocephalic Eyes conjunctivae normal and no scleral icterus Neck supple Resp normal respiratory effort, normal air movement and clear to auscultation bilaterally Effort and Inspection: able to speak in complete sentences and symmetric chest movement Cardio regular rate, regular rhythm, S1 normal heart sound, S2 normal heart sound and peripheral pulses 2+ throughout GI normal to inspection, nondistended, normoactive bowel sounds and soft to p alpation GI Narrative: Right flank pain with palpation Extremity normal to inspection, full ROM and no clubbing, cyanosis or edema Skin no wounds, skin turgor normal and no jaundice Skin Narrative: Patient has multiple red nonbullous areas to her external nares bilaterally and right perioral area. Neuro oriented x3, moves all extremities, no focal motor deficits and no sensory deficits noted Sensorium / Orientation: awake and alert Psych Mood & Affect: anxious and irritable Assessment & Plan Assessment/Plan (1) Pyelonephritis: PLAN: 1. Pyelonephritis -Continue IV Levaquin -Continue IV fluids -Continue strict intake and output -As needed pain medication regimen ordered 2. Chronic normocytic anemia -Hemoglobin currently 9.9 -CBC daily -Baseline hemoglobin consistently between 9 and 10 upon lab review -Iron studies completed, iron is low. TIBC, ferritin, folate normal. -Ferrous sulfate 325mg BID initiated 3. Polysubstance abuse with hepatitis C -Recommend follow-up outpatient for treatment of patient's hepatitis C -Hep B and HIV pending 4. Impetigo -Mupirocin ordered -Will monitor for improvement, currently limited to patient's external nares and right perioral area DVT prophylaxis-SCD's This patient was seen by Jennifer Mccracken NP-C under the supervision of Dr. Leahy. Documented by User: Dr. Saray Leahy MD 10/06/21 17:06 Objective Data Lab / Micro Data Result Diagrams: 10/06/21 07:06 10/06/21 07:06 Charges/Coding Addendum Addendum: Patient seen by FRANCISCO JAVIER Davidson under my supervision Patient seen and examined. Still complaining of right flank pain. She also has a rash on her nose and in her nostril which she says just started since she has been in the hospital. Review of systems otherwise negative. O/E: Const alert and oriented x3 Constitutional Narrative: In moderate distress due to pain General Appearance: cooperative Exam Limitations: no limitations HEENT normocephalic, head/scalp atraumatic and moist oral mucous membranes, has an erythematous rash with blisters over the tip of her nose and in her nostril Eyes PERRL, EOMs intact bilaterally and conjunctivae normal Neck no lymphadenopathy and supple Lymph Lymphatic: no lymphadenopathy noted Resp normal respiratory effort, no retractions, no use of accessory muscles and clear to auscultation bilaterally Cardio regular rate, regular rhythm, S1 normal heart sound, S2 normal heart sound and no murmurs GI normal to inspection, nondistended, normoactive bowel sounds GI Narrative: Mild right upper quadrant tenderness. No guarding or rebound tenderness. still Has moderate right costophrenic angle tenderness Palpation: tender RUQ Extremity normal to inspection, full ROM and no clubbing, cyanosis or edema Skin no rashes or lesions noted Neuro oriented x3, CN's II-XII intact bilaterally and moves all extremities Sensorium / Orientation: awake and alert Psych Psych Narrative: moderate distress due to pain Plan is continue IV Levaquin and continue IV pain medication. Hydrate gently with IV fluids. Encourage adequate oral fluid intake. Mupirocin ordered for rash on nose. SCDs for DVT prophylaxis. Rest as per Francis BOR[facility]ESC's notes which I reviewed and endorsed. Visit Charges Inpatient E&M: 60568 Subs Hosp L2
[2021-10-06] MEDS: Mupirocin Ointment 22gm Tube 1 APPLIC TOPICAL ×2 (13:15→22:22)
[2021-10-06] MEDS: Ferrous Sulfate 325 MG Tablet PO ×2 (13:15→17:20)
--- NOTE | 2021-10-06 14:28 | CASEMGMT ---
Social Work SW met with pt again today to discuss drug use and programs to assist with cessation. Pt not interested in talking to this SW. Eyes closed and pt rolling over with back to this SW. Pt stating she does not use drugs and has been clean for 2 months. SW offered to set up appointment with counselor and pt adamantly denied and refused to talk to SW about program availability. SW did leave resources in pt room. BRENNAN Hassan
[2021-10-06 14:45] VITALS: BP 119/77; PULSE 83; RESP 18; TEMP 36.3; O2SAT 99
[2021-10-06] MEDS: BENZOCAINE/MENTHOL 1 LOZENGE MUCOUS MEM (17:25)
[2021-10-06] MEDS: 0.9% Saline Lock 10 ML Syringe IV (17:25)
[2021-10-06 22:00] VITALS: BP 125/82; PULSE 86; RESP 18; TEMP 36.8; O2SAT 99
[2021-10-06] MEDS: Temazepam 15 MG Capsule PO (22:46)
[2021-10-07] MEDS: 0.9% Normal Saline 1,000 ML 150 ML IV ×2 (00:15→06:57)
[2021-10-07 02:41] VITALS: BP 125/66; PULSE 74; RESP 16; TEMP 36.8; O2SAT 100
[2021-10-07] MEDS: HYDROmorphone 0.5 MG/0.5 ML SYRINGE IV ×2 (02:51→10:00)
[2021-10-07] MEDS: Mupirocin Ointment 22gm Tube 1 APPLIC TOPICAL ×2 (06:57→13:34)
[2021-10-07 08:34] VITALS: BP 111/75; PULSE 78; RESP 16; TEMP 36.6; O2SAT 98
[2021-10-07] MEDS: Famotidine 20 MG Tablet PO (09:56)
[2021-10-07] MEDS: levoFLOXacin IV 750 MG/150 ML BAG 100 MG IV (09:56)
[2021-10-07] MEDS: 0.9% Saline Lock 10 ML Syringe IV (10:00)
[2021-10-07 10:39] LABS: Absolute Lymphocyte Count 2.15 X10^3/uL (0.83-4.51); Absolute Neutrophil Count 4.1 X10^3/uL (2.0-7.7); Basophil# 0.03 X10^3/uL; Basophil% 0.4 % (0-1); Eosinophil# 0.39 X10^3/uL; Eosinophils% 5.5 % (0-5); Hematocrit 32.7 % (37-47); Hemoglobin 10.7 g/dL (12.0-15.0); Lymphocyte # 2.15 X10^3/ul (0.83-4.51); Lymphocyte % 30.6 % (19-41); Mean Corp Hgb Conc 32.7 g/dL (32-36); Mean Corpuscular Hgb 27.4 pg (27.0-32.0); Mean Corpuscular Volume 83.8 fL (81-99); Mean Platelet Vol. 9.7 fl (6.2-12.0); Monocyte# 0.36 X10^3/uL; Monocyte% 5.1 % (0-10); NRBC Flagged by Analyzer 0 % (0-5); Neutrophil # 4.07 X10^3/uL (2.7-7.7); POSITIVE MORPHOLOGY YES; Platelet Count 274 K/mm3 (150-450); RBC Distribution Width CV 12.7 % (11.6-14.6); RBC Distribution Width SD 38.3 fl (35.1-43.9)
[2021-10-07 10:44] LABS: Differential Indicated SCAN CRITERIA MET
[2021-10-07 10:59] LABS: Anion Gap 7 (5-15); BUN 11 mg/dL (7-18); BUN/Creat Ratio 17.2 RATIO (10-20); Calcium,Total 8.4 mg/dL (8.5-10.1); Chloride 108 mmol/L (98-107); Creatinine, Serum 0.64 mg/dL (0.55-1.02); EST Glomerular Filtration Rate 115 mL/min (>60); Est Glom Filt Rate - Afr Amer 139 mL/min (>60); Estimated Creatinine Clearance 91.48 ml/min; Glucose 137 mg/dL (74-106); Potassium 3.8 mmol/L (3.5-5.1); Sodium Level 139 mmol/L (136-145)
[2021-10-07 11:06] LABS: Atypical Lymphocyte 1+ %
--- NOTE | 2021-10-07 11:56 | PN.HOSP_ITS ---
Documented by User: Jennifer Mccracken NP-C 10/07/21 12:04 Subjective Subjective Patient seen and examined. Patient lying in bed no distress noted. Patient is irritable and does not want to answer questions, does state that she is continuing to have pain. Objective Data Objective Data Vital Signs: Vital Signs Temp Pulse Resp BP Pulse Ox 97.9 F 78 16 111/75 98 10/07/21 08:34 10/07/21 08:34 10/07/21 08:34 10/07/21 08:34 10/07/21 08:34 Oxygen Delivery Method Room Air Weight: 165 lb 8.423 oz Body Mass Index (BMI) 32.5 Intake & Output: Intake and Output for Last 24 Hours 10/05/21 10/06/21 10/07/21 23:59 23:59 23:59 Intake Total 3700.0 / 3700.0 3112.5 / 3112.5 2150 / 2150 Balance 3700.0 / 3700.0 3112.5 / 3112.5 2150 / 2150 Lab / Micro Data Result Diagrams: 10/07/21 10:27 10/07/21 10:27 Labs: Laboratory Results - last 24 hr 10/07/21 10:27: WBC 7.0, RBC 3.90 L, Hgb 10.7 L, Hct 32.7 L, MCV 83.8, MCH 27.4, MCHC 32.7, RDW Std Deviation 38.3, RDW Coeff of [place] 12.7, Plt Count 274, MPV 9.7, Immature Gran % (Auto) 0.400, Neut % (Auto) 58.0, Lymph % (Auto) 30.6, [place] % (Auto) 5.1, Eos % (Auto) 5.5 H, Baso % (Auto) 0.4, Absolute Neuts (auto) 4.1, Absolute Lymphs (auto) 2.15, Nucleated RBC % 0, Atypical Lymphocytes 1+ 10/07/21 10:27: Sodium 139, Potassium 3.8, Chloride 108 H, Carbon Dioxide 24.0, Anion Gap 7, BUN 11, Creatinine 0.64, Estim Creat Clear Calc 91.48, Est GFR (MDRD) Af Amer 139, Est GFR (MDRD) Non-Af 115, BUN/Creatinine Ratio 17.2, Glucose 137 H, Calcium 8.4 L Physical Exam Const alert, oriented x3 and no apparent distress HEENT head/scalp atraumatic Eyes conjunctivae normal and no scleral icterus Neck supple Resp normal respiratory effort, normal air movement and clear to auscultation bilaterally Effort and Inspection: able to speak in complete sentences and symmetric chest movement Cardio regular rate, regular rhythm, S1 normal heart sound, S2 normal heart sound and peripheral pulses 2+ throughout GI normal to inspection, nondistended, normoactive bowel sounds and soft to palpation GI Narrative: Right flank pain with palpation Extremity normal to inspection, full ROM and no clubbing, cyanosis or edema Skin no wounds, skin turgor normal and no jaundice Skin Narrative: Patient has multiple red nonbullous areas to her external nares bilaterally and right perioral area. Neuro oriented x3, moves all extremities, no focal motor deficits and no sensory deficits noted Sensorium / Orientation: awake and alert Psych Attitude: agitated Mood & Affect: anxious and irritable Assessment & Plan Assessment/Plan (1) Pyelonephritis: PLAN: 1. Pyelonephritis -Continue IV Levaquin -Continue IV fluids -Continue strict intake and output -As needed pain medication regimen ordered, patient continues to complain of pain 7-9 out of 10 2. Chronic normocytic anemia -Hemoglobin improved, 10.7 -CBC daily -Baseline hemoglobin consistently between 9 and 10 upon lab review -Iron studies completed, iron is low. TIBC, ferritin, folate normal. -Ferrous sulfate 325mg BID initiated 3. Polysubstance abuse with hepatitis C -Recommend follow-up outpatient for treatment of patient's hepatitis C -Hep B pending, HIV negative 4. Impetigo -Mupirocin ordered -Will monitor for improvement, currently limited to patient's external nares and right perioral area DVT prophylaxis-SCD's This patient was seen by KATERINA DavidsonC under the supervision of Dr. Leahy. Documented by User: Dr. Saray Leahy MD 10/07/21 17:17 Objective Data Lab / Micro Data Result Diagrams: 10/07/21 10:27 10/07/21 10:27 Charges/Coding Visit Charges Inpatient E&M: 41244 Disch Hosp
--- NOTE | 2021-10-07 13:24 | PCM.DC ---
Discharge Instructions Diet Discharge Diet: No restrictions Activity Discharge Activity: Return to Normal Activity Dressing / Incision Call your doctor if you observe: Fever of 101 or Higher and Uncontrolled pain Follow Up Care Test Results: Test results from this visit will be discussed in further detail at your follow-up appointment, if applicable. Discharge Plan Admission Admit Date/Time: 10/05/21 00:30 Primary Reason for Your Visit: Pyelonephritis Attending Provider: Saray Leahy Primary Care Provider: Care Physician,No Primary Discharge Orders/Prescriptions Prescriptions: New ferrous sulfate [FeroSul] 325 mg (65 mg iron) Tablet 325 mg PO 1200,1700 Qty: 0 RF: 0 mupirocin 2 % ointment 1 applic topical TID Qty: 15 RF: 0 ketorolac 10 mg tablet 10 mg PO Q6H PRN (Reason: pain) 5 Days Qty: 16 RF: 0 levofloxacin 750 mg tablet 750 mg PO DAILY Qty: 3 RF: 0 Referrals / Follow Up: Care Physician,No Primary [Primary Care Provider] - Disposition Disposition (needs filled in before D/C Order can be placed): Home, Self Care
[2021-10-07 13:30] VITALS: BP 121/75; PULSE 72; RESP 18; TEMP 36.7; O2SAT 98
--- NOTE | 2021-10-07 13:30 | DS.PCM_ITS ---
Documented by User: Jennifer Mccracken NP-C 10/07/21 13:35 Providers Date of Admission: 10/05/21 Primary Care Physician: No Primary Care Phys Reason For Visit: ACUTE PYELONEPHRITIS Diagnosis Discharge Diagnosis (1) Pyelonephritis: Status: Acute Code(s): N12 - Tubulo-interstitial nephritis, not specified as acute or chronic Medications at Discharge Home Medications ferrous sulfate [FeroSul] 325 mg PO 1200,1700 #0 tab 10/07/21 ketorolac 10 mg PO Q6H PRN 5 Days #16 tab 10/07/21 levofloxacin 750 mg PO DAILY #3 tab 10/07/21 mupirocin 1 applic TOPICAL TID #15 g 10/07/21 Hospital Course Operations None Procedures None Summary of Care Provided Minutes Spent on Discharge: 20 Hospital Course: Patient is a 31-year-old female who presented with right flank pain. Patient was noted to have pyelonephritis. Patient had been admitted to the hospital the previous day but had left AMA. Patient returned due to uncontrolled pain. Patient was noted to have a positive drug screen for opioids and amphetamines. Patient will be discharged home with p.o. Toradol as well as p.o. Levaquin. Patient was also noted to have iron deficiency anemia which was diagnosed during admission and will be sent home with iron supplementation. Patient began to have skin outbreak around nose and right perioral area which is consistent with impetigo. Patient will be sent home with mupirocin. Physical Exam Const alert, oriented x3 and no apparent distress HEENT head/scalp atraumatic Eyes conjunctivae normal and no scleral icterus Neck supple Resp normal respiratory effort, normal air movement and clear to auscultation bilaterally Effort and Inspection: able to speak in complete sentences and symmetric chest movement Cardio regular rate, regular rhythm, S1 normal heart sound, S2 normal heart sound and peripheral pulses 2+ throughout GI normal to inspection, nondistended, normoactive bowel sounds and soft to palpation GI Narrative: Right flank pain with palpation Extremity normal to inspection, full ROM and no clubbing, cyanosis or edema Skin no wounds, skin turgor normal and no jaundice Skin Narrative: Patient has multiple red nonbullous areas to her external nares bilaterally and right perioral area. Neuro oriented x3, moves all extremities, no focal motor deficits and no sensory deficits noted Sensorium / Orientation: awake and alert Psych Attitude: agitated Mood & Affect: anxious and irritable Weight / BMI Weight Weight: 165 lb 8.423 oz Body Mass Index (BMI) 32.5 ABG / Lab / Microbiology Data Result Diagrams: 10/07/21 10:27 10/07/21 10:27 Laboratory: Laboratory Results - last 24 hr 10/07/21 10:27: WBC 7.0, RBC 3.90 L, Hgb 10.7 L, Hct 32.7 L, MCV 83.8, MCH 27.4, MCHC 32.7, RDW Std Deviation 38.3, RDW Coeff of [place] 12.7, Plt Count 274, MPV 9.7, Immature Gran % (Auto) 0.400, Neut % (Auto) 58.0, Lymph % (Auto) 30.6, [place] % (Auto) 5.1, Eos % (Auto) 5.5 H, Baso % (Auto) 0.4, Absolute Neuts (auto) 4.1, Absolute Lymphs (auto) 2.15, Nucleated RBC % 0, Atypical Lymphocytes 1+ 10/07/21 10:27: Sodium 139, Potassium 3.8, Chloride 108 H, Carbon Dioxide 24.0, Anion Gap 7, BUN 11, Creatinine 0.64, Estim Creat Clear Calc 91.48, Est GFR (MDRD) Af Amer 139, Est GFR (MDRD) Non-Af 115, BUN/Creatinine Ratio 17.2, Glucose 137 H, Calcium 8.4 L D/C Instructions Discharge Diet: No restrictions Call your doctor if you observe: Fever of 101 or Higher and Uncontrolled pain Meaningful Use Info Meaningful Use Diagnoses (Choose all that apply): None applicable Discharge Plan Admission Admit Date/Time: 10/05/21 00:30 Primary Reason for Your Visit: Pyelonephritis Attending Provider: Saray Leahy Primary Care Provider: Care Physician,No Primary Discharge Orders/Prescriptions Prescriptions: New ferrous sulfate [FeroSul] 325 mg (65 mg iron) Tablet 325 mg PO 1200,1700 Qty: 0 RF: 0 mupirocin 2 % ointment 1 applic topical TID Qty: 15 RF: 0 ketorolac 10 mg tablet 10 mg PO Q6H PRN (Reason: pain) 5 Days Qty: 16 RF: 0 levofloxacin 750 mg tablet 750 mg PO DAILY Qty: 3 RF: 0 Referrals / Follow Up: Care Physician,No Primary [Primary Care Provider] - Disposition Disposition (needs filled in before D/C Order can be placed): Home, Self Care Documented by User: Dr. Saray Leahy MD 10/07/21 17:17 Providers Date of Admission: 10/05/21 Reason For Visit: ACUTE PYELONEPHRITIS Medications at Discharge Home Medications ferrous sulfate [FeroSul] 325 mg PO 1200,1700 #0 tab 10/07/21 ketorolac 10 mg PO Q6H PRN 5 Days #16 tab 10/07/21 levofloxacin 750 mg PO DAILY #3 tab 10/07/21 mupirocin 1 applic TOPICAL TID #15 g 10/07/21 ABG / Lab / Microbiology Data Result Diagrams: 10/07/21 10:27 10/07/21 10:27 Discharge Plan Admission Admit Date/Time: 10/05/21 00:30 Primary Reason for Your Visit: Pyelonephritis Attending Provider: Saray Leahy Primary Care Provider: Sonia Lovell Primary Discharge Orders/Prescriptions Prescriptions: New ferrous sulfate [FeroSul] 325 mg (65 mg iron) Tablet 325 mg PO 1200,1700 Qty: 0 RF: 0 mupirocin 2 % ointment 1 applic topical TID Qty: 15 RF: 0 ketorolac 10 mg tablet 10 mg PO Q6H PRN (Reason: pain) 5 Days Qty: 16 RF: 0 levofloxacin 750 mg tablet 750 mg PO DAILY Qty: 3 RF: 0 Referrals / Follow Up: Care Physician,No Primary [Primary Care Provider] - Disposition Disposition (needs filled in before D/C Order can be placed): Home, Self Care Charges/Coding Addendum Addendum: Patient seen by Jennifer MCINTYRE under my supervision Patient is a 30 y/o female with a PMh as outlined who was admitted to the hospital on 10/05/2021 with a chief complaint of right-sided abdominal/flank pain. Patient was admitted for management of acute pyelonephritis and was placed on IV Levaquin, fluids. Blood and urine cultures pending. Patient also has a history of polysubstance abuse and history of hepatitis C. HIV and hepatitis B panel ordered. Urine tox screen obtained in the ED care positive for opiates and amphetamines. Urine culture was posiive for E. Coli, and blood cultures were negative. Pain gradually improved, and she felt better. She remained stable and was discharged on PO levaquin. She is to follow up with her PCP in 1-2 weeks. Patient seen and examined prior to discharge. She had no active complaints. She had had an impetiginous rash over her nose which had improved with mupirocin cream. Review of systems otherwise negative. Labs and vitals reviewed. Home meds reviewed and reconciled. O/E: Const alert, oriented x3 and no apparent distress HEENT head/scalp atraumatic Eyes conjunctivae normal and no scleral icterus Neck supple Resp normal respiratory effort, normal air movement and clear to auscultation bilaterally Effort and Inspection: able to speak in complete sentences and symmetric chest movement Cardio regular rate, regular rhythm, S1 normal heart sound, S2 normal heart sound and peripheral pulses 2+ throughout GI normal to inspection, nondistended, normoactive bowel sounds and soft to palpation GI Narrative: minimal flank pain with palpation Extremity normal to inspection, full ROM and no clubbing, cyanosis or edema Skin no wounds, skin turgor normal and no jaundice Skin Narrative: rash over her nose has improved oriented x3, moves all extremities, no focal motor deficits and no sensory deficits noted Sensorium / Orientation: awake and alert Psych Attitude: agitated Mood & Affect:irritable Plan is to discharge patient home today on PO levaquin. She is to follow up with PCP in 1-2 weeks. Visit Charges Inpatient E&M: 28514 Disch Hosp
== END 2021-10-07 14:23 | disposition home or self-care (01) | DRG 463 ==
LOC: ED 23:48 → MS2 10-05 01:48
PROVIDERS: Nurse Practitioner Family; Physician Assistant; Admitting Provider Family Medicine; Emergency Provider Student in an Organized Health Care Education/Training Program; Visit Provider Student in an Organized Health Care Education/Training Program
DX: N10 Acute pyelonephritis (principal); L01.00 Impetigo, unspecified; D50.9 Iron deficiency anemia, unspecified; I10 Essential (primary) hypertension; F32.A Depression, unspecified; F19.10 Other psychoactive substance abuse, uncomplicated; B18.2 Chronic viral hepatitis C; Z87.442 Personal history of urinary calculi; F17.210 Nicotine dependence, cigarettes, uncomplicated
CPT/HCPCS: 36415; 74177; 74178; 76705; 80048; 80053; 80076; 80307; 81001; 82607; 82728; 82746; 83540; 83550; 83690; 84703; 85025; 86703; 86704; 86705; 86706; 86707; 86803; 87086; 87088; 87186; 87340; 87350; 96361; 96365; 96366; 96367; 96375; 96376; 97802; 99218; 99251; 99285; 99406; J7030; Q9967; A4216; G0378; G0463; J0744; J2405

== ENCOUNTER 2023-05-01 21:24 | Emergency (ER) | payer MEDICAID, SELFPAY ==
[2023-05-01 21:25] VITALS: BP 129/71; PULSE 90; RESP 16; TEMP 36.3; O2SAT 98; BMI 42.1
[2023-05-01] MEDS: predniSONE 20 MG Tablet 60 MG PO (21:44)
--- NOTE | 2023-05-01 21:47 | EX.ED.DYSGE1 ---
HPI History of Present Illness Chief Complaint: Rash Narrative Narrative: Patient presents with a rash between her breasts which is quite itchy for a few days she was on clindamycin for a dental infection. She has no shortness of breath no chest pain otherwise. She has no mucosal involvement. [facility] Medical History Abscess of right kidney Cellulitis of right foot Depression Hepatitis C Hypertension IV drug abuse Pyelonephritis Smoker Substance abuse Home Medications ferrous sulfate 325 mg (65 mg iron) tablet (FeroSul) 325 mg PO 1200,1700 #0 tabs 10/07/21 [Rx Last Taken Unknown] ketorolac 10 mg tablet 10 mg PO Q6H PRN pain 5 days #16 tabs 10/07/21 [Rx Last Taken Unknown] levofloxacin 750 mg tablet 750 mg PO DAILY #3 tabs 10/07/21 [Rx Last Taken Unknown] mupirocin 2 % topical ointment 1 applic topical TID #15 grams 10/07/21 [Rx Last Taken Unknown] hydroxyzine pamoate 50 mg capsule (Vistaril) 50 mg PO TID PRN itching #14 caps 05/01/23 [Rx Last Taken Unknown] prednisone 20 mg tablet 60 mg PO DAILY #12 TABLETS 05/01/23 [Rx Last Taken Unknown] Allergy/AdvReac Type Severity Reaction Status Date / Time Penicillins Allergy blisters Verified 05/01/23 21:28 on tongue Family History Mother Cirrhosis of liver Kidney disease Father Heart disease Other Cancer Surgical History H/O section H/O foot surgery History of appendectomy Social History household members: friend(s) Smoking Status: Current every day smoker tobacco type: cigarettes alcohol intake: never substance use type: former substance user Date of last use: Clean x 3 months, IV heroine. ROS ROS ED ROS Narrative Past medical history: Reviewed Medications: Reviewed Social history: Noncontributory Review of systems: All systems negative except as indicated General: No fever ENT: Dental pain Neck: No neck pain Cardiovascular: No chest pain Respiratory: No shortness of breath or cough Gastrointestinal: No abdominal pain, nausea vomiting or diarrhea Musculoskeletal: Denies myalgias no difficulty with ambulation Skin: Rash as in HPI EXAM Physical Exam Narrative Exam Narrative: Physical exam General: Well nourished, Well developed, No Acute Distress Head: Normocephalic, Atraumatic Eyes: Conjunctiva not pale ENT: Moist mucous membranes. Left-sided dental decay throughout her mouth. No oral involvement of the rash. Neck: Supple, Nontender, No lymphadenopathy Cardiovascular: Regular rate, Regular rhythm Respiratory: No distress, CTA bilaterally Abdomen: Soft, Nontender, Nondistended Back: Nontender, Normal Inspection. Negative for: CVA tenderness Extremities: Nontender, No edema Skin: Patient has raised erythematous rash on her chest wall. It is blanching and appears allergic in nature. I do not see the rash anywhere else. Neurological: Alert, Normal Strength, Normal Sensation Const Vital Signs: 05/01/23 21:25 Temperature 97.3 F L Temperature Source Temporal Pulse Rate 90 Respiratory Rate 16 Blood Pressure 129/71 H Blood Pressure Mean 90 Pulse Ox 98 MDM MDM MDM Narrative Medical decision making narrative: Patient likely is allergic to clindamycin. She now finished it and seems like her dental pain is improving. The rash appears allergic. There is no signs of cellulitis at this time. There is no signs of superinfection. She does not meet criteria for blood work. She appears well. I will treat her with steroids and Vistaril. Discharge Plan Triage Chief Complaint: Rash ED Provider: Balaji Nicholson Dx/Rx/DC Orders Clinical Impression: Allergic dermatitis, Dental decay Instructions: ED General Allergic Reactions Prescriptions: New prednisone 20 mg tablet 60 mg PO DAILY Qty: 12 0RF hydroxyzine pamoate [Vistaril] 50 mg capsule 50 mg PO TID PRN (Reason: itching) Qty: 14 0RF No Action ferrous sulfate [FeroSul] 325 mg (65 mg iron) Tablet 325 mg PO 1200,1700 Qty: 0 0RF mupirocin 2 % ointment 1 applic topical TID Qty: 15 0RF ketorolac 10 mg tablet 10 mg PO Q6H PRN (Reason: pain) 5 Days Qty: 16 0RF levofloxacin 750 mg tablet 750 mg PO DAILY Qty: 3 0RF Primary Care Provider: Care Physician,No Primary Referrals: Care Physician,No Primary [Primary Care Provider] - 3-5 Days Activity Restrictions/Additional Instructions: You may be allergic to clindamycin. Do not take this medication from now on. Disposition Disposition: Home, Self Care
== END 2023-05-01 21:58 | disposition home or self-care (01) ==
PROVIDERS: Emergency Provider Emergency Medicine; Visit Provider Emergency Medicine
DX: L23.89 Allergic contact dermatitis due to other agents (principal); K02.9 Dental caries, unspecified; I10 Essential (primary) hypertension; Z90.49 Acquired absence of other specified parts of digestive tract; F17.210 Nicotine dependence, cigarettes, uncomplicated
CPT/HCPCS: 99281; 99282

== ENCOUNTER → 2023-05-10 | Outpatient (CLI) | payer MEDICAID, SELFPAY ==
[2023-05-10 12:41] LABS: Absolute Lymphocyte Count 2.88 X10^3/uL (0.83-4.51); Absolute Neutrophil Count 5.5 X10^3/uL (2.0-7.7); Basophil# 0.03 X10^3/uL; Basophil% 0.3 % (0-1); Eosinophil# 0.34 X10^3/uL; Eosinophils% 3.5 % (0-5); Hematocrit 37.2 % (37-47); Hemoglobin 12.2 g/dL (12.0-15.0); Lymphocyte # 2.88 X10^3/ul (0.83-4.51); Lymphocyte % 29.6 % (19-41); Mean Corp Hgb Conc 32.8 g/dL (32-36); Mean Corpuscular Hgb 27.8 pg (27.0-32.0); Mean Corpuscular Volume 84.7 fL (81-99); Mean Platelet Vol. 9.9 fl (6.2-12.0); Monocyte% 9.3 % (0-10); NRBC Flagged by Analyzer 0 % (0-5); Neutrophil # 5.53 X10^3/uL (2.7-7.7); Neutrophil % 56.9 % (47-70); Platelet Count 289 K/mm3 (150-450); RBC Distribution Width CV 13.1 % (11.6-14.6); RBC Distribution Width SD 40.5 fl (35.1-43.9); Red Blood Count 4.39 M/mm3 (4.2-5.4); White Blood Count 9.7 K/mm3 (4.4-11.0)
[2023-05-10 13:13] LABS: ALB/GLOB Ratio 0.9 RATIO (0.9-2.4); AST(SGOT) 46 U/L (15-37); Alanine Aminotransfer ALT/SGPT 101 U/L (13-56); Albumin, Serum 3.6 g/dL (3.2-5.0); Alkaline Phosphatase 53 U/L (45-117); Anion Gap 2 (5-15); BUN 15 mg/dL (7-18); BUN/Creat Ratio 27.4 RATIO (10-20); Calcium,Total 8.4 mg/dL (8.5-10.1); Chloride 110 mmol/L (98-107); Creatinine, Serum 0.55 mg/dL (0.55-1.02); EST Glomerular Filtration Rate 137 mL/min (>60); Est Glom Filt Rate - Afr Amer 165 mL/min (>60); Glucose 88 mg/dL (74-106); Potassium 4.2 mmol/L (3.5-5.1); Protein, Total 7.6 g/dL (6.4-8.2); Sodium Level 138 mmol/L (136-145)
[2023-05-10 14:35] LABS: HIV - WCH Non-Reactive (Nonreactive); Hepatitis B Surface Antibody Reactive; Hepatitis B Surface Antigen Non-Reactive (Nonreactive); Hepatitis C Antibody REACTIVE (Nonreactive)
[2023-05-14 19:07] LABS: HCV Quant. RNA PCR 40300 IU/mL (.); HCV log 10 4.605 (.); Hepatitis A AB, Total Positive (Negative)
== END | disposition home or self-care (01) ==
LOC: LAB 11:42
PROVIDERS: Referring Provider Registered Nurse; Visit Provider Registered Nurse
DX: F10.20 Alcohol dependence, uncomplicated (principal); F11.20 Opioid dependence, uncomplicated
CPT/HCPCS: 36415; 80053; 85025; 86703; 86706; 86708; 86803; 87340; 87522

== ENCOUNTER → 2023-06-21 | Outpatient (CLI) | payer MEDICAID, SELFPAY ==
[2023-06-21 14:43] LABS: Absolute Lymphocyte Count 2.84 X10^3/uL (0.83-4.51); Absolute Neutrophil Count 7.1 X10^3/uL (2.0-7.7); Basophil# 0.04 X10^3/uL; Basophil% 0.4 % (0-1); Eosinophil# 0.41 X10^3/uL; Eosinophils% 3.7 % (0-5); Hematocrit 35.8 % (37-47); Lymphocyte # 2.84 X10^3/ul (0.83-4.51); Lymphocyte % 25.9 % (19-41); Mean Corp Hgb Conc 33.5 g/dL (32-36); Mean Corpuscular Hgb 28.6 pg (27.0-32.0); Mean Corpuscular Volume 85.2 fL (81-99); Monocyte# 0.51 X10^3/uL; Monocyte% 4.6 % (0-10); NRBC Flagged by Analyzer 0 % (0-5); Neutrophil # 7.12 X10^3/uL (2.7-7.7); Neutrophil % 64.9 % (47-70); Platelet Count 256 K/mm3 (150-450); RBC Distribution Width CV 13.5 % (11.6-14.6); RBC Distribution Width SD 41.8 fl (35.1-43.9)
[2023-06-21 15:12] LABS: ALB/GLOB Ratio 0.8 RATIO (0.9-2.4); AST(SGOT) 30 U/L (15-37); Alanine Aminotransfer ALT/SGPT 66 U/L (13-56); Albumin, Serum 3.3 g/dL (3.2-5.0); Alkaline Phosphatase 61 U/L (45-117); Anion Gap 8 (5-15); BUN 15 mg/dL (7-18); Calcium,Total 8.4 mg/dL (8.5-10.1); Chloride 107 mmol/L (98-107); Creatinine, Serum 0.71 mg/dL (0.55-1.02); EST Glomerular Filtration Rate 100 mL/min (>60); Est Glom Filt Rate - Afr Amer 121 mL/min (>60); Glucose 189 mg/dL (74-106); Potassium 3.5 mmol/L (3.5-5.1); Protein, Total 7.3 g/dL (6.4-8.2); Sodium Level 138 mmol/L (136-145)
== END | disposition home or self-care (01) ==
PROVIDERS: Referring Provider Registered Nurse; Visit Provider Registered Nurse
DX: F11.20 Opioid dependence, uncomplicated (principal); F10.20 Alcohol dependence, uncomplicated; F15.20 Other stimulant dependence, uncomplicated
CPT/HCPCS: 36415; 80053; 85025

== ENCOUNTER 2023-07-04 15:08 | Emergency (ER) | payer MEDICAID, SELFPAY ==
[2023-07-04 15:10] VITALS: BP 112/83; PULSE 71; RESP 20; TEMP 36.2; O2SAT 97; BMI 41.1
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
[2023-07-04 17:09] VITALS: RESP 16
== END 2023-07-04 18:49 | disposition home or self-care (01) ==
PROVIDERS: Emergency Provider Emergency Medicine; Visit Provider Emergency Medicine
DX: B34.9 Viral infection, unspecified (principal); I10 Essential (primary) hypertension; Z90.49 Acquired absence of other specified parts of digestive tract; F17.210 Nicotine dependence, cigarettes, uncomplicated
CPT/HCPCS: 87428; 99282

== ENCOUNTER 2025-03-31 23:29 | Emergency (ER) | payer MEDICAID, SELFPAY ==
[2025-03-31 23:29] VITALS: BP 150/103; PULSE 106; RESP 26; TEMP 37; O2SAT 99; BMI 42.9
[2025-03-31 23:30] VITALS: BP 125/105; PULSE 105; RESP 18; TEMP 37; O2SAT 96
--- NOTE | 2025-04-01 00:01 | EDS_ITS ---
HPI History of Present Illness Chief Complaint: Wound Informant: patient Narrative Narrative: 34-year-old female presenting for the evaluation of wound on the left forearm. Patient states that several days ago she awoke in her sleep and saw a bug on her left forearm and hit it away. She states that they have had a lot of ticks in their backyard. She did not definitively see a tick but believes that is what it was. She states that since that time the area has gotten more swollen painful and red. She denies any fevers. States that she has a history of blood clots in the right arm but is not currently on anticoagulation. Her doctors are in [place]. She is currently staying with her father here locally. PFSH PFSH Medical History UTI (urinary tract infection) Pneumonia Substance abuse Smoker Hypertension Abscess of right kidney Pyelonephritis Depression Hepatitis C Cellulitis of right foot IV drug abuse Home Medications ?Medication ?Instructions ?Recorded ?Last Taken ?Type NK 03/31/25 Unknown History cephalexin 500 mg capsule 500 mg PO Q6 #40 CAPSULES Unknown Rx doxycycline monohydrate 100 mg 100 mg PO BID #20 CAPSU LES 03/31/25 Unknown Rx capsule tramadol 50 mg tablet 50 mg PO Q6H PRN PRN Pain 3 days 03/31/25 Unknown Rx #12 tabs Allergy/AdvReac Type Severity Reaction Status Date / Time Penicillins Allergy blisters Verified 03/31/25 23:29 on tongue Family History Mother Cirrhosis of liver Kidney disease Father Heart disease Other Cancer Surgical History History of appendectomy H/O foot surgery H/O section Social History household members: friend(s) Smoking Status: Current every day smoker tobacco type: cigarettes alcohol intake: never substance use type: former substance user Date of last use: Clean x 3 months, IV heroine. ROS ROS ED Constitutional Constitutional ED: Denies chills, fever(s) or weight loss Eyes Eyes: Denies change in vision or diplopia ENT ENT ED: Denies ear pain, rhinorrhea or sore throat Cardiovascular Cardiovascular: Denies chest pain, orthopnea, palpitations or racing heartbeat Respiratory/Chest Respiratory/Chest: Denies cough, dyspnea or orthopnea Gastrointestinal Gastrointestinal: Denies abdominal pain, diarrhea, nausea or vomiting Genitourinary Genitourinary ED: Denies dysuria, hematuria or urinary frequency Musculoskeletal Musculoskeletal: Reports other Details: See history of present illness ; Denies arthralgias or myalgias Integumentary Reports rash and other Details: Wound ; Denies abscess Neurologic Neurologic: Denies headache(s) or weakness Psychiatric Psychiatric: Denies anxiety, depression, suicidal ideation or suicidal thoughts Endocrine Endocrinology: Denies polydipsia, polyphagia or polyuria Allergic/Immunologic Allergic/Immunologic ED: Denies mouth swelling, tongue swelling or urticaria EXAM Physical Exam Const Vital Signs: 03/31/25 23:29 03/31/25 23:30 Temperature 98.6 F 98.6 F Temperature Source Oral Oral Pulse Rate 106 H 105 H Respiratory Rate 26 H 18 Blood Pressure 150/103 H 125/105 H Blood Pressure Mean 118 111 Pulse Ox 99 96 Oxygen Delivery Method Room Air Room Air Positive well nourished and well developed General Appearance ED: well developed HEENT Reports normocephalic, head/scalp atraumatic and moist mucous membranes Eyes PERRL and EOMs intact bilaterally Neck no lymphadenopathy, supple and no JVD Resp normal respiratory effort and clear to auscultation bilaterally Cardio regular rate, regular rhythm and no murmurs GI normal to inspection, nondistended, normoactive bowel sounds and non-tender Palpation: soft Back/Spine no CVA tenderness and normal ROM Extremity Extremity Narrative: Posterior proximal left forearm demonstrates a 1 cm wound with circular edges. I do not appreciate any obvious insects. This is surrounded by about 1.5 cm of deep red erythema with some induration. No fluctuance. No grants administrator areas appreciate any swelling at the wrist or the hand. Neurovascularly and distally. The area is tender to palpate General Extremety ED: Negative for edema General Extremity: Negative for edema Neuro oriented x3 and CN's II-XII intact bilaterally Sensorium / Orientation: alert Motor Exam: strength 5/5 throughout Psych mental status grossly normal Mood & Affect: Negative for depressed or tearful Skin no rashes or lesions noted and no wounds MDM MDM MDM Narrative Medical decision making narrative: Differential diagnosis includes abscess cellulitis insect bite allergic reaction lymphangitis DVT Given that the area is localized and there is no distal symptoms I doubt DVT. This appears to be a cellulitis. I do not appreciate any area of fluctuance that would be amendable to drainage. There is no drainage to culture from the wound itself. Given the concern for tachycardia can place her on doxycycline as well as Keflex. I can write for some tramadol but being judicious with her previous history of opiate overdose. I will asked that the patient have primary care follow-up 3 to 5 days to reassess. Would continue to recommend warm compresses. Keep the wound covered monitor soap and water is fine. History & Record Review Discussion w/independent historian: Patient Additional record(s) reviewed:: Prior ED visit and Prior labs Discharge Plan Triage Chief Complaint: Wound ED Provider: Francis López Dx/Rx/DC Orders Clinical Impression: Cellulitis of forearm, left, Left forearm pain Instructions: ED Cellulitis Prescriptions: New doxycycline monohydrate 100 mg capsule 100 mg PO BID Qty: 20 0RF cephalexin 500 mg capsule 500 mg PO Q6 Qty: 40 0RF tramadol 50 mg tablet 50 mg PO Q6H PRN PRN (Reason: Pain) 3 Days Qty: 12 0RF No Action NK Primary Care Provider: Care Physician,No Primary Referrals: Care Physician,No Primary [Primary Care Provider] - Activity Restrictions/Additional Instructions: Please schedule follow-up with your primary care doctor to be seen in the next 3 to 5 days for reassessment. Continue warm compresses. Do try to move the arm. Print Language: [place] Island[place] Disposition Disposition: Home, Self Care
[2025-04-01] MEDS: Cephalexin 250 MG Capsule 500 MG PO (00:05)
[2025-04-01] MEDS: traMADol 50 MG Tablet PO (00:05)
[2025-04-01] MEDS: Doxycycline 100 MG CAPSULE PO (00:05)
[2025-04-01 00:07] VITALS: BP 137/96; PULSE 99; RESP 18; TEMP 37; O2SAT 97
== END 2025-04-01 00:12 | disposition home or self-care (01) ==
PROVIDERS: Emergency Provider Emergency Medicine; Visit Provider Emergency Medicine
DX: L03.114 Cellulitis of left upper limb (principal); I10 Essential (primary) hypertension; M79.632 Pain in left forearm; F17.210 Nicotine dependence, cigarettes, uncomplicated; Z90.49 Acquired absence of other specified parts of digestive tract
CPT/HCPCS: 99283; A4216